=== PATIENT | female | born 1995 | race Caucasian/White ===

== ENCOUNTER 2022-12-11 08:39 | Outpatient (OUT) | payer OTHER, SELFPAY ==
--- NOTE | 2022-12-11 08:43 | US_ITS ---
[address] [address] Patient Name: OLIVIA RODRIGUEZ MRN: [id number] date: 1995 Sex: F Assigned Patient Location: US Current Patient Location: US Accession/Order Number: [id number] Exam Date: 12/11/2022 08:43 Report Date: 12/11/2022 18:10 At the request of: BABAR ANGUIANO Procedure: US OB transvaginal EXAMINATION: US OB transvaginal HISTORY: MISSED PERIOD COMPARISON: No relevant comparison available. FINDINGS: Reyes intrauterine gestation Gestational sac: 3.64 cm, 8 weeks 6 days CRL: 1.92 cm, 8 weeks 3 days Yolk sac: 4.2 mm Heart rate: 177 bpm Cervix: Closed, 4.1 cm The uterus is normal, anteverted, anteflexed The ovaries are normal. Right corpus luteal cyst Clinical age: 8 weeks 5 days Clinical SANDRA: 07/18/2023 Ultrasound age: 8 weeks 3 days Ultrasound SANDRA: 07/20/2023 US/US OB transvaginal IMPRESSION: Viable reyes intrauterine gestation measuring 8 weeks 3 days Electronically authenticated by: PJ SAM Date: 12/11/2022 18:10
== END 2022-12-11 08:40 | disposition home or self-care (01) ==
PROVIDERS: Visit Provider Obstetrics & Gynecology
DX: Z34.91 Encounter for supervision of normal pregnancy, unspecified, first trimester (principal); Z3A.08 8 weeks gestation of pregnancy; N92.6 Irregular menstruation, unspecified
CPT/HCPCS: 76817

== ENCOUNTER 2022-12-22 12:53 | Outpatient (OUT) | payer OTHER, SELFPAY ==
[2022-12-22 13:32] LABS: Basophils Percent Auto 0.3 % (0.2-2.0); Eosinophils Absolute Auto 0.1 10^3/uL (0.0-0.7); Eosinophils Percent Auto 1.3 % (0.9-7.0); Hematocrit 36.9 % (36.0-48.0); Hemoglobin 12.5 g/dL (12.0-16.0); Immature Granulocytes Abs Auto 0.03 10^3/uL (0.00-0.03); Immature Granulocytes Pct Auto 0.3 % (0.0-0.5); Lymphocytes Absolute Auto 1.3 10^3/uL (1.2-3.8); Lymphocytes Percent Auto 15.2 % (20.5-60.0); Mean Corpuscular HGB Conc 33.9 g/dL (29.9-35.2); Mean Corpuscular Hemoglobin 29.7 pg (26.7-34.0); Mean Corpuscular Volume 87.6 fL (81.0-99.0); Mean Platelet Volume 10.9 fL (9.5-13.5); Monocytes Absolute Auto 0.6 10^3/uL (0.3-0.8); Monocytes Percent Auto 6.4 % (1.7-12.0); Neutrophils Absolute Auto 6.6 10^3/uL (1.4-6.5); Neutrophils Percent Auto 76.5 % (43.0-75.0); Platelet Count 215 10^3/uL (150-450); Red Blood Count 4.21 10^6/uL (4.20-5.40); Red Cell Distribution Width 14.1 % (11.0-15.0); White Blood Count 8.7 10^3/uL (4.0-11.0)
[2022-12-22 13:58] LABS: Estimated Average Glucose 91 mg/dL; Glycohemoglobin A1C 4.8 % (4.5-6.2)
[2022-12-23 05:07] LABS: HCV Ab Non Reactive (Non Reactive); HIV Ab/p24 Ag Screen Non Reactive (Non Reactive); Rubella Antibodies, IgG 3.12 index (Immune >0.99)
[2022-12-23 06:09] LABS: HBsAg Screen Negative (Negative)
[2022-12-23 12:09] LABS: Rapid Plasma Reagin, Quant Non Reactive (NonRea<1:1)
== END 2022-12-22 12:54 | disposition home or self-care (01) ==
LOC: LAB 12:53
PROVIDERS: Visit Provider Obstetrics & Gynecology
DX: Z36.0 Encounter for antenatal screening for chromosomal anomalies (principal); Z34.81 Encounter for supervision of other normal pregnancy, first trimester; N92.6 Irregular menstruation, unspecified
CPT/HCPCS: 36415; 83036; 84443; 85025; 86592; 86706; 86762; 86803; 86850; 86900; 86901; 87086; 87389

== ENCOUNTER 2023-03-02 19:58 | Outpatient (OUT) | payer OTHER, SELFPAY ==
--- NOTE | 2023-03-02 | US_ITS ---
[address] [address] Patient Name: OLIVIA RODRIGUEZ MRN: [id number] date: 1995 Sex: F Assigned Patient Location: Current Patient Location: Accession/Order Number: [id number] Exam Date: 03/02/2023 20:35 Report Date: 03/03/2023 21:44 At the request of: BABAR ANGUIANO Procedure: US OB anatomy EXAMINATION: US OB anatomy, US OB transvaginal HISTORY: SECOND TRIMESTER Z34.92 COMPARISON: No relevant comparison available. TECHNIQUE: Transabdominal sonographic examination was performed for obstetrical and evaluation. FINDINGS: Number: 1 Heart Rate: 137.1 bpm H.B. /min Amniotic Fluid Volume: Subjectively normal Placental Location: POSTERIOR with lower margin 1.2 cm from os. Cervix Length: 5.5 cm, closed. ANATOMY: Normal Structures -cerebellum, choroid plexus, cisterna magna, lateral cerebral ventricles, orbits, midline falx, hard palate, four-chamber heart, stomach, kidneys, bladder, umbilical cord insertion into abdomen, three-vessel cord, cervical spine, thoracic spine, lumbar spine, right upper extremity, left upper extremity, right lower extremity, left lower extremity. SUBOPTIMALLY SEEN: Cardiac outflow tracts, diaphragm, sacral spine ABNORMALITIES: None BIOMETRY: BPD: 4.5 cm 19 weeks 3 days HC: 17.4 cm 19 weeks 6 days AC: 14.2 cm 19 weeks 4 days FL: 3.3 cm 20 weeks 3 days EFW:321.7 grams; 27% FL/AC: 23.5 FL/BPD: 74.7 HC/AC: 1.2 GESTATIONAL AGE: Age by EDC: 20 weeks 2 days SANDRA by EDC: 07/18/2023 Age by current US: 19 weeks 6 days SANDRA by current US: 07/21/2023 US/US OB anatomy IMPRESSION: 1. Single live intrauterine with growth detailed above. 2. Suboptimal visualization of the cardiac outflow tracts, diaphragm, sacral spine due to position. 3. Overall limited examination. Follow-up is recommended. Electronically authenticated by: FLO ALFONSO Date: 03/03/2023 21:44
--- NOTE | 2023-03-02 | US_ITS ---
[address] [address] Patient Name: OLIVIA RODRIGUEZ MRN: [id number] date: 1995 Sex: F Assigned Patient Location: Current Patient Location: Accession/Order Number: [id number] Exam Date: 03/02/2023 20:35 Report Date: 03/03/2023 21:44 At the request of: BABAR ANGUIANO Procedure: US OB transvaginal EXAMINATION: US OB anatomy, US OB transvaginal HISTORY: SECOND TRIMESTER Z34.92 COMPARISON: No relevant comparison available. TECHNIQUE: Transabdominal sonographic examination was performed for obstetrical and evaluation. FINDINGS: Number: 1 Heart Rate: 137.1 bpm H.B. /min Amniotic Fluid Volume: Subjectively normal Placental Location: POSTERIOR with lower margin 1.2 cm from os. Cervix Length: 5.5 cm, closed. ANATOMY: Normal Structures -cerebellum, choroid plexus, cisterna magna, lateral cerebral ventricles, orbits, midline falx, hard palate, four-chamber heart, stomach, kidneys, bladder, umbilical cord insertion into abdomen, three-vessel cord, cervical spine, thoracic spine, lumbar spine, right upper extremity, left upper extremity, right lower extremity, left lower extremity. SUBOPTIMALLY SEEN: Cardiac outflow tracts, diaphragm, sacral spine ABNORMALITIES: None BIOMETRY: BPD: 4.5 cm 19 weeks 3 days HC: 17.4 cm 19 weeks 6 days AC: 14.2 cm 19 weeks 4 days FL: 3.3 cm 20 weeks 3 days EFW:321.7 grams; 27% FL/AC: 23.5 FL/BPD: 74.7 HC/AC: 1.2 GESTATIONAL AGE: Age by EDC: 20 weeks 2 days SANDRA by EDC: 07/18/2023 Age by current US: 19 weeks 6 days SANDRA by current US: 07/21/2023 US/US OB transvaginal IMPRESSION: 1. Single live intrauterine with growth detailed above. 2. Suboptimal visualization of the cardiac outflow tracts, diaphragm, sacral spine due to position. 3. Overall limited examination. Follow-up is recommended. Electronically authenticated by: FLO ALFONSO Date: 03/03/2023 21:44
== END 2023-03-02 19:59 | disposition home or self-care (01) ==
PROVIDERS: Visit Provider Obstetrics & Gynecology
DX: Z34.92 Encounter for supervision of normal pregnancy, unspecified, second trimester (principal)
CPT/HCPCS: 76805; 76817

== ENCOUNTER 2023-03-15 16:00 | Outpatient (OUT) | payer OTHER, SELFPAY ==
[2023-03-18 02:07] LABS: AFP Value 72.3 ng/mL (.); Gest. Age on Collection Date 22.1 weeks (.); Gestat. Age Based On As provided (.); Insulin Dep Diabetes No (.); Maternal Age At EDD 30.2 yr (.); OSBR Risk 1 IN 8371 (.); Results Report (.)
== END 2023-03-15 16:01 | disposition home or self-care (01) ==
LOC: LAB 16:00
PROVIDERS: Visit Provider Obstetrics & Gynecology
DX: Z34.92 Encounter for supervision of normal pregnancy, unspecified, second trimester (principal)
CPT/HCPCS: 36415; 82105

== ENCOUNTER 2023-03-17 15:06 | Outpatient (OUT) | payer OTHER, SELFPAY ==
--- NOTE | 2023-03-17 15:08 | US_ITS ---
The [address] [address] Patient Name: OLIVIA RODRIGUEZ MRN: [id number] date: 1995 Sex: F Assigned Patient Location: Current Patient Location: Accession/Order Number: [id number] Exam Date: 03/17/2023 15:09 Report Date: 03/17/2023 21:21 At the request of: BABAR ANGUIANO Procedure: US OB incomplete anatomy EXAM: US OB incomplete anatomy HISTORY: INCOMPLETE ANATOMY COMPARISON: Ultrasound OB anatomy 03/02/2023 TECHNIQUE: Transabdominal ultrasound. FINDINGS: Presentation: Cephalic Heart rate: 145 bpm Anatomy: RVOT, LVOT, diaphragm, and spine visualized without appreciable abnormality. GA: 22 weeks 3 days SANDRA: 07/18/2023 US/US OB incomplete anatomy IMPRESSION: 1. Single live intrauterine . 2. No appreciable abnormality of the above listed anatomy. Electronically authenticated by: FLO ALFONSO Date: 03/17/2023 21:21
== END 2023-03-17 15:07 | disposition home or self-care (01) ==
LOC: US 15:06
PROVIDERS: Visit Provider Obstetrics & Gynecology
DX: Z36.2 Encounter for other antenatal screening follow-up (principal)
CPT/HCPCS: 76815

== ENCOUNTER 2023-04-13 08:53 | Outpatient (OUT) | payer OTHER, SELFPAY ==
[2023-04-13 10:09] LABS: Basophils Percent Auto 0.3 % (0.2-2.0); Eosinophils Absolute Auto 0.1 10^3/uL (0.0-0.7); Eosinophils Percent Auto 0.8 % (0.9-7.0); Hematocrit 34.8 % (36.0-48.0); Hemoglobin 11.4 g/dL (12.0-16.0); Immature Granulocytes Abs Auto 0.04 10^3/uL (0.00-0.03); Immature Granulocytes Pct Auto 0.4 % (0.0-0.5); Lymphocytes Absolute Auto 1.1 10^3/uL (1.2-3.8); Mean Corpuscular HGB Conc 32.8 g/dL (29.9-35.2); Mean Corpuscular Hemoglobin 31.1 pg (26.7-34.0); Mean Corpuscular Volume 94.8 fL (81.0-99.0); Mean Platelet Volume 10.6 fL (9.5-13.5); Monocytes Absolute Auto 0.5 10^3/uL (0.3-0.8); Neutrophils Absolute Auto 7.3 10^3/uL (1.4-6.5); Neutrophils Percent Auto 81.5 % (43.0-75.0); Platelet Count 179 10^3/uL (150-450); Red Blood Count 3.67 10^6/uL (4.20-5.40); Red Cell Distribution Width 13.4 % (11.0-15.0)
[2023-04-13 10:27] LABS: Glucose 1 Hour 108 mg/dL
== END 2023-04-13 08:54 | disposition home or self-care (01) ==
LOC: LAB 08:53
PROVIDERS: Visit Provider Obstetrics & Gynecology
DX: Z34.92 Encounter for supervision of normal pregnancy, unspecified, second trimester (principal)
CPT/HCPCS: 36415; 82950; 85025

== ENCOUNTER 2023-04-26 09:34 | Outpatient (OUT) | payer OTHER, SELFPAY ==
--- NOTE | 2023-04-26 09:34 | US_ITS ---
[address] [address] Patient Name: OLIVIA RODRIGUEZ MRN: [id number] date: 1995 Sex: F Assigned Patient Location: US Current Patient Location: Accession/Order Number: [id number] Exam Date: 04/26/2023 09:38 Report Date: 04/26/2023 15:18 At the request of: BABAR ANGUIANO Procedure: US OB growth EXAMINATION: US OB growth HISTORY: SIZE INCONSISTENT WITH DATES O26.849 COMPARISON: Ultrasound OB anatomy 03/02/2023 FINDINGS: Heart Rate: 148.0 bpm Number: 1.0 Position: CEPHALIC Amniotic Fluid Volume: 9.6 cm Maximum Vertical Pocket: 3.7 cm BIOMETRY: BPD: 7.2 cm cm; 29 weeks 0 days; 65% HC: 27.1 cmcm; 29 weeks 4 days ; 64% AC: 21.8 cm cm; 26 weeks 2 days; 4% FL: 5.3 cm cm; 28 weeks 0 days; 29% EFW: 1055.9 grams; 13% FL/AC: 24.1 FL/BPD: 72.8 HC/AC: 1.3 GESTATIONAL AGE: Age by EDC: 28 weeks 1 days SANDRA by EDC: 07/18/2023 Age by US: 27 weeks 6 days SANDRA by US: 07/20/2023 US/US OB growth IMPRESSION: 1. Single live intrauterine with growth detailed above. 2. Abdominal circumference is at 4th percentile. Electronically authenticated by: FLO ALFONSO Date: 04/26/2023 15:18
== END 2023-04-26 09:35 | disposition home or self-care (01) ==
LOC: US 09:34
PROVIDERS: Visit Provider Obstetrics & Gynecology
DX: O26.843 Uterine size-date discrepancy, third trimester (principal); Z3A.28 28 weeks gestation of pregnancy
CPT/HCPCS: 76816

== ENCOUNTER 2023-05-06 14:54 | Outpatient (OUT) | payer OTHER, SELFPAY ==
--- NOTE | 2023-05-06 14:58 | US_ITS ---
[address] [address] Patient Name: OLIVIA RODRIGUEZ MRN: [id number] date: 1995 Sex: F Assigned Patient Location: Current Patient Location: Accession/Order Number: [id number] Exam Date: 05/06/2023 14:59 Report Date: 05/07/2023 07:25 At the request of: BABAR ANGUIANO Procedure: US OB amniotic fluid vol EXAMINATION: US OB amniotic fluid vol HISTORY: Low Amniotic Fluid Volume O41.00X0 COMPARISON: 04/26/2023 FINDINGS: position: Cephalic presentation, longitudinal lie Amniotic fluid volume: 13.6 cm, normal. Largest fluid pocket: 5 cm Heart rate: 145 bpm US/US OB amniotic fluid vol IMPRESSION: Normal amniotic fluid volume Electronically authenticated by: PJ SAM Date: 05/07/2023 07:25
== END 2023-05-06 14:55 | disposition home or self-care (01) ==
LOC: US 14:54
PROVIDERS: Visit Provider Obstetrics & Gynecology
DX: Z36.2 Encounter for other antenatal screening follow-up (principal); O41.00X0 Oligohydramnios, unspecified trimester, not applicable or unspecified
CPT/HCPCS: 76815

== ENCOUNTER 2023-05-18 11:45 | Emergency (ER) | payer OTHER, SELFPAY ==
[2023-05-18 11:47] VITALS: BP 107/70; PULSE 93; RESP 18; TEMP 36.9; O2SAT 95; BMI 31.3
[2023-05-18 12:27] LABS: Influenza Virus A Antigen Negative; Influenza Virus B Antigen Positive; Internal Control Within Normal Limits; SARS-CoV-2 Ag NEGATIVE (NEGATIVE); Strep A Antigen Screen Negative
--- NOTE | 2023-05-18 12:56 | ED.GENADUL1 ---
HPI - General Adult General Chief complaint: Upper Respiratory Infection Stated complaint: CONGESTION/COUGH Time Seen by Provider: 05/18/23 11:55 Source: patient Mode of arrival: walk-in Limitations: no limitations History of Present Illness HPI narrative: cough and congestion for the last 3 days. She took tylenol around 11am for achiness. No fever or chills at home. No shortness of breath. She is 31 weeks Related Data Previous Rx's Medication Instructions Recorded oseltamivir 75 mg capsule (Tamiflu) 75 mg PO BID 5 days #10 caps 05/18/23 Allergies Allergy/AdvReac Type Severity Reaction Status Date / Time sulfamethoxazole AdvReac Severe Hives Verified 05/18/23 11:51 [From Bactrim] trimethoprim [From Bactrim] AdvReac Severe Hives Verified 05/18/23 11:51 PFSH PFSH Social History Smoking status: Never smoker Exam Narrative Exam Narrative: Nurses notes and vital signs reviewed and patient is not hypoxic. afebrile General: Well-appearing and in no apparent distress. Skin: Warm, dry, no pallor noted. No rash. Neck: Supple, non-tender. No meningismus Eye: Pupils are equal, round and EOMI. No scleral icterus. Ears, Nose, Mouth, and Throat: TM are clear, mild posterior oropharynx erythema and mild nasal mucosal hypertrophy, uvula is mid-line Oral mucosa is moist Cardiovascular: Regular Rate and Rhythm without murmur, gallop or rub. Respiratory: No accessory muscle use or respiratory distress. Lungs are clear to auscultation, no wheezing, rales or rhonchi Musculoskeletal: normal ROM, no calf or popliteal tenderness, no lower extremity edema/swelling Neurological: A&O x4. No cranial nerve dysfunction observed. No truncal ataxia. Moves all extremities. Sensation intact. Psychiatric: Cooperative and interactive. Normal mood and affect. Constitutional Vital Signs, click to edit/add: Last Vital Signs Temp 98.5 F 05/18/23 11:47 Pulse 93 H 05/18/23 11:47 Resp 18 05/18/23 11:47 BP 107/70 05/18/23 11:47 Pulse Ox 95 05/18/23 11:47 O2 Del Method Room Air 05/18/23 11:47 Course Vital Signs Vital signs: Vital Signs Temperature 98.5 F 05/18/23 11:47 Pulse Rate 93 H 05/18/23 11:47 Respiratory Rate 18 05/18/23 11:47 Blood Pressure 107/70 05/18/23 11:47 Pulse Oximetry 95 05/18/23 11:47 Oxygen Delivery Method Room Air 05/18/23 11:47 Temperature 98.5 F 05/18/23 11:47 Pulse Rate 93 H 05/18/23 11:47 Respiratory Rate 18 05/18/23 11:47 Blood Pressure 107/70 05/18/23 11:47 Pulse Oximetry 95 05/18/23 11:47 Oxygen Delivery Method Room Air 05/18/23 11:47 Medical Decision Making MDM Narrative Medical decision making narrative: The patient tested positive for influenza B. The other screens were negative. The patient was prescribed tamiflu. Her OB is Dr Olsen. Patient advised to rest, stay at home, practice social distancing, take Motrin and Tylenol for pain and fever if not allergic, stay well hydrated with Gatorade or similar drinks if vomiting or eat as tolerated if not and take any meds as prescribed. Reviewed reasons to return including rapid increase in respiratory rate, shortness of breath, confusion, inability to keep down sips of swallowed liquids for more than 24 hours. Asked patient to encourage any ill contacts to stay home and practice similar advice. Lab Data Lab results reviewed: Yes I reviewed the patient's lab results Labs: Lab Results 05/18/23 Range/Units 11:55 SARS-CoV-2 (PCR) Negative (NEGATIVE) Influenza Type A Ag Negative Influenza Type B Ag Positive A Streptococcus Screen Negative Discharge Plan Discharge Chief Complaint: Upper Respiratory Infection Clinical Impression: Upper respiratory infection, Influenza Patient Disposition: Home, Self-Care Time of Disposition Decision: 12:59 Prescriptions / Home Meds: New oseltamivir [Tamiflu] 75 mg capsule 75 mg PO BID 5 Days Qty: 10 0RF Instructions: Influenza (ED), Upper Respiratory Infection (ED) Stand Alone Forms: Portal Instructions Referrals: Physician,Non-Staff, MD [Primary Care Provider] - 1 week
[2023-05-19 15:47] LABS: SARS-CoV-2 NAA INCONCLUSIVE (NOT DETECTE)
== END 2023-05-18 13:05 | disposition home or self-care (01) ==
PROVIDERS: Emergency Provider Emergency Medicine
DX: O99.513 Diseases of the respiratory system complicating pregnancy, third trimester (principal); J10.1 Influenza due to other identified influenza virus with other respiratory manifestations; Z3A.31 31 weeks gestation of pregnancy; Z20.822 Contact with and (suspected) exposure to COVID-19
CPT/HCPCS: 87070; 87635; 87804; 87811; 87880; 99283

== ENCOUNTER 2023-05-24 16:23 | Emergency (ER) | payer OTHER, SELFPAY ==
[2023-05-24 16:30] VITALS: BP 132/86; PULSE 87; RESP 18; TEMP 36.6; O2SAT 100; BMI 29.5
--- NOTE | 2023-05-24 16:34 | PC.NURSE ---
PT TESTED POSITIVE FOR INFLUENZA A 10 DAYS AGO. PT STATES FEELS LIKE EVERTHING IS SETTLING IN CHEST AND COUGHING UP THICK YELLOW SPUTUM. COMPLETED TAMIFLU
--- NOTE | 2023-05-24 16:36 | XR_ITS ---
The [address] [address] Patient Name: OLIVIA RODRIGUEZ MRN: [id number] date: 1995 Sex: F Assigned Patient Location: ED.MAIN Current Patient Location: Accession/Order Number: [id number] Exam Date: 05/24/2023 16:50 Report Date: 05/24/2023 19:07 At the request of: SILVIA WELSH Procedure: XR chest 1V EXAMINATION: XR chest 1V, , 05/24/2023 4:50 PM EST INDICATION: cough HISTORY: Ordering Provider Reason for Exam: cough Technologist Note: Additional: COMPARISON: None. TECHNIQUE: Chest x-ray: One view. FINDINGS: No pneumothorax, pleural effusion or focal airspace consolidation. Heart is normal in size. Bony thorax is unremarkable. XR/XR chest 1V IMPRESSION: No acute cardiopulmonary process. Electronically authenticated by: LEONORA CASANOVA Date: 05/24/2023 19:07
--- OUTSIDE RECORDS SUMMARY | 2023-05-24 16:36 | XMS_ITS | CCD ---
Author Name Unknown Address [id number] [place] [address] Organization [facility] Care Team Providers Care Animal Physiology Teacher Name Role Phone SIMRAN DUONG Unavailable Unavailable [facility] Primary Care Unavailable ANNMARIE ., DR ECKERT Consulting Unavailable ANNMARIE ., DR ECKERT Attending Unavailable ANNMARIE ., DR ECKERT Procedure Practitioner Unavail able ANNMARIE ., DR ECKERT Admitting Unavailable AGUBOSIEDA Curry Consulting Unavailable ARLETTE MARROQUIN Consulting Unavailable KARASIK ., DR SCOTT Admitting Unavailabl e KARASIK ., DR SCOTT Consulting Unavailabl e ROSETTE, GILBERT Primary Care Unavailable KARASIK ., DR SCOTT Attending Unavailabl e ANNMARIE ., DR ECKERT Admitting Unavailable [facility] Primary Care Unavailable ANNMARIE ., DR ECKERT Consulting Unavailable ANNMARIE ., DR ECKERT Attending Unavailable KARASIK ., DR SCOTT Attending Unavailabl e KARASIK ., DR SCOTT Admitting Unavailabl e KARASIK ., DR SCOTT Consulting Unavailabl e ROSETTE, GILBERT Primary Care Unavailable [place], DR PJ Araujo Consulting Unavailable ANNMARIE ., DR ECKERT Consulting Unavailable KARASIK ., DR SCOTT Attending Unavailabl e KARASIK ., DR SCOTT Admitting Unavailabl e KARASIK ., DR SCOTT Consulting Unavailabl e ROSETTE, GILBERT Primary Care Unavailable ANNMARIE ., DR ECKERT Consulting Unavailable Policaro, Samira Consulting Unavailable ROSETTE, GILBERT Primary Care Unavailable CARBALLO, TONNY Attending Unavailable CARBALLO, TONNY Admitting Unavailable ROSETTE, GILBERT Primary Care Unavailable ANNMARIE ., DR ECKERT Attending Unavailable ANNMARIE ., DR ECKERT Consulting Unavailable ANNMARIE ., DR ECKERT Admitting Unavailable [facility] Unavailable ANNMARIE ., DR ECKERT Attending Unavailable ANNMARIE ., DR ECKERT Admitting Unavailable [facility] Primary Care Unavailable ANNMARIE ., DR ECKERT Attending Unavailable ANNMARIE ., DR ECKERT Admitting Unavailable ANNMARIE ., DR ECKERT Consulting Unavailable [facility] Unavailable ANNMARIE ., DR ECKERT Attending Unavailable ANNMARIE ., DR ECKERT Admitting Unavailable Arlette Fofana Unavailable LISSY JOSEPH Attending Unavailable BABAR OLSEN Attending Unavailable Allergies Allergy Classification Reported Allergen(s) Allergy Type Date of Onset Reaction(s) Facility (1 source) Chlorhexidine Drug Allergy [facility] Repository (1 source) Sulfamethoxazole / Trimethoprim Drug Allergy [facility] (1 source) Chlorhexidine Drug Allergy [facility] Other (1 source) Sulfamethoxazole / Trimethoprim Drug Allergy [facility] Other (1 source) Darvocet-N 50 Drug allergy [facility] Other Medications Current Medications Medication Drug Class(es) Dates Sig (Normalized) Sig (Original) amoxicillin 500 mg oral capsule (1 source) Penicillin-class Antibacterial Start: 10-05-2022 take 1 capsule by mouth every eight hours Amoxicillin 500 MG 1 capsule Orally three times a day for 10 day(s) September, Active Problems Active Problems Problem Classification Problem Date Documented Da te Episodic/Chronic Asthma (1 source) Unspecified asthma, uncomplicated; Translations: [UNSPECIFIED ASTHMA UNCOMPLICATED] Onset: 10-13-2021 Chronic Bacterial infection; unspecified site (1 source) Other specified bacterial agents as the cause of diseases classified elsewhere Episodic Other bone disease and musculoskeletal deformities (1 source) Costal chondritis; Translations: [Chondrocostal junction syndrome [Tietze]] Episodic Other non-traumatic joint disorders (4 sources) Pain in unspecified hip; Translations: [PAIN IN UNSPECIFIED HIP] Onset: 07-20-2022 Episodic Other upper respiratory infections (2 sources) Acute pharyngitis, unspecified; Translations: [Acute pharyngitis due to other specified organisms] Episodic Unclassified (1 source) CONTACT W/AND (SUSP) EXPOS COVID-19; Translations: [CONTACT W/AND (SUSP) EXPOS COVID-19] Onset: 10-08-2021 Past or Other Problems Problem Classification Problem Date Documented Da te Episodic/Chronic Immunizations and screening for infectious disease (1 source) Encounter for screening for human papillomavirus (HPV); Translations: [ENC SCREENING HUMAN PAPILLOMAVIRUS] Onset: 04-20-2022 Episodic Nonspecific chest pain (1 source) Other chest pain; Translations: [Other chest pain] Onset: 08-14-2017 Episodic Other aftercare (1 source) Other long term care phlebotomist (current) drug therapy; Translations: [OTH TRANSPORT MANAGER CURRENT 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] Onset: 10-13-2021 Episodic Other bone disease and musculoskeletal deformities (1 source) Chondrocostal junction syndrome [Tietze]; Translations: [Chondrocostal junction syndrome (tietze)] Onset: 08-14-2017 Episodic Other complications of ; puerperium affecting management of mother (1 source) Diseases of the respiratory system complicating childbirth; Translations: [DISEASES RESP SYS COMP CHILDBIRTH] Onset: 10-13-2021 Episodic Other complications of (5 sources) Maternal care for other known or suspected poor growth, third trimester, not applicable or unspecified; Translations: [MAT CARE OT SC FTL GRTH 3RD TM UNS] Onset: 10-04-2021 Episodic Other and delivery including normal (9 sources) Encounter for care and examination of lactating mother; Translations: [Encounter for routine follow-up] Onset: 10-13-2021 Episodic Other screening for suspected conditions (not mental disorders or infectious disease) (4 sources) Encounter for screening for malignant neoplasm of cervix; Translations: [ENC SCREENING MALIG NEOPLASM CERV] Onset: 04-15-2022 Episodic Polyhydramnios and other problems of amniotic cavity (1 source) Oligohydramnios, third trimester, not applicable or unspecified; Translations: [OLIGOHYDRAMNIOS THIRD TRI NA/UNS] Onset: 10-13-2021 Episodic Previous (3 sources) Maternal care for low transverse scar from previous delivery; Translations: [Maternal care for vertical scar from previous delivery] Onset: 10-06-2021 Episodic Residual codes; unclassified (1 source) 39 weeks gestation of ; Translations: [39 WEEKS GESTATION OF ] Onset: 10-13-2021 Episodic Residual codes; unclassified (1 source) 38 weeks gestation of ; Translations: [38 WEEKS GESTATION OF ] Onset: 10-03-2021 Episodic Residual codes; unclassified (1 source) 37 weeks gestation of ; Translations: [37 WEEKS GESTATION OF ] Onset: 09-25-2021 Episodic Results Test Name Value Interpretation Reference Range Facility [facility] 10-05-2022 S. pyogenes Org specific cx Ql (Throat) Negative [facility] Other [facility] [employer] Other PAP ACOG PANEL 2: 21 to 29on 04-24-2022 . . Normal [facility] Comment on above: Performed By: #### [id number] #### [facility] [address] [place] [address] Dr. Winifred Silver Age Gdln ACOG Testing Normal [facility] Comment on above: Performed By: #### [id number] #### [facility] [address] [address] [address] Winifred Silver DIAGNOSIS: Comment [facility] Comment on above: Result Comment: NEGATIVE FOR INTRAEPITHE LIAL LESION OR MALIGNANCY. Performed By: #### [id number] #### [facility] [address] [address] [address] Winifred Silver Methodology: Comment Normal [facility] Comment on above: Result Comment: This liquid based ThinPr ep(R) pap test was screened with the use of an image guided system. Performed By: #### [id number] #### [facility] [address] [address] [address] Winifred Silver Note: Comment [facility] Comment on above: Result Comment: The Pap smear is a scree marlo test designed to aid in the detection of premalignant and malignant conditions of the uterine cervix. It is not a diagnostic procedure and should not be used as the sole means of detecting cervical cancer. Both false-positive and false-negative reports do occur. . Performed By: #### [id number] #### [facility] [address] [address] [address] Winifred Silver Performed by: Comment Normal [facility] Comment on above: Result Comment: [employer] nologist (ASCP) Performed By: #### [id number] #### [facility] [address] [address] [address] Winifred Silver Reflex Criteria: Comment Normal [facility] Comment on above: Result Comment: The HPV DNA reflex crite ana were not met with this specimen result therefore, no HPV testing was performed. . Performed By: #### [id number] #### [facility] [address] [address] [address] Winifred Silver Specimen adequacy: Comment Normal [facility] Comment on above: Result Comment: Satisfactory for evaluat ion. Endocervical and/or squamous metaplastic cells (endocervical component) are present. Performed By: #### [id number] #### [facility] [address] [address] [address] Winifred Silver CBC AUTO DIFFon 10-07-2021 BASO # 0.1 103/ul Normal 0.0-0.1 [facility] Comment on above: Performed By: #### CBC ####[facility] [address] [address]DrDarius Silver Basophils/100 WBC (Bld) 0.6 % Normal 0.2-2.0 [facility] Comment on above: Performed By: #### CBC ####[facility] [address] [address]DrDarius Silver EO # 0.3 103/ul Normal 0.0-0.7 [facility] Comment on above: Performed By: #### CBC ####[facility] [address] [address]DrDarius Silver Eosinophils/100 WBC (Bld) 2.6 % Normal 0.9-7.0 [facility] Comment on above: Performed By: #### CBC ####[facility] [address] [place], [place] [address]DrDarius Vitale Silver Erythrocyte distribution width (RBC) [Ratio] 13.1 % Normal 11.0-15.0 [facility] Comment on above: Performed By: #### CBC ####[facility] [address] [address]Dr. Winifred Silver Hematocrit (Bld) [Volume fraction] 26.6 % Critically low 36.0-48.0 [facility] Comment on above: Performed By: #### CBC ####[facility] [address] [address]Dr. Winifred Silver Hemoglobin (Bld) [Mass/Vol] 8.7 g/dL Critically low 12.0-16.0 [facility] Comment on above: Performed By: #### CBC ####[facility] [address] [address]Dr. Winifred Silver IG # 0.04 10e3/ul Critically high 0.00-0.03 [facility] Comment on above: Performed By: #### CBC ####[facility] [address] [address]Dr. Jolenedaylin Silver IG % 0.4 % Normal 0.0-0.5 [facility] Comment on above: Performed By: #### CBC ####[facility] [address] [address]Dr. Jolenedaylin Silver LYMPH # 1.4 103/ul Normal 1.2-3.8 [facility] Comment on above: Performed By: #### CBC ####[facility] [address] [address]Dr. Winifred Silver Lymphocytes/100 WBC (Bld) 13.8 % Critically low 20.5-60.0 [facility] Comment on above: Performed By: #### CBC ####[facility] [address] [address]Dr. Winifred Silver MANUAL DIFF REQ NO Normal [facility] Comment on above: Performed By: #### CBC ####[facility] [address] [address]Dr. Winifred Silver MCH (RBC) [Entitic mass] 29.6 pg Normal 26.7-34.0 [facility] Comment on above: Performed By: #### CBC ####[facility] [address] [address]Dr. Winifred Silver MCHC (RBC) [Mass/Vol] 32.7 g/dL Normal 29.9-35.2 [facility] Comment on above: Performed By: #### CBC ####[facility] [address] [address]Dr. Winifred Silver MCV (RBC) [Entitic vol] 90.5 fL Normal 81.0-99.0 [facility] Comment on above: Performed By: #### CBC ####[facility] [address] [address]Dr. Winifred Silver MONO # 0.6 103/ul Normal 0.3-0.8 [facility] Comment on above: Performed By: #### CBC ####[facility] [address] [address]Dr. Winifred Nadeem Monocytes/100 WBC (Bld) 6.1 % Normal 1.7-12.0 [facility] Comment on above: Performed By: #### CBC ####[facility] [address] [address]Dr. Winifred Silver NEUT # 7.8 103/ul Critically high 1.4-6.5 [facility] Comment on above: Performed By: #### CBC ####[facility] [address] [address]Dr. Winifred Nadeem Neutrophils/100 WBC (Bld) 76.5 % Critically high 43.0-75.0 [facility] Comment on above: Performed By: #### CBC ####[facility] [address] [place], [place] [address]Dr. Winifred Silver Platelet mean volume (Bld) [Entitic vol] 10.5 fL Normal 9.5-13.5 [facility] Comment on above: Performed By: #### CBC ####[facility] [address] [id number] Silver PLT 147 103/ul Critically low 150-450 [facility] Comment on above: Performed By: #### CBC ####[facility] [address] [id number] Winifred Silver RBC 2.94 106/ul Critically low 4.20-5.40 [facility] Comment on above: Performed By: #### CBC ####[facility] [address] [address]Dr. Winifred Silver WBC 10.2 103/ul Normal 4.0-11.0 [facility] Comment on above: Performed By: #### CBC ####[facility] [address] [address]DrDarius Silver CBC AUTO DIFFon 10-06-2021 BASO # 0.0 103/ul Normal 0.0-0.1 [facility] Comment on above: Performed By: #### CBC #### [facility] [address] [address] [address] Winifred Silver Basophils/100 WBC (Bld) 0.3 % Normal 0.2-2.0 [facility] Comment on above: Performed By: #### CBC #### [facility] [address] [address] [address] Winifred Silver EO # 0.1 103/ul Normal 0.0-0.7 [facility] Comment on above: Performed By: #### CBC #### [facility] [address] [address] [address] Winifred Silver Eosinophils/100 WBC (Bld) 1.4 % Normal 0.9-7.0 [facility] Comment on above: Performed By: #### CBC #### [facility] [address] [address] [address] Winifred Silver Erythrocyte distribution width (RBC) [Ratio] 13.0 % Normal 11.0-15.0 [facility] Comment on above: Performed By: #### CBC #### [facility] [address] [address] [address] Winifred Silver Hematocrit (Bld) [Volume fraction] 32.3 % Critically low 36.0-48.0 [facility] Comment on above: Performed By: #### CBC #### [facility] [address] [place] [address] Dr. Winifred Silver Hemoglobin (Bld) [Mass/Vol] 10.6 g/dL Critically low 12.0-16.0 [facility] Comment on above: Performed By: #### CBC #### [facility] [address] [place] [address] Dr. Winifred Silver IG # 0.05 10e3/ul Critically high 0.00-0.03 [facility] Comment on above: Performed By: #### CBC #### [facility] [address] [place] [address] Dr. Winifred Silver IG % 0.5 % Normal 0.0-0.5 [facility] Comment on above: Performed By: #### CBC #### [facility] [address] [place] [address] Dr. Winifred Silver LYMPH # 1.5 103/ul Normal 1.2-3.8 [facility] Comment on above: Performed By: #### CBC #### [facility] [address] [place] [address] Dr. Winifred Silver Lymphocytes/100 WBC (Bld) 14.6 % Critically low 20.5-60.0 [facility] Comment on above: Performed By: #### CBC #### [facility] [address] [place] [address] Dr. Winifred Silver MANUAL DIFF REQ NO Normal [facility] Comment on above: Performed By: #### CBC #### [facility] [address] [place] [address] Dr. Winifred Silver MCH (RBC) [Entitic mass] 29.4 pg Normal 26.7-34.0 [facility] Comment on above: Performed By: #### CBC #### [facility] [address] [place] [address] Dr. Winifred Silver MCHC (RBC) [Mass/Vol] 32.8 g/dL Normal 29.9-35.2 [facility] Comment on above: Performed By: #### CBC #### [facility] [address] [place] [address] Dr. Winifred Silver MCV (RBC) [Entitic vol] 89.7 fL Normal 81.0-99.0 [facility] Comment on above: Performed By: #### CBC #### [facility] [address] [place] [address] Dr. Winifred Silver MONO # 0.7 103/ul Normal 0.3-0.8 [facility] Comment on above: Performed By: #### CBC #### [facility] [address] [place] [address] Dr. Winifred Silver Monocytes/100 WBC (Bld) 6.5 % Normal 1.7-12.0 [facility] Comment on above: Performed By: #### CBC #### [facility] [address] [place] [address] Dr. Winifred Silver NEUT # 7.7 103/ul Critically high 1.4-6.5 [facility] Comment on above: Performed By: #### CBC #### [facility] [address] [place] [address] Dr. Winifred Silver Neutrophils/100 WBC (Bld) 76.7 % Critically high 43.0-75.0 [facility] Comment on above: Performed By: #### CBC #### [facility] [address] [place] [address] Dr. Winifred Silver Platelet mean volume (Bld) [Entitic vol] 11.1 fL Normal 9.5-13.5 [facility] Comment on above: Performed By: #### CBC #### [facility] [address] [place] [address] Dr. Winifred Silver PLT 204 103/ul Normal 150-450 [facility] Comment on above: Performed By: #### CBC #### [facility] [address] [place] [address] Dr. Winifred Silver RBC 3.60 106/ul Critically low 4.20-5.40 [facility] Comment on above: Performed By: #### CBC #### [facility] [address] [address] [address] Winifred Silver WBC 10.0 103/ul Normal 4.0-11.0 [facility] Comment on above: Performed By: #### CBC #### [facility] [address] [address] [address] Winifred Silver DRUG SCREEN RAPID (URINE)on 10-06-2021 AMP Negative Normal NEGATIVE [facility] Comment on above: Performed By: #### DRUGRPD #### [facility] [address] [address] [address] Winifred Silver BAR Negative Normal NEGATIVE [facility] Comment on above: Performed By: #### DRUGRPD #### [facility] [address] [place] [address] Dr. Winifred Silver BUP Negative Normal NEGATIVE [facility] Comment on above: Performed By: #### DRUGRPD #### [facility] [address] [address] [address] Winifred Silver BZO Negative Normal NEGATIVE [facility] Comment on above: Performed By: #### DRUGRPD #### [facility] [address] [place] [address] Dr. Winifred Silver TIN Negative Normal NEGATIVE [facility] Comment on above: Performed By: #### DRUGRPD #### [facility] [address] [place] [address] Dr. Winifred Silver CUT-OFFS SEE BELOW Normal [facility] Comment on above: Result Comment: AMP (Amphetamine): 500ng /mL, BAR (Barbituates): 200 ng/mL, BZO (Benzodiazepines): 150 ng/mL, BUP (Buprenorphine): 10 ng/mL, TIN (Cocaine): 150 ng/mL, mAMP (Methamphetamine): 500 ng/mL, MTD (Methadone): 200 ng/mL, OPI (Opiates): 100 ng/mL, OXY (Oxycodone): 100 ng/mL, PCP (Phencyclidine): 25 ng/mL, PPX (Propoxyphene): 300 ng/mL, THC (Cannabinoids): 50 ng/mL, TCA (Trycyclic Antidepressants): 300 ng/mL Performed By: #### D RUGRPD #### [facility] [address] [address] [address] Winifred Silver DRUG CUT HEADER DRUG CLASS TEST SYST EM CUT-OFF CONCENTRATIONS ARE FOLLOWS: Normal [facility] Comment on above: Performed By: #### DRUGRPD #### [facility] [address] [address] [address] Winifred Silver mAMP Negative Normal NEGATIVE [facility] Comment on above: Performed By: #### DRUGRPD #### [facility] [address] [address] [address] Winifred Silver MTD Negative Normal NEGATIVE [facility] Comment on above: Performed By: #### DRUGRPD #### [facility] [address] [place] [address] Dr. Winifred Silver OPI Negative Normal NEGATIVE [facility] Comment on above: Performed By: #### DRUGRPD #### [facility] [address] [place] [address] Dr. Winifred Silver OXY Negative Normal NEGATIVE [facility] Comment on above: Performed By: #### DRUGRPD #### [facility] [address] [place] [address] Dr. Winifred Silver PCP Negative Normal NEGATIVE [facility] Comment on above: Performed By: #### DRUGRPD #### [facility] [address] [place] [address] Dr. Winifred Silver PPX Negative Normal NEGATIVE [facility] Comment on above: Performed By: #### DRUGRPD #### [facility] [address] [place] [address] Dr. Winifred Silver TCA Negative Normal NEGATIVE [facility] Comment on above: Performed By: #### DRUGRPD #### [facility] [address] [place] [address] Dr. Winifred Silver THC Negative Normal NEGATIVE [facility] Comment on above: Performed By: #### DRUGRPD #### [facility] [address] [place] [address] Dr. Yilan Silver TYPE AND SCREENon 10-06-2021 TYPE AND SCREEN Negative Normal [facility] Comment on above: Performed By: #### TNS #### [facility] [address] [place] [address] Dr. Winifred Silver UA (CLEAN/CATCH) SUBSTATION ENGINEER/MICRO I F IND.on 10-06-2021 Bilirubin Ql (U) Negative Normal NEGATIVE [facility] Comment on above: Performed By: #### UACSIND #### [facility] [address] [place] [address] Dr. Winifred Silver Clarity (U) CLEAR Normal CLEAR [facility] Comment on above: Performed By: #### UACSIND #### [facility] [address] [place] [address] Dr. Winifred Silver Color (U) LT. YELLOW Normal YELLOW [facility] Comment on above: Performed By: #### UACSIND #### [facility] [address] [place] [address] Dr. Winifred Silver Glucose Ql (U) Negative Normal NEGATIVE [facility] Comment on above: Performed By: #### UACSIND #### [facility] [address] [place] [address] Dr. Winifred Silver Hemoglobin Ql (U) Negative Normal NEGATIVE [facility] Comment on above: Performed By: #### UACSIND #### [facility] [address] [place] [address] Dr. Winifred Silver Ketones Ql (U) Negative Normal NEGATIVE [facility] Comment on above: Performed By: #### UACSIND #### [facility] [address] [place] [address] Dr. Winifred Silver LEUKOCYTES Negative Normal NEGATIVE [facility] Comment on above: Performed By: #### UACSIND #### [facility] [address] [place] [address] Dr. Winifred Silver Nitrite Ql (U) Negative Normal NEGATIVE [facility] Comment on above: Performed By: #### UACSIND #### [facility] [address] [place] [address] Dr. Winifred Silver pH (U) 6.0 [pH] Normal 5-9 [facility] Comment on above: Performed By: #### UACSIND #### [facility] [address] [place] [address] Dr. Winifred Silver SPEC GRAVITY 1.025 Normal 1.005-<=1.02 5 [facility] Comment on above: Performed By: #### UACSIND #### [facility] [address] [place] [address] Dr. Winifred Silver UA PROTEIN Negative Normal NEGATIVE/ TRACE [facility] Comment on above: Performed By: #### UACSIND #### [facility] [address] [place] [address] Dr. Winifred Silver UR MICRO IND NOT INDICATED Normal [facility] Comment on above: Performed By: #### UACSIND #### [facility] [address] [place] [address] Dr. Winifred Silver Urobilinogen Qn (U) 0.2 {Fredrick'U}/dL Normal 0.2 - 1.0 [facility] Comment on above: Performed By: #### UACSIND #### [facility] [address] [place] [address] Dr. Winifred Silver Covid-19 PCR ([place] [facility])on 09-21 SARS-CoV-2 (COVID-19) RNA JENARO+probe Ql (Unsp spec) Not detected Normal NOT DETECTED [facility] Comment on above: Result Comment: This test is not yet sheri roved or cleared by the [place] FDA. When there are no FDA-approved or cleared tests available, and other criteria are met, FDA can make tests available under an emergency access mechanism called an Emergency Use Authorization (EUA). The EUA for this test is supported by the [place] of Health and Human Service's (HHS's) declaration that circumstances exist to justify the emergency use of in vitro diagnostics for the detection and/or diagnosis of the virus that causes COVID-19. This EUA will remain in effect (meaning this test can be used) for the duration of the COVID-19 declaration justifying emergency of IVDs, unless it is terminated or revoked by FDA (after which the test may no longer be used). When diagnostic testing is negative, the possibility of a false negative should be considered in the context of a patient's recent exposures and the presence of clinical signs and symptoms consistent with SARS-CoV-2. Performed By: #### C TB #### [facility] [address] [place] [address] Dr. Winifred Silver US PREG GROWTHon 10-01-2021 US PREG GROWTH ULTRASOUND UMBILICAL ARTERY AND ULTRASOUND GROWTH AND US BIOPHYSICAL PROFILE WITH NON STRESS HISTORY: High risk . COMPARISON: Ultrasound 09/24/2021. FINDINGS: There is a single intrauterine with heart tones of 150 bpm. The fetus is in the cephalic presentation and longitudinal lie. The placenta is of grade 2. There is a single umbilical artery with peak systolic velocities as follows in cm/s: Proximal: 44.8 Mid: 78 Distal: 91 The resistive indices ranged separate from 0.59-0.69. BPP not performed. IMPRESSION: Single viable intrauterine . Electronically authenticated by: SAMIRA VELA Date: 2021-10-01 19:22 Normal [facility] US PREG BIOPHY W NON STRESSo n 09-25-2021 US PREG BIOPHY W NON STRESS EXAMINATION: US PREG BIOPHY W NON STRESS HISTORY: Oligohydramnios COMPARISON: No relevant comparison available. TECHNIQUE: Ultrasound biophysical profile was performed in the radiology department. FINDINGS: BREATHING MOVEMENTS: 2.0 GROSS BODY MOVEMENTS: 2.0 TONE: 2.0 QUALITATIVE AMNIOTIC FLUID VOLUME: 2.0 PRESENTATION: CEPHALIC HEART RATE: 113.3 bpm H.B./min AMNIOTIC FLUID VOLUME: 9.9 cm cm GESTATIONAL AGE: 37 weeks 4 days CONCLUSION: Total biophysical profile score: 8.0 Electronically authenticated by: PJ SAM Date: 2021-09-25 07:47 Normal [facility] CNOVon 01-16-2021 CNOV Office Visit (ORTHMN ) -- YEIMY HONEYCUTT ([id number]) 1995 F Date Time Provider Department 01/16/21 10:20 AM AYLIN GILLILAND During your visit today, we recorded the following information about you: Weight Height 77.1 kg 1.727 m Aylin Gilliland PA-C 02/11/2021 9:16 PM Signed Consultation requested by Kali Alcantara [id number] [facility] [address] Yeimy Honeycutt is a 25 year old female CHIEF COMPLAINT and HPI: Right side LBP 25 y/o female in reported otherwise good health. H/O unicameral bone cysts, s/p resection 2009 AND 2014. Here for evaluation of Right side low back pain Reports as chronic- at least 5 years, episodic No correlation with a particular activity of position Describes as tenderness, aching in right low back and Right lateral lower leg/ankle. Lasts for a few hours then resolves Has treated with: 2 nsaids, stretching with good resolution of symptoms Denies LE numbness or weakness, denies groin pain Dermatomal distribution: S1 possible Duration of symptoms: 5 years, episodic Gait difficulty: no Bowel / Bladder dysfunction: no Precipitating event: None Prior Spinal Surgery: None Conservative Therapy: NSAIDS- usually (2) tabs with good resolution of pain, stretching SOCIAL HISTORY: Smoker: No Social History Occupational History Occupation: student Tobacco Use Smoking status: Never Smoker Smokeless tobacco: Never Used Substance and Sexual Activity Alcohol use: Yes Alcohol/week: 2.5 standard drinks Types: 1 Mixed Drinks per week Drug use: Not on file Sexual activity: Not on file PAST MEDICAL HISTORY Diagnosis Date - Asthma, exercise induced no inhaler - Bone cyst, solitary pelvis unicameral bone bone cyst 2009 PAST SURGICAL HISTORY Procedure Laterality Date - CLOSED TREAT WRIST DISLOCATION age 10 - EXC/CURTETLAGE OF BONE CYST pelvis left rami ROS: Diabetes: negative Hypertension: negative Cardiac: negative. Hx of mitral valve prolapse no. Hx of DVT's no. Pulmonary: negative Liver: negative Kidney: negative. Cancer: negative Arthritis: negative Musculoskeletal: negative Congenital Abnormalities: negative Seizures: negative Psychiatric: negative PHYSICAL EXAMINATION: General Appearance: Well nourished, well developed, with no apparent distress Cardiovascular: Palpable pulses, no edema noted, warm temperature, no varicosities. Skin: Head, neck, trunk, and extremities dry, intact and without lesions Lymphatics: No palpable nodes in cervical or atillae areas. Groin exam deferred. Neuro/Psych: Patient oriented to person, place, and time. Mood pleasant. Benign affect. Musculoskeletal: Visual Inspection Cervical: WNL Thoracic: WNL Lumbar: WNL Palpation: Spinous Process: no pain over cervical, thoracic and lumbar Paraspinals: No TTP, No pain over SI joints or over ASIS Muscle Bulk: Normal and symmetrical in the upper AND lower extremities. Muscle Tone: normal Motor: 5/5 in all muscle groups Sensory: Normal sensory exam Gait: Normal. Heel walk, toe walk, duck walk and jump with good strength. Lumbar AROM: full flexion/ exten. Lateral flexion- near full bilat Reflexes: Knee jerk Right: 2+, Left: 2+., Ankle jerk Right: 2+, Left: 2+., +2 to bilateral U/L extremities Long Tract Signs: No clonus. No Hoffmans. SLR - negative bilat Crossed SLR- neg bilat RADIOGRAPHIC STUDIES AND RESULTS: My personal review of the images and interpretation with the patient: No acute bony abnormality or significant disc height loss. ASSESSMENT/PLAN: 1. Strain of lumbar paraspinal muscle, initial encounter - ICD9: 847.2, ICD10: S39.012A Mechanical low back pain - Ice for localized tenderness - Warm moist heat for 20 min three times a day - NSAIDS- OTC as needed (discussed) - PT consult - Patient given instructions back care exercise program and proper lifting techniques - Follow up with me as needed, sooner if symptoms persist or worsen - CONSULT TO PHYSICAL THERAPY We had a good discussion surrounding symptoms, exam findings amd imaging results. Explained lack of correlative pathology on her xrays. Neuro exam is normal. No surgery indicated. Provided reassurance and recommendations for formal PT then continue exercise on her own. Focus on core strengthening. She plans to do in her hometown. Verbalized understand and will followup with me as needed. I offered virtual visit option also. Aylin Gilliland, MS, PA-C [facility] [place] Referring Provider: KALI ALCANTARA [[id number]] Allergies As of Date: 01/16/2021 Noted Allergy Reaction BACTRIM (SULFAMETHOXAZOLE) 10/10/2009 2 - Rash CHLORHEXIDINE GLUCONATE 12/28/2018 9 - Itching Date Reviewed: 01/16/2021 Reviewed by: Nakia Luna Ma - Fully Assessed Reason for Visit: Pain, Back [855] Primary Visit Diagnosis:Strain (more content not included)... Normal [facility] XR LUMBAR 3V AP/LAT/L5-S1on 01-16-2021 XR LUMBAR 3V AP/LAT/L5-S1 * * *Final Report* * * DATE OF EXAM: Jan 16 2021 10:05AM AOX 5228 - XR LUMBAR 3V AP/LAT/L5-S1 / PROCEDURE REASON: multiple diagnoses * * * * Physician Interpretation * * * * EXAMINATION / TECHNIQUE: XR LUMBAR 3V AP/LAT/L5-S1 HISTORY: RIGHT SIDED BACK PAIN THAT RADIATES OCCAIONALLY DOWN THE RIGHT LEG Chronic low back pain, unspecified back pain laterality, unspecified whether sciatica present Chronic low back pain, unspecified back pain laterality, unspecified whether sciatica present COMPARISON: None. RESULT: Vertebral body heights and sagittal alignment are preserved. The disc spaces are maintained. The sacroiliac joints are intact. The hip joint spaces are maintained. Counting reference: Lumbosacral junction. For the purposes of this report, L4-5 is considered the level of the iliac crest and assume there are 5 lumbar-type vertebrae. Anatomic variant: None. IMPRESSION: No acute bony abnormality or significant disc height loss. Product Marketing Consultant: TERESITA Transcribe Date/Time: Jan 16 2021 12:34P Dictated by : CARLTON MATTHEWS MD This examination was interpreted and the report reviewed and electronically signed by: CARLTON MATTHEWS MD on Jan 16 2021 12:35PM EST [id number] Normal [facility] CNPYisel 01-07-2021 CNPN Telephone ([facility]) -- YEIMY HONEYCUTT ([id number]) 1995 F Date Time Provider Department 01/07/21 [facility] During your visit today, we recorded the following information about you: Aylin Gilliland PA-C 01/07/2021 5:34 PM Signed Spoke with patient to coordinate appt. States her insurance has changed since last visit. She would like to verify in-network coverage and cost before proceeding. I will have our registration/financial team contact her tomorrow. Aylin Gilliland MS, JOSY Allergies As of Date: 01/07/2021 Noted Allergy Reaction BACTRIM (SULFAMETHOXAZOLE) 10/10/2009 2 - Rash CHLORHEXIDINE GLUCONATE 12/28/2018 9 - Itching Date Reviewed: 12/28/2018 Reviewed by: Vicki Perez - Fully Assessed Reason for Visit: Ortho appt [Other] Prescriptions as of 01/07/2021 - meloxicam (MOBIC) 7.5 mg tablet Take once daily with food or milk for 3-4 weeks, then begin taking as needed. - norgestimate 0.25 mg-ethinyl estradiol 35 mcg (SPRINTEC, ORTHO-CYCLEN) 0.25-35 mg-mcg per tablet Take 1 tablet by mouth once daily. 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 CODING DATE: [address] [facility] STATUS: Home (Routine DC) PAYOR: Desmond APC DESCRIPTION 5522 Level 2 Imaging without Contrast ADMIT DX: REASON FOR VISIT DX: Z98.890 Other specified postprocedural states FINAL DX: PRINCIPAL: Z98.890 Other specified postprocedural states SECONDARY: Z80.3 Family history of malignant neoplasm of breast N64.4 Mastodynia PYMT PROC APC STAT DESCRIPTION DOCTOR NAME DATE NOTE: The code number assigned matches the documented diagnosis and / or procedure in the patient's chart. However, the narrative phrase printed from the coding software may appear abbreviated, or result in slightly different terminology. Coded By: Nena Nino CphT Date Saved: 05/18/2018 08:52 am [facility] US Breast Unilateral Rt Blas alston 05-16-2018 US Breast Unilateral Rt Complete Exam Date/Time: 05/16/2018 08:10 EST Reason for Exam: RIGHT BREAST TENDERNESS, S/P EXCISION PAPILLOMA Report IMPRESSION: NEGATIVE SONOGRAM. PLEASE FOLLOW CLINICAL SYMPTOMS. CLINICAL HISTORY: RIGHT BREAST TENDERNESS, S/P EXCISION PAPILLOMA COMPARISON: NONE. FINDINGS: Whole breast sonogram was obtained. No solid or cystic mass visualized. Patient has a very small palpable abnormality just above and slightly lateral to the nipple. At this location no discrete mass visualized. Suspect scar tissue in this region. FINAL REPORT Dictated: 05/16/2018 8:43 am Itzel Marcano MD Signed (Electronic Signature): 05/16/2018 8:43 am Signed by: Itzel Marcano MD Transcribed by: KALIN Technologist: EULALIO Normal [facility] XR CHEST (2 VW)on 08-14-2017 XR CHEST (2 VW) EXAMINATION: XR CHES T (2 VW)CLINICAL HISTORY: chest pain COMPARISONS: None available.FINDINGS: Cardiac size and pulmonary vascularity are normal. The lungs are clear. There is no evidence of adenopathy. The bones are unremarkable.IMPRESSION: NORMAL CHEST RADIOGRAPHSInterpreted by:ARIAN Harrisigned by:Troy Rueda MD08/14/17inal result Normal [facility] Vital Signs Date Time Vital Sign Value Performing Clinician Facility 10-05-2022 13:25-0400 Body height 172.72 cm Arlette Fofana Other [facility] Other 10-05-2022 13:25-0400 Body mass index (BMI) [Ratio] 28.86 kg/m2 Arlette Fofana Other [facility] Other 10-05-2022 13:25-0400 Body temperature 98.2 [degF] Arlette Fofana Other [facility] Other 10-05-2022 13:25-0400 Body weight 86.09 kg Arlette Hermanmond Other [facility] Other 10-05-2022 13:25-0400 Respiratory rate 18 /min Arlette Fofana Other [facility] Other 10-05-2022 13:25-0400 SaO2% (BldA) [Mass fraction] 99 % Arlette Fofana Other [facility] Other Encounters Encounter Date Encounter Type Care Provider Facility Start: 04-26-2023 End: 04-26-2023 ambulatory BABAR OLSEN Not Available Start: 04-12-2023 End: 04-12-2023 ambulatory LISSY JOSEPH Not Available Start: 10-05-2022 End: 10-05-2022 ambulatory Arlette Fofana Other [facility] Other Start: 10-05-2022 Office outpatient vi sit 15 minutes Arlette Fofana [facility] Start: 07-20-2022 End: 08-28-2022 ambulatory KAREN ROSETTE Facility:[facility] Start: 04-15-2022 End: 04-15-[address] BABAR OLSEN . Facility:[facility] Start: 10-23-2021 End: 11-12-2021 ambulatory KAREN ROSETTE Facility:[facility] Start: 10-16-2021 End: 10-16-2021 ambulatory KAREN ROSETTE Facility:[facility] Start: 10-08-2021 Encounter for preprocedural laboratory examination DR BABAR OLSEN . [facility] Start: 10-06-2021 End: 10-09-2021 Evaluation and management of inpatient KAREN ROSETTE Facility:[facility] Start: 10-04-2021 End: 10-04-[address] SONIA BOWLING . Facility:[facility] Start: 10-03-2021 End: 10-04-2021 ambulatory KAREN ROSETTE Facility:[facility] Start: 10-03-2021 End: 10-04-2021 Encounter for preprocedural laboratory examination KAREN ROSETTE Facility:[facility] Start: 10-01-2021 End: 10-01-[address] SONIA BOWLING . Facility:[facility] Start: 09-27-2021 End: 09-27-[address] BABAR OLSEN . Facility:[facility] Start: 09-24-2021 End: 09-24-[address] SONIA BOWLING . Facility:[facility] Start: 08-14-2017 End: 08-14-2017 Emergency department patient visit SIMRAN DUONG [facility] Procedures Date Procedure Procedure Detail Performing Clinician Start: 10-06-2021 Extraction of Produc ts of Conception, Low Cervical, Open Approach KAREN DINERO Start: 08-14-2017 Radiologic exam chest 2 views SIMRAN DUONG Start: 08-14-2017 EKG 12-LEAD SIMRAN DORSEY UL Payers Date Payer Category Payer Unknown [id number] 1995 Unknown [id number] 2.16.84 [id number] 1995 Unknown [id number] 2.16.84 [id number] 1995 Unknown [id number] 2.16.84 [id number] 1995 Unknown [id number] 2.16.84 [id number] 1995 Unknown [id number] 2.16.84 [id number] 1995 Unknown [id number] 2.16.84 [id number] 1995 Unknown [id number] 2.16.84 [id number] 1995 Unknown [id number] 2.16.84 [id number] 1995 Unknown [id number] 2.16.84 [id number] 1995 Unknown [id number] 2.16.84 [id number] 1995 Unknown [id number] 2.16.840 .[id number] 1995 Unknown [id number] 2.16.840 .[id number] 1959 Unknown [id number] Social History Date Type Detail Facility Unknown if ever smoked [facility] Other Sex Assigned At Sex Assigned At Bir th [facility] Other Evaluation note 10-05-2022 Note Date & Type Note Facility 10-05-2022 Evaluation note Encounter Date Diagnosis Assessment Notes September, Sore throat (ICD-10 - J02.9) September, Acute pharyngitis due to other specified organisms (ICD-10 - J02.8) Pharyngitis/to nsillopharyngi tis: adult home care material was printed Drink plenty fluids, get plenty of rest. Take the amoxicillin as prescribed until gone. Take Tylenol or Motrin as needed for aches pains or fevers. Off work today and tomorrow. 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 PREOPERATIVE DIAGNOSIS: 1. at 39 2/7 weeks. 2. Previous . POSTOPERATIVE DIAGNOSIS: 1. at 39 2/7 weeks. 2. Previous . ANESTHESIA: Spinal with Duramorph. SURGEON: Babar Olesn D.O. [address]IR[address] LIGHT: LAUREN Ellison URINE OUTPUT: Yellow and clear. BLOOD LOSS: 600 mL. FINDINGS: Viable female. Apgars 8 at 1, 9 at 5. Weight unknown at this time. SPECIMEN: Placenta. PROCEDURE: Patient was taken back to the Operating Room where she was given a spinal anesthesia with Duramorph without difficulty. She was prepped and draped in the normal sterile fashion. A Pfannenstiel skin incision was then made 2 cm above the symphysis pubis and carried down to underlying rectus fascia using a Bovie. The fascia was incised in the midline and extended laterally using Yee scissors. Two Yoly clamps were placed on the superior aspect of the fascia and dissected off the underlying rectus muscles. The same was performed on the inferior aspect as well. The muscles were then in the midline. Peritoneum was identified and entered bluntly. The peritoneum was then extended superiorly and inferiorly with good visualization of the bladder. The bladder blade was inserted. A low transverse incision was made on the patient's uterus and extended laterally digitally. The infant was then delivered atraumatically after the bladder blade was removed in the cephalic position. The cord was clamped and cut. Cord blood was obtained. The was handed off to awaiting team. The patient's placenta was spontaneously delivered. The uterus was then exteriorized. The uterus was cleared of all clots and debris. The bladder blade was reinserted. The patient's uterine incision was closed using #0 Vicryl in a running lock fashion. A second layer closure was performed using 0-monocryl in a running lock fashion. Excellent hemostasis was assured. The uterus was then returned to the patient's abdomen. The patient's abdomen was copiously irrigated using warm saline. Peritoneal gutters were cleared of all clots and debris. Again excellent hemostasis was assured. The patient's peritoneum was closed using 3-0 Vicryl in a running fashion. The patient's fascia was closed using #0 Vicryl in a running fashion. The patient's skin was closed using 4-0 Vicryl subcuticularly. The patient tolerated the procedure well. Sponge, lap, and needle counts were correct x2. The patient was taken to the Recovery Room in stable condition. Electronically Authenticated and Edited by: Babar Olsen DO on 10/07/2021 09:42 AM EDT IFC Signed and Approved by: DR BABAR OLSEN . 10/07/2021 09:42:00 [facility] Discharge summary note 10-06-2021 Note Date & Type Note Facility 10-06-2021 Note DISCHARGE SUMMARY DISCHARGE DATE: 10/09/2021 PRIMARY DIAGNOSES: 1. Intrauterine at 39 weeks. 2. Previous section. PROCEDURE: Repeat low transverse section. HOSPITAL COURSE: As expected. Please see chart for full details. LABORATORY DATA: Please see chart. DISCHARGE CONDITION: Stable. CONSULTATION: Anesthesia. DISCHARGE INSTRUCTIONS: 1.Diet: Regular. 2.Medications: a.Percocet 5/325 one to two p.o. every 4-6 hours p.r.n. pain. b.Motrin 800 one p.o. every 8 hours p.r.n. pain. 3.Follow-up in one week. Restrictions: Pelvic rest for 6 weeks. No heavy lifting. May drive when pain free and no longer on narcotics. IFC Signed and Approved by: DR BABAR OLSEN . 10/13/2021 07:35:00 [facility] Progress note 01-16-2021 Note Date & Type Note Facility 01-16-2021 Note HNO ID: [id number] Author: Aylin Gilliland PA-C Service: ? Author Type: Physician Marketing Strategy Lead Type: Progress Notes Filed: 02/11/2021 9:16 PM Note Text: Consultation requested by Kali Alcantara [address] [facility] [address] Yeimy Honeycutt is a 25 year old female CHIEF COMPLAINT and HPI: Right side LBP 25 y/o female in reported otherwise good health. H/O unicameral bone cysts, s/p resection 2009 AND 2014. Here for evaluation of Right side low back pain Reports as chronic- at least 5 years, episodic No correlation with a particular activity of position Describes as tenderness, aching in right low back and Right lateral lower leg/ankle. Lasts for a few hours then resolves Has treated with: 2 nsaids, stretching with good resolution of symptoms Denies LE numbness or weakness, denies groin pain Dermatomal distribution: S1 possible Duration of symptoms: 5 years, episodic Gait difficulty: no Bowel / Bladder dysfunction: no Precipitating event: None Prior Spinal Surgery: None Conservative Therapy: NSAIDS- usually (2) tabs with good resolution of pain, stretching SOCIAL HISTORY: Smoker: No Social History Occupational History Occupation: student Tobacco Use Smoking status: Never Smoker Smokeless tobacco: Never Used Substance and Sexual Activity Alcohol use: Yes Alcohol/week: 2.5 standard drinks Types: 1 Mixed Drinks per week Drug use: Not on file Sexual activity: Not on file PAST MEDICAL HISTORY Diagnosis Date - Asthma, exercise induced no inhaler - Bone cyst, solitary pelvis unicameral bone bone cyst 2010 PAST SURGICAL HISTORY Procedure Laterality Date - CLOSED TREAT WRIST DISLOCATION age 10 - EXC/CURTETLAGE OF BONE CYST pelvis left rami ROS: Diabetes: negative Hypertension: negative Cardiac: negative. Hx of mitral valve prolapse no. Hx of DVT's no. Pulmonary: negative Liver: negative Kidney: negative. Cancer: negative Arthritis: negative Musculoskeletal: negative Congenital Abnormalities: negative Seizures: negative Psychiatric: negative PHYSICAL EXAMINATION: General Appearance: Well nourished, well developed, with no apparent distress Cardiovascular: Palpable pulses, no edema noted, warm temperature, no varicosities. Skin: Head, neck, trunk, and extremities dry, intact and without lesions Lymphatics: No palpable nodes in cervical or atillae areas. Groin exam deferred. Neuro/Psych: Patient oriented to person, place, and time. Mood pleasant. Benign affect. Musculoskeletal: Visual Inspection Cervical: WNL Thoracic: WNL Lumbar: WNL Palpation: Spinous Process: no pain over cervical, thoracic and lumbar Paraspinals: No TTP, No pain over SI joints or over ASIS Muscle Bulk: Normal and symmetrical in the upper AND lower extremities. Muscle Tone: normal Motor: 5/5 in all muscle groups Sensory: Normal sensory exam Gait: Normal. Heel walk, toe walk, duck walk and jump with good strength. Lumbar AROM: full flexion/ exten. Lateral flexion- near full bilat Reflexes: Knee jerk Right: 2+, Left: 2+., Ankle jerk Right: 2+, Left: 2+., +2 to bilateral U/L extremities Long Tract Signs: No clonus. No Hoffmans. SLR - negative bilat Crossed SLR- neg bilat RADIOGRAPHIC STUDIES AND RESULTS: My personal review of the images and interpretation with the patient: No acute bony abnormality or significant disc height loss. ASSESSMENT/PLAN: 1. Strain of lumbar paraspinal muscle, initial encounter - ICD9: 847.2, ICD10: S39.012A Mechanical low back pain - Ice for localized tenderness - Warm moist heat for 20 min three times a day - NSAIDS- OTC as needed (discussed) - PT consult - Patient given instructions back care exercise program and proper lifting techniques - Follow up with me as needed, sooner if symptoms persist or worsen - CONSULT TO PHYSICAL THERAPY We had a good discussion surrounding symptoms, exam findings amd imaging results. Explained lack of correlative pathology on her xrays. Neuro exam is normal. No surgery indicated. Provided reassurance and recommendations for formal PT then continue exercise on her own. Focus on core strengthening. She plans to do in her hometown. Verbalized understand and will followup with me as needed. I offered virtual visit option also. Aylin Gilliland MS, PA-C [facility] [place] [facility] Progress note 01-16-2021 Note Date & Type Note Facility 01-16-2021 Note HNO ID: [id number] Author: RT Jalen(Dorene) Service: Radiology Author Type: Medical Affairs Director Type: Progress Notes Filed: 01/16/2021 10:07 AM Note Text: Radiology Service Progress Note PATIENT NAME: Yeimy Honeycutt DATE OF SERVICE: January 16, 2021 TIME: 10:06 AM PATIENT IDENTITY VERIFICATION COMPLETED USING TWO (2) IDENTIFIERS: Name and Date of confirmed by patient verbally. FALL SCREENING: Has the patient had 2 falls in the last year or 1 fall with injury or currently using an Ambulatory Assistive Device (Walker, Cane, Wheelchair, Crutches, etc.)? No PATIENT GENDER DATA: Female. status: : No status: NO. PATIENT RELEVANT IMPLANT DATA REVIEWED: Yes RADIOLOGY DEPARTMENT: General X-ray: Exam(s) Completed: Spine X-Ray(s): Lumbar AP / LAT / L5-S1 PERIPHERAL IV DATA: Not applicable SIGNED BY: RT Jalen(R) January 16, 2021 10:06 AM [facility] History general Narrative - Reported Note Date & Type Note Facility History general Narrative - Reported Type Medical History costal chondritis Medical History asthma - exercise induced Medical History 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 Surgical History pelvic cyst removed x2 Surgical History wrist surgery- right Surgical History lumpectomy 12/2017 Surgical History C section x2 Hospitalization History see above [facility] Other Summary Purpose Family History No Family History Records FoundNo Family History Records FoundNo Family History Records FoundNo Family History Records FoundNo Family History Records Found Advance Directives No Advanced Directives Records FoundNo Advanced Directives Records FoundNo Advanced Directives Records FoundNo Advanced Directives Records FoundNo Advanced Directives Records Found Additional Source Comments INFORMATION SOURCE (unrecogn ized section and content) DATE [facility]ATED AUTHOR [facility] DATE CREATED AUTHOR AUTHOR'S ORGANIZ ATION 05/12/2019 [facility] DATE CREATED AUTHOR AUTHOR'S ORGANIZ ATION 07/12/2021 [facility] DATE CREATED AUTHOR AUTHOR'S ORGANIZ ATION 09/23/2022 [facility] DATE CREATED AUTHOR AUTHOR'S ORGANIZ ATION 04/27/2023 [facility] EPIC REASON FOR VISIT (unrecogniz ed section and content) step throat FOR RECORDS PERTAINING TO PATIENTS WHO ARE OR HAVE BEEN ENROLLED IN A CHEMICAL DEPENDENCY/SUBSTANCEABUSE PROGRAM, SOME INFORMATION MAY BE OMITTED. This clinical summary was aggregated from multiple sources. Caution should be exercised in using it in the provision of clinical care. This summary normalizes information from multiple sources, and as a consequence, information in this document may materially change the coding, format and clinical context of patient data. In addition, data may be omitted in some cases. CLINICAL DECISIONS SHOULD BE BASED ON THE PRIMARY CLINICAL RECORDS. [employer] provides no warranty or guarantee of the accuracy or completeness of information in this document.
--- NOTE | 2023-05-24 16:40 | ED.URI1 ---
HPI - URI/Sore Throat General Chief Complaint: Upper Respiratory Infection Stated Complaint: Flu Like Symptoms, PT is 32-wks called FB Time Seen by Provider: 05/24/23 16:36 Source: patient Limitations: no limitations History of Present Illness HPI Narrative: patient here for evaluation of cough and some wheezing in her chest. She was here several days ago with diagnosed influenza. She took her Tamiflu and finished yesterday. She does not use tobacco products. She does have a history of exercise-induced asthma. She is not using any bronchodilators. Related Data Home Medications Medication Instructions Recorded Confirmed No Known Home Medications 05/24/23 05/24/23 Allergies Allergy/AdvReac Type Severity Reaction Status Date / Time sulfamethoxazole AdvReac Severe Hives Verified 05/18/23 11:51 [From Bactrim] trimethoprim [From Bactrim] AdvReac Severe Hives Verified 05/18/23 11:51 PFSH PFSH Social History Smoking status: Never smoker Exam Narrative Exam Narrative: patient's overall does not appear acutely ill. Respiratory rate is normal she has a bronchospastic type cough. She has no cyanosis. Overall examination her skin is warm and dry hydration status is excellent there is no evidence of pallor or scleral icterus on her eye examination. Examination chest she does have some end expiratory bronchospasm with coughing maneuvers especially. Her heart rate and rhythm are normal. Her skin integument are excellent with no dehydration. Legs have no swelling or edema. Cognition and mentation are normal. Constitutional Vital Signs, click to edit/add: Last Vital Signs Temp 98 F 05/24/23 16:30 Pulse 87 05/24/23 16:30 Resp 18 05/24/23 16:30 BP 132/86 05/24/23 16:30 Pulse Ox 100 05/24/23 16:30 O2 Del Method Room Air 05/24/23 16:30 Course Vital Signs Vital signs: Vital Signs Temperature 98 F 05/24/23 16:30 Pulse Rate 87 05/24/23 16:30 Respiratory Rate 18 05/24/23 16:30 Blood Pressure 132/86 05/24/23 16:30 Pulse Oximetry 100 05/24/23 16:30 Oxygen Delivery Method Room Air 05/24/23 16:30 Temperature 98 F 05/24/23 16:30 Pulse Rate 87 05/24/23 16:30 Respiratory Rate 18 05/24/23 16:30 Blood Pressure 132/86 05/24/23 16:30 Pulse Oximetry 100 05/24/23 16:30 Oxygen Delivery Method Room Air 05/24/23 16:30 MDM - URI/Sore Throat MDM Narrative Medical decision making narrative: single view chest x-ray with the abdomen scrotal shielded shows no acute infiltrative process. We will start her on albuterol and prednisone burst. 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 She scheduled to see her [employer]PER[employer] practitioner tomorrow as well Discharge Plan Discharge Chief Complaint: Upper Respiratory Infection Clinical Impression: Influenza, Asthma Patient Disposition: Home, Self-Care Time of Disposition Decision: 17:13 Prescriptions / Home Meds: No Action No Known Home Medications Instructions: Asthma (DC) Additional Instructions: albuterol/prednisone for tomorrow//C [employer] OPER[employer] practitioner tomorrow Stand Alone Forms: Portal Instructions Referrals: Physician,Non-Staff, MD [Primary Care Provider] - 1 week
== END 2023-05-24 17:16 | disposition home or self-care (01) ==
PROVIDERS: Emergency Provider Emergency Medicine Emergency Medical Services
DX: O99.513 Diseases of the respiratory system complicating pregnancy, third trimester (principal); J11.1 Influenza due to unidentified influenza virus with other respiratory manifestations; J45.909 Unspecified asthma, uncomplicated; Z3A.32 32 weeks gestation of pregnancy
CPT/HCPCS: 71045; 99283

== ENCOUNTER 2023-05-25 13:56 | Outpatient (OUT) | payer OTHER, SELFPAY ==
--- OUTSIDE RECORDS SUMMARY | 2023-05-25 13:59 | XMS_ITS | CCD ---
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 Role Phone SIMRAN DUONG Unavailable Unavailable [place], [place] Primary Care Unavailable ANNMARIE ., DR ECKERT Consulting Unavailable ANNMARIE ., DR ECKERT Attending Unavailable ANNMARIE ., DR ECKERT Procedure Practitioner Unavail able ANNMARIE ., DR ECKERT Admitting Unavailable AGUBOSIEDA Curry Consulting Unavailable ARLETTE MARROQUIN Consulting Unavailable KARASIK ., DR SCOTT Admitting Unavailabl e KARASIK ., DR SCOTT Consulting Unavailabl e ROSET[place], [place] Primary Care Unavailable KARASIK ., DR SCOTT Attending Unavailabl e ANNMARIE ., DR ECKERT Admitting Unavailable [facility] Primary Care Unavailable ANNMARIE ., DR ECKERT Consulting Unavailable ANNMARIE ., DR ECKERT Attending Unavailable KARASIK ., DR SCOTT Attending Unavailabl e KARASIK ., DR SCOTT Admitting Unavailabl e KARASIK ., DR SCOTT Consulting Unavailabl e ROSET[place], [place] Primary Care Unavailable [place], DR PJ Araujo Consulting Unavailable ANNMARIE ., DR ECKERT Consulting Unavailable KARASIK ., DR SCOTT Attending Unavailabl e KARASIK ., DR SCOTT Admitting Unavailabl e KARASIK ., DR SCOTT Consulting Unavailabl e [place], [place] Primary Care Unavailable ANNMARIE ., DR ECKERT Consulting Unavailable Policaro, Samira Consulting Unavailable [place], [place] Primary Care Unavailable CARBALLO, TONNY Attending Unavailable CARBALLO, TONNY Admitting Unavailable [place], [place] Primary Care Unavailable ANNMARIE ., DR ECKERT Attending Unavailable ANNMARIE ., DR ECKERT Consulting Unavailable ANNMARIE ., DR ECKERT Admitting Unavailable [facility] Unavailable ANNMARIE ., DR ECKERT Attending Unavailable ANNMARIE ., DR ECKERT Admitting Unavailable [facility] Primary Care Unavailable ANNMARIE ., DR ECKERT Attending Unavailable ANNMARIE ., DR ECKERT Admitting Unavailable ANNMARIE ., DR ECKERT Consulting Unavailable [facility] Unavailable ANNMARIE ., DR ECKERT Attending Unavailable ANNMARIE ., DR ECKERT Admitting Unavailable Arlette Fofana Unavailable LISSY JOSEPH Attending Unavailable BABAR OLSEN Attending Unavailable Allergies Allergy Classification Reported Allergen(s) Allergy Type Date of Onset Reaction(s) Facility (1 source) Chlorhexidine Drug Allergy [facility] Repository (1 source) Sulfamethoxazole / Trimethoprim Drug Allergy [facility] (1 source) Chlorhexidine Drug Allergy [facility] [place] Other (1 source) Sulfamethoxazole / Trimethoprim Drug Allergy [facility] [place] Other (1 source) Darvocet-N 50 Drug allergy [facility] [place] Other Medications Current Medications Medication Drug Class(es) [...] 08-14-2017 Episodic Other aftercare (1 source) 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 . Normal [facility] Comment on above: Performed By: #### [id number] #### [facility] [address] [place] [address] Dr. Winifred Silver Age Gdln ACOG Testing Normal [facility] Comment on above: Performed By: #### [id number] #### [facility] [address] [address] [address] Winifred Silver DIAGNOSIS: Comment [facility] Comment on above: Result Comment: NEGATIVE FOR INTRAEPITHE LIAL LESION OR MALIGNANCY. Performed By: #### [id number] #### [facility] [address] [address] [address] Winifred Silver Methodology: Comment Normal [facility] Comment on above: Result Comment: This liquid based ThinPr ep(R) pap test was screened with the use of an image guided system. Performed By: #### [id number] #### [facility] [address] [address] [address] Winifred Silver Note: Comment [facility] Comment on above: Result Comment: The Pap smear is a scree marlo test designed to aid in the detection of premalignant and malignant conditions of the uterine cervix. It is not a diagnostic procedure and should not be used as the sole means of detecting cervical cancer. Both false-positive and false-negative reports do occur. . Performed By: #### [id number] #### [facility] [address] [address] [address] Winifred Silver Performed by: Comment Normal [facility] Comment on above: Result Comment: [employer] nologist (ASCP) Performed By: #### [id number] #### [facility] [address] [address] [address] Winifred Silver Reflex Criteria: Comment Normal [facility] Comment on above: Result Comment: The HPV DNA reflex crite ana were not met with this specimen result therefore, no HPV testing was performed. . Performed By: #### [id number] #### [facility] [address] [address] [address] Winifred Silver Specimen adequacy: Comment Normal [facility] Comment on above: Result Comment: Satisfactory for evaluat ion. Endocervical and/or squamous metaplastic cells (endocervical component) are present. Performed By: #### [id number] #### [facility] [address] [address] [address] Winifred Silver CBC AUTO DIFFon 10-07-2021 BASO # 0.1 103/ul Normal 0.0-0.1 [facility] Comment on above: Performed By: #### CBC ####[facility] [address] [address]DrDarius Silver Basophils/100 WBC (Bld) 0.6 % Normal 0.2-2.0 [facility] Comment on above: Performed By: #### CBC ####[facility] [address] [address]DrDarius Silver EO # 0.3 103/ul Normal 0.0-0.7 [facility] Comment on above: Performed By: #### CBC ####[facility] [address] [address]DrDarius Silver Eosinophils/100 WBC (Bld) 2.6 % Normal 0.9-7.0 [facility] Comment on above: Performed By: #### CBC ####[facility] [address] [place], [place] [address]DrDarius Vitale Silver Erythrocyte distribution width (RBC) [Ratio] 13.1 % Normal 11.0-15.0 [facility] Comment on above: Performed By: #### CBC ####[facility] [address] [address]Dr. Winifred Silver Hematocrit (Bld) [Volume fraction] 26.6 % Critically low 36.0-48.0 [facility] Comment on above: Performed By: #### CBC ####[facility] [address] [address]Dr. Winifred Silver Hemoglobin (Bld) [Mass/Vol] 8.7 g/dL Critically low 12.0-16.0 [facility] Comment on above: Performed By: #### CBC ####[facility] [address] [address]Dr. Winifred Silver IG # 0.04 10e3/ul Critically high 0.00-0.03 [facility] Comment on above: Performed By: #### CBC ####[facility] [address] [address]Dr. Jolenedaylin Silver IG % 0.4 % Normal 0.0-0.5 [facility] Comment on above: Performed By: #### CBC ####[facility] [address] [address]Dr. Jolenedaylin Silver LYMPH # 1.4 103/ul Normal 1.2-3.8 [facility] Comment on above: Performed By: #### CBC ####[facility] [address] [address]Dr. Winifred Silver Lymphocytes/100 WBC (Bld) 13.8 % Critically low 20.5-60.0 [facility] Comment on above: Performed By: #### CBC ####[facility] [address] [address]Dr. Winifred Silver MANUAL DIFF REQ NO Normal [facility] Comment on above: Performed By: #### CBC ####[facility] [address] [address]Dr. Winifred Silver MCH (RBC) [Entitic mass] 29.6 pg Normal 26.7-34.0 [facility] Comment on above: Performed By: #### CBC ####[facility] [address] [address]Dr. Winifred Silver MCHC (RBC) [Mass/Vol] 32.7 g/dL Normal 29.9-35.2 [facility] Comment on above: Performed By: #### CBC ####[facility] [address] [address]Dr. Winifred Silver MCV (RBC) [Entitic vol] 90.5 fL Normal 81.0-99.0 [facility] Comment on above: Performed By: #### CBC ####[facility] [address] [address]Dr. Winifred Silver MONO # 0.6 103/ul Normal 0.3-0.8 [facility] Comment on above: Performed By: #### CBC ####[facility] [address] [address]Dr. Winifred Nadeem Monocytes/100 WBC (Bld) 6.1 % Normal 1.7-12.0 [facility] Comment on above: Performed By: #### CBC ####[facility] [address] [address]Dr. Winifred Silver NEUT # 7.8 103/ul Critically high 1.4-6.5 [facility] Comment on above: Performed By: #### CBC ####[facility] [address] [address]Dr. Winifred Nadeem Neutrophils/100 WBC (Bld) 76.5 % Critically high 43.0-75.0 [facility] Comment on above: Performed By: #### CBC ####[facility] [address] [place], [place] [address]Dr. Winifred Silver Platelet mean volume (Bld) [Entitic vol] 10.5 fL Normal 9.5-13.5 [facility] Comment on above: Performed By: #### CBC ####[facility] [address] [id number] Silver PLT 147 103/ul Critically low 150-450 [facility] Comment on above: Performed By: #### CBC ####[facility] ital [id number] Winifred Silver RBC 2.94 106/ul Critically low 4.20-5.40 [facility] Comment on above: Performed By: #### CBC ####[facility] [address] [address]Dr. Winifred Silver WBC 10.2 103/ul Normal 4.0-11.0 [facility] Comment on above: Performed By: #### CBC ####[facility] [address] [address]DrDarius Silver CBC AUTO DIFFon 10-06-2021 BASO # 0.0 103/ul Normal 0.0-0.1 [facility] Comment on above: Performed By: #### CBC #### [facility] [address] [address] [address] Winifred Silver Basophils/100 WBC (Bld) 0.3 % Normal 0.2-2.0 [facility] Comment on above: Performed By: #### CBC #### [facility] [address] [address] [address] Winifred Silver EO # 0.1 103/ul Normal 0.0-0.7 [facility] Comment on above: Performed By: #### CBC #### [facility] [address] [address] [address] Winifred Silver Eosinophils/100 WBC (Bld) 1.4 % Normal 0.9-7.0 [facility] Comment on above: Performed By: #### CBC #### [facility] [address] [address] [address] Winifred Silver Erythrocyte distribution width (RBC) [Ratio] 13.0 % Normal 11.0-15.0 [facility] Comment on above: Performed By: #### CBC #### [facility] [address] [address] [address] Winifred Silver Hematocrit (Bld) [Volume fraction] 32.3 % Critically low 36.0-48.0 [facility] Comment on above: Performed By: #### CBC #### [facility] [address] [place] [address] Dr. Winifred Silver Hemoglobin (Bld) [Mass/Vol] 10.6 g/dL Critically low 12.0-16.0 [facility] Comment on above: Performed By: #### CBC #### [facility] [address] [place] [address] Dr. iWnifred Silver IG # 0.05 10e3/ul Critically high 0.00-0.03 [facility] Comment on above: Performed By: #### CBC #### [facility] [address] [place] [address] Dr. Winifred Silver IG % 0.5 % Normal 0.0-0.5 [facility] Comment on above: Performed By: #### CBC #### [facility] [address] [place] [address] Dr. Winifred Silver LYMPH # 1.5 103/ul Normal 1.2-3.8 [facility] Comment on above: Performed By: #### CBC #### [facility] [address] [place] [address] Dr. Winifred Silver Lymphocytes/100 WBC (Bld) 14.6 % Critically low 20.5-60.0 [facility] Comment on above: Performed By: #### CBC #### [facility] [address] [place] [address] Dr. Winifred Silver MANUAL DIFF REQ NO Normal [facility] Comment on above: Performed By: #### CBC #### [facility] [address] [place] [address] Dr. Winifred Silver MCH (RBC) [Entitic mass] 29.4 pg Normal 26.7-34.0 [facility] Comment on above: Performed By: #### CBC #### [facility] [address] [place] [address] Dr. Winifred Silver MCHC (RBC) [Mass/Vol] 32.8 g/dL Normal 29.9-35.2 [facility] Comment on above: Performed By: #### CBC #### [facility] [address] [place] [address] Dr. Winifred Silver MCV (RBC) [Entitic vol] 89.7 fL Normal 81.0-99.0 [facility] Comment on above: Performed By: #### CBC #### [facility] [address] [place] [address] Dr. Winifred Silver MONO # 0.7 103/ul Normal 0.3-0.8 [facility] Comment on above: Performed By: #### CBC #### [facility] [address] [place] [address] Dr. Winifred Silver Monocytes/100 WBC (Bld) 6.5 % Normal 1.7-12.0 [facility] Comment on above: Performed By: #### CBC #### [facility] [address] [place] [address] Dr. Winifred Silver NEUT # 7.7 103/ul Critically high 1.4-6.5 [facility] Comment on above: Performed By: #### CBC #### [facility] [address] [place] [address] Dr. Winifred Silver Neutrophils/100 WBC (Bld) 76.7 % Critically high 43.0-75.0 [facility] Comment on above: Performed By: #### CBC #### [facility] [address] [place] [address] Dr. Winifred Silver Platelet mean volume (Bld) [Entitic vol] 11.1 fL Normal 9.5-13.5 [facility] Comment on above: Performed By: #### CBC #### [facility] [address] [place] [address] Dr. Winifred Silver PLT 204 103/ul Normal 150-450 [facility] Comment on above: Performed By: #### CBC #### [facility] [address] [place] [address] Dr. Winifred Silver RBC 3.60 106/ul Critically low 4.20-5.40 [facility] Comment on above: Performed By: #### CBC #### [facility] [address] [address] [address] Winifred Silver WBC 10.0 103/ul Normal 4.0-11.0 [facility] Comment on above: Performed By: #### CBC #### [facility] [address] [address] [address] Winifred Silver DRUG SCREEN RAPID (URINE)on 10-06-2021 AMP Negative Normal NEGATIVE [facility] Comment on above: Performed By: #### DRUGRPD #### [facility] [address] [address] [address] Winifred Silver BAR Negative Normal NEGATIVE [facility] Comment on above: Performed By: #### DRUGRPD #### [facility] [address] [place] [address] Dr. Winifred Silver BUP Negative Normal NEGATIVE [facility] Comment on above: Performed By: #### DRUGRPD #### [facility] [address] [address] [address] Winifred Silver BZO Negative Normal NEGATIVE [facility] Comment on above: Performed By: #### DRUGRPD #### [facility] [address] [place] [address] Dr. Winifred Silver TIN Negative Normal NEGATIVE [facility] Comment on above: Performed By: #### DRUGRPD #### [facility] [address] [place] [address] Dr. Winifred Silver CUT-OFFS SEE BELOW Normal [facility] Comment on above: Result Comment: AMP (Amphetamine): [...] ng/mL Performed By: #### D RUGRPD #### [facility] [address] [address] [address] Winifred Silver DRUG CUT HEADER DRUG CLASS TEST SYST EM CUT-OFF CONCENTRATIONS ARE FOLLOWS: Normal [facility] Comment on above: Performed By: #### DRUGRPD #### [facility] [address] [address] [address] Winifred Silver mAMP Negative Normal NEGATIVE [facility] Comment on above: Performed By: #### DRUGRPD #### [facility] [address] [address] [address] Winifred Silver MTD Negative Normal NEGATIVE [facility] Comment on above: Performed By: #### DRUGRPD #### [facility] [address] [place] [address] Dr. Winifred Silver OPI Negative Normal NEGATIVE [facility] Comment on above: Performed By: #### DRUGRPD #### [facility] [address] [place] [address] Dr. Winifred Silver OXY Negative Normal NEGATIVE [facility] Comment on above: Performed By: #### DRUGRPD #### [facility] [address] [place] [address] Dr. Winifred Silver PCP Negative Normal NEGATIVE [facility] Comment on above: Performed By: #### DRUGRPD #### [facility] [address] [place] [address] Dr. Winifred Silver PPX Negative Normal NEGATIVE [facility] Comment on above: Performed By: #### DRUGRPD #### [facility] [address] [place] [address] Dr. Winifred Silver TCA Negative Normal NEGATIVE [facility] Comment on above: Performed By: #### DRUGRPD #### [facility] [address] [place] [address] Dr. Winifred Silver THC Negative Normal NEGATIVE [facility] Comment on above: Performed By: #### DRUGRPD #### [facility] [address] [place] [address] Dr. Yilan Silver TYPE AND SCREENon 10-06-2021 TYPE AND SCREEN Negative Normal [facility] Comment on above: Performed By: #### TNS #### [facility] [address] [place] [address] Dr. Winifred Silver UA (CLEAN/CATCH) PYROMETER MECHANIC/MICRO I F IND.on 10-06-2021 Bilirubin Ql (U) Negative Normal NEGATIVE [facility] Comment on above: Performed By: #### UACSIND #### [facility] [address] [place] [address] Dr. Winifred Silver Clarity (U) CLEAR Normal CLEAR [facility] Comment on above: Performed By: #### UACSIND #### [facility] [address] [place] [address] Dr. Winifred Silver Color (U) LT. YELLOW Normal YELLOW [facility] Comment on above: Performed By: #### UACSIND #### [facility] [address] [place] [address] Dr. Winifred Silver Glucose Ql (U) Negative Normal NEGATIVE [facility] Comment on above: Performed By: #### UACSIND #### [facility] [address] [place] [address] Dr. Winifred Silver Hemoglobin Ql (U) Negative Normal NEGATIVE [facility] Comment on above: Performed By: #### UACSIND #### [facility] [address] [place] [address] Dr. Winifred Silver Ketones Ql (U) Negative Normal NEGATIVE [facility] Comment on above: Performed By: #### UACSIND #### [facility] [address] [place] [address] Dr. Winifred Silver LEUKOCYTES Negative Normal NEGATIVE [facility] Comment on above: Performed By: #### UACSIND #### [facility] [address] [place] [address] Dr. Winifred Silver Nitrite Ql (U) Negative Normal NEGATIVE [facility] Comment on above: Performed By: #### UACSIND #### [facility] [address] [place] [address] Dr. Winifred Silver pH (U) 6.0 [pH] Normal 5-9 [facility] Comment on above: Performed By: #### UACSIND #### [facility] [address] [place] [address] Dr. Winifred Silver SPEC GRAVITY 1.025 Normal 1.005-<=1.02 5 [facility] Comment on above: Performed By: #### UACSIND #### [facility] [address] [place] [address] Dr. Winifred Silver UA PROTEIN Negative Normal NEGATIVE/ TRACE [facility] Comment on above: Performed By: #### UACSIND #### [facility] [address] [place] [address] Dr. Winifred Silver UR MICRO IND NOT INDICATED Normal [facility] Comment on above: Performed By: #### UACSIND #### [facility] [address] [place] [address] Dr. Winifred Silver Urobilinogen Qn (U) 0.2 {Fredrick'U}/dL Normal 0.2 - 1.0 [facility] Comment on above: Performed By: #### UACSIND #### [facility] [address] [place] [address] Dr. Winifred Silver Covid-19 PCR ([facility])on 09-21 SARS-CoV-2 (COVID-19) RNA JENARO+probe Ql (Unsp spec) Not detected Normal NOT DETECTED [facility] Comment on above: Result Comment: This test is not yet sheri roved or cleared by the [place] FDA. When there are no FDA-approved or cleared tests available, and other criteria are met, FDA can make tests available under an emergency access mechanism called an Emergency Use Authorization (EUA). The EUA for this test is supported by the [place] of Health and Human Service's (HHS's) declaration [...] SARS-CoV-2. Performed By: #### C TB #### [facility] [address] [place] [address] Dr. Winifred Silver US PREG GROWTHon 10-01-2021 [...] by: SAMIRA VELA Date: 2021-10-01 19:22 Normal [facility] US PREG BIOPHY W NON STRESSo n [...] by: PJ SAM Date: 2021-09-25 07:47 Normal [facility] CNOVon 01-16-2021 CNOV Office Visit (ORTHMN ) -- YEIMY HONEYCUTT ([id number]) 1995 F Date Time Provider Department 01/16/21 10:20 AM AYLIN GILLILAND During your visit today, we recorded the following information about you: Weight Height 77.1 kg 1.727 m Aylin Gilliland PA-C 02/11/2021 9:16 PM Signed Consultation requested by Kali Alcantara [id number] [facility] [id number] Yeimy Honeycutt is a 25 year old [...] Aylin Gilliland, MS, PA-C [facility] [place] Referring Provider: KALI ALCANTARA [[id number]] Allergies As of Date: 01/16/2021 Noted Allergy Reaction BACTRIM (SULFAMETHOXAZOLE) 10/10/2009 2 - Rash CHLORHEXIDINE GLUCONATE 12/28/2018 9 - Itching Date Reviewed: 01/16/2021 Reviewed by: Nakia Luna Ma - Fully Assessed Reason for Visit: Pain, Back [855] Primary Visit Diagnosis:Strain (more content not included)... Normal [facility] XR LUMBAR 3V AP/LAT/L5-S1on 01-16-2021 XR LUMBAR [...] bony abnormality or significant disc height loss. Assistant Professor Of Chemistry: TERESITA Transcribe Date/Time: Jan 16 2021 12:34P Dictated by : CARLTON MATTHEWS MD This examination was interpreted and the report reviewed and electronically signed by: CARLTON MATTEHWS MD on Jan 16 2021 12:35PM EST [id number] Normal [facility] CNPYisel 01-07-2021 CNPN Telephone ([facility]) -- YEIMY HONEYCUTT ([id number]) 1995 F Date Time Provider Department 01/07/21 [facility] During your visit today, we recorded the [...] Encounter Status:Closed by AYLIN GILLILAND on 01/07/21 [facility] Coding Summary.on 05-18-2018 Coding Summary. CODING DATE: 018 FINAL [facility] STATUS: Home (Routine DC) PAYOR: Desmond APC [...] Nino CphT Date Saved: 05/18/2018 08:52 am [facility] US Breast Unilateral Rt Blas alston 05-16-2018 [...] MD Transcribed by: KALIN Technologist: EULALIO Normal [facility] XR CHEST (2 VW)on 08-14-2017 XR CHEST (2 VW) EXAMINATION: XR CHES T (2 VW)CLINICAL HISTORY: chest pain COMPARISONS: None available.FINDINGS: Cardiac size and pulmonary vascularity are normal. The lungs are clear. There is no evidence of adenopathy. The bones are unremarkable.IMPRESSION: NORMAL CHEST RADIOGRAPHSInterpreted by:ARIAN Harrisigned by:Troy Rueda MD08/14/17inal result Normal [facility] Vital Signs Date Time Vital Sign Value Performing Clinician Facility 10-05-2022 13:25-0400 Body height 172.72 cm Arlette Fofana Other [facility] Other 10-05-2022 13:25-0400 Body mass index (BMI) [Ratio] 28.86 kg/m2 Arlette Fofana Other [facility] Other 10-05-2022 13:25-0400 Body temperature 98.2 [degF] Arlette Fofana Other [facility] Other 10-05-2022 13:25-0400 Body weight 86.09 kg Arlette Hermanmond Other [facility] Other 10-05-2022 13:25-0400 Respiratory rate 18 /min Arlette Fofana Other [facility] Other 10-05-2022 13:25-0400 SaO2% (BldA) [Mass fraction] 99 % Arlette Fofana Other [facility] Other Encounters Encounter Date Encounter Type Care Provider Facility Start: 04-26-2023 End: 04-26-2023 ambulatory BABAR OLSEN Not Available Start: 04-12-2023 End: 04-12-2023 ambulatory LISSY JOSEPH Not Available Start: 10-05-2022 End: 10-05-2022 ambulatory Arlette Fofana Other [employer] [employer] Other Start: 10-05-2022 Office outpatient vi sit 15 minutes Arlette Fofana [facility] Start: 07-20-2022 End: 08-28-2022 ambulatory KAREN ROSETTE Facility:[facility] Start: 04-15-2022 End: 04-15-[address] BABAR OLSEN . Facility:[facility] Start: 10-23-2021 End: 11-12-2021 ambulatory KAREN ROSETTE Facility:[facility] Start: 10-16-2021 End: 10-16-2021 ambulatory KAREN ROSETTE Facility:[facility] Start: 10-08-2021 Encounter for preprocedural laboratory examination DR BABAR OLSEN . [facility] Start: 10-06-2021 End: 10-09-2021 Evaluation and management [...] 08-14-2017 Emergency department patient visit SIMRAN DUONG [facility] Procedures Date Procedure Procedure Detail Performing Clinician Start: 10-06-2021 Extraction of Produc ts of Conception, Low Cervical, Open Approach KAREN DINERO Start: 08-14-2017 Radiologic exam chest 2 views SIMRAN DUONG Start: 08-14-2017 EKG 12-LEAD SIMRAN DORSEY UL Payers Date Payer Category Payer Unknown [id number] 1995 Unknown [id number] 2.16.84 [id number] 1995 Unknown [id number] 2.16.84 [id number] 1995 Unknown [id number] 2.16.84 [id number] 1995 Unknown [id number] 2.16.84 [id number] 1993 Unknown [id number] 2.16.84 [id number] 1993 Unknown [id number] 2.16.84 [id number] 1993 Unknown [id number] 2.16.84 0.1.738974.3.579.2.593 1993 Unknown [id number] 2.16.84 0.1.708621.3.579.2.593 1993 Unknown [id number] 2.16.84 0.1.066371.3.579.2.593 1993 Unknown [id number] 2.16.84 0.1.817841.3.579.2.593 1995 Unknown [id number] 2.16.840 .[id number] 1993 Unknown [id number] 2.16.840 .[id number] 1959 Unknown [id number] Social History Date Type Detail Facility Unknown if ever smoked [facility] Other Sex Assigned At Sex Assigned At Bir th [facility] Other Evaluation note 10-05-2022 Note Date & [...] of diseases classified elsewhere (ICD-10 - B96.89) [facility] Other Clinical Note 10-06-2021 Note Date & Type Note Facility 10-06-2021 Note [facility] [place], [place] NAME: YEIMY RODRIGUEZ Michaela DATE OF : MEDICAL REC#: [id number] IT INTEGRATION ARCHITECT: [address], TRANSADMIT DATE: 10/06/2021 05:30:00 MARINE STEAM FITTER DATE: 10/06/2021 21:00 DICTATING PHYSICIAN: BABAR OLSEN DICTATION DATE: 10/06/2021 08:00 OPERATIVE NOTE OPERATION DATE: 10/06/2021 PROCEDURE: Repeat low transverse section. PREOPERATIVE DIAGNOSIS: 1. at 39 2/7 weeks. 2. Previous . POSTOPERATIVE DIAGNOSIS: 1. at 39 2/7 weeks. 2. Previous . ANESTHESIA: Spinal with Duramorph. SURGEON: Babar Olsen D.O. CLOTH MEASURER: LAUREN Ellison URINE OUTPUT: Yellow and clear. [...] by: DR BABAR OLSEN . 10/07/2021 09:42:00 [facility] Discharge summary note 10-06-2021 Note Date & [...] by: DR BABAR OLSEN . 10/13/2021 07:35:00 [facility] Progress note 01-16-2021 Note Date & Type Note Facility 01-16-2021 Note HNO ID: [id number] Author: Aylin Gilliland PA-C Service: ? 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 Type: Progress Notes Filed: 01/16/2021 10:07 AM [...] RT Jalen(R) January 16, 2021 10:06 AM [facility] History general Narrative - Reported Note Date & Type Note Facility History general Narrative - Reported Type Medical History costal chondritis Medical History asthma - exercise induced Medical History 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 Surgical History pelvic cyst removed x2 Surgical History wrist surgery- right Surgical History lumpectomy 12/2017 Surgical History C section x2 Hospitalization History see above [employer] Other Summary Purpose Family History No Family History Records FoundNo Family History Records FoundNo Family History Records FoundNo Family History Records FoundNo Family History Records Found Advance Directives No Advanced Directives Records FoundNo Advanced Directives Records FoundNo Advanced Directives Records FoundNo Advanced Directives Records FoundNo Advanced Directives Records Found Additional Source Comments INFORMATION SOURCE (unrecogn ized section and content) DATE CREATED AUTHOR [facility]25/2017 [facility] DATE CREATED AUTHOR AUTHOR'S ORGANIZ ATION 05/12/2019 [facility] DATE CREATED AUTHOR AUTHOR'S ORGANIZ ATION 07/12/2021 [facility] DATE CREATED AUTHOR AUTHOR'S ORGANIZ ATION 09/23/[address] [facility] DATE CREATED AUTHOR AUTHOR'S ORGANIZ ATION 04/27/2023 [facility] EPIC REASON FOR VISIT (unrecogniz [...] BE BASED ON THE PRIMARY CLINICAL RECORDS. [employer] provides no warranty or guarantee of the accuracy or completeness of information in this document.
--- NOTE | 2023-05-25 14:00 | US_ITS ---
[address] [address] Patient Name: OLIVIA RODRIGUEZ MRN: [id number] date: 1995 Sex: F Assigned Patient Location: Current Patient Location: Accession/Order Number: [id number] Exam Date: 05/25/2023 14:00 Report Date: 05/25/2023 14:43 At the request of: BABAR ANGUIANO Procedure: US OB growth EXAMINATION: US OB growth HISTORY: SGA COMPARISON: 04/26/2023 FINDINGS: Heart Rate: 138.0 bpm Amniotic Fluid Volume: 9.8 cm Number: 1.0 Position: Cephalic presentation, longitudinal lie Maximum Vertical Pocket: 3.7 cm cm 0.7 cm cm 2.6 cm cm 2.9 cm cm BIOMETRY: BPD: 8.3 cm cm; 33 weeks 2 days; 70% HC: 30.4 cmcm; 33 weeks 5 days , 52% AC: 25.6 cm cm; 29 weeks 5 days, less than 3% FL: 5.9 cm cm; 30 weeks 6 days; 8.0 % % EFW: 1633.0 grams, 3 lbs. 10 oz., 7% FL/AC: 23.1 FL/BPD: 71.6 HC/AC: 1.2 GESTATIONAL AGE: Age by EDC: 32 weeks 2 days SANDRA by EDC: 07/18/2023 Age by US: 31 weeks 3 days SANDRA by US: 07/24/2023 US/US OB growth IMPRESSION: Abdominal circumference less than the 3rd percentile Estimated weight at the 7th percentile Electronically authenticated by: PJ SAM Date: 05/25/2023 14:43
== END 2023-05-25 13:57 | disposition home or self-care (01) ==
LOC: US 13:56
PROVIDERS: Visit Provider Obstetrics & Gynecology
DX: O26.843 Uterine size-date discrepancy, third trimester (principal); Z87.59 Personal history of other complications of pregnancy, childbirth and the puerperium; Z3A.32 32 weeks gestation of pregnancy
CPT/HCPCS: 76816

== ENCOUNTER 2023-06-07 07:13 | Outpatient (OUT) | payer OTHER, SELFPAY ==
--- NOTE | 2023-06-07 | US_ITS ---
[address] [address] Patient Name: OLIVIA RODRIGUEZ MRN: [id number] date: 1995 Sex: F Assigned Patient [facility] Current Patient Location: Accession/Order Number: [id number] Exam Date: 06/07/2023 13:10 Report Date: 06/08/2023 07:56 At the request of: LISSY JOSEPH Procedure: US OB umbilical artery EXAMINATION: US OB umbilical artery HISTORY: HISTORY OF SMALL GESTATIONAL AGE COMPARISON: No relevant comparison available. TECHNIQUE: Duplex Doppler evaluation of the umbilical arteries. FINDINGS: position: Cephalic presentation, longitudinal lie Amniotic fluid volume: 12.6 cm. Largest pocket 5.0 cm. Heart rate: 139 bpm Forward flow identified in the umbilical arteries throughout diastole Proximal umbilical artery PSV/EDV: 88/34 cm/s. Resistive index 0.61. Ratio 2.6. Mid umbilical artery PSV/EDV: 102/44 cm/s. Resistive index 0.57. Ratio 2.3 Distal umbilical artery PSV/EDV: 66/22 cm/s. Resistive index 0.67. Ratio 3.0 Clinical age: 34 weeks 1 day Clinical SANDRA: 07/18/2023 US/US OB umbilical artery IMPRESSION: Class 0, normal Umbilical Artery: Class 0 = Normal umbilical artery blood velocity Class I = increased RI or PI, but still forward flow in diastole Class II = Absent end diastolic flow (AEDF) Class III = Reversal of end diastolic flow (REDF) Resistive Index (RI)<1 Systolic/Diastolic ratio (S:D): An S:D ratio of 2-3 after 34 wks is normal Systolic/Diastolic ratio (S:D): Age 16: 3.01 for the 10th percentile, 4.25 for the 50th percentile, 6.07 for the 90th percentile Age 20: 3.16 for the 10th percentile, 4.04 for the 50th percentile, 5.24 for the 90th percentile Age 24: 2.70 for the 10th percentile, 3.50 for the 50th percentile, 4.75 for the 90th percentile Age 28: 2.41 for the 10th percentile, 3.02 for the 50th percentile, 3.97 for the 90th percentile Age 30: 2.43 for the 10th percentile, 3.04 for the 50th percentile, 3.80 for the 90th percentile Age 32: 2.27 for the 10th percentile, 2.73 for the 50th percentile, 3.57 for the 90th percentile Age 34: 2.08 for the 10th percentile, 2.52 for the 50th percentile, 3.41 for the 90th percentile Age 36: 1.96 for the 10th percentile, 2.35 for the 50th percentile, 3.15 for the 90th percentile Age 38: 1.89 for the 10th percentile, 2.24 for the 50th percentile, 3.10 for the 90th percentile Age 40: 1.88 for the 10th percentile, 2.22 for the 50th percentile, 2.68 for the 90th percentile Age 41: 1.93 for the 10th percentile, 2.21 for the 50th percentile, 2.55 for the 90th percentile Age 42: 1.91 for the 10th percentile, 2.51 for the 50th percentile, 3.21 for the 90th percentile Uteroplacental Artery: Resistive Index (RI): Normal=<0.55 High Resistance=Bilateral notches (after 26 wks) and RI>0.55. Unilateral notches (after 26 wks) and RI>0.65 Systolic/Diastolic ratio (S:D) = 2-3 is normal after 32 weeks. Electronically authenticated by: PJ SAM Date: 06/08/2023 07:56
--- OUTSIDE RECORDS SUMMARY | 2023-06-07 07:16 | XMS_ITS | CCD ---
Author Name Unknown Address [address] [place] [address] Organization [facility] Care Team Providers Care Hand Counter Name Role Phone SIMRAN DUONG Unavailable Unavailable ROSETTE, WILMINGTON Primary Care Unavailable ANNMARIE ., DR ECKERT Consulting Unavailable ANNMARIE ., DR ECKERT Attending Unavailable ANNMARIE ., DR ECKERT Procedure Practitioner Unavail able ANNMARIE ., DR ECKERT Admitting Unavailable AGUBEDA CAMEJO Consulting Unavailable ARLETTE MARROQUIN Consulting Unavailable KARASIK ., DR SCOTT Admitting Unavailabl e KARASIK ., DR SCOTT Consulting Unavailabl e ROSETTE, WILMINGTON Primary Care Unavailable KARASIK ., DR SCOTT Attending Unavailabl e ANNMARIE ., DR ECKERT Admitting Unavailable [facility] Primary Care Unavailable ANNMARIE ., DR ECKERT Consulting Unavailable ANNMARIE ., DR ECKERT Attending Unavailable KARASIK ., DR SCOTT Attending Unavailabl e KARASIK ., DR SCOTT Admitting Unavailabl e KARASIK ., DR SCOTT Consulting Unavailabl e ROSETTE, WILMINGTON Primary Care Unavailable CAM[place], DR PJ Araujo Consulting Unavailable ANNMARIE ., DR ECKERT Consulting Unavailable KARASIK ., DR SCOTT Attending Unavailabl e KARASIK ., DR SCOTT Admitting Unavailabl e KARASIK ., DR SCOTT Consulting Unavailabl e ROSETTE, WILMINGTON Primary Care Unavailable ANNMARIE ., DR ECKERT Consulting Unavailable Policaro, Samira Consulting Unavailable ROSETTE, WILMINGTON Primary Care Unavailable CARBALLO, TONNY Attending Unavailable CARBALLO, TONNY Admitting Unavailable ROSETTE, WILMINGTON Primary Care Unavailable ANNMARIE ., DR ECKERT Attending Unavailable ANNMARIE ., DR ECKERT Consulting Unavailable ANNMARIE ., DR ECKERT Admitting Unavailable [facility] Unavailable ANNMARIE ., DR ECKERT Attending Unavailable ANNMARIE ., DR ECKERT Admitting Unavailable [facility] Primary Care Unavailable ANNMARIE ., DR ECKERT Attending Unavailable ANNMARIE ., DR ECKERT Admitting Unavailable ANNMARIE ., DR ECKERT Consulting Unavailable [facility] Care Unavailable ANNMARIE ., DR ECKERT Attending Unavailable ANNMARIE ., DR ECKERT Admitting Unavailable Arlette Fofana Unavailable LISSY JOSEPH Attending Unavailable LISSY JOSEPH Attending Unavailable LISSY JOSEPH Attending Unavailable BABAR OLSEN Attending Unavailable LISSY JOSEPH Attending Unavailable Allergies Allergy Classification Reported Allergen(s) Allergy Type Date of Onset Reaction(s) Facility (1 source) Chlorhexidine Drug Allergy [facility] (1 source) Sulfamethoxazole / Trimethoprim Drug Allergy [facility] (1 source) Chlorhexidine Drug Allergy [facility] Other (1 source) Sulfamethoxazole / Trimethoprim Drug Allergy [facility] Other (1 source) Darvocet-N 50 Drug allergy 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 . [facility] Comment on above: Performed By: #### [id number] #### [facility] [address] [address] [address] Winifred Silver Age Gdln ACOG Testing [facility] Comment on above: Performed By: #### [id number] #### [facility] [address] [address] [address] Winifred Silver DIAGNOSIS: Comment [facility] Comment on above: Result Comment: NEGATIVE FOR INTRAEPITHE LIAL LESION OR MALIGNANCY. Performed By: #### [id number] #### [facility] [address] [address] [address] Winifred Silver Methodology: Comment [facility] Comment on above: Result Comment: This liquid based ThinPr ep(R) pap test was screened with the use of an image guided system. Performed By: #### [id number] #### [facility] [address] [address] [address] Winifred Silver Note: Comment [facility] Comment on above: Result Comment: The Pap smear is a scree marlo test designed to aid in the detection of premalignant and malignant conditions of the uterine cervix. It is not a diagnostic procedure and should not be used as the sole means of detecting cervical cancer. Both false-positive and false-negative reports do occur. . Performed By: #### [id number] #### [facility] [address] [address] [address] Winifred Silver Performed by: Comment Normal [facility] Comment on above: Result Comment: [employer] nologist (ASCP) Performed By: #### [id number] #### [facility] [address] [address] [address] Winifred Silver Reflex Criteria: Comment Normal [facility] Comment on above: Result Comment: The HPV DNA reflex crite ana were not met with this specimen result therefore, no HPV testing was performed. . Performed By: #### [id number] #### [facility] [address] [place] [address] Dr. Winifred Silver Specimen adequacy: Comment Normal [facility] Comment on above: Result Comment: Satisfactory for evaluat ion. Endocervical and/or squamous metaplastic cells (endocervical component) are present. Performed By: #### [id number] #### [facility] [address] [place] [address] Dr. Winifred Silver CBC AUTO DIFFon 10-07-2021 BASO # 0.1 103/ul Normal 0.0-0.1 [facility] Comment on above: Performed By: #### CBC ####[facility] ital [address] [address]Dr. Winifred Silver Basophils/100 WBC (Bld) 0.6 % Normal 0.2-2.0 [facility] Comment on above: Performed By: #### CBC ####[facility] ital [address] [address]DrDarius Silver EO # 0.3 103/ul Normal 0.0-0.7 [facility] Comment on above: Performed By: #### CBC ####[facility] ital [address] [address]DrDarius Silver Eosinophils/100 WBC (Bld) 2.6 % Normal 0.9-7.0 [facility] Comment on above: Performed By: #### CBC ####[facility] [address] [address]Dr. Winifred Silver Erythrocyte distribution width (RBC) [Ratio] 13.1 % Normal 11.0-15.0 [facility] Comment on above: Performed By: #### CBC ####[facility] ital [address] [address]Dr. Winifred Silver Hematocrit (Bld) [Volume fraction] 26.6 % Critically low 36.0-48.0 [facility] Comment on above: Performed By: #### CBC ####[facility] [address] [address]Dr. Winifred Silver Hemoglobin (Bld) [Mass/Vol] 8.7 g/dL Critically low 12.0-16.0 [facility] Comment on above: Performed By: #### CBC ####[facility] [address] [address]Dr. Jolenedaylin Silver IG # 0.04 10e3/ul Critically high 0.00-0.03 [facility] Comment on above: Performed By: #### CBC ####[facility] [address] [address]Dr. Jolenedaylin Silver IG % 0.4 % Normal 0.0-0.5 [facility] Comment on above: Performed By: #### CBC ####[facility] [address] [address]Dr. Jolenedaylin Silver LYMPH # 1.4 103/ul Normal 1.2-3.8 [facility] Comment on above: Performed By: #### CBC ####[facility] [address] [address]Dr. Jolenedaylin Silver Lymphocytes/100 WBC (Bld) 13.8 % Critically low 20.5-60.0 [facility] Comment on above: Performed By: #### CBC ####[facility] [address] [address]Dr. Jolenedaylin Silver MANUAL DIFF REQ NO Normal [facility] Comment on above: Performed By: #### CBC ####[facility] ital [id number] Winifred Silver MCH (RBC) [Entitic mass] 29.6 pg Normal 26.7-34.0 [facility] Comment on above: Performed By: #### CBC ####[facility] [address] [address]Dr. Winifred Silver MCHC (RBC) [Mass/Vol] 32.7 g/dL Normal 29.9-35.2 [facility] Comment on above: Performed By: #### CBC ####[facility] [address] [address]Dr. Jolenedaylin Silver MCV (RBC) [Entitic vol] 90.5 fL Normal 81.0-99.0 [facility] Comment on above: Performed By: #### CBC ####[facility] [address] [address]Dr. Jolenedaylin Silver MONO # 0.6 103/ul Normal 0.3-0.8 [facility] Comment on above: Performed By: #### CBC ####[facility] [address] [address]Dr. Winifred Silver Monocytes/100 WBC (Bld) 6.1 % Normal 1.7-12.0 [facility] Comment on above: Performed By: #### CBC ####[facility] [address] [address]Dr. Jolenedaylin Silver NEUT # 7.8 103/ul Critically high 1.4-6.[address] [facility] Comment on above: Performed By: #### CBC ####[facility] [address] [address]Dr. Winifred Silver Neutrophils/100 WBC (Bld) 76.5 % Critically high 43.0-75.0 [facility] Comment on above: Performed By: #### CBC ####[facility] [address] [place], [place] [address]Dr. Winifred Silver Platelet mean volume (Bld) [Entitic vol] 10.5 fL Normal 9.5-13.5 [facility] Comment on above: Performed By: #### CBC ####[facility] ital [id number] Winifred Silver PLT 147 103/ul Critically low 150-450 [facility] Comment on above: Performed By: #### CBC ####[facility] ital [address] [id number] Silver RBC 2.94 106/ul Critically low 4.20-5.40 [facility] Comment on above: Performed By: #### CBC ####[facility] ital [address] [id number] Silver WBC 10.2 103/ul Normal 4.0-11.0 [facility] Comment on above: Performed By: #### CBC ####[facility] [address] [address]Dr. Winifred Silver CBC AUTO DIFFon 10-06-2021 BASO # 0.0 103/ul Normal 0.0-0.1 [facility] Comment on above: Performed By: #### CBC #### [facility] [address] [address] [address] Winifred Silver Basophils/100 WBC (Bld) 0.3 % Normal 0.2-2.0 [facility] Comment on above: Performed By: #### CBC #### [facility] [address] [address] [address] Winifred Silver EO # 0.1 103/ul Normal 0.0-0.7 [facility] Comment on above: Performed By: #### CBC #### [facility] [address] [address] [address] Winifred Silver Eosinophils/100 WBC (Bld) 1.4 % Normal 0.9-7.0 [facility] Comment on above: Performed By: #### CBC #### [facility] [address] [address] [address] Winifred Silver Erythrocyte distribution width (RBC) [Ratio] 13.0 % Normal 11.0-15.0 [facility] Comment on above: Performed By: #### CBC #### [facility] [address] [place] [address] Dr. Winifred Silver Hematocrit (Bld) [Volume fraction] 32.3 % Critically low 36.0-48.0 [facility] Comment on above: Performed By: #### CBC #### [facility] [address] [address] [address] Winifred Silver Hemoglobin (Bld) [Mass/Vol] 10.6 g/dL Critically low 12.0-16.0 [facility] Comment on above: Performed By: #### CBC #### [facility] [address] [place] [address] Dr. Winifred Silver IG # 0.05 10e3/ul Critically high 0.00-0.03 [facility] Comment on above: Performed By: #### CBC #### [facility] [address] [place] [address] Dr. Winifred Silver IG % 0.5 % Normal 0.0-0.5 [facility] Comment on above: Performed By: #### CBC #### [facility] [address] [place] [address] Dr. Winifred Silver LYMPH # 1.5 103/ul Normal 1.2-3.8 [facility] Comment on above: Performed By: #### CBC #### [facility] [address] [place] [address] Dr. Winifred Silver Lymphocytes/100 WBC (Bld) 14.6 % Critically low 20.5-60.0 [facility] Comment on above: Performed By: #### CBC #### [facility] [address] [place] [address] Dr. Winifred Silver MANUAL DIFF REQ NO Normal [facility] Comment on above: Performed By: #### CBC #### [facility] [address] [place] [address] Dr. Winifred Silver MCH (RBC) [Entitic mass] 29.4 pg Normal 26.7-34.0 [facility] Comment on above: Performed By: #### CBC #### [facility] [address] [place] [address] Dr. Winifred Silver MCHC (RBC) [Mass/Vol] 32.8 g/dL Normal 29.9-35.2 [facility] Comment on above: Performed By: #### CBC #### [facility] [address] [address] [address] Winifred Silver MCV (RBC) [Entitic vol] 89.7 fL Normal 81.0-99.0 [facility] Comment on above: Performed By: #### CBC #### [facility] [address] [address] [address] Winifred Silver MONO # 0.7 103/ul Normal 0.3-0.8 [facility] Comment on above: Performed By: #### CBC #### [facility] [address] [address] [address] Winifred Silver Monocytes/100 WBC (Bld) 6.5 % Normal 1.7-12.0 [facility] Comment on above: Performed By: #### CBC #### [facility] [address] [address] [address] Winifred Silver NEUT # 7.7 103/ul Critically high 1.4-6.[address] [facility] Comment on above: Performed By: #### CBC #### [facility] [address] [address] [address] Winifred Silver Neutrophils/100 WBC (Bld) 76.7 % Critically high 43.0-75.0 [facility] Comment on above: Performed By: #### CBC #### [facility] [address] [address] [address] Winifred Silver Platelet mean volume (Bld) [Entitic vol] 11.1 fL Normal 9.5-13.5 [facility] Comment on above: Performed By: #### CBC #### [facility] [address] [address] [address] Winifred Silver PLT 204 103/ul Normal 150-450 [facility] Comment on above: Performed By: #### CBC #### [facility] [address] [address] [address] Winifred Sliver RBC 3.60 106/ul Critically low 4.20-5.40 [facility] Comment on above: Performed By: #### CBC #### [facility] [address] [place] [address] Dr. Winifred Silver WBC 10.0 103/ul Normal 4.0-11.0 [facility] Comment on above: Performed By: #### CBC #### [facility] [address] [place] [address] Dr. Winifred Silver DRUG SCREEN RAPID (URINE)on 10-06-2021 AMP Negative Normal NEGATIVE [facility] Comment on above: Performed By: #### DRUGRPD #### [facility] [address] [place] [address] Dr. Winifred Silver BAR Negative Normal NEGATIVE [facility] Comment on above: Performed By: #### DRUGRPD #### [facility] [address] [place] [address] Dr. Winifred Silver BUP Negative Normal NEGATIVE [facility] Comment on above: Performed By: #### DRUGRPD #### [facility] [address] [place] [address] Dr. Winifred Silver BZO Negative Normal NEGATIVE [facility] Comment on above: Performed By: #### DRUGRPD #### [facility] [address] [place] [address] Dr. Winifred Silver TIN Negative Normal NEGATIVE [facility] Comment on above: Performed By: #### DRUGRPD #### [facility] [address] [place] [address] Dr. Winifred Silver CUT-OFFS SEE BELOW Normal [facility] Comment on above: Result Comment: AMP [...] ng/mL Performed By: #### D RUGRPD #### [facility] [address] [place] [address] Dr. Winifred Silver DRUG CUT HEADER DRUG CLASS TEST SYST EM CUT-OFF CONCENTRATIONS ARE FOLLOWS: Normal [facility] Comment on above: Performed By: #### DRUGRPD #### [facility] [address] [address] [address] Winifred Silver mAMP Negative Normal NEGATIVE [facility] Comment on above: Performed By: #### DRUGRPD #### [facility] [address] [place] [address] Dr. Winifred Silver MTD Negative Normal NEGATIVE [facility] Comment on above: Performed By: #### DRUGRPD #### [facility] [address] [place] [address] Dr. Winifred Silver OPI Negative Normal NEGATIVE [facility] Comment on above: Performed By: #### DRUGRPD #### [facility] [address] [place] [address] Dr. Winifred Silver OXY Negative Normal NEGATIVE [facility] Comment on above: Performed By: #### DRUGRPD #### [facility] [address] [place] [address] Dr. Winifred Silver PCP Negative Normal NEGATIVE [facility] Comment on above: Performed By: #### DRUGRPD #### [facility] [address] [place] [address] Dr. Winifred Silver PPX Negative Normal NEGATIVE [facility] Comment on above: Performed By: #### DRUGRPD #### [facility] [address] [place] [address] Dr. Winifred Silver TCA Negative Normal NEGATIVE [facility] Comment on above: Performed By: #### DRUGRPD #### [facility] [address] [place] [address] Dr. Winifred Silver THC Negative Normal NEGATIVE [facility] Comment on above: Performed By: #### DRUGRPD #### [facility] [address] [place] [address] Dr. Winifred Silver TYPE AND SCREENon 10-06-2021 TYPE AND SCREEN Negative Normal [facility] Comment on above: Performed By: #### TNS #### [facility] [address] [place] [address] Dr. Winifred Silver UA (CLEAN/CATCH) SAMPLING EXPERT/MICRO I F IND.on 10-06-2021 Bilirubin Ql (U) Negative Normal NEGATIVE [facility] Comment on above: Performed By: #### UACSIND #### [facility] [address] [place] [address] Dr. Winifred Silver Clarity (U) CLEAR Normal CLEAR [facility] Comment on above: Performed By: #### UACSIND #### [facility] [address] [place] [address] Dr. Winifred Silver Color (U) LT. YELLOW Normal YELLOW [facility] Comment on above: Performed By: #### UACSIND #### [facility] [address] [place] [address] Dr. Winifred Silver Glucose Ql (U) Negative Normal NEGATIVE [facility] Comment on above: Performed By: #### UACSIND #### [facility] [address] [place] [address] Dr. Winifred Silver Hemoglobin Ql (U) Negative Normal NEGATIVE [facility] Comment on above: Performed By: #### UACSIND #### [facility] [address] [place] [address] Dr. Winifred Silver Ketones Ql (U) Negative Normal NEGATIVE [facility] Comment on above: Performed By: #### UACSIND #### [facility] [address] [place] [address] Dr. Winifred Silver LEUKOCYTES Negative Normal NEGATIVE [facility] Comment on above: Performed By: #### UACSIND #### [facility] [address] [place] [address] Dr. Winifred Silver Nitrite Ql (U) Negative Normal NEGATIVE [facility] Comment on above: Performed By: #### UACSIND #### [facility] [address] [place] [address] Dr. Winifred Silver pH (U) 6.0 [pH] Normal 5-9 [facility] Comment on above: Performed By: #### UACSIND #### [facility] [address] [place] [address] Dr. Winifred Silver SPEC GRAVITY 1.025 Normal 1.005-<=1.02 5 [facility] Comment on above: Performed By: #### UACSIND #### [facility] [address] [place] [address] Dr. Winifred Silver UA PROTEIN Negative Normal NEGATIVE/ TRACE [facility] Comment on above: Performed By: #### UACSIND #### [facility] [address] [place] [address] Dr. Winifred Silver UR MICRO IND NOT INDICATED Normal [facility] Comment on above: Performed By: #### UACSIND #### [facility] [address] [place] [address] Dr. Winifred Silver Urobilinogen Qn (U) 0.2 {Fredrick'U}/dL Normal 0.2 - 1.0 [facility] Comment on above: Performed By: #### UACSIND #### [facility] [address] [place] [address] Dr. Winifred Silver [facility] SARS-CoV-2 (COVID-19) RNA JENARO+probe Ql (Unsp spec) Not detected Normal NOT DETECTED [facility] Comment on above: Result Comment: This test is not yet sheri roved or cleared by the [place] FDA. When there are no FDA-approved or cleared tests available, and other criteria are met, FDA can make tests available under an emergency access mechanism called an Emergency Use Authorization (EUA). The EUA for this test is supported by the [employer]D Modeler of Health and Human Service's (HHS's) declaration [...] consistent with SARS-CoV-2. Performed By: #### C VDTB #### [facility] [address] [place] [address] Dr. Winifred Silver US PREG GROWTHon 10-01-2021 [...] by: SAMIRA VELA Date: 2021-10-01 19:22 Normal [facility] US PREG BIOPHY W NON STRESSo [...] by: PJ SAM Date: 2021-09-25 07:47 Normal [facility] CNOVon 01-16-2021 CNOV Office Visit (ORTHMN ) -- YEIMY HONEYCUTT ([id number]) 1995 F Date Time Provider Department 01/16/21 10:20 AM AYLIN GILLILAND During your visit today, we recorded the following information about you: Weight Height 77.1 kg 1.727 m Aylin Gilliland PA-C 02/11/2021 9:16 PM Signed Consultation requested by Kali Alcantara [id number] [facility] [id number] Yeimy Honeycutt is a 25 year old [...] Aylin Gilliland MS, PA-C [facility] [place] Referring Provider: KALI ALCANTARA [[id number]] Allergies As of Date: 01/16/2021 Noted Allergy Reaction BACTRIM (SULFAMETHOXAZOLE) 10/10/2009 2 - Rash CHLORHEXIDINE GLUCONATE 12/28/2018 9 - Itching Date Reviewed: 01/16/2021 Reviewed by: Nakia Luna Ma - Fully Assessed Reason for Visit: Pain, Back [855] Primary Visit Diagnosis:Strain (more content not included)... Normal [facility] XR LUMBAR 3V AP/LAT/L5-S1on 01-16-2021 XR [...] bony abnormality or significant disc height loss. Foundation Stage Teacher: TERESITA Transcribe Date/Time: Jan 16 2021 12:34P Dictated by : CARLTON MATTHEWS MD This examination was interpreted and the report reviewed and electronically signed by: CARLTON MATTHEWS MD on Jan 16 2021 12:35PM EST [id number] Normal [facility] CNPYisel 01-07-2021 CNPN Telephone ([facility]) -- YEIMY HONEYCUTT ([id number]) 1995 F Date Time Provider Department 01/07/21 AYLIN GILLILAND [facility] During your visit today, we recorded the [...] Encounter Status:Closed by AYLIN GILLILAND on 01/07/21 [facility] Coding Summary.on 05-18-2018 Coding Summary. CODING DATE: 018 FINAL [facility] STATUS: Home (Routine DC) PAYOR: Desmond APC [...] Nino CphT Date Saved: 05/18/2018 08:52 am Normal [facility] US Breast Unilateral Rt Blas alston [...] MD Transcribed by: KALIN Technologist: EULALIO Normal [facility] XR CHEST (2 VW)on 08-14-2017 XR CHEST (2 VW) EXAMINATION: XR CHES T (2 VW)CLINICAL HISTORY: chest pain COMPARISONS: None available.FINDINGS: Cardiac size and pulmonary vascularity are normal. The lungs are clear. There is no evidence of adenopathy. The bones are unremarkable.IMPRESSION: NORMAL CHEST RADIOGRAPHSInterpreted by:ARIAN Harrisigned by:Troy Rueda MD08/14/17inal result Normal [facility] Vital Signs Date Time Vital Sign Value Performing Clinician Facility 10-05-2022 13:25-040 Body height 172.72 cm Arlette Fofana Other [facility] Other 10-05-2022 13:25-0400 Body mass index (BMI) [Ratio] 28.86 kg/m2 [facility] Other [facility] Other 10-05-2022 13:25-040 Body temperature 98.2 [degF] Arlette Fofana Other [facility] Other 10-05-2022 13:25-040 Body weight 86.09 kg Arlette Fofana Other [facility] Other 10-05-2022 13:25-0400 Respiratory rate 18 /min Arlette Fofana Other [facility] Other 10-05-2022 13:25-0400 SaO2% (BldA) [Mass fraction] 99 % Arlette Fofana Other [facility] Other Encounters Encounter Date Encounter Type Care Provider Facility Start: 06-02-2023 End: 06-02-2023 ambulatory LISSY AJKE Not Available Start: 05-25-2023 End: 05-25-2023 ambulatory LISSY JOSEPH Not Available Start: 05-10-2023 End: 05-10-2023 ambulatory LISSY JOSEPH Not Available Start: 04-26-2023 End: 04-26-2023 ambulatory BABAR OLSEN Not Available Start: 04-12-2023 End: 04-12-2023 ambulatory LISSY JOSEPH Not Available Start: 10-05-2022 End: 10-05-2022 ambulatory Arlette Fofana Other [facility] Other Start: 10-05-2022 Office outpatient vi sit 15 minutes Arlette Fofana [facility] Start: 07-20-2022 End: 08-28-2022 ambulatory KAREN ROSETTE Facility:[facility] Start: 04-15-2022 End: 04-15-[address] BABAR OLSEN . Facility:[facility] Start: 10-23-2021 End: 11-12-2021 ambulatory KAREN ROSETTE Facility:[facility] Start: 10-16-2021 End: 10-16-2021 ambulatory KAREN ROSETTE Facility:[facility] Start: 10-08-2021 Encounter for preprocedural laboratory examination DR BABAR OLSEN . [facility] Start: 10-06-2021 End: 10-09-2021 Evaluation and management of inpatient KAREN ROSETTE Facility:[facility] Start: 10-04-2021 End: 10-04-[address] SONIA BOWLING . Facility:[facility] Start: 10-03-2021 End: 10-04-2021 ambulatory KAREN DINERO Facility:[facility] Start: 10-03-2021 End: 10-04-2021 Encounter for preprocedural laboratory examination KAREN DINERO Facility:[facility] Start: 10-01-2021 End: 10-01-[address] SONIA BOWLING . Facility:[facility] Start: 09-27-2021 End: 09-27-[address] BABAR OLSEN . Facility:[facility] Start: 09-24-2021 End: 09-24-[address] SONIA BOWLING . Facility:[facility] Start: 08-14-2017 End: 08-14-2017 [facility] Procedures Date Procedure Procedure Detail Performing Clinician Start: 10-06-2021 Extraction of Produc ts of Conception, Low Cervical, Open Approach KAREN DINERO Start: 08-14-2017 Radiologic exam chest 2 views SIMRAN DUONG Start: 08-14-2017 EKG 12-LEAD SIMRAN DORSEY Payers Date Payer Category Payer Unknown [id number] 1995 Unknown [id number] 2.16.84 [id number] 1995 Unknown [id number] 2.16.84 0.1.283524.3.579.2.593 1995 Unknown [id number] 2.16.84 0.1.242086.3.579.2.593 1995 Unknown [id number] 2.16.84 0.1.677912.3.579.2.593 1995 Unknown [id number] 2.16.84 0.1.596896.3.579.2.593 1995 Unknown [id number] 2.16.84 0.1.320330.3.579.2.593 1995 Unknown [id number] 2.16.84 0.1.944885.3.579.2.593 1995 Unknown [id number] 2.16.84 0.1.567821.3.579.2.593 1995 Unknown [id number] 2.16.84 0.1.054955.3.579.2.593 1993 Unknown [id number] 2.16.84 0.1.034301.3.579.2.593 1993 Unknown [id number] 2.16.84 0.1.083347.3.579.2.1259 1993 Unknown [id number] 2.16.840 .1.306531.3.579.2.1259 1993 Unknown [id number] 2.16.840 .1.077000.3.579.2.1259 1993 Unknown [id number] 2.16.840 .1.902510.3.579.2.1259 1993 Unknown [id number] 2.16.840 .1.523177.3.579.2.1259 1959 Unknown [id number] Social History Date Type Detail Facility Unknown if ever smoked [facility] Other Sex Assigned At Sex Assigned At Bir th [facility] Other Evaluation note 10-05-2022 Note Date & [...] of diseases classified elsewhere (ICD-10 - B96.89) [facility] Other Clinical Note 10-06-2021 Note Date & Type Note Facility 10-06-2021 Note [facility] [place], [place] NAME: YEIMY RODRIGUEZ DATE OF : MEDICAL REC#: [id number] ACADEMIC SUPPORT DIRECTOR: [id number], TRANSADMIT DATE: 10/06/2021 05:30:00 WASTEWATER SUPERINTENDENT DATE: 10/06/2021 21:00 DICTATING PHYSICIAN: BABAR OLSEN DICTATION DATE: 10/06/2021 08:00 OPERATIVE NOTE OPERATION DATE: 10/06/2021 PROCEDURE: Repeat low transverse section. PREOPERATIVE DIAGNOSIS: 1. at 39 2/7 weeks. 2. Previous . POSTOPERATIVE DIAGNOSIS: 1. at 39 2/7 weeks. 2. Previous . ANESTHESIA: Spinal with Duramorph. SURGEON: Babar Olsen D.O. CARDIOLOGY TEACHER: LAUREN Ellison URINE OUTPUT: Yellow and clear. [...] patient's uterus and extended laterally digitally. The was then delivered atraumatically after the bladder [...] by: DR BABAR OLSEN . 10/07/2021 09:42:00 [facility] Discharge summary note 10-06-2021 Note Date [...] by: DR BABAR OLSEN . 10/13/2021 07:35:00 [facility] Progress note 01-16-2021 Note Date & Type Note Facility 01-16-2021 Note HNO ID: [id number] Author: Aylin Gilliland PA-C Service: ? Author Type: Physician Strategic Advisor Type: Progress Notes Filed: 02/11/2021 9:16 PM Note Text: Consultation requested by Kali Alcantara [address] [facility] [address] Yeimy Honeycutt is a 25 year old [...] Aylin Gilliland MS, PA-C [facility] [place] [facility] Progress note 01-16-2021 Note Date & Type Note Facility 01-16-2021 Note HNO ID: [id number] Author: RT Jalen(R) Service: Radiology Author Type: Salon Sales Consultant Type: Progress Notes Filed: 01/16/2021 10:07 AM [...] RT Jalen(R) January 16, 2021 10:06 AM [facility] History general Narrative - Reported Note Date & Type Note Facility History general Narrative - Reported Type Medical History costal chondritis Medical History asthma - exercise induced Medical History 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 Surgical History pelvic cyst removed x2 Surgical History wrist surgery- right Surgical History lumpectomy 12/2017 Surgical History C section x2 Hospitalization History see above [facility] Other Summary Purpose Family History No Family [...] content) DATE CREATED AUTHOR 11/25/2017 [facility] DATE CREATED AUTHOR AUTHOR'S ORGANIZ ATION 05/12/2019 [facility] DATE CREATED AUTHOR AUTHOR'S ORGANIZ ATION 07/12/2021 [facility] DATE CREATED AUTHOR AUTHOR'S ORGANIZ ATION 09/23/2022 [facility] DATE CREATED AUTHOR AUTHOR'S ORGANIZ ATION 06/04/2023 [facility] EPIC REASON FOR VISIT (unrecogniz [...] BE BASED ON THE PRIMARY CLINICAL RECORDS. [facility] [employer] [facility]. provides no warranty or guarantee of the accuracy or completeness of information in this document.
--- NOTE | 2023-06-07 13:09 | US_ITS ---
[address] [address] Patient Name: OLIVIA RODRIGUEZ MRN: [id number] date: 1995 Sex: F Assigned Patient Location: [facility] Current Patient Location: Accession/Order Number: [id number] Exam Date: 06/07/2023 13:10 Report Date: 06/08/2023 07:36 At the request of: LISSY JOSEPH Procedure: US OB BPP w non-stress EXAMINATION: US OB BPP w non-stress HISTORY: HISTORY OF SMALL GESTATIONAL AGE COMPARISON: No relevant comparison available. TECHNIQUE: Ultrasound biophysical profile was performed in the radiology department. FINDINGS: BREATHING MOVEMENTS: 2 GROSS BODY MOVEMENTS: 2 TONE: 2 QUALITATIVE AMNIOTIC FLUID VOLUME: 2 PRESENTATION: CEPHALIC HEART RATE: 139.2 bpm H.B./min AMNIOTIC FLUID VOLUME: 12.6 cm cm GESTATIONAL AGE: 34 weeks 1 days CONCLUSION: Total biophysical profile score: 8 Electronically authenticated by: PJ SAM Date: 06/08/2023 07:36
[2023-06-07 13:43] VITALS: BP 111/64; PULSE 74
== END 2023-06-07 14:29 | disposition home or self-care (01) ==
LOC: US 07:14 → FBC 13:11
PROVIDERS: PCP Student in an Organized Health Care Education/Training Program; Visit Provider Physician Assistant
DX: O26.843 Uterine size-date discrepancy, third trimester (principal); Z3A.34 34 weeks gestation of pregnancy; Z87.59 Personal history of other complications of pregnancy, childbirth and the puerperium
CPT/HCPCS: 76818; 76820

== ENCOUNTER 2023-06-10 07:17 | Outpatient (OUT) | payer OTHER, SELFPAY ==
--- OUTSIDE RECORDS SUMMARY | 2023-06-10 07:20 | XMS_ITS | CCD ---
Author Name Unknown Address [address] [place] [address] Organization [facility] Care Team Providers Care Industrial Maintenance Electrician Name Role Phone SIMRAN DUONG Unavailable Unavailable [facility] Primary Care Unavailable ANNMARIE ., DR ECKERT Consulting Unavailable ANNMARIE ., DR ECKERT Attending Unavailable ANNMARIE ., DR ECKERT Procedure Practitioner Unavail able ANNMARIE ., DR ECKERT Admitting Unavailable AGUBEDA CAMEJO Consulting Unavailable ARLETTE MARROQUIN Consulting Unavailable KARASIK ., DR SCOTT Admitting Unavailabl e KARASIK ., DR SCOTT Consulting Unavailabl e ROSETTE, HOMELAND Primary Care Unavailable KARASIK ., DR SCOTT Attending Unavailabl e ANNMARIE ., DR ECKERT Admitting Unavailable [facility] Primary Care Unavailable ANNMARIE ., DR ECKERT Consulting Unavailable ANNMARIE ., DR ECKERT Attending Unavailable KARASIK ., DR SCOTT Attending Unavailabl e KARASIK ., DR SCOTT Admitting Unavailabl e KARASIK ., DR SCOTT Consulting Unavailabl e ROSETTE, HOMELAND Primary Care Unavailable BURLINGTON, DR PJ Araujo Consulting Unavailable ANNMARIE ., DR ECKERT Consulting Unavailable KARASIK ., DR SCOTT Attending Unavailabl e KARASIK ., DR SCOTT Admitting Unavailabl e KARASIK ., DR SCOTT Consulting Unavailabl e ROSETTE, HOMELAND Primary Care Unavailable ANNMARIE ., DR ECKERT Consulting Unavailable Policaro, Samira Consulting Unavailable ROSETTE, HOMELAND Primary Care Unavailable CARBALLO, TONNY Attending Unavailable CARBALLO, TONNY Admitting Unavailable ROSETTE, HOMELAND Primary Care Unavailable ANNMARIE ., DR ECKERT Attending Unavailable ANNMARIE ., DR ECKERT Consulting Unavailable ANNMARIE ., DR ECKERT Admitting Unavailable [facility] Unavailable ANNMARIE ., DR ECKERT Attending Unavailable ANNMARIE ., DR ECKERT Admitting Unavailable [facility] Primary Care Unavailable ANNMARIE ., DR ECKERT Attending Unavailable ANNMARIE ., DR CEKERT Admitting Unavailable ANNMARIE ., DR ECKERT Consulting Unavailable [facility] Care Unavailable ANNMARIE ., DR ECKERT Attending Unavailable ANNMARIE ., DR ECKERT Admitting Unavailable Arlette Fofana Unavailable LISSY JOSEPH Attending Unavailable LISSY JOSEPH Attending Unavailable LISSY JOSEPH Attending Unavailable BABAR OLSEN Attending Unavailable LISSY JOSEPH Attending Unavailable Allergies Allergy Classification Reported Allergen(s) Allergy Type Date of Onset Reaction(s) Facility (1 source) Chlorhexidine Drug Allergy [facility] (1 source) Sulfamethoxazole / Trimethoprim Drug Allergy [facility] (1 source) Chlorhexidine Drug Allergy [facility] Other (1 source) Sulfamethoxazole / Trimethoprim Drug Allergy [facility] Other (1 source) Darvocet-N 50 Drug allergy [facility] Other Medications Current Medications Medication Drug Class(es) [...] 08-14-2017 Episodic Other aftercare (1 source) Other intermediate card tender (current) drug therapy; Translations: [OTH BAR TURNER CURRENT 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] Onset: 10-13-2021 Episodic Other [...] applicable or unspecified; Translations: [MAT CARE OT [place] FTL GRTH 3RD TM UNS] Onset: 10-04-2021 [...] pyogenes Org specific cx Ql (Throat) Negative Our Security Team Other Quick Strep [facility] Other PAP ACOG PANEL 2: 21 to 29on 04-24-2022 . . [facility] Comment on above: Performed By: #### [id number] #### [facility] [address] [address] [address] Winifred Silver Age Gdln ACOG Testing [facility] Comment on above: Performed By: #### [id number] #### [facility] [address] [address] [address] Winifred Silver DIAGNOSIS: Comment [facility] Comment on above: Result Comment: NEGATIVE FOR INTRAEPITHE LIAL LESION OR MALIGNANCY. Performed By: #### [id number] #### [facility] [address] [address] [address] Winifred Silver Methodology: Comment [facility] Comment on above: Result Comment: This liquid based ThinPr ep(R) pap test was screened with the use of an image guided system. Performed By: #### [id number] #### [facility] [address] [address] [address] Winifred Silver Note: Comment [facility] Comment on above: Result Comment: The Pap smear is a scree marlo test designed to aid in the detection of premalignant and malignant conditions of the uterine cervix. It is not a diagnostic procedure and should not be used as the sole means of detecting cervical cancer. Both false-positive and false-negative reports do occur. . Performed By: #### [id number] #### [facility] [address] [address] [address] Winifred Silver Performed by: Comment Normal [facility] Comment on above: Result Comment: [employer] nologist (ASCP) Performed By: #### [id number] #### [facility] [address] [address] [address] Winifred Silver Reflex Criteria: Comment Normal [facility] Comment on above: Result Comment: The HPV DNA reflex crite ana were not met with this specimen result therefore, no HPV testing was performed. . Performed By: #### [id number] #### [facility] [address] [place] [address] Dr. Winifred Silver Specimen adequacy: Comment Normal [facility] Comment on above: Result Comment: Satisfactory for evaluat ion. Endocervical and/or squamous metaplastic cells (endocervical component) are present. Performed By: #### [id number] #### [facility] [address] [place] [address] Dr. Winifred Silver CBC AUTO DIFFon 10-07-2021 BASO # 0.1 103/ul Normal 0.0-0.1 [facility] Comment on above: Performed By: #### CBC ####[facility] ital [id number] [address]Dr. Winifred Silver Basophils/100 WBC (Bld) 0.6 % Normal 0.2-2.0 [facility] Comment on above: Performed By: #### CBC ####[facility] [address] [address]DrDarius Silver EO # 0.3 103/ul Normal 0.0-0.7 [facility] Comment on above: Performed By: #### CBC ####[facility] [address] [address]DrDarius Silver Eosinophils/100 WBC (Bld) 2.6 % Normal 0.9-7.0 [facility] Comment on above: Performed By: #### CBC ####[facility] [address] [address]Dr. Winifred Silver Erythrocyte distribution width (RBC) [Ratio] 13.1 % Normal 11.0-15.0 [facility] Comment on above: Performed By: #### CBC ####[facility] [address] [address]Dr. Winifred Silver Hematocrit (Bld) [Volume fraction] 26.6 % Critically low 36.0-48.0 [facility] Comment on above: Performed By: #### CBC ####[facility] [address] [address]Dr. Winifred Silver Hemoglobin (Bld) [Mass/Vol] 8.7 g/dL Critically low 12.0-16.0 [facility] Comment on above: Performed By: #### CBC ####[facility] [address] [address]Dr. Jolenedaylin Silver IG # 0.04 10e3/ul Critically high 0.00-0.03 [facility] Comment on above: Performed By: #### CBC ####[facility] [address] [address]Dr. Jolenedaylin Silver IG % 0.4 % Normal 0.0-0.5 [facility] Comment on above: Performed By: #### CBC ####[facility] [address] [address]Dr. Jolenedaylin Silver LYMPH # 1.4 103/ul Normal 1.2-3.8 [facility] Comment on above: Performed By: #### CBC ####[facility] [address] [address]Dr. Jolenedaylin Silver Lymphocytes/100 WBC (Bld) 13.8 % Critically low 20.5-60.0 [facility] Comment on above: Performed By: #### CBC ####[facility] [address] [address]Dr. Jolenedaylin Silver MANUAL DIFF REQ NO Normal [facility] Comment on above: Performed By: #### CBC ####[facility] [address] [id number] Winifred Silver MCH (RBC) [Entitic mass] 29.6 pg Normal 26.7-34.0 [facility] Comment on above: Performed By: #### CBC ####[facility] [address] [address]Dr. Winifred Silver MCHC (RBC) [Mass/Vol] 32.7 g/dL Normal 29.9-35.2 [facility] Comment on above: Performed By: #### CBC ####[facility] [address] [address]Dr. Jolenedaylin Silver MCV (RBC) [Entitic vol] 90.5 fL Normal 81.0-99.0 [facility] Comment on above: Performed By: #### CBC ####[facility] [address] [address]Dr. Jolenedaylin Silver MONO # 0.6 103/ul Normal 0.3-0.8 [facility] Comment on above: Performed By: #### CBC ####[facility] [address] [address]Dr. Winifred Silver Monocytes/100 WBC (Bld) 6.1 % Normal 1.7-12.0 [facility] Comment on above: Performed By: #### CBC ####[facility] [address] [address]Dr. Jolenedaylin Silver NEUT # 7.8 103/ul Critically high 1.4-6.5 [facility] Comment on above: Performed By: #### CBC ####[facility] [address] [address]Dr. Winifred Silver Neutrophils/100 WBC (Bld) 76.5 % Critically high 43.0-75.0 [facility] Comment on above: Performed By: #### CBC ####[facility] [address] [place], [place] [address]Dr. Winifred Silver Platelet mean volume (Bld) [Entitic vol] 10.5 fL Normal 9.5-13.5 [facility] Comment on above: Performed By: #### CBC ####[facility] [id number] [id number]. Winifred Silver PLT 147 103/ul Critically low 150-[address] [facility] Comment on above: Performed By: #### CBC ####[facility] ital [address] [id number] Silver RBC 2.94 106/ul Critically low 4.20-5.40 [facility] Comment on above: Performed By: #### CBC ####[facility] [address] [id number] Silver WBC 10.2 103/ul Normal 4.0-11.0 [facility] Comment on above: Performed By: #### CBC ####[facility] [address] [address]Dr. Winifred Silver CBC AUTO DIFFon 10-06-2021 BASO # 0.0 103/ul Normal 0.0-0.1 [facility] Comment on above: Performed By: #### CBC #### [facility] [address] [address] [address] Winifred Silver Basophils/100 WBC (Bld) 0.3 % Normal 0.2-2.0 [facility] Comment on above: Performed By: #### CBC #### [facility] [address] [address] [address] Winifred Silver EO # 0.1 103/ul Normal 0.0-0.7 [facility] Comment on above: Performed By: #### CBC #### [facility] [address] [address] [address] Winifred Silver Eosinophils/100 WBC (Bld) 1.4 % Normal 0.9-7.0 [facility] Comment on above: Performed By: #### CBC #### [facility] [address] [address] [address] Winifred Silver Erythrocyte distribution width (RBC) [Ratio] 13.0 % Normal 11.0-15.0 [facility] Comment on above: Performed By: #### CBC #### [facility] [address] [place] [address] Dr. Winifred Silver Hematocrit (Bld) [Volume fraction] 32.3 % Critically low 36.0-48.0 [facility] Comment on above: Performed By: #### CBC #### [facility] [address] [address] [address] Winifred Silver Hemoglobin (Bld) [Mass/Vol] 10.6 g/dL Critically low 12.0-16.0 [facility] Comment on above: Performed By: #### CBC #### [facility] [address] [place] [address] Dr. Winifred Silver IG # 0.05 10e3/ul Critically high 0.00-0.03 [facility] Comment on above: Performed By: #### CBC #### [facility] [address] [place] [address] Dr. Winifred Silver IG % 0.5 % Normal 0.0-0.5 [facility] Comment on above: Performed By: #### CBC #### [facility] [address] [place] [address] Dr. Winifred Silver LYMPH # 1.5 103/ul Normal 1.2-3.8 [facility] Comment on above: Performed By: #### CBC #### [facility] [address] [place] [address] Dr. Winifred Silver Lymphocytes/100 WBC (Bld) 14.6 % Critically low 20.5-60.0 [facility] Comment on above: Performed By: #### CBC #### [facility] [address] [place] [address] Dr. Winifred Silver MANUAL DIFF REQ NO Normal [facility] Comment on above: Performed By: #### CBC #### [facility] [address] [place] [address] Dr. Winifred Silver MCH (RBC) [Entitic mass] 29.4 pg Normal 26.7-34.0 [facility] Comment on above: Performed By: #### CBC #### [facility] [address] [place] [address] Dr. Winifred Silver MCHC (RBC) [Mass/Vol] 32.8 g/dL Normal 29.9-35.2 [facility] Comment on above: Performed By: #### CBC #### [facility] [address] [address] [address] Winifred Silver MCV (RBC) [Entitic vol] 89.7 fL Normal 81.0-99.0 [facility] Comment on above: Performed By: #### CBC #### [facility] [address] [address] [address] Winifred Silver MONO # 0.7 103/ul Normal 0.3-0.8 [facility] Comment on above: Performed By: #### CBC #### [facility] [address] [address] [address] Winifred Silver Monocytes/100 WBC (Bld) 6.5 % Normal 1.7-12.0 [facility] Comment on above: Performed By: #### CBC #### [facility] [address] [address] [address] Winifred Silver NEUT # 7.7 103/ul Critically high 1.4-6.5 [facility] Comment on above: Performed By: #### CBC #### [facility] [address] [address] [address] Winifred Silver Neutrophils/100 WBC (Bld) 76.7 % Critically high 43.0-75.0 [facility] Comment on above: Performed By: #### CBC #### [facility] [address] [address] [address] Winifred Silver Platelet mean volume (Bld) [Entitic vol] 11.1 fL Normal 9.5-13.5 [facility] Comment on above: Performed By: #### CBC #### [facility] [address] [address] [address] Winifred Silver PLT 204 103/ul Normal 150-450 [facility] Comment on above: Performed By: #### CBC #### [facility] [address] [address] [address] Winifred Silver RBC 3.60 106/ul Critically low 4.20-5.40 [facility] Comment on above: Performed By: #### CBC #### [facility] [address] [place] [address] Dr. Winifred Silver WBC 10.0 103/ul Normal 4.0-11.0 [facility] Comment on above: Performed By: #### CBC #### [facility] [address] [place] [address] Dr. Winifred Silver DRUG SCREEN RAPID (URINE)on 10-06-2021 AMP Negative Normal NEGATIVE [facility] Comment on above: Performed By: #### DRUGRPD #### [facility] [address] [place] [address] Dr. Winifred Silver BAR Negative Normal NEGATIVE [facility] Comment on above: Performed By: #### DRUGRPD #### [facility] [address] [place] [address] Dr. Winifred Silver BUP Negative Normal NEGATIVE [facility] Comment on above: Performed By: #### DRUGRPD #### [facility] [address] [place] [address] Dr. Winifred Silver BZO Negative Normal NEGATIVE [facility] Comment on above: Performed By: #### DRUGRPD #### [facility] [address] [place] [address] Dr. Winifred Silver TIN Negative Normal NEGATIVE [facility] Comment on above: Performed By: #### DRUGRPD #### [facility] [address] [place] [address] Dr. Winifred Silver CUT-OFFS SEE BELOW Normal [facility] Comment on above: Result Comment: AMP [...] ng/mL Performed By: #### D RUGRPD #### [facility] [address] [place] [address] Dr. Winifred Silver DRUG CUT HEADER DRUG CLASS TEST SYST EM CUT-OFF CONCENTRATIONS ARE FOLLOWS: Normal [facility] Comment on above: Performed By: #### DRUGRPD #### [facility] [address] [address] [address] Winifred Silver mAMP Negative Normal NEGATIVE [facility] Comment on above: Performed By: #### DRUGRPD #### [facility] [address] [place] [address] Dr. Winifred Silver MTD Negative Normal NEGATIVE [facility] Comment on above: Performed By: #### DRUGRPD #### [facility] [address] [place] [address] Dr. Winifred Silver OPI Negative Normal NEGATIVE [facility] Comment on above: Performed By: #### DRUGRPD #### [facility] [address] [place] [address] Dr. Winifred Silver OXY Negative Normal NEGATIVE [facility] Comment on above: Performed By: #### DRUGRPD #### [facility] [address] [place] [address] Dr. Winifred Silver PCP Negative Normal NEGATIVE [facility] Comment on above: Performed By: #### DRUGRPD #### [facility] [address] [place] [address] Dr. Winifred Silver PPX Negative Normal NEGATIVE [facility] Comment on above: Performed By: #### DRUGRPD #### [facility] [address] [place] [address] Dr. Winifred Silver TCA Negative Normal NEGATIVE [facility] Comment on above: Performed By: #### DRUGRPD #### [facility] [address] [place] [address] Dr. Winifred Silver THC Negative Normal NEGATIVE [facility] Comment on above: Performed By: #### DRUGRPD #### [facility] [address] [place] [address] Dr. Winifred Silver TYPE AND SCREENon 10-06-2021 TYPE AND SCREEN Negative Normal [facility] Comment on above: Performed By: #### TNS #### [facility] [address] [place] [address] Dr. Winifred Silver UA (CLEAN/CATCH) BUILDING CLEANER/MICRO I F IND.on 10-06-2021 Bilirubin Ql (U) Negative Normal NEGATIVE [facility] Comment on above: Performed By: #### UACSIND #### [facility] [address] [place] [address] Dr. Winifred Silver Clarity (U) CLEAR Normal CLEAR [facility] Comment on above: Performed By: #### UACSIND #### [facility] [address] [place] [address] Dr. Winifred Silver Color (U) LT. YELLOW Normal YELLOW [facility] Comment on above: Performed By: #### UACSIND #### [facility] [address] [place] [address] Dr. Winifred Silver Glucose Ql (U) Negative Normal NEGATIVE [facility] Comment on above: Performed By: #### UACSIND #### [facility] [address] [place] [address] Dr. Winifred Silver Hemoglobin Ql (U) Negative Normal NEGATIVE [facility] Comment on above: Performed By: #### UACSIND #### [facility] [address] [place] [address] Dr. Winifred Silver Ketones Ql (U) Negative Normal NEGATIVE [facility] Comment on above: Performed By: #### UACSIND #### [facility] [address] [place] [address] Dr. Winifred Silver LEUKOCYTES Negative Normal NEGATIVE [facility] Comment on above: Performed By: #### UACSIND #### [facility] [address] [place] [address] Dr. Winifred Silver Nitrite Ql (U) Negative Normal NEGATIVE [facility] Comment on above: Performed By: #### UACSIND #### [facility] [address] [place] [address] Dr. Winifred Silver pH (U) 6.0 [pH] Normal 5-9 [facility] Comment on above: Performed By: #### UACSIND #### [facility] [address] [place] [address] Dr. Winifred Silver SPEC GRAVITY 1.025 Normal 1.005-<=1.02 5 [facility] Comment on above: Performed By: #### UACSIND #### [facility] [address] [place] [address] Dr. Winifred Silver UA PROTEIN Negative Normal NEGATIVE/ TRACE [facility] Comment on above: Performed By: #### UACSIND #### [facility] [address] [place] [address] Dr. Winifred Silver UR MICRO IND NOT INDICATED Normal [facility] Comment on above: Performed By: #### UACSIND #### [facility] [address] [place] [address] Dr. Winifred Silver Urobilinogen Qn (U) 0.2 {Fredrick'U}/dL Normal 0.2 - 1.0 [facility] Comment on above: Performed By: #### UACSIND #### [facility] [address] [place] [address] Dr. Winifred Silver [facility]21 SARS-CoV-2 (COVID-19) RNA JENARO+probe Ql (Unsp spec) Not detected Normal NOT DETECTED [facility] Comment on above: Result Comment: This test is not yet sheri roved or cleared by the [place] FDA. When there are no FDA-approved or cleared tests available, and other criteria are met, FDA can make tests available under an emergency access mechanism called an Emergency Use Authorization (EUA). The EUA for this test is supported by the [employer] of Health and Human Service's (HHS's) declaration [...] SARS-CoV-2. Performed By: #### C VDTB #### [facility] [address] [place] [address] Dr. Winifred Silver US PREG GROWTHon 10-01-2021 [...] by: SAMIRA VELA Date: 2021-10-01 19:22 Normal [facility] US PREG BIOPHY W NON [...] by: PJ SAM Date: 2021-09-25 07:47 Normal [facility] CNOVon 01-16-2021 CNOV Office Visit (ORTHMN ) -- YEIMY HONEYCUTT ([id number]) 1995 F Date Time Provider Department 01/16/21 10:20 AM AYLIN GILLILAND During your visit today, we recorded the following information about you: Weight Height 77.1 kg 1.727 m Aylin Gilliland PA-C 02/11/2021 9:16 PM Signed Consultation requested by Kali Alcantara [id number] [facility] [id number] Yeimy Honeycutt is a 25 year old [...] Aylin Gilliland MS, PA-C [facility] [place] Referring Provider: KALI ALCANTARA [[id number]] Allergies As of Date: 01/16/2021 Noted Allergy Reaction BACTRIM (SULFAMETHOXAZOLE) 10/10/2009 2 - Rash CHLORHEXIDINE GLUCONATE 12/28/2018 9 - Itching Date Reviewed: 01/16/2021 Reviewed by: Nakia Luna Ma - Fully Assessed Reason for Visit: Pain, Back [855] Primary Visit Diagnosis:Strain (more content not included)... Normal [facility] XR LUMBAR 3V AP/LAT/L5-S1on 01-16-2021 [...] bony abnormality or significant disc height loss. Biomechanical Engineer: TERESITA Transcribe Date/Time: Jan 16 2021 12:34P Dictated by : CARLTON MATTHEWS MD This examination was interpreted and the report reviewed and electronically signed by: CARLTON MATTHEWS MD on Jan 16 2021 12:35PM EST [id number] Normal [facility] CNPYisel 01-07-2021 CNPN Telephone ([facility]) -- YEIMY HONEYCUTT ([id number]) 1995 F Date Time Provider Department 01/07/21 AYLIN GILLILAND [facility] During your visit today, we recorded the [...] Encounter Status:Closed by AYLIN GILLILAND on 01/07/21 [facility] Coding Summary.on 05-18-2018 Coding Summary. CODING DATE: 018 FINAL [facility] STATUS: Home (Routine DC) PAYOR: [...] CphT Date Saved: 05/18/2018 08:52 am Normal [facility] US Breast Unilateral Rt Blas alston [...] MD Transcribed by: KALIN Technologist: EULALIO Normal [facility] XR CHEST (2 VW)on 08-14-2017 XR CHEST (2 VW) EXAMINATION: XR CHES T (2 VW)CLINICAL HISTORY: chest pain COMPARISONS: None available.FINDINGS: Cardiac size and pulmonary vascularity are normal. The lungs are clear. There is no evidence of adenopathy. The bones are unremarkable.IMPRESSION: NORMAL CHEST RADIOGRAPHSInterpreted by:ARIAN Harrisigned by:Troy Rueda MD08/14/17inal result Normal [facility] Vital Signs Date Time Vital Sign Value Performing Clinician Facility 10-05-2022 13:25-040 Body height 172.72 cm Arlette Fofana Other [facility] Other 10-05-2022 13:25-0400 Body mass index (BMI) [Ratio] 28.86 kg/m2 [facility] Other [facility] Other 10-05-2022 13:25-040 Body temperature 98.2 [degF] Arlette Fofana Other [facility] Other 10-05-2022 13:25-040 Body weight 86.09 kg Arlette Fofana Other [facility] Other 10-05-2022 13:25-0400 Respiratory rate 18 /min Arlette Fofana Other [facility] Other 10-05-2022 13:25-0400 SaO2% (BldA) [Mass fraction] 99 % Arlette Fofana Other [facility] Other Encounters Encounter Date Encounter Type Care Provider Facility Start: 06-02-2023 End: 06-02-2023 ambulatory LISSY JAKE Not Available Start: 05-25-2023 End: 05-25-2023 ambulatory LISSY JOSEPH Not Available Start: 05-10-2023 End: 05-10-2023 ambulatory LISSY JOSEPH Not Available Start: 04-26-2023 End: 04-26-2023 ambulatory BABAR OLSEN Not Available Start: 04-12-2023 End: 04-12-2023 ambulatory LISSY JOSEPH Not Available Start: 10-05-2022 End: 10-05-2022 ambulatory Arlette Fofana Other [facility] Other Start: 10-05-2022 Office outpatient vi sit 15 minutes Arlette Fofana [facility] Start: 07-20-2022 End: 08-28-2022 ambulatory KAREN ROSETTE Facility:[facility] Start: 04-15-2022 End: 04-15-[address] BABAR OLSEN . Facility:[facility] Start: 10-23-2021 End: 11-12-2021 ambulatory KAREN ROSETTE Facility:[facility] Start: 10-16-2021 End: 10-16-2021 ambulatory KAREN ROSETTE Facility:[facility] Start: 10-08-2021 Encounter for preprocedural laboratory examination DR BABAR OLSEN . [facility] Start: 10-06-2021 End: 10-09-2021 Evaluation and [...] 08-14-2017 End: 08-14-2017 Emergency department [facility] Procedures Date Procedure Procedure Detail Performing Clinician Start: 10-06-2021 Extraction of Produc ts of Conception, Low Cervical, Open Approach KAREN DINERO Start: 08-14-2017 Radiologic exam chest 2 views SIMRAN DUONG Start: 08-14-2017 EKG 12-LEAD SIMRAN DORSEY Payers Date Payer Category Payer Unknown [id number] 1995 Unknown [id number] 2.16.84 [id number] 1995 Unknown [id number] 2.16.84 0.1.488485.3.579.2.593 1995 Unknown [id number] 2.16.84 0.1.869727.3.579.2.593 1995 Unknown [id number] 2.16.84 0.1.131060.3.579.2.593 1995 Unknown [id number] 2.16.84 0.1.290057.3.579.2.593 1995 Unknown [id number] 2.16.84 0.1.546134.3.579.2.593 1995 Unknown [id number] 2.16.84 0.1.104436.3.579.2.593 1993 Unknown [id number] 2.16.84 0.1.060710.3.579.2.593 1993 Unknown [id number] 2.16.84 0.1.217225.3.579.2.593 1993 Unknown [id number] 2.16.84 0.1.625288.3.579.2.593 1993 Unknown [id number] 2.16.84 0.1.159834.3.579.2.1259 1993 Unknown [id number] 2.16.840 .1.664872.3.579.2.1259 1995 Unknown [id number] 2.16.840 .1.058401.3.579.2.1259 1995 Unknown [id number] 2.16.840 .1.654332.3.579.2.1259 1993 Unknown [id number] 2.16.840 .1.171460.3.579.2.1259 1959 Unknown [id number] Social History Date Type Detail Facility Unknown if ever smoked [facility] Other Sex Assigned At Sex Assigned At Bir th [facility] Other Evaluation note 10-05-2022 Note Date & [...] of diseases classified elsewhere (ICD-10 - B96.89) [facility] Other Clinical Note 10-06-2021 Note Date & Type Note Facility 10-06-2021 Note [facility] [place], [place] NAME: YEIMY RODRIGUEZ DATE OF : MEDICAL REC#: [id number] MEDICAL DOCTOR NUCLEAR MEDICINE: [id number], TRANSADMIT DATE: 10/06/2021 05:30:00 VOCATIONAL TRAINER DATE: 10/06/2021 21:00 DICTATING PHYSICIAN: BABAR OLSEN DICTATION DATE: 10/06/2021 08:00 OPERATIVE NOTE OPERATION DATE: 10/06/2021 PROCEDURE: Repeat low transverse section. PREOPERATIVE DIAGNOSIS: 1. at 39 2/7 weeks. 2. Previous . POSTOPERATIVE DIAGNOSIS: 1. at 39 2/7 weeks. 2. Previous . ANESTHESIA: Spinal with Duramorph. SURGEON: Babar Olsen D.O. INSPECTOR OPEN DIE: LAUREN Ellison URINE OUTPUT: Yellow and clear. [...] by: DR BABAR OLSEN . 10/07/2021 09:42:00 [facility] Discharge summary note 10-06-2021 Note [...] by: DR BABAR OLSEN . 10/13/2021 07:35:00 [facility] Progress note 01-16-2021 Note Date & Type Note Facility 01-16-2021 Note HNO ID: [id number] Author: Aylin Gilliland PA-C Service: ? Author Type: Physician Bi Data Architect Type: Progress Notes Filed: 02/11/2021 9:16 PM Note Text: Consultation requested by Kali Alcantara [id number] [facility] [id number] Yeimy Honeycutt is a 25 year old [...] Aylin Gilliland MS, PA-C [facility] [place] [facility] Progress note 01-16-2021 Note Date & Type Note Facility 01-16-2021 Note HNO ID: [id number] Author: RT Jalen(R) Service: Radiology Author Type: Linen Checker Type: Progress Notes Filed: 01/16/2021 10:07 AM [...] RT Jalen(R) January 16, 2021 10:06 AM [facility] History general Narrative - Reported Note Date & Type Note Facility History general Narrative - Reported Type Medical History costal chondritis Medical History asthma - exercise induced Medical History 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 Surgical History pelvic cyst removed x2 Surgical History wrist surgery- right Surgical History lumpectomy 12/2017 Surgical History C section x2 Hospitalization History see above [facility] [employer] [facility] Other Summary Purpose Family History No Family History Records FoundNo Family History Records FoundNo Family History Records FoundNo Family History Records FoundNo Family History Records Found Advance Directives No Advanced Directives Records FoundNo Advanced Directives Records FoundNo Advanced Directives Records FoundNo Advanced Directives Records FoundNo Advanced Directives Records Found Additional Source Comments INFORMATION SOURCE (unrecogn ized section and content) DATE CREATED AUTHOR 11/25/2017 [facility] DATE CREATED AUTHOR AUTHOR'S ORGANIZ ATION 05/12/2019 [facility] DATE CREATED AUTHOR AUTHOR'S ORGANIZ ATION 07/12/2021 [facility] DATE CREATED AUTHOR AUTHOR'S ORGANIZ ATION 09/23/2022 [facility] DATE CREATED AUTHOR AUTHOR'S ORGANIZ ATION 06/04/2023 [facility] EPIC REASON FOR VISIT (unrecogniz [...] BE BASED ON THE PRIMARY CLINICAL RECORDS. [facility] [employer] [facility]. provides no warranty or guarantee of the accuracy or completeness of information in this document.
[2023-06-10 15:11] VITALS: BP 109/63; PULSE 76
== END 2023-06-10 15:36 | disposition home or self-care (01) ==
LOC: FBCO 07:17 → FBC 15:05
PROVIDERS: PCP Student in an Organized Health Care Education/Training Program; Visit Provider Obstetrics & Gynecology
DX: O26.849 Uterine size-date discrepancy, unspecified trimester (principal); Z3A.00 Weeks of gestation of pregnancy not specified; Z87.59 Personal history of other complications of pregnancy, childbirth and the puerperium; O36.5990 Maternal care for other known or suspected poor fetal growth, unspecified trimester, not applicable or unspecified
CPT/HCPCS: 59025

== ENCOUNTER 2023-06-14 07:42 | Outpatient (OUT) | payer OTHER, SELFPAY ==
--- NOTE | 2023-06-14 | US_ITS ---
[place] [id number] Patient Name: OLIVIA RODRIGUEZ MRN: [id number] date: 1995 Sex: F Assigned Patient Location: [facility] Current Patient Location: Accession/Order Number: [id number] Exam Date: 06/14/2023 15:04 Report Date: 06/15/2023 06:44 At the request of: LISSY JOSEPH Procedure: US OB umbilical artery EXAMINATION: US OB umbilical artery HISTORY: HISTORY OF PRIOR WITH SGA Z87.59 COMPARISON: Ultrasound OB umbilical artery 06/07/2023 TECHNIQUE: Duplex Doppler evaluation of the umbilical arteries. FINDINGS: HEART RATE: 132 bpm UMBILICAL ARTERIES: 2 GESTATIONAL AGE: 35 weeks 1 day WAVEFORM: Normal upstroke. No notching. Forward flow in diastole. PEAK SYSTOLIC VELOCITY: 66 cm/s END DIASTOLIC VELOCITY: 25 cm/s SYST/DIAST RATIO (S:D): 2.6 RESISTIVE INDEX: 0.6 US/US OB umbilical artery IMPRESSION: Class 0 = Normal umbilical artery blood velocity Electronically authenticated by: FLO ALFONSO Date: 06/15/2023 06:44
--- OUTSIDE RECORDS SUMMARY | 2023-06-14 07:45 | XMS_ITS | CCD ---
Author Name Unknown Address [address] [place] [address] Organization [facility] Care Team Providers Care Food General Manager Name Role Phone SIMRAN DUONG Unavailable Unavailable [facility] Primary Care Unavailable ANNMARIE ., DR ECKERT Consulting Unavailable ANNMARIE ., DR ECKERT Attending Unavailable ANNMARIE ., DR ECKERT Procedure Practitioner Unavail able ANNMARIE ., DR ECKERT Admitting Unavailable AGUBEDA CAMEJO Consulting Unavailable ARLETTE MARROQUIN Consulting Unavailable KARASIK ., DR SCOTT Admitting Unavailabl e KARASIK ., DR SCOTT Consulting Unavailabl e ROSETTE, LILLINGTON Primary Care Unavailable KARASIK ., DR SCOTT Attending Unavailabl e ANNMARIE ., DR ECKERT Admitting Unavailable [facility] Primary Care Unavailable ANNMARIE ., DR ECKERT Consulting Unavailable ANNMARIE ., DR ECKERT Attending Unavailable KARASIK ., DR SCOTT Attending Unavailabl e KARASIK ., DR SCOTT Admitting Unavailabl e KARASIK ., DR SCOTT Consulting Unavailabl e ROSETTE, LILLINGTON Primary Care Unavailable BOSTON, DR PJ Araujo Consulting Unavailable ANNMARIE ., DR ECKERT Consulting Unavailable KARASIK ., DR SCOTT Attending Unavailabl e KARASIK ., DR SCOTT Admitting Unavailabl e KARASIK ., DR SCOTT Consulting Unavailabl e ROSETTE, LILLINGTON Primary Care Unavailable ANNMARIE ., DR ECKERT Consulting Unavailable Policaro, Samira Consulting Unavailable ROSETTE, LILLINGTON Primary Care Unavailable CARBALLO, TONNY Attending Unavailable CARBALLO, TONNY Admitting Unavailable ROSETTE, LILLINGTON Primary Care Unavailable ANNMARIE ., DR ECKERT Attending Unavailable ANNMARIE ., DR ECKERT Consulting Unavailable ANNMARIE ., DR ECKERT Admitting Unavailable [facility] Unavailable ANNMARIE ., DR ECKERT Attending Unavailable ANNMARIE ., DR ECKERT Admitting Unavailable [facility] Primary Care Unavailable ANNMARIE ., DR ECKERT Attending Unavailable ANNMARIE ., DR ECKERT Admitting Unavailable ANNMARIE ., DR ECKERT Consulting Unavailable [facility] Unavailable ANNMARIE ., DR ECKERT Attending Unavailable ANNMARIE ., DR ECKERT Admitting Unavailable Arlette Fofana Unavailable LISSY JOSEPH Attending Unavailable JAKE, LISSY Attending Unavailable ANNMARIE, BABAR Attending Unavailable JAKE, LISSY Attending Unavailable ANNMARIE, BABAR Attending Unavailable JAKE, LISSY Attending Unavailable Allergies Allergy Classification Reported Allergen(s) Allergy Type Date of Onset Reaction(s) Facility (1 source) Chlorhexidine Drug Allergy [facility] Repository (1 source) Sulfamethoxazole / Trimethoprim Drug Allergy [facility] Repository (1 source) Chlorhexidine Drug Allergy [facility] Other (1 source) Sulfamethoxazole / Trimethoprim Drug Allergy [facility] Other (1 source) Darvocet-N 50 Drug allergy [facility] Other Medications Current Medications Medication Drug Class(es) [...] 08-14-2017 Episodic Other aftercare (1 source) Other [employer] (current) drug therapy; Translations: [OTH CARE HOME CURRENT 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] Onset: 10-13-2021 Episodic Other [...] not applicable or unspecified; Translations: [MAT CARE OTH CA FTL GRTH 3RD TM UNS] Onset: 10-04-2021 [...] pyogenes Org specific cx Ql (Throat) Negative [employer] Other Quick Strep [employer] Other PAP ACOG PANEL 2: 21 to 29on 04-24-2022 . . [facility] Comment on above: Performed By: #### [id number] #### [facility] [address] [place] [address] Dr. Winifred Silver Age Gdln ACOG Testing - [facility] Comment on above: Performed By: #### [id number] #### [facility] [address] [address] [address] Winifred Silver DIAGNOSIS: Comment [facility] Comment on above: Result Comment: NEGATIVE FOR INTRAEPITHE LIAL LESION OR MALIGNANCY. Performed By: #### [id number] #### [facility] [address] [address] [address] Winifred Silver Methodology: Comment [facility] Comment on above: Result Comment: This liquid based ThinPr ep(R) pap test was screened with the use of an image guided system. Performed By: #### [id number] #### [facility] [address] [place] [address] Dr. Winifred Silver Note: Comment [facility] Comment on above: Result Comment: The Pap smear is a scree marlo test designed to aid in the detection of premalignant and malignant conditions of the uterine cervix. It is not a diagnostic procedure and should not be used as the sole means of detecting cervical cancer. Both false-positive and false-negative reports do occur. . Performed By: #### [id number] #### [facility] [address] [place] [address] Dr. Winifred Silver Performed by: Comment Normal [facility] Comment on above: Result Comment: Mi Cobb, Cytotech nologist (ASCP) Performed By: #### [id number] #### [facility] [address] [place] [address] Dr. Winifred Silver Reflex Criteria: Comment Normal [facility] Comment on above: Result Comment: The HPV DNA reflex crite ana were not met with this specimen result therefore, no HPV testing was performed. . Performed By: #### [id number] #### [facility] [address] [place] [address] Dr. Winifred Silver Specimen adequacy: Comment Normal [facility] Comment on above: Result Comment: Satisfactory for evaluat ion. Endocervical and/or squamous metaplastic cells (endocervical component) are present. Performed By: #### [id number] #### [facility] [address] [place] [address] Dr. Winifred Silver CBC AUTO DIFFon 10-07-2021 BASO # 0.1 103/ul Normal 0.0-0.1 [facility] Comment on above: Performed By: #### CBC ####[facility] [address] [address]Dr. Winifred Silver Basophils/100 WBC (Bld) 0.6 % Normal 0.2-2.0 [facility] Comment on above: Performed By: #### CBC ####[facility] [address] [address]DrDarius Silver EO # 0.3 103/ul Normal 0.0-0.7 [facility] Comment on above: Performed By: #### CBC ####[facility] [address] [address]DrDarius Silver Eosinophils/100 WBC (Bld) 2.6 % Normal 0.9-7.0 [facility] Comment on above: Performed By: #### CBC ####[facility] [address] [address]Dr. Winifred Silver Erythrocyte distribution width (RBC) [Ratio] 13.1 % Normal 11.0-15.0 [facility] Comment on above: Performed By: #### CBC ####[facility] [address] [address]Dr. Winifred Silver Hematocrit (Bld) [Volume fraction] 26.6 % Critically low 36.0-48.0 [facility] Comment on above: Performed By: #### CBC ####[facility] [address] [address]Dr. Winifred Silver Hemoglobin (Bld) [Mass/Vol] 8.7 g/dL Critically low 12.0-16.0 [facility] Comment on above: Performed By: #### CBC ####[facility] [address] [place], [place] [address]Dr. Winifred Silver IG # 0.04 10e3/ul Critically high 0.00-0.[address] [facility] Comment on above: Performed By: #### CBC ####[facility] [address] [place], [place] [address]Dr. Winifred Silver IG % 0.4 % Normal 0.0-0.5 [facility] Comment on above: Performed By: #### CBC ####[facility] [address] [place], [place] [address]Dr. Winifred Silver LYMPH # 1.4 103/ul Normal 1.2-3.8 [facility] Comment on above: Performed By: #### CBC ####[facility] [address] [address]Dr. Winifred Silver Lymphocytes/100 WBC (Bld) 13.8 % Critically low 20.5-60.0 [facility] Comment on above: Performed By: #### CBC ####[facility] [address] [address]Dr. Winifred Silver MANUAL DIFF REQ NO Normal [facility] Comment on above: Performed By: #### CBC ####[facility] [address] [id number]. Winifred Nadeem MCH (RBC) [Entitic mass] 29.6 pg Normal 26.7-34.0 [facility] Comment on above: Performed By: #### CBC ####[facility] [address] [address]Dr. Jolenedaylin Silver MCHC (RBC) [Mass/Vol] 32.7 g/dL Normal 29.9-35.2 [facility] Comment on above: Performed By: #### CBC ####[facility] [address] [address]Dr. Winifred Silver MCV (RBC) [Entitic vol] 90.5 fL Normal 81.0-99.0 [facility] Comment on above: Performed By: #### CBC ####[facility] [address] [address]Dr. Winifred Silver MONO # 0.6 103/ul Normal 0.3-0.8 [facility] Comment on above: Performed By: #### CBC ####[facility] [address] [address]Dr. Winifred Silver Monocytes/100 WBC (Bld) 6.1 % Normal 1.7-12.0 [facility] Comment on above: Performed By: #### CBC ####[facility] [address] [address]Dr. Winifred Silver NEUT # 7.8 103/ul Critically high 1.4-6.5 [facility] Comment on above: Performed By: #### CBC ####[facility] [address] [address]Dr. Winifred Silver Neutrophils/100 WBC (Bld) 76.5 % Critically high 43.0-75.0 [facility] Comment on above: Performed By: #### CBC ####[facility] [address] [address]Dr. Winifred Silver Platelet mean volume (Bld) [Entitic vol] 10.5 fL Normal 9.5-13.5 [facility] Comment on above: Performed By: #### CBC ####[facility] [address] [id number]. Winifred Silver PLT 147 103/ul Critically low 150-450 [facility] Comment on above: Performed By: #### CBC ####[facility] [address] [id number] Silver RBC 2.94 106/ul Critically low 4.20-5.40 [facility] Comment on above: Performed By: #### CBC ####[facility] [address] [id number] Silver WBC 10.2 103/ul Normal 4.0-11.0 [facility] Comment on above: Performed By: #### CBC ####[facility] [address] [address]DrDarius Silver CBC AUTO DIFFon 10-06-2021 BASO # 0.0 103/ul Normal 0.0-0.1 [facility] Comment on above: Performed By: #### CBC #### [facility] [address] [address] [address] Winifred Silver Basophils/100 WBC (Bld) 0.3 % Normal 0.2-2.0 [facility] Comment on above: Performed By: #### CBC #### [facility] [address] [address] [address] Winifred Silver EO # 0.1 103/ul Normal 0.0-0.7 [facility] Comment on above: Performed By: #### CBC #### [facility] [address] [address] [address] Winifred Silver Eosinophils/100 WBC (Bld) 1.4 % Normal 0.9-7.0 [facility] Comment on above: Performed By: #### CBC #### [facility] [address] [address] [address] Winifred Silver Erythrocyte distribution width (RBC) [Ratio] 13.0 % Normal 11.0-15.0 [facility] Comment on above: Performed By: #### CBC #### [facility] [address] [address] [address] Winifred Silver Hematocrit (Bld) [Volume fraction] 32.3 % Critically low 36.0-48.0 [facility] Comment on above: Performed By: #### CBC #### [facility] [address] [address] [address] Winifred Silver Hemoglobin (Bld) [Mass/Vol] 10.6 g/dL Critically low 12.0-16.0 [facility] Comment on above: Performed By: #### CBC #### [facility] [address] [address] [address] Winifred Silver IG # 0.05 10e3/ul Critically high 0.00-0.[address] [facility] Comment on above: Performed By: #### CBC #### [facility] [address] [place] [address] Dr. Winifred Silver IG % 0.5 % Normal 0.0-0.5 [facility] Comment on above: Performed By: #### CBC #### [facility] [address] [place] [address] Dr. Winifred Silver LYMPH # 1.5 103/ul Normal 1.2-3.8 [facility] Comment on above: Performed By: #### CBC #### [facility] [address] [place] [address] Dr. Winifred Silver Lymphocytes/100 WBC (Bld) 14.6 % Critically low 20.5-60.0 [facility] Comment on above: Performed By: #### CBC #### [facility] [address] [place] [address] Dr. Winifred Silver MANUAL DIFF REQ NO Normal [facility] Comment on above: Performed By: #### CBC #### [facility] [address] [place] [address] Dr. Winifred Silver MCH (RBC) [Entitic mass] 29.4 pg Normal 26.7-34.0 [facility] Comment on above: Performed By: #### CBC #### [facility] [address] [address] [address] Winifred Silver MCHC (RBC) [Mass/Vol] 32.8 g/dL Normal 29.9-35.2 [facility] Comment on above: Performed By: #### CBC #### [facility] [address] [place] [address] Dr. Winifred Silver MCV (RBC) [Entitic vol] 89.7 fL Normal 81.0-99.0 [facility] Comment on above: Performed By: #### CBC #### [facility] [address] [place] [address] Dr. Winifred Silver MONO # 0.7 103/ul Normal 0.3-0.8 [facility] Comment on above: Performed By: #### CBC #### [facility] [address] [place] [address] Dr. Winifred Silver Monocytes/100 WBC (Bld) 6.5 % Normal 1.7-12.0 [facility] Comment on above: Performed By: #### CBC #### [facility] [address] [place] [address] Dr. Winifred Silver NEUT # 7.7 103/ul Critically high 1.4-6.5 [facility] Comment on above: Performed By: #### CBC #### [facility] [address] [place] [address] Dr. Winifred Silver Neutrophils/100 WBC (Bld) 76.7 % Critically high 43.0-75.0 [facility] Comment on above: Performed By: #### CBC #### [facility] [address] [place] [address] Dr. Winifred Silver Platelet mean volume (Bld) [Entitic vol] 11.1 fL Normal 9.5-13.5 [facility] Comment on above: Performed By: #### CBC #### [facility] [address] [place] [address] Dr. Winifred Silver PLT 204 103/ul Normal 150-450 [facility] Comment on above: Performed By: #### CBC #### [facility] [address] [place] [address] Dr. Winifred Silver RBC 3.60 106/ul Critically low 4.20-5.40 [facility] Comment on above: Performed By: #### CBC #### [facility] [address] [place] [address] Dr. Winifred Silver WBC 10.0 103/ul Normal 4.0-11.0 [facility] Comment on above: Performed By: #### CBC #### [facility] [address] [place] [address] Dr. Winifred Silver DRUG SCREEN RAPID (URINE)on 10-06-2021 AMP Negative Normal NEGATIVE [facility] Comment on above: Performed By: #### DRUGRPD #### [facility] [address] [place] [address] Dr. Winifred Silver BAR Negative Normal NEGATIVE [facility] Comment on above: Performed By: #### DRUGRPD #### [facility] [address] [place] [address] Dr. Winifred Silver BUP Negative Normal NEGATIVE [facility] Comment on above: Performed By: #### DRUGRPD #### [facility] [address] [place] [address] Dr. Winifred Silver BZO Negative Normal NEGATIVE [facility] Comment on above: Performed By: #### DRUGRPD #### [facility] [address] [place] [address] Dr. Winifred Silver TIN Negative Normal NEGATIVE [facility] Comment on above: Performed By: #### DRUGRPD #### [facility] [address] [place] [address] Dr. Winifred Silver CUT-OFFS SEE BELOW Normal [facility] Comment on above: Result Comment: AMP (Amphetamine): [...] ng/mL Performed By: #### D RUGRPD #### [facility] [address] [place] [address] Dr. Winifred Silver DRUG CUT HEADER DRUG CLASS TEST SYST EM CUT-OFF CONCENTRATIONS ARE FOLLOWS: Normal [facility] Comment on above: Performed By: #### DRUGRPD #### [facility] [address] [place] [address] Dr. Winifred iSlver mAMP Negative Normal NEGATIVE [facility] Comment on above: Performed By: #### DRUGRPD #### [facility] [address] [place] [address] Dr. Winifred Silver MTD Negative Normal NEGATIVE [facility] Comment on above: Performed By: #### DRUGRPD #### [facility] [address] [place] [address] Dr. Winifred Silver OPI Negative Normal NEGATIVE [facility] Comment on above: Performed By: #### DRUGRPD #### [facility] [address] [place] [address] Dr. Winifred Silver OXY Negative Normal NEGATIVE [facility] Comment on above: Performed By: #### DRUGRPD #### [facility] [address] [place] [address] Dr. Winifred Silver PCP Negative Normal NEGATIVE [facility] Comment on above: Performed By: #### DRUGRPD #### [facility] [address] [place] [address] Dr. Winifred Silver PPX Negative Normal NEGATIVE [facility] Comment on above: Performed By: #### DRUGRPD #### [facility] [address] [place] [address] Dr. Winifrde Silver TCA Negative Normal NEGATIVE [facility] Comment on above: Performed By: #### DRUGRPD #### [facility] [address] [place] [address] Dr. Winifred Silver THC Negative Normal NEGATIVE [facility] Comment on above: Performed By: #### DRUGRPD #### [facility] [address] [address] [address] Winifred Silver TYPE AND SCREENon 10-06-2021 TYPE AND SCREEN Negative Normal [facility] Comment on above: Performed By: #### TNS #### [facility] [address] [place] [address] Dr. 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 Winifred Silver Clarity (U) CLEAR Normal CLEAR [facility] Comment on above: Performed By: #### UACSIND #### [facility] [address] [place] [address] Dr. Winifred Silver Color (U) LT. YELLOW Normal YELLOW [facility] Comment on above: Performed By: #### UACSIND #### [facility] [address] [place] [address] Dr. Winifred Silver Glucose Ql (U) Negative Normal NEGATIVE [facility] Comment on above: Performed By: #### UACSIND #### [facility] [address] [place] [address] Dr. Winifred Silver Hemoglobin Ql (U) Negative Normal NEGATIVE [facility] Comment on above: Performed By: #### UACSIND #### [facility] [address] [place] [address] Dr. Winifred Silver Ketones Ql (U) Negative Normal NEGATIVE [facility] Comment on above: Performed By: #### UACSIND #### [facility] [address] [place] [address] Dr. Winifred Silver LEUKOCYTES Negative Normal NEGATIVE [facility] Comment on above: Performed By: #### UACSIND #### [facility] [address] [place] [address] Dr. Winifred Silver Nitrite Ql (U) Negative Normal NEGATIVE [facility] Comment on above: Performed By: #### UACSIND #### [facility] [address] [place] [address] Dr. Winifred Silver pH (U) 6.0 [pH] Normal 5-9 [facility] Comment on above: Performed By: #### UACSIND #### [facility] [address] [place] [address] Dr. Winifred Silver SPEC GRAVITY 1.025 Normal 1.005-<=1.02 5 [facility] Comment on above: Performed By: #### UACSIND #### [facility] [address] [place] [address] Dr. Winifred Silver UA PROTEIN Negative Normal NEGATIVE/ TRACE [facility] Comment on above: Performed By: #### UACSIND #### [facility] [address] [place] [address] Dr. Winifred Silver UR MICRO IND NOT INDICATED Normal [facility] Comment on above: Performed By: #### UACSIND #### [facility] [address] [place] [address] Dr. Winifred Silver Urobilinogen Qn (U) 0.2 {Fredrick'U}/dL Normal 0.2 - 1.0 [facility] Comment on above: Performed By: #### UACSIND #### [facility] [address] [place] [address] Dr. Winifred Silver [facility] SARS-CoV-2 (COVID-19) RNA JENARO+probe Ql (Unsp spec) Not detected Normal NOT DETECTED [facility] Comment on above: Result Comment: This test is not yet sheri roved or cleared by the [place] FDA. When there are no FDA-approved or cleared tests available, and other criteria are met, FDA can make tests available under an emergency access mechanism called an Emergency Use Authorization (EUA). The EUA for this test is supported by the [place] of Health and Human Service's (HHS's) declaration [...] consistent with SARS-CoV-2. Performed By: #### C [facility] #### [facility] [address] [place] [address] Dr. Winifred Silver US PREG GROWTHon 10-01-2021 [...] by: SAMIRA VELA Date: 2021-10-01 19:22 Normal [facility] US PREG BIOPHY W NON STRESSo n [...] by: PJ SAM Date: 2021-09-25 07:47 Normal [facility] CNOVon 01-16-2021 CNOV Office Visit (ORTHMN ) -- YEIMY HONEYCUTT ([id number]) 1995 F Date Time Provider Department 01/16/21 10:20 AM AYLIN GILLILAND During your visit today, we recorded the following information about you: Weight Height 77.1 kg 1.727 m Aylin Gilliland PA-C 02/11/2021 9:16 PM Signed Consultation requested by Kali Alcantara [address] [facility] [address] Yeimy Honeycutt is a 25 year old [...] Aylin Gilliland, MS, PA-C [facility] Referring Provider: KALI ALCANTARA [[id number]] Allergies As of Date: 01/16/2021 Noted Allergy Reaction BACTRIM (SULFAMETHOXAZOLE) 10/10/2009 2 - Rash CHLORHEXIDINE GLUCONATE 12/28/2018 9 - Itching Date Reviewed: 01/16/2021 Reviewed by: Nakia Luna Ma - Fully Assessed Reason for Visit: Pain, Back [855] Primary Visit Diagnosis:Strain (more content not included)... Normal [facility] XR LUMBAR [...] bony abnormality or significant disc height loss. Management Analyst: TERESITA Transcribe Date/Time: Jan 16 2021 12:34P Dictated by : CARLTON MATTHEWS MD This examination was interpreted and the report reviewed and electronically signed by: CARLTON MATTHEWS MD on Jan 16 2021 12:35PM EST [id number] Normal [facility] CNPYisel 01-07-2021 CNPN Telephone ([facility]) -- YEIMY HONEYCUTT ([id number]) 1995 F Date Time Provider Department 01/07/21 AYLIN GILLILAND [facility] During your visit today, we recorded the [...] Encounter Status:Closed by AYLIN GILLILAND on 01/07/21 Normal [facility] Coding Summary.on 05-18-2018 Coding Summary. CODING DATE: 018 FINAL [facility] STATUS: Home (Routine DC) PAYOR: [...] result in slightly different terminology. Coded By: Mica SyedNena Date Saved: 05/18/2018 08:52 am Normal [facility] US Breast Unilateral Rt Blas alston [...] MD Transcribed by: KALIN Technologist: EULALIO Normal [facility] XR CHEST (2 VW)on 08-14-2017 XR CHEST (2 VW) EXAMINATION: XR CHES T (2 VW)CLINICAL HISTORY: chest pain COMPARISONS: None available.FINDINGS: Cardiac size and pulmonary vascularity are normal. The lungs are clear. There is no evidence of adenopathy. The bones are unremarkable.IMPRESSION: NORMAL CHEST RADIOGRAPHSInterpreted by:ARIAN Harrisigned by:Troy Rueda MD08/14/17inal result Normal [facility] Vital Signs Date Time Vital Sign Value Performing Clinician Facility 10-05-2022 13:25-040 Body height 172.72 cm Arlette Fofana Other [facility] Other 10-05-2022 13:25-0400 Body mass index (BMI) [Ratio] 28.86 kg/m2 Arlette Fofana Other [facility] Other 10-05-2022 13:25-040 Body temperature 98.2 [degF] Arlette Fof[facility] Other [facility] Other 10-05-2022 13:25-0400 Body weight 86.09 kg Arlette Fofana Other [facility] Other 10-05-2022 13:25-0400 Respiratory rate 18 /min Arlette Fofana Other [facility] Other 10-05-2022 13:25-0400 SaO2% (BldA) [Mass fraction] 99 % [address] Other [facility] Other Encounters Encounter Date Encounter Type Care Provider Facility Start: 06-09-2023 End: 06-09-2023 ambulatory BABAR OLSEN Not Available Start: 06-02-2023 End: 06-02-2023 ambulatory LISSY JAKE Not Available Start: 05-25-2023 End: 05-25-2023 ambulatory LISSY JAKE Not Available Start: 05-10-2023 End: 05-10-2023 ambulatory LISSY JAKE Not Available Start: 04-26-2023 End: 04-26-2023 ambulatory BABAR ANNMARIE Not Available Start: 04-12-2023 End: 04-12-2023 ambulatory LISSY JAKE Not Available Start: 10-05-2022 End: 10-05-2022 ambulatory Arlette Fofana Other [facility] Other Start: 10-05-2022 Office outpatient vi sit 15 minutes Arlette Fofana [facility] Start: 07-20-2022 End: 08-28-2022 ambulatory KAREN ROSETTE Facility:[facility] Start: 04-15-2022 End: 04-15-[address] BABAR OLSEN . Facility:[facility] Start: 10-23-2021 End: 11-12-2021 ambulatory KAREN ROSETTE Facility:[facility] Start: 10-16-2021 End: 10-16-2021 ambulatory KAREN ROSETTE Facility:[facility] Start: 10-08-2021 Encounter for preprocedural laboratory examination DR BABAR OLSEN . [facility] Start: 10-06-2021 End: 10-09-2021 Evaluation and management of inpatient KAREN DINERO Facility:[facility] Start: 10-04-2021 End: 10-04-[address] [...] 08-14-2017 End: 08-14-2017 [facility] Procedures Date Procedure Procedure Detail Performing Clinician Start: 10-06-2021 Extraction of Produc ts of Conception, Low Cervical, Open Approach KAREN DINERO Start: 08-14-2017 Radiologic exam chest 2 views SIMRAN DUONG Start: 08-14-2017 EKG 12-LEAD SIMRAN DORSEY UL Payers Date Payer Category Payer Unknown [id number] 1995 Unknown [id number] 2.16.84 0.1.482784.3.579.2.593 1995 Unknown [id number] 2.16.84 0.1.711010.3.579.2.593 1995 Unknown [id number] 2.16.84 0.1.906683.3.579.2.593 1995 Unknown [id number] 2.16.84 0.1.267267.3.579.2.593 1993 Unknown [id number] 2.16.84 0.1.723188.3.579.2.593 1995 Unknown [id number] 2.16.84 0.1.241983.3.579.2.593 1993 Unknown [id number] 2.16.84 0.1.305385.3.579.2.593 1993 Unknown [id number] 2.16.84 0.1.602759.3.579.2.593 1993 Unknown [id number] 2.16.84 0.1.325817.3.579.2.593 1993 Unknown [id number] 2.16.84 0.1.040863.3.579.2.593 1993 Unknown [id number] 2.16.84 0.1.425028.3.579.2.1259 1993 Unknown [id number] 2.16.84 0.1.236490.3.579.2.1259 1993 Unknown [id number] 2.16.840 .1.082912.3.579.2.1259 1993 Unknown [id number] 2.16.840 .1.228137.3.579.2.1259 1993 Unknown [id number] 2.16.840 .1.143986.3.579.2.1259 1993 Unknown [id number] 2.16.840 .1.160493.3.579.2.1259 1959 Unknown [id number] Social History Date Type Detail Facility Unknown if ever smoked [facility] Other Sex Assigned At Sex Assigned At Bir th [facility] Other Evaluation note 10-05-2022 Note Date & [...] of diseases classified elsewhere (ICD-10 - B96.89) [facility] Other Clinical Note 10-06-2021 Note Date & Type Note Facility 10-06-2021 Note [facility] [place], [place] NAME: YEIMY RODRIGUEZ DATE OF : MEDICAL REC#: [id number] TYPESETTER APPRENTICE: [id number], TRANSADMIT DATE: 10/06/2021 05:30:00 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 PREOPERATIVE DIAGNOSIS: 1. at 39 2/7 weeks. 2. Previous . POSTOPERATIVE DIAGNOSIS: 1. at 39 2/7 weeks. 2. Previous . ANESTHESIA: Spinal with Duramorph. SURGEON: Babar Olsen D.O. SYSTEM SUPPORT ADMINISTRATOR: LAUREN Ellison URINE OUTPUT: Yellow and clear. [...] Olsen DO on 10/07/2021 09:42 AM EDT [facility] Signed and Approved by: DR BABAR OLSEN . 10/07/2021 09:42:00 [facility] Discharge summary note 10-06-2021 Note Date & [...] pain free and no longer on narcotics. IF Signed and Approved by: DR BABAR OLSEN . 10/13/2021 07:35:00 [facility] Progress note 01-16-2021 Note Date & Type Note Facility 01-16-2021 Note HNO ID: [id number] Author: Aylin Gilliland PA-C Service: ? Author Type: Physician Wireless Watcher Type: Progress Notes Filed: 02/11/2021 9:16 PM Note Text: Consultation requested by Kali Alcantara [id number] [facility] [id number] Yeimy Honeycutt is a 25 year old [...] Aylin Gilliland MS, PA-C [facility] [place] Progress note 01-16-2021 Note Date & Type Note Facility 01-16-2021 Note HNO ID: [id number] Author: RT Jalen(R) Service: Radiology Author Type: Utility Manager Type: Progress Notes Filed: 01/16/2021 10:07 AM [...] RT Jalen(R) January 16, 2021 10:06 AM [facility] History general [...] C section x2 Hospitalization History see above [facility] Other Summary Purpose Family History No Family History Records FoundNo Family History Records FoundNo Family History Records FoundNo Family History Records FoundNo Family History Records Found Advance Directives No Advanced Directives Records FoundNo Advanced Directives Records FoundNo Advanced Directives Records FoundNo Advanced Directives Records FoundNo Advanced Directives Records Found Additional Source Comments INFORMATION SOURCE (unrecogn ized section and content) DATE CREATED AUTHOR 11/25/2017 [facility] DATE CREATED AUTHOR AUTHOR'S ORGANIZ ATION 05/12/2019 [facility] DATE CREATED AUTHOR AUTHOR'S ORGANIZ ATION 07/12/2021 [facility] DATE CREATED AUTHOR AUTHOR'S ORGANIZ ATION 09/23/2022 [facility] [place] [facility] DATE CREATED AUTHOR AUTHOR'S ORGANIZ ATION 06/10/[address] [facility] EPIC REASON FOR VISIT (unrecogniz ed [...] BE BASED ON THE PRIMARY CLINICAL RECORDS. [facility]. provides no warranty or guarantee of the accuracy or completeness of information in this document.
--- NOTE | 2023-06-14 15:03 | US_ITS ---
[address] [address] Patient Name: OLIVIA RODRIGUEZ MRN: [id number] date: 1995 Sex: F Assigned Patient Location: Current Patient Location: Accession/Order Number: [id number] Exam Date: 06/14/2023 15:04 Report Date: 06/15/2023 06:42 At the request of: LISSY JOSEPH Procedure: US OB BPP w non-stress EXAMINATION: US OB BPP w non-stress HISTORY: HISTORY OF PRIOR WITH SGA Z87.59 COMPARISON: No relevant comparison available. TECHNIQUE: Ultrasound biophysical profile was performed in the radiology department. BREATHING MOVEMENTS: 2.0 GROSS BODY MOVEMENTS: 2.0 TONE: 2.0 QUALITATIVE AMNIOTIC FLUID VOLUME: 2.0 PRESENTATION: CEPHALIC HEART RATE: 132.4 bpm bpm. AMNIOTIC FLUID VOLUME: 15.7 cm GESTATIONAL AGE: 35 weeks 1 days CONCLUSION: Total biophysical profile score 8.0. Electronically authenticated by: FLO ALFONSO Date: 06/15/2023 06:42
[2023-06-14 15:44] VITALS: BP 120/69; PULSE 80
== END 2023-06-14 16:18 | disposition home or self-care (01) ==
LOC: US 07:42 → FBC 15:03
PROVIDERS: PCP Student in an Organized Health Care Education/Training Program; Visit Provider Physician Assistant
DX: Z87.59 Personal history of other complications of pregnancy, childbirth and the puerperium (principal); Z3A.35 35 weeks gestation of pregnancy
CPT/HCPCS: 76818; 76820

== ENCOUNTER 2023-06-17 07:12 | Outpatient (OUT) | payer OTHER, SELFPAY ==
--- OUTSIDE RECORDS SUMMARY | 2023-06-17 07:18 | XMS_ITS | CCD ---
Author Name Unknown Address [email or web address] [place] [address] Organization [facility] Care Team Providers Care Academic Affairs Vice President Name Role Phone SIMRAN DUONG Unavailable Unavailable [facility] Primary Care Unavailable ANNMARIE ., DR ECKERT Consulting Unavailable ANNMARIE ., DR ECKERT Attending Unavailable ANNMARIE ., DR ECKERT Procedure Practitioner Unavail able ANNMARIE ., DR ECKERT Admitting Unavailable AGUBEDA CAMEJO Consulting Unavailable ARLETTE MARROQUIN Consulting Unavailable KARASIK ., DR SCOTT Admitting Unavailabl e KARASIK ., DR SCOTT Consulting Unavailabl e ROSETTE, SUGAR GROVE Primary Care Unavailable KARASIK ., DR SCOTT Attending Unavailabl e ANNAMRIE ., DR ECKERT Admitting Unavailable [facility] Primary Care Unavailable ANNMARIE ., DR ECKERT Consulting Unavailable ANNMARIE ., DR ECKERT Attending Unavailable KARASIK ., DR SCOTT Attending Unavailabl e KARASIK ., DR SCOTT Admitting Unavailabl e KARASIK ., DR SCOTT Consulting Unavailabl e ROSETTE, SUGAR GROVE Primary Care Unavailable [place], DR PJ Araujo Consulting Unavailable ANNMARIE ., DR ECKERT Consulting Unavailable KARASIK ., DR SCOTT Attending Unavailabl e KARASIK ., DR SCOTT Admitting Unavailabl e KARASIK ., DR SCOTT Consulting Unavailabl e ROSETTE, SUGAR GROVE Primary Care Unavailable ANNMARIE ., DR ECKERT Consulting Unavailable Policaro, Samira Consulting Unavailable ROSETTE, SUGAR GROVE Primary Care Unavailable CARBALLO, TONNY Attending Unavailable CARBALLO, TONNY Admitting Unavailable ROSETTE, SUGAR GROVE Primary Care Unavailable ANNMARIE ., DR ECKERT Attending Unavailable ANNMARIE ., DR ECKERT Consulting Unavailable ANNMARIE ., DR ECKERT Admitting Unavailable [facility] Unavailable ANNMARIE ., DR ECKERT Attending Unavailable ANNMARIE ., DR ECKERT Admitting Unavailable [facility] Primary Care Unavailable ANNMARIE ., DR ECKERT Attending Unavailable ANNMARIE ., DR ECKERT Admitting Unavailable ANNMARIE ., DR ECKERT Consulting Unavailable [facility] Unavailable ANNMARIE ., DR ECKERT Attending Unavailable ANNMARIE ., DR ECKERT Admitting Unavailable Arlette Fofana Unavailable LISSY JOSEPH Attending Unavailable JAKE, LISSY Attending Unavailable ANNMARIE, BABAR Attending Unavailable JAKE, LISSY Attending Unavailable ANNMARIE, BABAR Attending Unavailable JAKE, LISSY Attending Unavailable Allergies Allergy Classification Reported Allergen(s) Allergy Type Date of Onset Reaction(s) Facility (1 source) Chlorhexidine Drug Allergy [facility] Repository (1 source) Sulfamethoxazole / Trimethoprim Drug Allergy [facility] Repository (1 source) Chlorhexidine Drug Allergy [facility] fitkit Other (1 source) Sulfamethoxazole / Trimethoprim Drug Allergy [facility] Other (1 source) Darvocet-N 50 Drug allergy [facility] fitkit Other Medications Current Medications Medication Drug Class(es) [...] 08-14-2017 Episodic Other aftercare (1 source) Other family mediator (current) drug therapy; Translations: [OTH LONGTERM CURRENT 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] Onset: 10-13-2021 Episodic Other [...] applicable or unspecified; Translations: [MAT CARE OTH [place] FTL GRTH 3RD TM UNS] Onset: [...] pyogenes Org specific cx Ql (Throat) Negative Sprinkle Other Quick Strep Sprinkle Other PAP ACOG PANEL 2: 21 to 29on 04-24-2022 . . [facility] Comment on above: Performed By: #### [id number] #### [facility] [address] [place] [address] Dr. Winifred Silver Age Gdln ACOG Testing - [facility] Comment on above: Performed By: #### [id number] #### [facility] [address] [address] [address] Winifred Silver DIAGNOSIS: Comment [facility] Comment on above: Result Comment: NEGATIVE FOR INTRAEPITHE LIAL LESION OR MALIGNANCY. Performed By: #### [id number] #### [facility] [address] [address] [address] Winifred Silver Methodology: Comment [facility] Comment on above: Result Comment: This liquid based ThinPr ep(R) pap test was screened with the use of an image guided system. Performed By: #### [id number] #### [facility] [address] [place] [address] Dr. Winifred Silver Note: Comment [facility] Comment on above: Result Comment: The Pap smear is a scree marlo test designed to aid in the detection of premalignant and malignant conditions of the uterine cervix. It is not a diagnostic procedure and should not be used as the sole means of detecting cervical cancer. Both false-positive and false-negative reports do occur. . Performed By: #### [id number] #### [facility] [address] [place] [address] Dr. Winifred Silver Performed by: Comment Normal [facility] Comment on above: Result Comment: Mi Cobb, Cytotech nologist (ASCP) Performed By: #### [id number] #### [facility] [address] [place] [address] Dr. Winifred Silver Reflex Criteria: Comment Normal [facility] Comment on above: Result Comment: The HPV DNA reflex crite ana were not met with this specimen result therefore, no HPV testing was performed. . Performed By: #### [id number] #### [facility] [address] [place] [address] Dr. Winifred Silver Specimen adequacy: Comment Normal [facility] Comment on above: Result Comment: Satisfactory for evaluat ion. Endocervical and/or squamous metaplastic cells (endocervical component) are present. Performed By: #### [id number] #### [facility] [address] [place] [address] Dr. Winifred Silver CBC AUTO DIFFon 10-07-2021 BASO # 0.1 103/ul Normal 0.0-0.1 [facility] Comment on above: Performed By: #### CBC ####[facility] [address] [address]Dr. Winifred Silver Basophils/100 WBC (Bld) 0.6 % Normal 0.2-2.0 [facility] Comment on above: Performed By: #### CBC ####[facility] [address] [address]DrDarius Silver EO # 0.3 103/ul Normal 0.0-0.7 [facility] Comment on above: Performed By: #### CBC ####[facility] [address] [address]DrDarius Silver Eosinophils/100 WBC (Bld) 2.6 % Normal 0.9-7.0 [facility] Comment on above: Performed By: #### CBC ####[facility] [address] [address]Dr. Winifred Silver Erythrocyte distribution width (RBC) [Ratio] 13.1 % Normal 11.0-15.0 [facility] Comment on above: Performed By: #### CBC ####[facility] [address] [address]Dr. Winifred Silver Hematocrit (Bld) [Volume fraction] 26.6 % Critically low 36.0-48.0 [facility] Comment on above: Performed By: #### CBC ####[facility] [address] [address]Dr. Winifred Silver Hemoglobin (Bld) [Mass/Vol] 8.7 g/dL Critically low 12.0-16.0 [facility] Comment on above: Performed By: #### CBC ####[facility] [address] [place], [place] [address]Dr. Winifred Silver IG # 0.04 10e3/ul Critically high 0.00-0.03 [facility] Comment on above: Performed By: #### CBC ####[facility] [address] [place], [place] [address]Dr. Winifred Silver IG % 0.4 % Normal 0.0-0.5 [facility] Comment on above: Performed By: #### CBC ####[facility] [address] [place], [place] [address]Dr. Winifred Silver LYMPH # 1.4 103/ul Normal 1.2-3.8 [facility] Comment on above: Performed By: #### CBC ####[facility] [address] [address]Dr. Winifred Silver Lymphocytes/100 WBC (Bld) 13.8 % Critically low 20.5-60.0 [facility] Comment on above: Performed By: #### CBC ####[facility] [address] [address]Dr. Winifred Silver MANUAL DIFF REQ NO Normal [facility] Comment on above: Performed By: #### CBC ####[facility] [address] [id number] Winifred Nadeem MCH (RBC) [Entitic mass] 29.6 pg Normal 26.7-34.0 [facility] Comment on above: Performed By: #### CBC ####[facility] [address] [address]Dr. Jolenedaylin Silver MCHC (RBC) [Mass/Vol] 32.7 g/dL Normal 29.9-35.2 [facility] Comment on above: Performed By: #### CBC ####[facility] [address] [address]Dr. Winifred Silver MCV (RBC) [Entitic vol] 90.5 fL Normal 81.0-99.0 [facility] Comment on above: Performed By: #### CBC ####[facility] [address] [address]Dr. Winifred Silver MONO # 0.6 103/ul Normal 0.3-0.8 [facility] Comment on above: Performed By: #### CBC ####[facility] [address] [address]Dr. Winifred Silver Monocytes/100 WBC (Bld) 6.1 % Normal 1.7-12.0 [facility] Comment on above: Performed By: #### CBC ####[facility] [address] [address]Dr. Winifred Silver NEUT # 7.8 103/ul Critically high 1.4-6.5 [facility] Comment on above: Performed By: #### CBC ####[facility] [address] [address]Dr. Winifred Silver Neutrophils/100 WBC (Bld) 76.5 % Critically high 43.0-75.0 [facility] Comment on above: Performed By: #### CBC ####[facility] [address] [address]Dr. Winifred Silver Platelet mean volume (Bld) [Entitic vol] 10.5 fL Normal 9.5-13.5 [facility] Comment on above: Performed By: #### CBC ####[facility] [address] [id number]. Winifred Silver PLT 147 103/ul Critically low 150-450 [facility] Comment on above: Performed By: #### CBC ####[facility] [address] [id number] Silver RBC 2.94 106/ul Critically low 4.20-5.40 [facility] Comment on above: Performed By: #### CBC ####[facility] [address] [id number] Silver WBC 10.2 103/ul Normal 4.0-11.0 [facility] Comment on above: Performed By: #### CBC ####[facility] [address] [address]DrDarius Silver CBC AUTO DIFFon 10-06-2021 BASO # 0.0 103/ul Normal 0.0-0.1 [facility] Comment on above: Performed By: #### CBC #### [facility] [address] [address] [address] Winifred Silver Basophils/100 WBC (Bld) 0.3 % Normal 0.2-2.0 [facility] Comment on above: Performed By: #### CBC #### [facility] [address] [address] [address] Winifred Silver EO # 0.1 103/ul Normal 0.0-0.7 [facility] Comment on above: Performed By: #### CBC #### [facility] [address] [address] [address] Winifred Silver Eosinophils/100 WBC (Bld) 1.4 % Normal 0.9-7.0 [facility] Comment on above: Performed By: #### CBC #### [facility] [address] [address] [address] Winifred Silver Erythrocyte distribution width (RBC) [Ratio] 13.0 % Normal 11.0-15.0 [facility] Comment on above: Performed By: #### CBC #### [facility] [address] [address] [address] Winifred Silver Hematocrit (Bld) [Volume fraction] 32.3 % Critically low 36.0-48.0 [facility] Comment on above: Performed By: #### CBC #### [facility] [address] [address] [address] Winifred Silver Hemoglobin (Bld) [Mass/Vol] 10.6 g/dL Critically low 12.0-16.0 [facility] Comment on above: Performed By: #### CBC #### [facility] [address] [address] [address] Winifred Silver IG # 0.05 10e3/ul Critically high 0.00-0.03 [facility] Comment on above: Performed By: #### CBC #### [facility] [address] [place] [address] Dr. Winifred Silver IG % 0.5 % Normal 0.0-0.5 [facility] Comment on above: Performed By: #### CBC #### [facility] [address] [place] [address] Dr. Winifred Silver LYMPH # 1.5 103/ul Normal 1.2-3.8 [facility] Comment on above: Performed By: #### CBC #### [facility] [address] [place] [address] Dr. Winifred Silver Lymphocytes/100 WBC (Bld) 14.6 % Critically low 20.5-60.0 [facility] Comment on above: Performed By: #### CBC #### [facility] [address] [place] [address] Dr. Winifred Silver MANUAL DIFF REQ NO Normal [facility] Comment on above: Performed By: #### CBC #### [facility] [address] [place] [address] Dr. Winifred Silver MCH (RBC) [Entitic mass] 29.4 pg Normal 26.7-34.0 [facility] Comment on above: Performed By: #### CBC #### [facility] [address] [address] [address] Winifred Silver MCHC (RBC) [Mass/Vol] 32.8 g/dL Normal 29.9-35.2 [facility] Comment on above: Performed By: #### CBC #### [facility] [address] [place] [address] Dr. Winifred Silver MCV (RBC) [Entitic vol] 89.7 fL Normal 81.0-99.0 [facility] Comment on above: Performed By: #### CBC #### [facility] [address] [place] [address] Dr. Winifred Silver MONO # 0.7 103/ul Normal 0.3-0.8 [facility] Comment on above: Performed By: #### CBC #### [facility] [address] [place] [address] Dr. Winifred Silver Monocytes/100 WBC (Bld) 6.5 % Normal 1.7-12.0 [facility] Comment on above: Performed By: #### CBC #### [facility] [address] [place] [address] Dr. Winifred Silver NEUT # 7.7 103/ul Critically high 1.4-6.5 [facility] Comment on above: Performed By: #### CBC #### [facility] [address] [place] [address] Dr. Winifred Silver Neutrophils/100 WBC (Bld) 76.7 % Critically high 43.0-75.0 [facility] Comment on above: Performed By: #### CBC #### [facility] [address] [place] [address] Dr. Winifred Silver Platelet mean volume (Bld) [Entitic vol] 11.1 fL Normal 9.5-13.5 [facility] Comment on above: Performed By: #### CBC #### [facility] [address] [place] [address] Dr. Winifred Silver PLT 204 103/ul Normal 150-450 [facility] Comment on above: Performed By: #### CBC #### [facility] [address] [place] [address] Dr. Winifred Silver RBC 3.60 106/ul Critically low 4.20-5.40 [facility] Comment on above: Performed By: #### CBC #### [facility] [address] [place] [address] Dr. Winifred Silver WBC 10.0 103/ul Normal 4.0-11.0 [facility] Comment on above: Performed By: #### CBC #### [facility] [address] [place] [address] Dr. Winifred Silver DRUG SCREEN RAPID (URINE)on 10-06-2021 AMP Negative Normal NEGATIVE [facility] Comment on above: Performed By: #### DRUGRPD #### [facility] [address] [place] [address] Dr. Winifred Silver BAR Negative Normal NEGATIVE [facility] Comment on above: Performed By: #### DRUGRPD #### [facility] [address] [place] [address] Dr. Winifred Silver BUP Negative Normal NEGATIVE [facility] Comment on above: Performed By: #### DRUGRPD #### [facility] [address] [place] [address] Dr. Winifred Silver BZO Negative Normal NEGATIVE [facility] Comment on above: Performed By: #### DRUGRPD #### [facility] [address] [place] [address] Dr. Winifred Silver TIN Negative Normal NEGATIVE [facility] Comment on above: Performed By: #### DRUGRPD #### [facility] [address] [place] [address] Dr. Winifred Silver CUT-OFFS SEE BELOW Normal [facility] Comment on above: Result Comment: AMP (Amphetamine): [...] ng/mL Performed By: #### D RUGRPD #### [facility] [address] [place] [address] Dr. Winifred Silver DRUG CUT HEADER DRUG CLASS TEST SYST EM CUT-OFF CONCENTRATIONS ARE FOLLOWS: Normal [facility] Comment on above: Performed By: #### DRUGRPD #### [facility] [address] [place] [address] Dr. Winifred Silver mAMP Negative Normal NEGATIVE [facility] Comment on above: Performed By: #### DRUGRPD #### [facility] [address] [place] [address] Dr. Winifred Silver MTD Negative Normal NEGATIVE [facility] Comment on above: Performed By: #### DRUGRPD #### [facility] [address] [place] [address] Dr. Winifred Silver OPI Negative Normal NEGATIVE [facility] Comment on above: Performed By: #### DRUGRPD #### [facility] [address] [place] [address] Dr. Winifred Silver OXY Negative Normal NEGATIVE [facility] Comment on above: Performed By: #### DRUGRPD #### [facility] [address] [place] [address] Dr. Winifred Silver PCP Negative Normal NEGATIVE [facility] Comment on above: Performed By: #### DRUGRPD #### [facility] [address] [place] [address] Dr. Winifred Silver PPX Negative Normal NEGATIVE [facility] Comment on above: Performed By: #### DRUGRPD #### [facility] [address] [place] [address] Dr. Winifred Silver TCA Negative Normal NEGATIVE [facility] Comment on above: Performed By: #### DRUGRPD #### [facility] [address] [place] [address] Dr. Winifred Silver THC Negative Normal NEGATIVE [facility] Comment on above: Performed By: #### DRUGRPD #### [facility] [address] [address] [address] Winifred Silver TYPE AND SCREENon 10-06-2021 TYPE AND SCREEN Negative Normal [facility] Comment on above: Performed By: #### TNS #### [facility] [address] [place] [address] Dr. Winifred Silver UA (CLEAN/CATCH) HEALTH AIDE/MICRO I F IND.on 10-06-2021 Bilirubin Ql (U) Negative Normal NEGATIVE [facility] Comment on above: Performed By: #### UACSIND #### [facility] [address] [place] [address] Dr. Winifred Silver Clarity (U) CLEAR Normal CLEAR [facility] Comment on above: Performed By: #### UACSIND #### [facility] [address] [place] [address] Dr. Winifred Silver Color (U) LT. YELLOW Normal YELLOW [facility] Comment on above: Performed By: #### UACSIND #### [facility] [address] [place] [address] Dr. Winifred Silver Glucose Ql (U) Negative Normal NEGATIVE [facility] Comment on above: Performed By: #### UACSIND #### [facility] [address] [place] [address] Dr. Winifred Silver Hemoglobin Ql (U) Negative Normal NEGATIVE [facility] Comment on above: Performed By: #### UACSIND #### [facility] [address] [place] [address] Dr. Winifred Silver Ketones Ql (U) Negative Normal NEGATIVE [facility] Comment on above: Performed By: #### UACSIND #### [facility] [address] [place] [address] Dr. Winifred Silver LEUKOCYTES Negative Normal NEGATIVE [facility] Comment on above: Performed By: #### UACSIND #### [facility] [address] [place] [address] Dr. Winifred Silver Nitrite Ql (U) Negative Normal NEGATIVE [facility] Comment on above: Performed By: #### UACSIND #### [facility] [address] [place] [address] Dr. Winifred Silver pH (U) 6.0 [pH] Normal 5-9 [facility] Comment on above: Performed By: #### UACSIND #### [facility] [address] [place] [address] Dr. Winifred Silver SPEC GRAVITY 1.025 Normal 1.005-<=1.02 5 [facility] Comment on above: Performed By: #### UACSIND #### [facility] [address] [place] [address] Dr. Winifred Silver UA PROTEIN Negative Normal NEGATIVE/ TRACE [facility] Comment on above: Performed By: #### UACSIND #### [facility] [address] [place] [address] Dr. Winifred Silver UR MICRO IND NOT INDICATED Normal [facility] Comment on above: Performed By: #### UACSIND #### [facility] [address] [place] [address] Dr. Winifred Silver Urobilinogen Qn (U) 0.2 {Fredrick'U}/dL Normal 0.2 - 1.0 [facility] Comment on above: Performed By: #### UACSIND #### [facility] [address] [place] [address] Dr. Winifred Silver [facility]21 SARS-CoV-2 (COVID-19) RNA JENARO+probe Ql (Unsp spec) Not detected Normal NOT DETECTED [facility] Comment on above: Result Comment: This test is not yet sheri roved or cleared by the [place] FDA. When there are no FDA-approved or cleared tests available, and other criteria are met, FDA can make tests available under an emergency access mechanism called an Emergency Use Authorization (EUA). The EUA for this test is supported by the [place] of Health and Human Service's (HHS's) declaration [...] consistent with SARS-CoV-2. Performed By: #### [facility] #### [facility] [address] [place] [address] Dr. Winifred Silver US PREG GROWTHon 10-01-2021 [...] by: SAMIRA VELA Date: 2021-10-01 19:22 Normal [facility] US PREG BIOPHY W NON STRESSo n [...] by: PJ SAM Date: 2021-09-25 07:47 Normal [facility] CNOVon 01-16-2021 CNOV Office Visit (ORTHMN ) -- YEIMY HONEYCUTT ([id number]) 1995 F Date Time Provider Department 01/16/21 10:20 AM AYLIN GILLILAND During your visit today, we recorded the following information about you: Weight Height 77.1 kg 1.727 m Aylin Gilliland PA-C 02/11/2021 9:16 PM Signed Consultation requested by Kali Alcantara [id number] [facility] [id number] Yeimy Honeycutt is a 25 year old [...] Aylin Gilliland, MS, PA-C [facility] Referring Provider: KALI ALCANTARA [[id number]] Allergies As of Date: 01/16/2021 Noted Allergy Reaction BACTRIM (SULFAMETHOXAZOLE) 10/10/2009 2 - Rash CHLORHEXIDINE GLUCONATE 12/28/2018 9 - Itching Date Reviewed: 01/16/2021 Reviewed by: Nakia Luna Ma - Fully Assessed Reason for Visit: Pain, Back [855] Primary Visit Diagnosis:Strain (more content not included)... Normal [facility] XR LUMBAR 3V AP/LAT/L5-S1on 01-16-2021 XR LUMBAR [...] bony abnormality or significant disc height loss. Financial Auditor: TERESITA Transcribe Date/Time: Jan 16 2021 12:34P Dictated by : CARLTON MATTHEWS MD This examination was interpreted and the report reviewed and electronically signed by: CARLTON MATTHEWS MD on Jan 16 2021 12:35PM EST [id number] Normal [facility] CNPYisel 01-07-2021 CNPN Telephone ([facility]) -- YEIMY HONEYCUTT ([id number]) 1995 F Date Time Provider Department 01/07/21 AYLIN GILLILAND [facility] During your visit today, we recorded [...] Status:Closed by AYLIN GILLILAND on 01/07/21 Normal [facility] Coding Summary.on 05-18-2018 Coding Summary. CODING DATE: 018 FINAL [facility] STATUS: Home (Routine DC) PAYOR: Desmond [...] SyedNena Date Saved: 05/18/2018 08:52 am Normal [facility] US Breast Unilateral Rt Blas alston 05-16-2018 [...] MD Transcribed by: KALIN Technologist: EULALIO Normal [facility] XR CHEST (2 VW)on 08-14-2017 XR CHEST (2 VW) EXAMINATION: XR CHES T (2 VW)CLINICAL HISTORY: chest pain COMPARISONS: None available.FINDINGS: Cardiac size and pulmonary vascularity are normal. The lungs are clear. There is no evidence of adenopathy. The bones are unremarkable.IMPRESSION: NORMAL CHEST RADIOGRAPHSInterpreted by:ARIAN Harrisigned by:Troy Rueda MD08/14/17inal result Normal [facility] Vital Signs Date Time Vital Sign Value Performing Clinician Facility 10-05-2022 13:25-040 Body height 172.72 cm Arlette Fof[facility] 10-05-2022 13:25-0400 Body mass index (BMI) [Ratio] 28.86 kg/m2 [facility] F[facility] 10-05-2022 13:25-040 Body temperature 98.2 [degF] [facility] 10-05-2022 13:25-0400 Body weight 86.09 kg Arlette Fofana [facility] 10-05-2022 13:25-0400 Respiratory rate 18 /min Ar[facility] Fofana [facility] 10-05-2022 13:25-0400 SaO2% (BldA) [Mass fraction] 99 % [address]lette [address] Other [facility] Encounters Encounter Date Encounter Type Care [...] 10-05-2022 End: 10-05-2022 ambulatory Arlette Fofana [facility] Start: 10-05-2022 Office outpatient vi sit 15 minutes Arlette Fofana [facility] Start: 07-20-2022 End: 08-28-2022 ambulatory KAREN ROSETTE Facility:[facility] Start: 04-15-2022 End: 04-15-[address] BABAR OLSEN . Facility:[facility] Start: 10-23-2021 End: 11-12-2021 ambulatory KAREN ROSETTE Facility:[facility] Start: 10-16-2021 End: 10-16-2021 ambulatory KAREN ROSETTE Facility:[facility] Start: 10-08-2021 Encounter for preprocedural laboratory examination DR BABAR OLSEN . [facility] Start: 10-06-2021 End: 10-09-2021 Evaluation and management [...] 08-14-2017 End: 08-14-2017 [facility] Procedures Date Procedure Procedure Detail Performing Clinician Start: 10-06-2021 Extraction of Produc ts of Conception, Low Cervical, Open Approach KAREN DINERO Start: 08-14-2017 Radiologic exam chest 2 views SIMRAN DUONG Start: 08-14-2017 EKG 12-LEAD SIMRAN DORSEY UL Payers Date Payer Category Payer Unknown [id number] 1995 Unknown [id number] 2.16.84 [id number] 1995 Unknown [id number] 2.16.84 0.1.287774.3.579.2.593 1995 Unknown [id number] 2.16.84 0.1.699745.3.579.2.593 1995 Unknown [id number] 2.16.84 0.1.637249.3.579.2.593 1995 Unknown [id number] 2.16.84 0.1.153547.3.579.2.593 1995 Unknown [id number] 2.16.84 0.1.159279.3.579.2.593 1993 Unknown [id number] 2.16.84 0.1.442120.3.579.2.593 1993 Unknown [id number] 2.16.84 0.1.597982.3.579.2.593 1993 Unknown [id number] 2.16.84 0.1.189585.3.579.2.593 1993 Unknown [id number] 2.16.84 0.1.494500.3.579.2.593 1993 Unknown [id number] 2.16.84 0.1.933573.3.579.2.1259 1993 Unknown [id number] 2.16.84 0.1.521671.3.579.2.1259 1993 Unknown [id number] 2.16.840 .1.260800.3.579.2.1259 1993 Unknown [id number] 2.16.840 .1.979462.3.579.2.1259 1993 Unknown [id number] 2.16.840 .1.566775.3.579.2.1259 1993 Unknown [id number] 2.16.840 .1.856855.3.579.2.1259 1959 Unknown [id number] Social History Date Type Detail Facility Unknown if ever smoked [facility] Sex Assigned At Sex Assigned At Bir th [facility] Evaluation note 10-05-2022 Note Date & [...] of diseases classified elsewhere (ICD-10 - B96.89) [facility] Clinical Note 10-06-2021 Note Date & Type Note Facility 10-06-2021 Note [facility] [place], [place] NAME: YEIMY RODRIGUEZ DATE OF : MEDICAL REC#: [id number] 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 PREOPERATIVE DIAGNOSIS: 1. at 39 2/7 weeks. 2. Previous . POSTOPERATIVE DIAGNOSIS: 1. at 39 2/7 weeks. 2. Previous . ANESTHESIA: Spinal with Duramorph. SURGEON: Babar Olsen D.O. FLORICULTURE PROFESSOR: LAUREN Ellison URINE OUTPUT: Yellow and clear. [...] Olsen DO on 10/07/2021 09:42 AM EDT [facility] Signed and Approved by: DR BABAR OLSEN . 10/07/2021 09:42:00 [facility] Discharge summary note 10-06-2021 Note Date & [...] by: DR BABAR OLSEN . 10/13/2021 07:35:00 [facility] Progress note 01-16-2021 Note Date & Type Note Facility 01-16-2021 Note HNO ID: [id number] Author: Aylin Gilliland PA-C Service: ? 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 Type: Progress Notes Filed: 01/16/2021 10:07 AM [...] RT Jalen(R) January 16, 2021 10:06 AM [facility] History general Narrative - Reported Note Date & Type Note Facility History general Narrative - Reported Type Medical History costal chondritis Medical History asthma - exercise induced Medical History 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 Surgical History pelvic cyst removed x2 Surgical History wrist surgery- right Surgical History lumpectomy 12/2017 Surgical History C section x2 Hospitalization History see above [facility] Summary Purpose Family History No Family [...] and content) DATE CREATED AUTHOR 11/25/2017 [facility] DATE CREATED AUTHOR AUTHOR'S ORGANIZ ATION 05/12/2019 [facility] DATE CREATED AUTHOR AUTHOR'S ORGANIZ ATION 07/12/2021 [facility] DATE CREATED AUTHOR AUTHOR'S ORGANIZ ATION 09/23/2022 [facility] DATE CREATED AUTHOR AUTHOR'S ORGANIZ ATION 06/10/2023 [facility] EPIC REASON FOR VISIT (unrecogniz ed [...] BE BASED ON THE PRIMARY CLINICAL RECORDS. [facility]. provides no warranty or guarantee of the accuracy or completeness of information in this document.
[2023-06-17 15:29] VITALS: BP 106/56; PULSE 57; TEMP 36.2
== END 2023-06-17 16:08 | disposition home or self-care (01) ==
LOC: FBCO 07:15 → FBC 15:22
PROVIDERS: PCP Student in an Organized Health Care Education/Training Program; Visit Provider Obstetrics & Gynecology
DX: Z87.59 Personal history of other complications of pregnancy, childbirth and the puerperium (principal); Z3A.35 35 weeks gestation of pregnancy
CPT/HCPCS: 59025

== ENCOUNTER 2023-06-21 07:12 | Outpatient (OUT) | payer OTHER, SELFPAY ==
--- OUTSIDE RECORDS SUMMARY | 2023-06-21 07:15 | XMS_ITS | CCD ---
Author Name Unknown Address [address] [place] [address] Organization [facility] Care Team Providers Care Sugar Laboratory Assistant Name Role Phone SIMRAN DUONG Unavailable Unavailable [facility] Primary Care Unavailable ANNMARIE ., DR ECKERT Consulting Unavailable ANNMARIE ., DR ECKERT Attending Unavailable ANNMARIE ., DR ECKERT Procedure Practitioner Unavail able ANNMARIE ., DR ECKERT Admitting Unavailable AGUBEDA CAMEJO Consulting Unavailable ARLETTE MARROQUIN Consulting Unavailable KARASIK ., DR SCOTT Admitting Unavailabl e KARASIK ., DR SCOTT Consulting Unavailabl e ROSETTE, CENTRAL Primary Care Unavailable KARASIK ., DR SCOTT Attending Unavailabl e ANNMARIE ., DR ECKERT Admitting Unavailable [facility] Primary Care Unavailable ANNMARIE ., DR CEKERT Consulting Unavailable ANNMARIE ., DR ECKERT Attending Unavailable KARASIK ., DR SCOTT Attending Unavailabl e KARASIK ., DR SCOTT Admitting Unavailabl e KARASIK ., DR SCOTT Consulting Unavailabl e ROSETTE, CENTRAL Primary Care Unavailable [place], DR PJ Araujo Consulting Unavailable ANNMARIE ., DR ECKERT Consulting Unavailable KARASIK ., DR SCOTT Attending Unavailabl e KARASIK ., DR SCOTT Admitting Unavailabl e KARASIK ., DR SCOTT Consulting Unavailabl e ROSETTE, CENTRAL Primary Care Unavailable ANNMARIE ., DR ECKERT Consulting Unavailable Policaro, Samira Consulting Unavailable ROSETTE, CENTRAL Primary Care Unavailable CARBALLO, TONNY Attending Unavailable CARBALLO, TONNY Admitting Unavailable ROSETTE, CENTRAL Primary Care Unavailable ANNMARIE ., DR ECKERT Attending Unavailable ANNMARIE ., DR ECKERT Consulting Unavailable ANNMARIE ., DR ECKERT Admitting Unavailable [facility] Unavailable ANNMARIE ., DR ECKERT Attending Unavailable ANNMARIE ., DR ECKERT Admitting Unavailable [facility] Primary Care Unavailable ANNMARIE ., DR ECKERT Attending Unavailable ANNMARIE ., DR ECKERT Admitting Unavailable ANNMARIE ., DR ECKERT Consulting Unavailable [facility] Unavailable ANNMARIE ., DR ECKERT Attending Unavailable ANNMARIE ., DR ECKERT Admitting Unavailable Arlette Fofana Unavailable LISSY JOSEPH Attending Unavailable JAKE, LISSY Attending Unavailable ANNMARIE, BABAR Attending Unavailable JAKE, LISSY Attending Unavailable ANNMARIE, BABAR Attending Unavailable JAKE, LISSY Attending Unavailable Allergies Allergy Classification Reported Allergen(s) Allergy Type Date of Onset Reaction(s) Facility (1 source) Chlorhexidine Drug Allergy [facility] Repository (1 source) Sulfamethoxazole / Trimethoprim Drug Allergy [facility] Repository (1 source) Chlorhexidine Drug Allergy [facility] Other (1 source) Sulfamethoxazole / Trimethoprim Drug Allergy [facility] [employer] Other (1 source) Darvocet-N 50 Drug allergy [facility] Other Medications Current Medications Medication Drug Class(es) [...] 08-14-2017 Epis[facility] Other aftercare (1 source) Other terminologist (current) drug therapy; Translations: [OTH PENITENTIARY CURRENT 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] Onset: 10-13-2021 Episodic Other [...] applicable or unspecified; Translations: [MAT CARE OTH [place] FTL GRTH 3RD TM UNS] Onset: 10-04-2021 [...] pyogenes Org specific cx Ql (Throat) Negative [employer] Other Quick Strep [employer] Other PAP ACOG PANEL 2: 21 to 29on 04-24-2022 . . [facility] Comment on above: Performed By: #### [id number] #### [facility] [address] [place] [address] Dr. Winifred Silver Age Gdln ACOG Testing - [facility] Comment on above: Performed By: #### [id number] #### [facility] [address] [address] [address] Winifred Silver DIAGNOSIS: Comment [facility] Comment on above: Result Comment: NEGATIVE FOR INTRAEPITHE LIAL LESION OR MALIGNANCY. Performed By: #### [id number] #### [facility] [address] [address] [address] Winifred Silver Methodology: Comment [facility] Comment on above: Result Comment: This liquid based ThinPr ep(R) pap test was screened with the use of an image guided system. Performed By: #### [id number] #### [facility] [address] [place] [address] Dr. Winifred Silver Note: Comment [facility] Comment on above: Result Comment: The Pap smear is a scree marlo test designed to aid in the detection of premalignant and malignant conditions of the uterine cervix. It is not a diagnostic procedure and should not be used as the sole means of detecting cervical cancer. Both false-positive and false-negative reports do occur. . Performed By: #### [id number] #### [facility] [address] [place] [address] Dr. Winifred Silver Performed by: Comment Normal [facility] Comment on above: Result Comment: Mi Cobb, Cytotech nologist (ASCP) Performed By: #### [id number] #### [facility] [address] [place] [address] Dr. Winifred Silver Reflex Criteria: Comment Normal [facility] Comment on above: Result Comment: The HPV DNA reflex crite ana were not met with this specimen result therefore, no HPV testing was performed. . Performed By: #### [id number] #### [facility] [address] [place] [address] Dr. Winifred Silver Specimen adequacy: Comment Normal [facility] Comment on above: Result Comment: Satisfactory for evaluat ion. Endocervical and/or squamous metaplastic cells (endocervical component) are present. Performed By: #### [id number] #### [facility] [address] [place] [address] Dr. Winifred Silver CBC AUTO DIFFon 10-07-2021 BASO # 0.1 103/ul Normal 0.0-0.[address] [facility] Comment on above: Performed By: #### CBC ####[facility] [address] [address]Dr. Winifred Silver Basophils/100 WBC (Bld) 0.6 % Normal 0.2-2.[address] [facility] Comment on above: Performed By: #### CBC ####[facility] [address] [address]DrDarius Silver EO # 0.3 103/ul Normal 0.0-0.[address] [facility] Comment on above: Performed By: #### CBC ####[facility] [address] [address]DrDarius Silver Eosinophils/100 WBC (Bld) 2.6 % Normal 0.9-7.[address] [facility] Comment on above: Performed By: #### CBC ####[facility] ital [address] [address]Dr. Winifred Silver Erythrocyte distribution width (RBC) [Ratio] 13.1 % Normal 11.0-15.[address] [facility] Comment on above: Performed By: #### CBC ####[facility] ital [address] [address]Dr. Winifred Silver Hematocrit (Bld) [Volume fraction] 26.6 % Critically low 36.0-48.[address] [facility] Comment on above: Performed By: #### CBC ####[facility] ital [address] [address]Dr. Winifred Silver Hemoglobin (Bld) [Mass/Vol] 8.7 g/dL Critically low 12.0-16.[address] [facility] Comment on above: Performed By: #### CBC ####[facility] [address] [place], [place] [address]Dr. Winifred Silver IG # 0.04 10e3/ul Critically high 0.00-0.03 [facility] Comment on above: Performed By: #### CBC ####[facility] [address] [place], [place] [address]Dr. Winifred Silver IG % 0.4 % Normal 0.0-0.[address] [facility] Comment on above: Performed By: #### CBC ####[facility] [address] [place], [place] [address]Dr. Winifred Silver LYMPH # 1.4 103/ul Normal 1.2-3.8 [facility] Comment on above: Performed By: #### CBC ####[facility] [address] [address]Dr. Winifred Silver Lymphocytes/100 WBC (Bld) 13.8 % Critically low 20.5-60.[address] [facility] Comment on above: Performed By: #### CBC ####[facility] [address] [address]Dr. Winifred Silver MANUAL DIFF REQ NO Normal [facility] Comment on above: Performed By: #### CBC ####[facility] ital [address] [id number]. Winifred Nadeem MCH (RBC) [Entitic mass] 29.6 pg Normal 26.7-34.0 [facility] Comment on above: Performed By: #### CBC ####[facility] ital [address] [address]Dr. Jolenedaylin Silver MCHC (RBC) [Mass/Vol] 32.7 g/dL Normal 29.9-35.2 [facility] Comment on above: Performed By: #### CBC ####[facility] ital [address] [address]Dr. Winifred Silver MCV (RBC) [Entitic vol] 90.5 fL Normal 81.0-99.0 [facility] Comment on above: Performed By: #### CBC ####[facility] [address] [address]Dr. Winifred Silver MONO # 0.6 103/ul Normal 0.3-0.8 [facility] Comment on above: Performed By: #### CBC ####[facility] [address] [address]Dr. Winifred Silver Monocytes/100 WBC (Bld) 6.1 % Normal 1.7-12.0 [facility] Comment on above: Performed By: #### CBC ####[facility] [address] [address]Dr. Winifred Silver NEUT # 7.8 103/ul Critically high 1.4-6.[address] [facility] Comment on above: Performed By: #### CBC ####[facility] [address] [address]Dr. Winifred Silver Neutrophils/100 WBC (Bld) 76.5 % Critically high 43.0-75.0 [facility] Comment on above: Performed By: #### CBC ####[facility] [address] [address]Dr. Winifred Silver Platelet mean volume (Bld) [Entitic vol] 10.5 fL Normal 9.5-13.5 [facility] Comment on above: Performed By: #### CBC ####[facility] [address] [id number] Winifred Silver PLT 147 103/ul Critically low 150-450 [facility] Comment on above: Performed By: #### CBC ####[facility] [address] [id number] Silver RBC 2.94 106/ul Critically low 4.20-5.40 [facility] Comment on above: Performed By: #### CBC ####[facility] [address] [id number] Silver WBC 10.2 103/ul Normal 4.0-11.[address] [facility] Comment on above: Performed By: #### CBC ####[facility] [address] [address]DrDarius Silver CBC AUTO DIFFon 10-06-2021 BASO # 0.0 103/ul Normal 0.0-0.[address] [facility] Comment on above: Performed By: #### CBC #### [facility] [address] [address] [address] Winifred Silver Basophils/100 WBC (Bld) 0.3 % Normal 0.2-2.[address] [facility] Comment on above: Performed By: #### CBC #### [facility] [address] [address] [address] Winifred Silver EO # 0.1 103/ul Normal 0.0-0.7 [facility] Comment on above: Performed By: #### CBC #### [facility] [address] [address] [address] Winifred Silver Eosinophils/100 WBC (Bld) 1.4 % Normal 0.9-7.[address] [facility] Comment on above: Performed By: #### CBC #### [facility] [address] [address] [address] Winifred Silver Erythrocyte distribution width (RBC) [Ratio] 13.0 % Normal 11.0-15.[address] [facility] Comment on above: Performed By: #### CBC #### [facility] [address] [address] [address] Winifred Silver Hematocrit (Bld) [Volume fraction] 32.3 % Critically low 36.0-48.[address] [facility] Comment on above: Performed By: #### CBC #### [facility] [address] [address] [address] Winifred Silver Hemoglobin (Bld) [Mass/Vol] 10.6 g/dL Critically low 12.0-16.[address] [facility] Comment on above: Performed By: #### CBC #### [facility] [address] [address] [address] Winifred Silver IG # 0.05 10e3/ul Critically high 0.00-0.03 [facility] Comment on above: Performed By: #### CBC #### [facility] [address] [place] [address] Dr. Winifred Silver IG % 0.5 % Normal 0.0-0.[address] [facility] Comment on above: Performed By: #### CBC #### [facility] [address] [place] [address] Dr. Winifred Silver LYMPH # 1.5 103/ul Normal 1.2-3.[address] [facility] Comment on above: Performed By: #### CBC #### [facility] [address] [place] [address] Dr. Winifred Silver Lymphocytes/100 WBC (Bld) 14.6 % Critically low 20.5-60.[address] [facility] Comment on above: Performed By: #### CBC #### [facility] [address] [place] [address] Dr. Winifred Silver MANUAL DIFF REQ NO Normal [facility] Comment on above: Performed By: #### CBC #### [facility] [address] [place] [address] Dr. Winifred Silver MCH (RBC) [Entitic mass] 29.4 pg Normal 26.7-34.[address] [facility] Comment on above: Performed By: #### CBC #### [facility] [address] [address] [address] Winifred Silver MCHC (RBC) [Mass/Vol] 32.8 g/dL Normal 29.9-35.2 [facility] Comment on above: Performed By: #### CBC #### [facility] [address] [place] [address] Dr. Winifred Silver MCV (RBC) [Entitic vol] 89.7 fL Normal 81.0-99.0 [facility] Comment on above: Performed By: #### CBC #### [facility] [address] [place] [address] Dr. Winifred Silver MONO # 0.7 103/ul Normal 0.3-0.8 [facility] Comment on above: Performed By: #### CBC #### [facility] [address] [place] [address] Dr. Winifred Silver Monocytes/100 WBC (Bld) 6.5 % Normal 1.7-12.0 [facility] Comment on above: Performed By: #### CBC #### [facility] [address] [place] [address] Dr. Winifred Silver NEUT # 7.7 103/ul Critically high 1.4-6.[address] [facility] Comment on above: Performed By: #### CBC #### [facility] [address] [place] [address] Dr. Winifred Silver Neutrophils/100 WBC (Bld) 76.7 % Critically high 43.0-75.0 [facility] Comment on above: Performed By: #### CBC #### [facility] [address] [place] [address] Dr. Winifred Silver Platelet mean volume (Bld) [Entitic vol] 11.1 fL Normal 9.5-13.5 [facility] Comment on above: Performed By: #### CBC #### [facility] [address] [place] [address] Dr. Winifred Silver PLT 204 103/ul Normal 150-450 [facility] Comment on above: Performed By: #### CBC #### [facility] [address] [place] [address] Dr. Winifred Silver RBC 3.60 106/ul Critically low 4.20-5.40 [facility] Comment on above: Performed By: #### CBC #### [facility] [address] [place] [address] Dr. Winifred Silver WBC 10.0 103/ul Normal 4.0-11.[address] [facility] Comment on above: Performed By: #### CBC #### [facility] [address] [place] [address] Dr. Winifred Silver DRUG SCREEN RAPID (URINE)on 10-06-2021 AMP Negative Normal NEGATIVE [facility] Comment on above: Performed By: #### DRUGRPD #### [facility] [address] [place] [address] Dr. Winifred Silver BAR Negative Normal NEGATIVE [facility] Comment on above: Performed By: #### DRUGRPD #### [facility] [address] [place] [address] Dr. Winifred Silver BUP Negative Normal NEGATIVE [facility] Comment on above: Performed By: #### DRUGRPD #### [facility] [address] [place] [address] Dr. Winifred Silver BZO Negative Normal NEGATIVE [facility] Comment on above: Performed By: #### DRUGRPD #### [facility] [address] [place] [address] Dr. Winifred Silver TIN Negative Normal NEGATIVE [facility] Comment on above: Performed By: #### DRUGRPD #### [facility] [address] [place] [address] Dr. Winifred Silver CUT-OFFS SEE BELOW Normal [facility] Comment on above: Result Comment: AMP (Amphetamine): [...] ng/mL Performed By: #### D RUGRPD #### [facility] [address] [place] [address] Dr. Winifred Silver DRUG CUT HEADER DRUG CLASS TEST SYST EM CUT-OFF CONCENTRATIONS ARE FOLLOWS: Normal [facility] Comment on above: Performed By: #### DRUGRPD #### [facility] [address] [place] [address] Dr. Winifred Silver mAMP Negative Normal NEGATIVE [facility] Comment on above: Performed By: #### DRUGRPD #### [facility] [address] [place] [address] Dr. Winifred Silver MTD Negative Normal NEGATIVE [facility] Comment on above: Performed By: #### DRUGRPD #### [facility] [address] [place] [address] Dr. Winifred Silver OPI Negative Normal NEGATIVE [facility] Comment on above: Performed By: #### DRUGRPD #### [facility] [address] [place] [address] Dr. Winifred Silver OXY Negative Normal NEGATIVE [facility] Comment on above: Performed By: #### DRUGRPD #### [facility] [address] [place] [address] Dr. Winifred Silver PCP Negative Normal NEGATIVE [facility] Comment on above: Performed By: #### DRUGRPD #### [facility] [address] [place] [address] Dr. Winifred Silver PPX Negative Normal NEGATIVE [facility] Comment on above: Performed By: #### DRUGRPD #### [facility] [address] [place] [address] Dr. Winifred Silver TCA Negative Normal NEGATIVE [facility] Comment on above: Performed By: #### DRUGRPD #### [facility] [address] [place] [address] Dr. Winifred Silver THC Negative Normal NEGATIVE [facility] Comment on above: Performed By: #### DRUGRPD #### [facility] [address] [address] [address] Winifred Silver TYPE AND SCREENon 10-06-2021 TYPE AND SCREEN Negative Normal [facility] Comment on above: Performed By: #### TNS #### [facility] [address] [place] [address] Dr. Winifred Silver UA (CLEAN/CATCH) BLADE CHANGER/MICRO I F IND.on 10-06-2021 Bilirubin Ql (U) Negative Normal NEGATIVE [facility] Comment on above: Performed By: #### UACSIND #### [facility] [address] [place] [address] Dr. Winifred Silver Clarity (U) CLEAR Normal CLEAR [facility] Comment on above: Performed By: #### UACSIND #### [facility] [address] [place] [address] Dr. Winifred Silver Color (U) LT. YELLOW Normal YELLOW [facility] Comment on above: Performed By: #### UACSIND #### [facility] [address] [place] [address] Dr. Winifred Silver Glucose Ql (U) Negative Normal NEGATIVE [facility] Comment on above: Performed By: #### UACSIND #### [facility] [address] [place] [address] Dr. Winifred Silver Hemoglobin Ql (U) Negative Normal NEGATIVE [facility] Comment on above: Performed By: #### UACSIND #### [facility] [address] [place] [address] Dr. Winifred Silver Ketones Ql (U) Negative Normal NEGATIVE [facility] Comment on above: Performed By: #### UACSIND #### [facility] [address] [place] [address] Dr. Winifred Silver LEUKOCYTES Negative Normal NEGATIVE [facility] Comment on above: Performed By: #### UACSIND #### [facility] [address] [place] [address] Dr. Winifred Silver Nitrite Ql (U) Negative Normal NEGATIVE [facility] Comment on above: Performed By: #### UACSIND #### [facility] [address] [place] [address] Dr. Winifred Silver pH (U) 6.0 [pH] Normal 5-9 [facility] Comment on above: Performed By: #### UACSIND #### [facility] [address] [place] [address] Dr. Winifred Silver SPEC GRAVITY 1.025 Normal 1.005-<=1.02 5 [facility] Comment on above: Performed By: #### UACSIND #### [facility] [address] [place] [address] Dr. Winifred Silver UA PROTEIN Negative Normal NEGATIVE/ TRACE [facility] Comment on above: Performed By: #### UACSIND #### [facility] [address] [place] [address] Dr. Winifred Silver UR MICRO IND NOT INDICATED Normal [facility] Comment on above: Performed By: #### UACSIND #### [facility] [address] [place] [address] Dr. Winifred Silver Urobilinogen Qn (U) 0.2 {Fredrick'U}/dL Normal 0.2 - 1.[address] [facility] Comment on above: Performed By: #### UACSIND #### [facility] [address] [place] [address] Dr. Winifred Silver Cov[facility]-19 [facility]on 09-21 SARS-CoV-2 (COVID-19) RNA JENARO+probe Ql (Unsp spec) Not detected Normal NOT DETECTED The [facility] Comment on above: Result Comment: This test is not yet sheri roved or cleared by the [place] FDA. When there are no FDA-approved or cleared tests available, and other criteria are met, FDA can make tests available under an emergency access mechanism called an Emergency Use Authorization (EUA). The EUA for this test is supported by the [place] of Health and Human Service's (HHS's) declaration [...] consistent with SARS-CoV-2. Performed By: #### C [facility] #### [facility] [address] [place] [address] Dr. Winifred Silver US PREG GROWTHon 10-01-2021 [...] by: SAMIRA VELA Date: 2021-10-01 19:[address] [facility] US PREG BIOPHY W NON STRESSo [...] by: PJ SAM Date: 2021-09-25 07:[address] [facility] CNOVon 01-16-2021 CNOV Office Visit (ORTHMN ) -- YEIMY HONEYCUTT ([id number]) 1995 F Date Time Provider Department 01/16/21 10:20 AM AYLIN GILLILAND During your visit today, we recorded the following information about you: Weight Height 77.1 kg 1.727 m Aylin Gilliland PA-C 02/11/2021 9:16 PM Signed Consultation requested by Kali Alcantara [address] [facility] [address] Yeimy Honeycutt is a 25 year old [...] Aylin Gilliland, MS, PA-C [facility] [place] Referring Provider: KALI ALCANTARA [[id number]] Allergies As of Date: 01/16/2021 Noted Allergy Reaction BACTRIM (SULFAMETHOXAZOLE) 10/10/2009 2 - Rash CHLORHEXIDINE GLUCONATE 12/28/2018 9 - Itching Date Reviewed: 01/16/2021 Reviewed by: Nakia Luna Ma - Fully Assessed Reason for Visit: Pain, Back [855] Primary Visit Diagnosis:Strain (more content not included)... Normal [facility] XR LUMBAR 3V AP/LAT/L5-S1on 01-16-2021 XR LUMBAR [...] bony abnormality or significant disc height loss. Chiropractic Doctor: TERESITA Transcribe Date/Time: Jan 16 2021 12:34P Dictated by : CARLTON MATTHEWS MD This examination was interpreted and the report reviewed and electronically signed by: CARLTON MATTHEWS MD on Jan 16 2021 12:35PM EST [id number] Normal [facility] CNPYisel 01-07-2021 CNPN Telephone ([facility]) -- YEIMY HONEYCUTT ([id number]) 1995 F Date Time Provider Department 01/07/21 AYLIN GILLILAND [facility] During your visit today, we recorded [...] Status:Closed by AYLIN GILLILAND on 01/07/21 Normal [facility] Coding Summary.on 05-18-2018 Coding Summary. CODING DATE: 018 FINAL [facility] STATUS: Home (Routine DC) PAYOR: [...] SyedNena Date Saved: 05/18/2018 08:[address] [facility] US Breast Unilateral Rt Blas alston 05-16-2018 [...] MD Transcribed by: KALIN Technologist: EULALIO Normal [facility] XR CHEST (2 VW)on 08-14-2017 XR CHEST (2 VW) EXAMINATION: XR CHES T (2 VW)CLINICAL HISTORY: chest pain COMPARISONS: None available.FINDINGS: Cardiac size and pulmonary vascularity are normal. The lungs are clear. There is no evidence of adenopathy. The bones are unremarkable.IMPRESSION: NORMAL CHEST RADIOGRAPHSInterpreted by:ARIAN Harrisigned by:Troy Rueda MD08/14/17inal result Normal [facility] Vital Signs Date Time Vital Sign Value Performing Clinician Facility 10-05-2022 13:25-040 Body height 172.72 cm Arlette Fofana Other [facility] Other 10-05-2022 13:25-0400 Body mass index (BMI) [Ratio] 28.86 kg/m2 Arlette Fofana Other [facility] Other 10-05-2022 13:25-040 Body temperature 98.2 [degF] Arlette Fofana Other [facility] Other 10-05-2022 13:25-0400 Body weight 86.09 kg Arlette Fofana Other [facility] Other 10-05-2022 13:25-0400 Respiratory rate 18 /min Arlette Fofana Other [facility] Other 10-05-2022 13:25-0400 SaO2% (BldA) [Mass fraction] 99 % [address]lette Ct Other [facility] Other Encounters Encounter Date Encounter Type Care Provider Facility Start: 06-09-2023 End: 06-09-2023 ambulatory BABAR OLSEN Not Available Start: 06-02-2023 End: 06-02-2023 ambulatory LISSY JAKE Not Available Start: 05-25-2023 End: 05-25-2023 ambulatory LISSY JAKE Not Available Start: 05-10-2023 End: 05-10-2023 ambulatory LISSY JAKE Not Available Start: 04-26-2023 End: 04-26-2023 ambulatory BABAR ANNMARIE Not Available Start: 04-12-2023 End: 04-12-2023 ambulatory LSISY JAKE Not Available Start: 10-05-2022 End: 10-05-2022 ambulatory Arlette Fofana Other [facility] Other Start: 10-05-2022 Office outpatient vi sit 15 minutes Arlette Fofana [facility] Start: 07-20-2022 End: 08-28-2022 ambulatory KAREN ROSETTE Facility:[facility] Start: 04-15-2022 End: 04-15-[address] BABAR OLSEN . Facility:[facility] Start: 10-23-2021 End: 11-12-2021 ambulatory KAREN ROSETTE Facility:[facility] Start: 10-16-2021 End: 10-16-2021 ambulatory KAREN ROSETTE Facility:[facility] Start: 10-08-2021 Encounter for preprocedural laboratory examination DR BABAR OLSEN . [facility] Start: 10-06-2021 End: 10-09-2021 Evaluation and management [...] 08-14-2017 End: 08-14-2017 Emergency department patient visit [facility] JANESVILLEDorene DUONG [facility] Procedures Date Procedure Procedure Detail Performing Clinician Start: 10-06-2021 Extraction of Produc ts of Conception, Low Cervical, Open Approach KAREN DINERO Start: 08-14-2017 Radiologic exam chest 2 views SIMRAN DUONG Start: 08-14-2017 EKG 12-LEAD SIMRAN DORSEY UL Payers Date Payer Category Payer Unknown [id number] 1995 Unknown [id number] 2.16.84 [id number] 1995 Unknown [id number] 2.16.84 0.1.416969.3.579.2.593 1995 Unknown [id number] 2.16.84 0.1.683770.3.579.2.593 1995 Unknown [id number] 2.16.84 0.1.695730.3.579.2.593 1993 Unknown [id number] 2.16.84 0.1.397113.3.579.2.593 1993 Unknown [id number] 2.16.84 0.1.024205.3.579.2.593 1995 Unknown [id number] 2.16.84 0.1.146971.3.579.2.593 1995 Unknown [id number] 2.16.84 0.1.532367.3.579.2.593 1995 Unknown [id number] 2.16.84 0.1.867576.3.579.2.593 1993 Unknown [id number] 2.16.84 0.1.098293.3.579.2.593 1993 Unknown [id number] 2.16.84 0.1.082566.3.579.2.1259 1993 Unknown [id number] 2.16.84 0.1.825584.3.579.2.1259 1993 Unknown [id number] 2.16.840 .1.452801.3.579.2.1259 1993 Unknown [id number] 2.16.840 .1.820114.3.579.2.1259 1993 Unknown [id number] 2.16.840 .1.727629.3.579.2.1259 1993 Unknown [id number] 2.16.840 .1.107105.3.579.2.1259 1959 Unknown [id number] Social History Date Type Detail Facility Unknown if ever smoked [facility] Other Sex Assigned At Sex Assigned At Bir th [facility] Other Evaluation note 10-05-2022 Note Date & [...] of diseases classified elsewhere (ICD-10 - B96.89) [facility] Other Clinical Note 10-06-2021 Note Date & Type Note Facility 10-06-2021 Note [facility] [place] [place] NAME: YEIMY RODRGIUEZ DATE OF : MEDICAL REC#: [id number] 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 PREOPERATIVE DIAGNOSIS: 1. at 39 2/7 weeks. 2. Previous . POSTOPERATIVE DIAGNOSIS: 1. at 39 2/7 weeks. 2. Previous . ANESTHESIA: Spinal with Duramorph. SURGEON: Babar Olsen D.O. BLOCK MAKING MACHINE OPERATOR: LAUREN Ellison URINE OUTPUT: Yellow and clear. [...] Olsen DO on 10/07/2021 09:42 AM EDT [facility] Signed and Approved by: DR BABAR OLSEN . 10/07/2021 09:42:[address] [facility] Discharge summary note 10-06-2021 Note Date [...] by: DR BABAR OLSEN . 10/13/2021 07:35:[address] [facility] Progress note 01-16-2021 Note Date & Type Note Facility 01-16-2021 Note HNO ID: [id number] Author: Aylin Gilliland PA-C Service: ? Author Type: Physician Security Sales Manager Type: Progress Notes Filed: 02/11/2021 9:16 PM Note Text: Consultation requested by Kali Alcantara [address] [facility] [address] Yeimy Honeycutt is a 25 year old [...] Aylin Gilliland MS, PA-C [facility] [place] [facility] Progress note 01-16-2021 Note Date & Type Note Facility 01-16-2021 Note HNO ID: [id number] Author: RT Jalen(R) Service: Radiology Author Type: Calendering Machine Operator Type: Progress Notes Filed: 01/16/2021 [...] RT Jalen(R) January 16, 2021 10:06 AM [facility] History general Narrative - Reported Note Date & Type Note Facility History general Narrative - Reported Type Medical History costal chondritis Medical History asthma - exercise induced Medical History 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 Surgical History pelvic cyst removed x2 Surgical History wrist surgery- right Surgical History lumpectomy 12/2017 Surgical History C section x2 Hospitalization History see above [facility] Other Summary Purpose Family History No Family [...] and content) DATE CREATED AUTHOR 11/25/2017 [facility] DATE CREATED AUTHOR AUTHOR'S ORGANIZ ATION 05/12/2019 [facility] DATE CREATED AUTHOR AUTHOR'S ORGANIZ ATION 07/12/2021 [facility] DATE CREATED AUTHOR AUTHOR'S ORGANIZ ATION 09/23/2022 [facility] DATE CREATED AUTHOR AUTHOR'S ORGANIZ ATION 06/10/2023 [facility] Special[facility] EPIC REASON FOR VISIT (unrecogniz ed [...] BE BASED ON THE PRIMARY CLINICAL RECORDS. [facility] [employer] [facility]. provides no warranty or guarantee of the accuracy or completeness of information in this document.
--- NOTE | 2023-06-21 15:06 | US_ITS ---
[address] [address] Patient Name: OLIVIA RODRIGUEZ MRN: [id number] date: 1995 Sex: F Assigned Patient Location: [facility] Current Patient Location: [facility] Accession/Order Number: [id number] Exam Date: 06/21/2023 15:09 Report Date: 06/21/2023 16:12 At the request of: BABAR ANGUIANO Procedure: US OB BPP w non-stress EXAMINATION: US OB BPP w non-stress HISTORY: History of prior with [facility] COMPARISON: No relevant comparison available. TECHNIQUE: Ultrasound biophysical profile was performed in the radiology department. FINDINGS: BREATHING MOVEMENTS: 2.0 GROSS BODY MOVEMENTS: 2.0 TONE: 2.0 QUALITATIVE AMNIOTIC FLUID VOLUME: 2.0 PRESENTATION: CEPHALIC HEART RATE: 152.5 bpm H.B./min AMNIOTIC FLUID VOLUME: 17.1 cm cm GESTATIONAL AGE: 36 weeks 1 days CONCLUSION: Total biophysical profile score: 8.0 Electronically authenticated by: PJ SAM Date: 06/21/2023 16:12
--- NOTE | 2023-06-21 15:06 | US_ITS ---
[address] [address] Patient Name: OLIVIA RODRIGUEZ MRN: [id number] date: 1995 Sex: F Assigned Patient Location: [facility] Current Patient Location: [facility] Accession/Order Number: [id number] Exam Date: 06/21/2023 15:09 Report Date: 06/21/2023 16:15 At the request of: BABAR ANGUIANO Procedure: US OB umbilical artery EXAMINATION: US OB umbilical artery HISTORY: History of prior with [facility] COMPARISON: 06/14/2023 TECHNIQUE: Duplex Doppler evaluation of the umbilical arteries. FINDINGS: position: Cephalic presentation, longitudinal lie Umbilical arteries: 2 Heart rate: 154 bpm Proximal umbilical artery: PSV/EDV: 95/46 cm/s. Resistive index 0.51. Ratio 2.0 Mid umbilical artery PSV/EDV: 84/47 cm/s. Resistive index 0.45. Ratio 1.8 Distal umbilical artery PSV/EDV: 59/33 cm/s. Resistive index 0.43. Ratio 1.8 Forward flow identified throughout diastole Clinical age: 37 weeks 1 day Clinical SANDRA: 07/18/2023 US/US OB umbilical artery IMPRESSION: Class 0, normal Umbilical Artery: Class 0 = Normal umbilical artery blood velocity Class I = increased RI or PI, but still forward flow in diastole Class II = Absent end diastolic flow (AEDF) Class III = Reversal of end diastolic flow (REDF) Resistive Index (RI)<1 Systolic/Diastolic ratio (S:D): An S:D ratio of 2-3 after 34 wks is normal Systolic/Diastolic ratio (S:D): Age 16: 3.01 for the 10th percentile, 4.25 for the 50th percentile, 6.07 for the 90th percentile Age 20: 3.16 for the 10th percentile, 4.04 for the 50th percentile, 5.24 for the 90th percentile Age 24: 2.70 for the 10th percentile, 3.50 for the 50th percentile, 4.75 for the 90th percentile Age 28: 2.41 for the 10th percentile, 3.02 for the 50th percentile, 3.97 for the 90th percentile Age 30: 2.43 for the 10th percentile, 3.04 for the 50th percentile, 3.80 for the 90th percentile Age 32: 2.27 for the 10th percentile, 2.73 for the 50th percentile, 3.57 for the 90th percentile Age 34: 2.08 for the 10th percentile, 2.52 for the 50th percentile, 3.41 for the 90th percentile Age 36: 1.96 for the 10th percentile, 2.35 for the 50th percentile, 3.15 for the 90th percentile Age 38: 1.89 for the 10th percentile, 2.24 for the 50th percentile, 3.10 for the 90th percentile Age 40: 1.88 for the 10th percentile, 2.22 for the 50th percentile, 2.68 for the 90th percentile Age 41: 1.93 for the 10th percentile, 2.21 for the 50th percentile, 2.55 for the 90th percentile Age 42: 1.91 for the 10th percentile, 2.51 for the 50th percentile, 3.21 for the 90th percentile Uteroplacental Artery: Resistive Index (RI): Normal=<0.55 High Resistance=Bilateral notches (after 26 wks) and RI>0.55. Unilateral notches (after 26 wks) and RI>0.65 Systolic/Diastolic ratio (S:D) = 2-3 is normal after 32 weeks. Electronically authenticated by: PJ SAM Date: 06/21/2023 16:15
[2023-06-21 15:59] VITALS: BP 114/60; PULSE 71
== END 2023-06-21 16:27 | disposition home or self-care (01) ==
LOC: US 07:12 → FBC 15:04
PROVIDERS: PCP Student in an Organized Health Care Education/Training Program; Visit Provider Obstetrics & Gynecology
DX: O26.843 Uterine size-date discrepancy, third trimester (principal); Z87.59 Personal history of other complications of pregnancy, childbirth and the puerperium; Z3A.36 36 weeks gestation of pregnancy
CPT/HCPCS: 76818; 76820

== ENCOUNTER 2023-06-22 14:35 | Outpatient (OUT) | payer OTHER, SELFPAY ==
--- NOTE | 2023-06-22 14:36 | US_ITS ---
[address] [address] Patient Name: OLIVIA RODRIGUEZ MRN: [id number] date: 1995 Sex: F Assigned Patient Location: [facility] Current Patient Location: [facility] Accession/Order Number: [id number] Exam Date: 06/22/2023 14:37 Report Date: 06/22/2023 15:10 At the request of: BABAR ANGUIANO Procedure: US OB growth EXAMINATION: US OB growth HISTORY: SIZE INCONSISTENT WITH DATES COMPARISON: No relevant comparison available. TECHNIQUE: Transabdominal sonographic examination was performed for obstetrical and evaluation. FINDINGS: Number: 1 Heart Rate: 142.0 bpm H.B. /min Amniotic Fluid Volume: 12.5 cm presentation: Cephalic presentation, longitudinal lie Cervix Length: 4.2 cm, closed BIOMETRY: BPD: 8.9 cm 35 weeks 6 days , 48% HC: 32.7 cm 37 weeks 1 days, 41% AC: 30.2 cm 34 weeks 1 days, 9% FL: 6.7 cm 34 weeks 4 days , 10% EFW:2498.7 grams; 5 lbs. 8 oz., 15% FL/AC: 22.3 FL/BPD: 75.8 HC/AC: 1.1 GESTATIONAL AGE: Age by EDC: 36 weeks 2 days Age by current US: 35 weeks 3 days SANDRA by current US: 07/24/23 SANDRA by EDC: 07/18/23 US/US OB growth IMPRESSION: Normal interval growth *Reference: [facility] Practice Guideline for the performance of Obstetric Ultrasound Examinations, February 21, 2007. Electronically authenticated by: PJ SAM Date: 06/22/2023 15:10
== END 2023-06-22 14:36 | disposition home or self-care (01) ==
LOC: NOMS 14:35
PROVIDERS: PCP Student in an Organized Health Care Education/Training Program; Visit Provider Obstetrics & Gynecology
DX: O26.843 Uterine size-date discrepancy, third trimester (principal); Z3A.36 36 weeks gestation of pregnancy
CPT/HCPCS: 76816; 87081

== ENCOUNTER 2023-06-22 20:09 | Outpatient (REF) | payer OTHER, SELFPAY ==
--- OUTSIDE RECORDS SUMMARY | 2023-06-22 20:14 | XMS_ITS | CCD ---
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 [employer]otive Name Role Phone SIMRAN DUONG [facility]available [facility] Care Unavailable ANNMARIE ., DR ECKERT Consulting Unavailable ANNMARIE ., DR ECKERT Attending Unavailable ANNMARIE ., DR ECKERT Procedure Practitioner Unavail able ANNMARIE ., DR ECKERT Admitting Unavailable AGUBEDA CAMEJO Consulting Unavailable ARLETTE MARROQUIN Consulting Unavailable KARASIK ., DR SCOTT Admitting Unavailabl e KARASIK ., DR SCOTT Consulting Unavailabl e ROSETTE, RARDEN Primary Care Unavailable KARASIK ., DR SCOTT Attending Unavailabl e ANNMARIE ., DR ECKERT Admitting Unavailable [facility] Primary Care Unavailable ANNMARIE ., DR ECKERT Consulting Unavailable ANNMARIE ., DR ECKERT Attending Unavailable KARASIK ., DR SCOTT Attending Unavailabl e KARASIK ., DR SCOTT Admitting Unavailabl e KARASIK ., DR SCOTT Consulting Unavailabl e ROSETTE, RARDEN Primary Care Unavailable HARRISON, DR PJ Araujo Consulting Unavailable ANNMARIE ., DR ECKERT Consulting Unavailable KARASIK ., DR SCOTT Attending Unavailabl e KARASIK ., DR SCOTT Admitting Unavailabl e KARASIK ., DR SCOTT Consulting Unavailabl e ROSETTE, RARDEN Primary Care Unavailable ANNMARIE ., DR ECKERT Consulting Unavailable Policaro, Samira Consulting Unavailable ROSETTE, RARDEN Primary Care Unavailable CARBALLO, TONNY Attending Unavailable CARBALLO, TONNY Admitting Unavailable ROSETTE, RARDEN Primary Care Unavailable ANNMARIE ., DR ECKERT Attending Unavailable ANNMARIE ., DR ECKERT Consulting Unavailable ANNMARIE ., DR ECKERT Admitting Unavailable [facility] Unavailable ANNMARIE ., DR ECKERT Attending Unavailable ANNMARIE ., DR ECKERT Admitting Unavailable [facility] Primary Care Unavailable ANNMARIE ., DR ECKERT Attending Unavailable ANNMARIE ., DR ECKERT Admitting Unavailable ANNMARIE ., DR ECKERT Consulting Unavailable [facility] Unavailable ANNMARIE ., DR ECKERT Attending Unavailable ANNMARIE ., DR ECKERT Admitting Unavailable Arlette Fofana Unavailable LISSY JOSEPH Attending Unavailable JAKE, LISSY Attending Unavailable ANNMARIE, BABAR Attending Unavailable JAKE, LISSY Attending Unavailable ANNMARIE, BABAR Attending Unavailable JAKE, LISSY Attending Unavailable Allergies Allergy Classification Reported Allergen(s) Allergy Type Date of Onset Reaction(s) Facility (1 source) Chlorhexidine Drug Allergy [facility] Repository (1 source) Sulfamethoxazole / Trimethoprim Drug Allergy [facility] Repository (1 source) Chlorhexidine Drug Allergy [facility] Other (1 source) Sulfamethoxazole / Trimethoprim Drug Allergy [facility] Other (1 source) Darvocet-N 50 Drug allergy [facility] Other Medications Current Medications Medication Drug Class(es) [...] Episodic Other aftercare (1 source) 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 [facility] Comment on above: Performed By: #### [id number] #### [facility] [address] [place] [address] Dr. Winifred Silver Age Gdln ACOG Testing - [facility] Comment on above: Performed By: #### [id number] #### [facility] [address] [address] [address] Winifred Silver DIAGNOSIS: Comment [facility] Comment on above: Result Comment: NEGATIVE FOR INTRAEPITHE LIAL LESION OR MALIGNANCY. Performed By: #### [id number] #### [facility] [address] [address] [address] Winifred Silver Methodology: Comment [facility] Comment on above: Result Comment: This liquid based ThinPr ep(R) pap test was screened with the use of an image guided system. Performed By: #### [id number] #### [facility] [address] [place] [address] Dr. Winifred Silver Note: Comment [facility] Comment on above: Result Comment: The Pap smear is a scree marlo test designed to aid in the detection of premalignant and malignant conditions of the uterine cervix. It is not a diagnostic procedure and should not be used as the sole means of detecting cervical cancer. Both false-positive and false-negative reports do occur. . Performed By: #### [id number] #### [facility] [address] [place] [address] Dr. Winifred Silver Performed by: Comment Normal [facility] Comment on above: Result Comment: Mi Cobb, Cytotech nologist (ASCP) Performed By: #### [id number] #### [facility] [address] [place] [address] Dr. Winifred Silver Reflex Criteria: Comment Normal [facility] Comment on above: Result Comment: The HPV DNA reflex crite ana were not met with this specimen result therefore, no HPV testing was performed. . Performed By: #### [id number] #### [facility] [address] [place] [address] Dr. Winifred Silver Specimen adequacy: Comment Normal [facility] Comment on above: Result Comment: Satisfactory for evaluat ion. Endocervical and/or squamous metaplastic cells (endocervical component) are present. Performed By: #### [id number] #### [facility] [address] [place] [address] Dr. Winifred Silver CBC AUTO DIFFon 10-07-2021 BASO # 0.1 103/ul Normal 0.0-0.1 [facility] Comment on above: Performed By: #### CBC ####[facility] [address] [address]Dr. Winifred Silver Basophils/100 WBC (Bld) 0.6 % Normal 0.2-2.0 [facility] Comment on above: Performed By: #### CBC ####[facility] [address] [address]DrDarius Silver EO # 0.3 103/ul Normal 0.0-0.7 [facility] Comment on above: Performed By: #### CBC ####[facility] [address] [address]DrDarius Silver Eosinophils/100 WBC (Bld) 2.6 % Normal 0.9-7.0 [facility] Comment on above: Performed By: #### CBC ####[facility] [address] [address]Dr. Winifred Silver Erythrocyte distribution width (RBC) [Ratio] 13.1 % Normal 11.0-15.0 [facility] Comment on above: Performed By: #### CBC ####[facility] [address] [address]Dr. Winifred Silver Hematocrit (Bld) [Volume fraction] 26.6 % Critically low 36.0-48.0 [facility] Comment on above: Performed By: #### CBC ####[facility] [address] [address]Dr. Winifred Silver Hemoglobin (Bld) [Mass/Vol] 8.7 g/dL Critically low 12.0-16.0 [facility] Comment on above: Performed By: #### CBC ####[facility] [address] [place], [place] [address]Dr. Winifred Silver IG # 0.04 10e3/ul Critically high 0.00-0.03 [facility] Comment on above: Performed By: #### CBC ####[facility] [address] [place], [place] [address]Dr. Winifred Silver IG % 0.4 % Normal 0.0-0.5 [facility] Comment on above: Performed By: #### CBC ####[facility] [address] [place], [place] [address]Dr. Winifred Silver LYMPH # 1.4 103/ul Normal 1.2-3.8 [facility] Comment on above: Performed By: #### CBC ####[facility] [address] [address]Dr. Winifred Silver Lymphocytes/100 WBC (Bld) 13.8 % Critically low 20.5-60.0 [facility] Comment on above: Performed By: #### CBC ####[facility] [address] [address]Dr. Winifred Silver MANUAL DIFF REQ NO Normal [facility] Comment on above: Performed By: #### CBC ####[facility] ital [address] [id number]. Winifred Nadeem MCH (RBC) [Entitic mass] 29.6 pg Normal 26.7-34.0 [facility] Comment on above: Performed By: #### CBC ####[facility] ital [address] [address]Dr. Jolenedaylin Silver MCHC (RBC) [Mass/Vol] 32.7 g/dL Normal 29.9-35.2 [facility] Comment on above: Performed By: #### CBC ####[facility] ital [address] [address]Dr. Winifred Silver MCV (RBC) [Entitic vol] 90.5 fL Normal 81.0-99.0 [facility] Comment on above: Performed By: #### CBC ####[facility] [address] [address]Dr. Winifred Silver MONO # 0.6 103/ul Normal 0.3-0.8 [facility] Comment on above: Performed By: #### CBC ####[facility] [address] [address]Dr. Winifred Silver Monocytes/100 WBC (Bld) 6.1 % Normal 1.7-12.0 [facility] Comment on above: Performed By: #### CBC ####[facility] [address] [address]Dr. Winifred Silver NEUT # 7.8 103/ul Critically high 1.4-6.5 [facility] Comment on above: Performed By: #### CBC ####[facility] [address] [address]Dr. Winifred Silver Neutrophils/100 WBC (Bld) 76.5 % Critically high 43.0-75.0 [facility] Comment on above: Performed By: #### CBC ####[facility] [address] [address]Dr. Winifred Silver Platelet mean volume (Bld) [Entitic vol] 10.5 fL Normal 9.5-13.5 [facility] Comment on above: Performed By: #### CBC ####[facility] [address] [id number] Winifred Silver PLT 147 103/ul Critically low 150-450 [facility] Comment on above: Performed By: #### CBC ####[facility] [address] [id number] Silver RBC 2.94 106/ul Critically low 4.20-5.40 [facility] Comment on above: Performed By: #### CBC ####[facility] [address] [id number] Silver WBC 10.2 103/ul Normal 4.0-11.0 [facility] Comment on above: Performed By: #### CBC ####[facility] [address] [address]DrDarius Silver CBC AUTO DIFFon 10-06-2021 BASO # 0.0 103/ul Normal 0.0-0.1 [facility] Comment on above: Performed By: #### CBC #### [facility] [address] [address] [address] Winifred Silver Basophils/100 WBC (Bld) 0.3 % Normal 0.2-2.0 [facility] Comment on above: Performed By: #### CBC #### [facility] [address] [address] [address] Winifred Silver EO # 0.1 103/ul Normal 0.0-0.7 [facility] Comment on above: Performed By: #### CBC #### [facility] [address] [address] [address] Winifred Silver Eosinophils/100 WBC (Bld) 1.4 % Normal 0.9-7.0 [facility] Comment on above: Performed By: #### CBC #### [facility] [address] [address] [address] Winifred Silver Erythrocyte distribution width (RBC) [Ratio] 13.0 % Normal 11.0-15.0 [facility] Comment on above: Performed By: #### CBC #### [facility] [address] [address] [address] Winifred Silver Hematocrit (Bld) [Volume fraction] 32.3 % Critically low 36.0-48.0 [facility] Comment on above: Performed By: #### CBC #### [facility] [address] [address] [address] Winifred Silver Hemoglobin (Bld) [Mass/Vol] 10.6 g/dL Critically low 12.0-16.0 [facility] Comment on above: Performed By: #### CBC #### [facility] [address] [address] [address] Winifred Silver IG # 0.05 10e3/ul Critically high 0.00-0.03 [facility] Comment on above: Performed By: #### CBC #### [facility] [address] [place] [address] Dr. Winifred Silver IG % 0.5 % Normal 0.0-0.5 [facility] Comment on above: Performed By: #### CBC #### [facility] [address] [place] [address] Dr. Winifred Silver LYMPH # 1.5 103/ul Normal 1.2-3.8 [facility] Comment on above: Performed By: #### CBC #### [facility] [address] [place] [address] Dr. Winifred Silver Lymphocytes/100 WBC (Bld) 14.6 % Critically low 20.5-60.0 [facility] Comment on above: Performed By: #### CBC #### [facility] [address] [place] [address] Dr. Winifred Silver MANUAL DIFF REQ NO Normal [facility] Comment on above: Performed By: #### CBC #### [facility] [address] [place] [address] Dr. Winifred Silver MCH (RBC) [Entitic mass] 29.4 pg Normal 26.7-34.0 [facility] Comment on above: Performed By: #### CBC #### [facility] [address] [address] [address] Winifred Silver MCHC (RBC) [Mass/Vol] 32.8 g/dL Normal 29.9-35.2 [facility] Comment on above: Performed By: #### CBC #### [facility] [address] [place] [address] Dr. Winifred Silver MCV (RBC) [Entitic vol] 89.7 fL Normal 81.0-99.0 [facility] Comment on above: Performed By: #### CBC #### [facility] [address] [place] [address] Dr. Winifred Silver MONO # 0.7 103/ul Normal 0.3-0.8 [facility] Comment on above: Performed By: #### CBC #### [facility] [address] [place] [address] Dr. Winifred Silver Monocytes/100 WBC (Bld) 6.5 % Normal 1.7-12.0 [facility] Comment on above: Performed By: #### CBC #### [facility] [address] [place] [address] Dr. Winifred Silver NEUT # 7.7 103/ul Critically high 1.4-6.5 [facility] Comment on above: Performed By: #### CBC #### [facility] [address] [place] [address] Dr. Winifred Silver Neutrophils/100 WBC (Bld) 76.7 % Critically high 43.0-75.0 [facility] Comment on above: Performed By: #### CBC #### [facility] [address] [place] [address] Dr. Winifred Silver Platelet mean volume (Bld) [Entitic vol] 11.1 fL Normal 9.5-13.5 [facility] Comment on above: Performed By: #### CBC #### [facility] [address] [place] [address] Dr. Winifred Silver PLT 204 103/ul Normal 150-450 [facility] Comment on above: Performed By: #### CBC #### [facility] [address] [place] [address] Dr. Winifred Silver RBC 3.60 106/ul Critically low 4.20-5.40 [facility] Comment on above: Performed By: #### CBC #### [facility] [address] [place] [address] Dr. Winifred Silver WBC 10.0 103/ul Normal 4.0-11.0 [facility] Comment on above: Performed By: #### CBC #### [facility] [address] [place] [address] Dr. Winifred Silver DRUG SCREEN RAPID (URINE)on 10-06-2021 AMP Negative Normal NEGATIVE [facility] Comment on above: Performed By: #### DRUGRPD #### [facility] [address] [place] [address] Dr. Winifred Silver BAR Negative Normal NEGATIVE [facility] Comment on above: Performed By: #### DRUGRPD #### [facility] [address] [place] [address] Dr. Winifred Silver BUP Negative Normal NEGATIVE [facility] Comment on above: Performed By: #### DRUGRPD #### [facility] [address] [place] [address] Dr. Winifred Silver BZO Negative Normal NEGATIVE [facility] Comment on above: Performed By: #### DRUGRPD #### [facility] [address] [place] [address] Dr. Winifred Silver TIN Negative Normal NEGATIVE [facility] Comment on above: Performed By: #### DRUGRPD #### [facility] [address] [place] [address] Dr. Winifred Silver CUT-OFFS SEE BELOW Normal [facility] Comment on above: Result Comment: AMP [...] ng/mL Performed By: #### D RUGRPD #### [facility] [address] [place] [address] Dr. Winifred Silver DRUG CUT HEADER DRUG CLASS TEST SYST EM CUT-OFF CONCENTRATIONS ARE FOLLOWS: Normal [facility] Comment on above: Performed By: #### DRUGRPD #### [facility] [address] [place] [address] Dr. Winifred Silver mAMP Negative Normal NEGATIVE [facility] Comment on above: Performed By: #### DRUGRPD #### [facility] [address] [place] [address] Dr. Winifred Silver MTD Negative Normal NEGATIVE [facility] Comment on above: Performed By: #### DRUGRPD #### [facility] [address] [place] [address] Dr. Winifred Silver OPI Negative Normal NEGATIVE [facility] Comment on above: Performed By: #### DRUGRPD #### [facility] [address] [place] [address] Dr. Winifred Silver OXY Negative Normal NEGATIVE [facility] Comment on above: Performed By: #### DRUGRPD #### [facility] [address] [place] [address] Dr. Winifred Silver PCP Negative Normal NEGATIVE [facility] Comment on above: Performed By: #### DRUGRPD #### [facility] [address] [place] [address] Dr. Winifred Silver PPX Negative Normal NEGATIVE [facility] Comment on above: Performed By: #### DRUGRPD #### [facility] [address] [place] [address] Dr. Winifred Silver TCA Negative Normal NEGATIVE [facility] Comment on above: Performed By: #### DRUGRPD #### [facility] [address] [place] [address] Dr. Winifred Silver THC Negative Normal NEGATIVE [facility] Comment on above: Performed By: #### DRUGRPD #### [facility] [address] [address] [address] Winifred Silver TYPE AND SCREENon 10-06-2021 TYPE AND SCREEN Negative Normal [facility] Comment on above: Performed By: #### TNS #### [facility] [address] [place] [address] Dr. Winifred Silver UA (CLEAN/CATCH) CHANGE NUMBER OPERATOR/MICRO I F IND.on 10-06-2021 Bilirubin Ql (U) Negative Normal NEGATIVE [facility] Comment on above: Performed By: #### UACSIND #### [facility] [address] [place] [address] Dr. Winifred Silver Clarity (U) CLEAR Normal CLEAR [facility] Comment on above: Performed By: #### UACSIND #### [facility] [address] [place] [address] Dr. Winifred Silver Color (U) LT. YELLOW Normal YELLOW [facility] Comment on above: Performed By: #### UACSIND #### [facility] [address] [place] [address] Dr. Winifred Silver Glucose Ql (U) Negative Normal NEGATIVE [facility] Comment on above: Performed By: #### UACSIND #### [facility] [address] [place] [address] Dr. Winifred Silver Hemoglobin Ql (U) Negative Normal NEGATIVE [facility] Comment on above: Performed By: #### UACSIND #### [facility] [address] [place] [address] Dr. Winifred Silver Ketones Ql (U) Negative Normal NEGATIVE [facility] Comment on above: Performed By: #### UACSIND #### [facility] [address] [place] [address] Dr. Winifred Silver LEUKOCYTES Negative Normal NEGATIVE [facility] Comment on above: Performed By: #### UACSIND #### [facility] [address] [place] [address] Dr. Winifred Silver Nitrite Ql (U) Negative Normal NEGATIVE [facility] Comment on above: Performed By: #### UACSIND #### [facility] [address] [place] [address] Dr. Winifred Silver pH (U) 6.0 [pH] Normal 5-9 [facility] Comment on above: Performed By: #### UACSIND #### [facility] [address] [place] [address] Dr. Winifred Silver SPEC GRAVITY 1.025 Normal 1.005-<=1.02 5 [facility] Comment on above: Performed By: #### UACSIND #### [facility] [address] [place] [address] Dr. Winifred Silver UA PROTEIN Negative Normal NEGATIVE/ TRACE [facility] Comment on above: Performed By: #### UACSIND #### [facility] [address] [place] [address] Dr. Winifred Silver UR MICRO IND NOT INDICATED Normal [facility] Comment on above: Performed By: #### UACSIND #### [facility] [address] [place] [address] Dr. Winifred Silver Urobilinogen Qn (U) 0.2 {Fredrick'U}/dL Normal 0.2 - 1.0 [facility] Comment on above: Performed By: #### UACSIND #### [facility] [address] [place] [address] Dr. Winifred Silver [facility]21 SARS-CoV-2 (COVID-19) RNA JENARO+probe Ql (Unsp spec) Not detected Normal NOT DETECTED [facility] Comment on above: Result Comment: This test is not yet sheri roved or cleared by the [place] FDA. When there are no FDA-approved or cleared tests available, and other criteria are met, FDA can make tests available under an emergency access mechanism called an Emergency Use Authorization (EUA). The EUA for this test is supported by the [place] of Health and Human Service's (HHS's) declaration [...] consistent with SARS-CoV-2. Performed By: #### [facility] #### [facility] [address] [place] [address] Dr. Winifred Silver US PREG GROWTHon 10-01-2021 [...] by: SAMIRA VELA Date: 2021-10-01 19:22 Normal [facility] US PREG BIOPHY W NON STRESSo [...] by: PJ SAM Date: 2021-09-25 07:47 Normal [facility] CNOVon 01-16-2021 CNOV Office Visit ([facility]TH[facility] ) -- YEIMY HONEYCUTT ([id number]) 1995 F Date Time Provider Department 01/16/21 10:20 AM AYLIN GILLILAND During your visit today, we recorded the following information about you: Weight Height 77.1 kg 1.727 m Aylin Gilliland PA-C 02/11/2021 9:16 PM Signed Consultation requested by Kali Alcantara [address] [facility] [address] Yeimy Honeycutt is a 25 year old [...] Aylin Gilliland, MS, PA-C Orthopaedic and Rheumatologic [place] Referring Provider: KALI ALCANTARA [[id number]] Allergies As of Date: 01/16/2021 Noted Allergy Reaction BACTRIM (SULFAMETHOXAZOLE) 10/10/2009 2 - Rash CHLORHEXIDINE GLUCONATE 12/28/2018 9 - Itching Date Reviewed: 01/16/2021 Reviewed by: Nakia Luna Ma - Fully Assessed Reason for Visit: Pain, Back [855] Primary Visit Diagnosis:Strain (more content not included)... Normal [facility] XR LUMBAR 3V AP/LAT/L5-S1on 01-16-2021 XR [...] bony abnormality or significant disc height loss. Acute Care Physical Therapist: TERESITA Transcribe Date/Time: Jan 16 2021 12:34P Dictated by : CARLTON MATTHEWS MD This examination was interpreted and the report reviewed and electronically signed by: CARLTON MATTHEWS MD on Jan 16 2021 12:35PM EST [id number] Normal [facility] CNPYisel 01-07-2021 CNPN Telephone ([facility]) -- YEIMY HONEYCUTT ([id number]) 1995 F Date Time Provider Department 01/07/21 AYLIN GILLILAND [facility] During your visit today, we recorded [...] Status:Closed by AYLIN GILLILAND on 01/07/21 Normal [facility] Coding Summary.on 05-18-2018 Coding Summary. CODING DATE: 018 FINAL [facility] STATUS: Home (Routine DC) PAYOR: Desmond APC [...] SyedNena Date Saved: 05/18/2018 08:52 am Normal [facility] US Breast Unilateral Rt Blas alston [...] (Electronic Signature): 05/16/2018 8:43 am Signed by: Itezl Marcano MD Transcribed by: KALIN Technologist: EULALIO Normal [facility] XR CHEST (2 VW)on 08-14-2017 XR CHEST (2 VW) EXAMINATION: XR CHES T (2 VW)CLINICAL HISTORY: chest pain COMPARISONS: None available.FINDINGS: Cardiac size and pulmonary vascularity are normal. The lungs are clear. There is no evidence of adenopathy. The bones are unremarkable.IMPRESSION: NORMAL CHEST RADIOGRAPHSInterpreted by:ARIAN Harrisigned by:Troy Rueda MD08/14/17inal result Normal [facility] Vital Signs Date Time Vital Sign Value Performing Clinician Facility 10-05-2022 13:25-040 Body height 172.72 cm Arlette Fofana Other [facility] Other 10-05-2022 13:25-0400 Body mass index (BMI) [Ratio] 28.86 kg/m2 Arlette Fofana Other [facility] Other 10-05-2022 13:25-040 Body temperature 98.2 [degF] Arlette Fofana Other [facility] Other 10-05-2022 13:25-0400 Body weight 86.09 kg Arlette Fofana Other [facility] Other 10-05-2022 13:25-0400 Respiratory rate 18 /min Arlette Fofana Other [facility] Other 10-05-2022 13:25-0400 SaO2% (BldA) [Mass fraction] 99 % [address] Other [facility] Other Encounters Encounter Date Encounter Type Care [...] 10-05-2022 End: 10-05-2022 ambulatory Arlette Fofana Other [facility] Other Start: 10-05-2022 Office outpatient vi sit 15 minutes Arlette Fofana [facility] Start: 07-20-2022 End: 08-28-2022 ambulatory KAREN ROSETTE Facility:[facility] Start: 04-15-2022 End: 04-15-[address] BABAR OLSEN . Facility:[facility] Start: 10-23-2021 End: 11-12-2021 ambulatory KAREN ROSETTE Facility:[facility] Start: 10-16-2021 End: 10-16-2021 ambulatory KAREN ROSETTE Facility:[facility] Start: 10-08-2021 Encounter for preprocedural laboratory examination DR BABAR OLSEN . [facility] Start: 10-06-2021 End: 10-09-2021 Evaluation and [...] [facility] Procedures Date Procedure Procedure Detail Performing Clinician Start: 10-06-2021 Extraction of Produc ts of Conception, Low Cervical, Open Approach KAREN DINERO Start: 08-14-2017 Radiologic exam chest 2 views SIMRAN DUNOG Start: 08-14-2017 EKG 12-LEAD SIMRAN DORSEY UL Payers Date Payer Category Payer Unknown [id number] 1993 Unknown [id number] 2.16.84 [id number] 1993 Unknown [id number] 2.16.84 0.1.298826.3.579.2.593 1993 Unknown [id number] 2.16.84 0.1.823481.3.579.2.593 1993 Unknown [id number] 2.16.84 0.1.568372.3.579.2.593 1993 Unknown [id number] 2.16.84 0.1.243140.3.579.2.593 1993 Unknown [id number] 2.16.84 0.1.924357.3.579.2.593 1993 Unknown [id number] 2.16.84 0.1.871378.3.579.2.593 1993 Unknown [id number] 2.16.84 0.1.054455.3.579.2.593 1993 Unknown [id number] 2.16.84 0.1.819288.3.579.2.593 1993 Unknown [id number] 2.16.84 0.1.800233.3.579.2.593 1993 Unknown [id number] 2.16.84 0.1.156005.3.579.2.1259 1993 Unknown [id number] 2.16.84 0.1.669482.3.579.2.1259 1993 Unknown [id number] 2.16.840 .1.020460.3.579.2.1259 1993 Unknown [id number] 2.16.840 .1.628236.3.579.2.1259 1993 Unknown [id number] 2.16.840 .1.272063.3.579.2.1259 1993 Unknown [id number] 2.16.840 .1.560272.3.579.2.1259 1959 Unknown [id number] Social History Date Type Detail Facility Unknown if ever smoked [facility] Other Sex Assigned At Sex Assigned At Bir th [facility] Other Evaluation note 10-05-2022 Note Date & [...] of diseases classified elsewhere (ICD-10 - B96.89) [facility] Other Clinical Note 10-06-2021 Note Date & Type Note Facility 10-06-2021 Note [facility], [place] NAME: YEIMY RODRIGUEZ DATE OF : MEDICAL REC#: [id number] [address] JUDGE: 1602 BARAK PRADO, TRANSADMIT DATE: 10/06/2021 05:30:00 [facility] DATE: 10/06/2021 21:00 DICTATING PHYSICIAN: BABAR OLSEN DICTATION DATE: 10/06/2021 08:00 OPERATIVE NOTE OPERATION DATE: 10/06/2021 PROCEDURE: Repeat low transverse section. PREOPERATIVE DIAGNOSIS: 1. at 39 2/7 weeks. 2. Previous . POSTOPERATIVE DIAGNOSIS: 1. at 39 2/7 weeks. 2. Previous . ANESTHESIA: Spinal with Duramorph. SURGEON: Babar Olsen D.O. CASTING MACHINE OPERATOR: LAUREN Ellison URINE OUTPUT: Yellow [...] Olsen DO on 10/07/2021 09:42 AM EDT [facility] Signed and Approved by: DR BABAR OLSEN . 10/07/2021 09:42:00 [facility] Discharge summary note 10-06-2021 Note Date [...] by: DR BABAR OLSEN . 10/13/2021 07:35:00 [facility] Progress note 01-16-2021 Note Date & Type Note Facility 01-16-2021 Note HNO ID: [id number] Author: Aylin Gilliland PA-C Service: ? Author Type: Physician Beauty Culturist Apprentice Type: Progress Notes Filed: 02/11/2021 9:16 PM Note Text: Consultation requested by Kali Alcantara [address] [facility], [facility] [id number] Yeimy Honeycutt is a 25 year old [...] Aylin Gilliland MS, PA-C Orthopaedic and Rheumatologic [place] [facility] Progress note 01-16-2021 Note Date & Type Note Facility 01-16-2021 Note HNO ID: [id number] Author: RT Jalen(R) Service: Radiology Author Type: B Operator Type: Progress Notes Filed: 01/16/2021 10:07 [...] RT Jalen(R) January 16, 2021 10:06 AM [facility] History general Narrative - Reported Note Date & Type Note Facility History general Narrative - Reported Type Medical History costal chondritis Medical History asthma - exercise induced Medical History 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 Surgical History pelvic cyst removed x2 Surgical History wrist surgery- right Surgical History lumpectomy 12/2017 Surgical History C section x2 Hospitalization History see above [facility] Other Summary Purpose Family History No Family [...] and content) DATE CREATED AUTHOR 11/25/2017 [facility] DATE CREATED AUTHOR AUTHOR'S ORGANIZ ATION 05/12/2019 [facility] DATE CREATED AUTHOR AUTHOR'S ORGANIZ ATION 07/12/2021 [facility] DATE CREATED AUTHOR AUTHOR'S ORGANIZ ATION 09/23/2022 [facility] DATE CREATED AUTHOR AUTHOR'S ORGANIZ ATION 06/10/2023 [facility] EPIC REASON FOR VISIT (unrecogniz ed [...] BE BASED ON THE PRIMARY CLINICAL RECORDS. [facility] KAYAK [facility]. provides no warranty or guarantee of the accuracy or completeness of information in this document.
== END 2023-06-22 20:10 | disposition home or self-care (01) ==
LOC: LAB 20:09
PROVIDERS: PCP Student in an Organized Health Care Education/Training Program; Visit Provider Physician Assistant
DX: Z34.93 Encounter for supervision of normal pregnancy, unspecified, third trimester (principal)
CPT/HCPCS: 87081

== ENCOUNTER 2023-06-24 08:00 | Outpatient (OUT) | payer OTHER, SELFPAY ==
--- OUTSIDE RECORDS SUMMARY | 2023-06-24 08:19 | XMS_ITS | CCD ---
Author Name Unknown Address [address] [place] [address] Organization [facility] Care Team Providers Care Physical Therapist Center Manager Name Role Phone SIMRAN DUONG Unavailable [facility]available [facility] Care Unavailable ANNMARIE ., DR ECKERT Consulting Unavailable ANNMARIE ., DR ECKERT Attending Unavailable ANNMARIE ., DR ECKERT Procedure Practitioner Unavail able ANNMARIE ., DR ECKERT Admitting Unavailable AGUBEDA CAMEJO Consulting Unavailable ARLETTE MARROQUIN Consulting Unavailable KARASIK ., DR SCOTT Admitting Unavailabl e KARASIK ., DR SCOTT Consulting Unavailabl e ROSETTE, [place] Primary Care Unavailable KARASIK ., DR SCOTT Attending Unavailabl e ANNMARIE ., DR ECKERT Admitting Unavailable [facility] Primary Care Unavailable ANNMARIE ., DR ECKERT Consulting Unavailable ANNMARIE ., DR ECKERT Attending Unavailable KARASIK ., DR SCOTT Attending Unavailabl e KARASIK ., DR SCOTT Admitting Unavailabl e KARASIK ., DR SCOTT Consulting Unavailabl e ROSETTE, [place] Primary Care Unavailable CLAREMONT, DR PJ Araujo Consulting Unavailable ANNMARIE ., DR ECKERT Consulting Unavailable KARASIK ., DR SCOTT Attending Unavailabl e KARASIK ., DR SCOTT Admitting Unavailabl e KARASIK ., DR SCOTT Consulting Unavailabl e ROSETTE, [place] Primary Care Unavailable ANNMARIE ., DR ECKERT Consulting Unavailable Policaro, Samira Consulting Unavailable ROSETTE, [place] Primary Care Unavailable CARBALLO, TONNY Attending Unavailable CARBALLO, TONNY Admitting Unavailable ROSETTE, [place] Primary Care Unavailable ANNMARIE ., DR ECKERT Attending Unavailable ANNMARIE ., DR ECKERT Consulting Unavailable ANNMARIE ., DR ECKERT Admitting Unavailable [facility] Unavailable ANNMARIE ., DR ECKERT Attending Unavailable ANNMARIE ., DR ECKERT Admitting Unavailable [facility] Care Unavailable ANNMARIE ., DR ECKERT Attending Unavailable ANNMARIE ., DR ECKERT Admitting Unavailable ANNMARIE ., DR ECKERT Consulting Unavailable [facility] Unavailable ANNMARIE ., DR ECKERT Attending Unavailable ANNMARIE ., DR ECKERT Admitting Unavailable Arlette Fofana Unavailable JAKE, LISSY Attending Unavailable JAKE, LISSY Attending Unavailable ANNMARIE, BABAR Attending Unavailable JAKE, LISSY Attending Unavailable JAKE, LISSY Attending Unavailable ANNMARIE, BABAR Attending Unavailable JAKE, LISSY Attending Unavailable Allergies Allergy Classification Reported Allergen(s) Allergy Type Date of Onset Reaction(s) Facility (1 source) Chlorhexidine Drug Allergy [facility] (1 source) Sulfamethoxazole / Trimethoprim Drug Allergy [facility] (1 source) Chlorhexidine Drug Allergy [facility] [employer] Other (1 source) Sulfamethoxazole / Trimethoprim Drug Allergy [facility] [employer] Other (1 source) Darvocet-N 50 Drug allergy [facility] [employer] Other Medications Current Medications Medication Drug Class(es) [...] 08-14-2017 Episodic Other aftercare (1 source) Other nursing home (current) drug therapy; Translations: [OTH SHELTER CURRENT 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] Onset: 10-13-2021 Episodic Other [...] applicable or unspecified; Translations: [MAT CARE OT FL FTL GRTH 3RD TM UNS] Onset: 10-04-2021 [...] pyogenes Org specific cx Ql (Throat) Negative [employer] Other Quick Strep [facility] [employer] Other PAP ACOG PANEL 2: 21 to 29on 04-24-2022 . . Normal [facility] Comment on above: Performed By: #### [id number] #### [facility] [address] [address] [address] Winifred Silver Age Gdln ACOG Testing - [facility] Comment on above: Performed By: #### [id number] #### [facility] [address] [address] [address] Winifred Silver DIAGNOSIS: Comment [facility] Comment on above: Result Comment: NEGATIVE FOR INTRAEPITHE LIAL LESION OR MALIGNANCY. Performed By: #### [id number] #### [facility] [address] [address] [address] Winifred Silver Methodology: Comment [facility] Comment on above: Result Comment: This liquid based ThinPr ep(R) pap test was screened with the use of an image guided system. Performed By: #### [id number] #### [facility] [address] [place] [address] Dr. Winifred Silver Note: Comment [facility] Comment on above: Result Comment: The Pap smear is a scree marlo test designed to aid in the detection of premalignant and malignant conditions of the uterine cervix. It is not a diagnostic procedure and should not be used as the sole means of detecting cervical cancer. Both false-positive and false-negative reports do occur. . Performed By: #### [id number] #### [facility] [address] [place] [address] Dr. Winifred Silver Performed by: Comment Normal [facility] Comment on above: Result Comment: Mi Cobb, [employer]otech nologist (ASCP) Performed By: #### [id number] #### [facility] [address] [place] [address] Dr. Winifred Silver Reflex Criteria: Comment Normal [facility] Comment on above: Result Comment: The HPV DNA reflex crite ana were not met with this specimen result therefore, no HPV testing was performed. . Performed By: #### [id number] #### [facility] [address] [place] [address] Dr. Winifred Silver Specimen adequacy: Comment Normal [facility] Comment on above: Result Comment: Satisfactory for evaluat ion. Endocervical and/or squamous metaplastic cells (endocervical component) are present. Performed By: #### [id number] #### [facility] [address] [place] [address] Dr. Winifred Silver CBC AUTO DIFFon 10-07-2021 BASO # 0.1 103/ul Normal 0.0-0.1 [facility] Comment on above: Performed By: #### CBC ####[facility] ital [address] [address]DrDarius Silver Basophils/100 WBC (Bld) 0.6 % Normal 0.2-2.0 [facility] Comment on above: Performed By: #### CBC ####[facility] [address] [address]DrDarius Silver EO # 0.3 103/ul Normal 0.0-0.7 [facility] Comment on above: Performed By: #### CBC ####[facility] [address] [address]DrDarius Silver Eosinophils/100 WBC (Bld) 2.6 % Normal 0.9-7.0 [facility] Comment on above: Performed By: #### CBC ####[facility] [address] [address]Dr. Winifred Silver Erythrocyte distribution width (RBC) [Ratio] 13.1 % Normal 11.0-15.0 [facility] Comment on above: Performed By: #### CBC ####[facility] [address] [address]Dr. Winifred Silver Hematocrit (Bld) [Volume fraction] 26.6 % Critically low 36.0-48.0 [facility] Comment on above: Performed By: #### CBC ####[facility] [address] [address]Dr. Winifred Silver Hemoglobin (Bld) [Mass/Vol] 8.7 g/dL Critically low 12.0-16.0 [facility] Comment on above: Performed By: #### CBC ####[facility] [address] [address]Dr. Winifred Silver IG # 0.04 10e3/ul Critically high 0.00-0.03 [facility] Comment on above: Performed By: #### CBC ####[facility] [address] [address]Dr. Winifred Silver IG % 0.4 % Normal 0.0-0.5 [facility] Comment on above: Performed By: #### CBC ####[facility] [address] [address]Dr. Winifred Silver LYMPH # 1.4 103/ul Normal 1.2-3.8 [facility] Comment on above: Performed By: #### CBC ####[facility] [address] [address]Dr. Winifred Silver Lymphocytes/100 WBC (Bld) 13.8 % Critically low 20.5-60.0 [facility] Comment on above: Performed By: #### CBC ####[facility] [address] [address]Dr. Winifred Silver MANUAL DIFF REQ NO Normal [facility] Comment on above: Performed By: #### CBC ####[facility] [address] [address]Dr. Winifred Silver MCH (RBC) [Entitic mass] 29.6 pg Normal 26.7-34.0 [facility] Comment on above: Performed By: #### CBC ####[facility] ital [address] [address]Dr. Winifred Nadeem MCHC (RBC) [Mass/Vol] 32.7 g/dL Normal 29.9-35.2 [facility] Comment on above: Performed By: #### CBC ####[facility] [address] [address]Dr. Jolenedaylin Silver MCV (RBC) [Entitic vol] 90.5 fL Normal 81.0-99.0 [facility] Comment on above: Performed By: #### CBC ####[facility] [address] [address]Dr. Winifred Silver MONO # 0.6 103/ul Normal 0.3-0.8 [facility] Comment on above: Performed By: #### CBC ####[facility] [address] [address]Dr. Jolenedaylin Silver Monocytes/100 WBC (Bld) 6.1 % Normal 1.7-12.0 [facility] Comment on above: Performed By: #### CBC ####[facility] [address] [address]Dr. Winifred Silver NEUT # 7.8 103/ul Critically high 1.4-6.[address] [facility] Comment on above: Performed By: #### CBC ####[facility] [address] [address]Dr. Winifred Silver Neutrophils/100 WBC (Bld) 76.5 % Critically high 43.0-75.0 [facility] Comment on above: Performed By: #### CBC ####[facility] [address] [address]Dr. Winifred Silver Platelet mean volume (Bld) [Entitic vol] 10.5 fL Normal 9.5-13.5 [facility] Comment on above: Performed By: #### CBC ####[facility] [address] [address]DrDarius Silver PLT 147 103/ul Critically low 150-450 [facility] Comment on above: Performed By: #### CBC ####[facility] [address] [address]DrDarius Silver RBC 2.94 106/ul Critically low 4.20-5.40 [facility] Comment on above: Performed By: #### CBC ####[facility] [address] [id number]. Winifred Silver WBC 10.2 103/ul Normal 4.0-11.0 [facility] Comment on above: Performed By: #### CBC ####[facility] [address] [address]Dr. Winifred Silver CBC AUTO DIFFon 10-06-2021 BASO # 0.0 103/ul Normal 0.0-0.1 [facility] Comment on above: Performed By: #### CBC #### [facility] [address] [address] [address] Winifred Silver Basophils/100 WBC (Bld) 0.3 % Normal 0.2-2.0 [facility] Comment on above: Performed By: #### CBC #### [facility] [address] [address] [address] Winifred Silver EO # 0.1 103/ul Normal 0.0-0.7 [facility] Comment on above: Performed By: #### CBC #### [facility] [address] [address] [address] Winifred Silver Eosinophils/100 WBC (Bld) 1.4 % Normal 0.9-7.0 [facility] Comment on above: Performed By: #### CBC #### [facility] [address] [address] [address] Winifred Silver Erythrocyte distribution width (RBC) [Ratio] 13.0 % Normal 11.0-15.0 [facility] Comment on above: Performed By: #### CBC #### [facility] [address] [address] [address] Winifred Silver Hematocrit (Bld) [Volume fraction] 32.3 % Critically low 36.0-48.0 [facility] Comment on above: Performed By: #### CBC #### [facility] [address] [address] [address] Winifred Silver Hemoglobin (Bld) [Mass/Vol] 10.6 g/dL Critically low 12.0-16.0 [facility] Comment on above: Performed By: #### CBC #### [facility] [address] [address] [address] Winifred Silver IG # 0.05 10e3/ul Critically high 0.00-0.03 [facility] Comment on above: Performed By: #### CBC #### [facility] [address] [place] [address] Dr. Winifred Silver IG % 0.5 % Normal 0.0-0.5 [facility] Comment on above: Performed By: #### CBC #### [facility] [address] [address] [address] Winifred Silver LYMPH # 1.5 103/ul Normal 1.2-3.8 [facility] Comment on above: Performed By: #### CBC #### [facility] [address] [place] [address] Dr. Winifred Silver Lymphocytes/100 WBC (Bld) 14.6 % Critically low 20.5-60.0 [facility] Comment on above: Performed By: #### CBC #### [facility] [address] [address] [address] Winifred Silver MANUAL DIFF REQ NO Normal [facility] Comment on above: Performed By: #### CBC #### [facility] [address] [place] [address] Dr. Winifred Silver MCH (RBC) [Entitic mass] 29.4 pg Normal 26.7-34.0 [facility] Comment on above: Performed By: #### CBC #### [facility] [address] [address] [address] Winifred Silver MCHC (RBC) [Mass/Vol] 32.8 g/dL Normal 29.9-35.2 [facility] Comment on above: Performed By: #### CBC #### [facility] [address] [address] [address] iWnifred Silver MCV (RBC) [Entitic vol] 89.7 fL Normal 81.0-99.0 [facility] Comment on above: Performed By: #### CBC #### [facility] [address] [address] [address] Winifred Silver MONO # 0.7 103/ul Normal 0.3-0.8 [facility] Comment on above: Performed By: #### CBC #### [facility] [address] [address] [address] Winifred Silver Monocytes/100 WBC (Bld) 6.5 % Normal 1.7-12.0 [facility] Comment on above: Performed By: #### CBC #### [facility] [address] [address] [address] Winifred Silver NEUT # 7.7 103/ul Critically high 1.4-6.5 [facility] Comment on above: Performed By: #### CBC #### [facility] [address] [address] [address] Winifred Silver Neutrophils/100 WBC (Bld) 76.7 % Critically high 43.0-75.0 [facility] Comment on above: Performed By: #### CBC #### [facility] [address] [address] [address] Winifred Silver Platelet mean volume (Bld) [Entitic vol] 11.1 fL Normal 9.5-13.5 [facility] Comment on above: Performed By: #### CBC #### [facility] [address] [address] [address] Winifred Silver PLT 204 103/ul Normal 150-450 [facility] Comment on above: Performed By: #### CBC #### [facility] [address] [address] [address] Winifred Silver RBC 3.60 106/ul Critically low 4.20-5.40 [facility] Comment on above: Performed By: #### CBC #### [facility] [address] [place] [address] Dr. Winifred Silver WBC 10.0 103/ul Normal 4.0-11.0 [facility] Comment on above: Performed By: #### CBC #### [facility] [address] [place] [address] Dr. Winifred Silver DRUG SCREEN RAPID (URINE)on 10-06-2021 AMP Negative Normal NEGATIVE [facility] Comment on above: Performed By: #### DRUGRPD #### [facility] [address] [place] [address] Dr. Winifred Silver BAR Negative Normal NEGATIVE [facility] Comment on above: Performed By: #### DRUGRPD #### [facility] [address] [place] [address] Dr. Winifred Silver BUP Negative Normal NEGATIVE [facility] Comment on above: Performed By: #### DRUGRPD #### [facility] [address] [place] [address] Dr. Winifred Silver BZO Negative Normal NEGATIVE [facility] Comment on above: Performed By: #### DRUGRPD #### [facility] [address] [place] [address] Dr. Winifred Silver TIN Negative Normal NEGATIVE [facility] Comment on above: Performed By: #### DRUGRPD #### [facility] [address] [place] [address] Dr. Winifred Silver CUT-OFFS SEE BELOW Normal [...] RUGRPD #### [facility] [address] [place] [address] Dr. Winifred Silver DRUG CUT HEADER DRUG CLASS TEST SYST EM CUT-OFF CONCENTRATIONS ARE FOLLOWS: Normal [facility] Comment on above: Performed By: #### DRUGRPD #### [facility] [address] [place] [address] Dr. Winifred Silver mAMP Negative Normal NEGATIVE [facility] Comment on above: Performed By: #### DRUGRPD #### [facility] [address] [place] [address] Dr. Winifred Silver MTD Negative Normal NEGATIVE [facility] Comment on above: Performed By: #### DRUGRPD #### [facility] [address] [place] [address] Dr. Winifred Silver OPI Negative Normal NEGATIVE [facility] Comment on above: Performed By: #### DRUGRPD #### [facility] [address] [place] [address] Dr. Winifred Silver OXY Negative Normal NEGATIVE [facility] Comment on above: Performed By: #### DRUGRPD #### [facility] [address] [place] [address] Dr. Winifred iSlver PCP Negative Normal NEGATIVE [facility] Comment on above: Performed By: #### DRUGRPD #### [facility] [address] [place] [address] Dr. Winifred Silver PPX Negative Normal NEGATIVE [facility] Comment on above: Performed By: #### DRUGRPD #### [facility] [address] [place] [address] Dr. Winifred Silver TCA Negative Normal NEGATIVE [facility] Comment on above: Performed By: #### DRUGRPD #### [facility] [address] [place] [address] Dr. Winifred Silver THC Negative Normal NEGATIVE [facility] Comment on above: Performed By: #### DRUGRPD #### [facility] [address] [address] [address] Winifred Silver TYPE AND SCREENon 10-06-2021 TYPE AND SCREEN Negative Normal [facility] Comment on above: Performed By: #### TNS #### [facility] [address] [place] [address] Dr. Winifred Silver UA (CLEAN/CATCH) MATERIALS ANALYST/MICRO I F IND.on 10-06-2021 Bilirubin Ql (U) Negative Normal NEGATIVE [facility] Comment on above: Performed By: #### UACSIND #### [facility] [address] [place] [address] Dr. Winifred Silver Clarity (U) CLEAR Normal CLEAR [facility] Comment on above: Performed By: #### UACSIND #### [facility] [address] [place] [address] Dr. Winifred Silver Color (U) LT. YELLOW Normal YELLOW [facility] Comment on above: Performed By: #### UACSIND #### [facility] [address] [place] [address] Dr. Winifred Silver Glucose Ql (U) Negative Normal NEGATIVE [facility] Comment on above: Performed By: #### UACSIND #### [facility] [address] [place] [address] Dr. Winifred Silver Hemoglobin Ql (U) Negative Normal NEGATIVE [facility] Comment on above: Performed By: #### UACSIND #### [facility] [address] [place] [address] Dr. Winifred Silver Ketones Ql (U) Negative Normal NEGATIVE [facility] Comment on above: Performed By: #### UACSIND #### [facility] [address] [address] [address] Winifred Silver LEUKOCYTES Negative Normal NEGATIVE [facility] Comment on above: Performed By: #### UACSIND #### [facility] [address] [place] [address] Dr. Winifred Silver Nitrite Ql (U) Negative Normal NEGATIVE [facility] Comment on above: Performed By: #### UACSIND #### [facility] [address] [place] [address] Dr. Winifred Silver pH (U) 6.0 [pH] Normal 5-9 [facility] Comment on above: Performed By: #### UACSIND #### [facility] [address] [place] [address] Dr. Winifred Silver SPEC GRAVITY 1.025 Normal 1.005-<=1.02 5 [facility] Comment on above: Performed By: #### UACSIND #### [facility] [address] [place] [address] Dr. Winifred Silver UA PROTEIN Negative Normal NEGATIVE/ TRACE [facility] Comment on above: Performed By: #### UACSIND #### [facility] [address] [place] [address] Dr. Winifred Silver UR MICRO IND NOT INDICATED Normal [facility] Comment on above: Performed By: #### UACSIND #### [facility] [address] [place] [address] Dr. Winifred Silver Urobilinogen Qn (U) 0.2 {Fredrick'U}/dL Normal 0.2 - 1.0 [facility] Comment on above: Performed By: #### UACSIND #### [facility] [address] [place] [address] Dr. Winifred Silver [facility]21 SARS-CoV-2 (COVID-19) RNA JENARO+probe Ql [...] for this test is supported by the [place] of Health and Human Service's (HHS's) declaration [...] SARS-CoV-2. Performed By: #### C TB #### [facility] [address] [place] [address] Dr. Winifred Silver US PREG GROWTHon 10-01-2021 [...] VELA Date: 2021-10-01 19:22 Normal [facility] US PREG BIOPHY W NON STRESSo [...] SAM Date: 2021-09-25 07:47 Normal [facility] CNOVon 01-16-2021 CNOV Office Visit (ORTH[facility] ) -- HONEYCUTTYEIMY ARRIETA ([id number]) 1995 F Date Time Provider Department 01/16/21 10:20 AM AYLIN GILLILAND During your visit today, we recorded the following information about you: Weight Height 77.1 kg 1.727 m Aylin Gilliland PA-C 02/11/2021 9:16 PM Signed Consultation requested by Kali Alcantara [address] [place] [facility] [address] Yeimy Honeycutt is a 25 year old [...] Aylin Gilliland, MS, PA-C [facility] [place] Referring Provider: KALI ALCANTARA [[id number]] Allergies As of Date: 01/16/2021 Noted Allergy Reaction BACTRIM (SULFAMETHOXAZOLE) 10/10/2009 2 - Rash CHLORHEXIDINE GLUCONATE 12/28/2018 9 - Itching Date Reviewed: 01/16/2021 Reviewed by: Nakia Luna Ma - Fully Assessed Reason for Visit: Pain, Back [855] Primary Visit Diagnosis:Strain (more content not included)... Normal [facility] XR LUMBAR 3V AP/LAT/L5-S1on 01-16-2021 XR [...] bony abnormality or significant disc height loss. Community Health Nurse Supervisor: TERESITA Transcribe Date/Time: Jan 16 2021 12:34P Dictated by : CARLTON MATTHEWS MD This examination was interpreted and the report reviewed and electronically signed by: CARLTON MATTHEWS MD on Jan 16 2021 12:35PM EST [id number] Normal [facility] CNPYisel 01-07-2021 CNPN Telephone ([facility]) -- YEIMY HONEYCUTT ([id number]) 1995 F Date Time Provider Department 01/07/21 AYLIN GILLILAND [facility] During your visit today, we recorded the following information about you: Aylin Gilliland PA-C 01/07/2021 5:34 PM Signed Spoke with patient to coordinate appt. States her insurance has changed since last visit. She would like to verify in-network coverage and cost before proceeding. I will have our registration/financial team contact her tomorrow. Aylin Gilliland, MS, JOSY Allergies As of Date: 01/07/2021 [...] Status:Closed by AYLIN GILLILAND on 01/07/21 Normal [facility] Coding Summary.on 05-18-2018 Coding Summary. CODING DATE: 018 FINAL [facility] STATUS: Home (Routine DC) PAYOR: Desmond [...] result in slightly different terminology. Coded By: Eileen Nino CphTdy Date Saved: 05/18/2018 08:[address] [facility] US Breast Unilateral Rt Blas alston [...] Transcribed by: KALIN Technologist: EULALIO Normal [facility] XR CHEST (2 VW)on 08-14-2017 XR CHEST (2 VW) EXAMINATION: XR CHES T (2 VW)CLINICAL HISTORY: chest pain COMPARISONS: None available.FINDINGS: Cardiac size and pulmonary vascularity are normal. The lungs are clear. There is no evidence of adenopathy. The bones are unremarkable.IMPRESSION: NORMAL CHEST RADIOGRAPHSInterpreted by:ARIAN Harrisigned by:Troy Rueda MD08/14/17inal result Normal [facility] Vital Signs Date Time Vital Sign Value Performing Clinician Facility 10-05-2022 13:25-040 Body height 172.[address] Other [facility] Other 10-05-2022 13:25-0400 Body mass index (BMI) [Ratio] 28.86 kg/m2 [facility] Other [facility] Other 10-05-2022 13:25-0400 Body temperature 98.2 [degF] [facility] Other [facility] Other 10-05-2022 13:25-0400 Body weight 86.[address] Other [facility] Other 10-05-2022 13:25-0400 Respiratory rate 18 /min [facility] Other [facility] Other 10-05-2022 13:25-0400 SaO2% (BldA) [Mass fraction] 99 % [facility] Other [facility] Other Encounters Encounter Date Encounter Type Care Provider Facility Start: 06-22-2023 End: 06-22-2023 ambulatory LISSY JAKE Not Available Start: 06-09-2023 End: 06-09-2023 ambulatory BABAR ANNMARIE Not Available Start: 06-02-2023 End: 06-02-2023 ambulatory LISSY JAKE Not Available Start: 05-25-2023 End: 05-25-2023 ambulatory LISSY JAKE Not Available Start: 05-10-2023 End: 05-10-2023 ambulatory LISSY JAKE Not Available Start: 04-26-2023 End: 04-26-2023 ambulatory BABAR ANNMARIE Not Available Start: 04-12-2023 End: 04-12-2023 ambulatory LISSY JAKE Not Available Start: 10-05-2022 End: 10-05-[address] Other [facility] Other Start: 10-05-2022 Office outpatient vi sit [...] 08-14-2017 Emergency department patient visit SIMRAN DUONG [facility] Procedures Date Procedure Procedure Detail Performing Clinician Start: 10-06-2021 Extraction of Produc ts of Conception, Low Cervical, Open Approach KAREN DINERO Start: 08-14-2017 Radiologic exam chest 2 views SIMRAN DUONG Start: 08-14-2017 EKG 12-LEAD SIMRAN SALEH Payers Date Payer Category Payer Unknown [id number] 1995 Unknown [id number] 2.16.84 0.1.985506.3.579.2.593 1993 Unknown [id number] 2.16.84 0.1.267529.3.579.2.593 1993 Unknown [id number] 2.16.84 0.1.902578.3.579.2.593 1993 Unknown [id number] 2.16.84 0.1.107036.3.579.2.593 1993 Unknown [id number] 2.16.84 0.1.591441.3.579.2.593 1993 Unknown [id number] 2.16.84 0.1.069634.3.579.2.593 1993 Unknown [id number] 2.16.84 0.1.557630.3.579.2.593 1993 Unknown [id number] 2.16.84 0.1.059177.3.579.2.593 1993 Unknown [id number] 2.16.84 0.1.603281.3.579.2.593 1993 Unknown [id number] 2.16.84 0.1.689318.3.579.2.593 1993 Unknown [id number] 2.16.84 0.1.173486.3.579.2.1259 1993 Unknown [id number] 2.16.84 0.1.623857.3.579.2.1259 1993 Unknown [id number] 2.16.84 0.1.206669.3.579.2.1259 1993 Unknown [id number] 2.16.840 .1.136133.3.579.2.1259 1993 Unknown [id number] 2.16.840 .1.657393.3.579.2.1259 1993 Unknown [id number] 2.16.840 .1.881124.3.579.2.1259 1993 Unknown [id number] 2.16.840 .1.564498.3.579.2.1259 1959 Unknown [id number] Social History Date Type Detail Facility Unknown if ever smoked [facility] Other Sex Assigned At Sex Assigned At Bir th [facility] Other Evaluation note 10-05-2022 Note Date & [...] of diseases classified elsewhere (ICD-10 - B96.89) [facility] Other Clinical Note 10-06-2021 Note Date & Type Note Facility 10-06-2021 Note [facility] [place], [place] NAME: YEIMY RODRIGUEZ DATE OF : MEDICAL REC#: [id number] [employer] INTERN: [address], TRANSADMIT DATE: 10/06/2021 05:30:00 SURGICAL CORSETIER DATE: 10/06/2021 21:00 DICTATING PHYSICIAN: BABAR OLSEN DICTATION DATE: 10/06/2021 08:00 OPERATIVE NOTE OPERATION DATE: 10/06/2021 PROCEDURE: Repeat low transverse section. PREOPERATIVE DIAGNOSIS: 1. at 39 2/7 weeks. 2. Previous . POSTOPERATIVE DIAGNOSIS: 1. at 39 2/7 weeks. 2. Previous . ANESTHESIA: Spinal with Duramorph. SURGEON: Babar Olsen D.O. LOFT PATTERNMAKER: LAUREN Ellison URINE OUTPUT: Yellow and clear. [...] and cut. Cord blood was obtained. The infant was handed off to awaiting team. The [...] Olsen DO on 10/07/2021 09:42 AM EDT [facility] Signed and Approved by: DR BABAR OLSEN . 10/07/2021 09:42:00 [facility] Discharge summary note 10-06-2021 Note Date [...] pain free and no longer on narcotics. [facility] Signed and Approved by: DR BABAR OLSEN . 10/13/2021 07:35:00 [facility] Progress note 01-16-2021 Note Date & Type Note Facility 01-16-2021 Note HNO ID: [id number] Author: Aylin Gilliland PA-C Service: ? Author Type: Physician Turntable Worker Type: Progress Notes Filed: 02/11/2021 9:16 PM Note Text: Consultation requested by Kali Alcantara [address] [place] [facility] [id number] Yeimy Honeycutt is a 25 year old [...] Aylin Gilliland, MS, PA-C [facility] [place] [facility] Progress note 01-16-2021 Note Date & Type Note Facility 01-16-2021 Note HNO ID: [id number] Author: RT Jalen(R) Service: Radiology Author Type: Bee Breeder Type: Progress Notes Filed: 01/16/2021 10:07 AM [...] RT Jalen(R) January 16, 2021 10:06 AM [facility] History general Narrative - Reported Note Date & Type Note Facility History general Narrative - Reported Type Medical History costal chondritis Medical History asthma - exercise induced Medical History 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 Surgical History pelvic cyst removed x2 Surgical History wrist surgery- right Surgical History lumpectomy 12/2017 Surgical History C section x2 Hospitalization History see above [facility] Other Summary Purpose Family History No Family [...] and content) DATE CREATED AUTHOR 11/25/2017 Erica Rowe [facility] DATE CREATED AUTHOR AUTHOR'S ORGANIZ ATION [facility] DATE CREATED AUTHOR AUTHOR'S ORGANIZ ATION 07/12/2021 [facility] DATE CREATED AUTHOR AUTHOR'S ORGANIZ ATION 09/23/2022 [facility] DATE CREATED AUTHOR AUTHOR'S [place] ATION 06/23/2023 [facility] EPIC REASON FOR VISIT (unrecogniz [...] BE BASED ON THE PRIMARY CLINICAL RECORDS. [facility] [employer] [facility]. provides no warranty or guarantee of the accuracy or completeness of information in this document.
[2023-06-24 15:16] VITALS: BP 110/60; PULSE 74
== END 2023-06-24 15:57 | disposition home or self-care (01) ==
LOC: FBCO 08:00 → FBC 15:05
PROVIDERS: PCP Student in an Organized Health Care Education/Training Program; Visit Provider Obstetrics & Gynecology
DX: O26.843 Uterine size-date discrepancy, third trimester (principal); Z87.59 Personal history of other complications of pregnancy, childbirth and the puerperium
CPT/HCPCS: 59025

== ENCOUNTER 2023-06-28 08:10 | Outpatient (OUT) | payer OTHER, SELFPAY ==
--- NOTE | 2023-06-28 | US_ITS ---
[address] [address] Patient Name: OLIVIA RODRIGUEZ MRN: [id number] date: 1995 Sex: F Assigned Patient Location: US Current Patient Location: Accession/Order Number: [id number] Exam Date: 06/28/2023 15:04 Report Date: 06/29/2023 07:17 At the request of: LISSY JOSEPH Procedure: US OB umbilical artery EXAMINATION: US OB umbilical artery HISTORY: HISTORY OF SGA COMPARISON: Ultrasound OB umbilical artery 06/21/2023 TECHNIQUE: Duplex Doppler evaluation of the umbilical arteries. FINDINGS: HEART RATE: 130 bpm UMBILICAL ARTERIES: 2 GESTATIONAL AGE: 37 weeks 1 day WAVEFORM: Normal upstroke. No notching. Forward flow in diastole. PEAK SYSTOLIC VELOCITY: 87 cm/s END DIASTOLIC VELOCITY: 45 cm/s SYST/DIAST RATIO (S:D): 2.0 RESISTIVE INDEX: 0.5 US/US OB umbilical artery IMPRESSION: 1. Class 0 = Normal umbilical artery blood velocity Electronically authenticated by: FLO ALFONSO Date: 06/29/2023 07:17
--- OUTSIDE RECORDS SUMMARY | 2023-06-28 08:26 | XMS_ITS | CCD ---
Author Name Unknown Address [address] [place] [address] Organization [facility] Care Team Providers Care Trash Hauler Name Role Phone SIMRAN DUONG Unavailable Unavailable ROSETTE, LEAVENWORTH Primary Care Unavailable ANNMARIE ., DR ECKERT Consulting Unavailable ANNMARIE ., DR ECKERT Attending Unavailable ANNMARIE ., DR ECKERT Procedure Practitioner Unavail able ANNMARIE ., DR ECKERT Admitting Unavailable AGUBOSIM EDA Consulting Unavailable ARLETTE MARROQUIN Consulting Unavailable KARASIK ., DR SCOTT Admitting Unavailabl e KARASIK ., DR SCOTT Consulting Unavailabl e ROSETTE, LEAVENWORTH Primary Care Unavailable KARASIK ., DR SCOTT Attending Unavailabl e ANNMARIE ., DR ECKERT Admitting Unavailable [facility] Primary Care Unavailable ANNMARIE ., DR ECKERT Consulting Unavailable ANNMARIE ., DR ECKERT Attending Unavailable KARASIK ., DR SCOTT Attending Unavailabl e KARASIK ., DR SCOTT Admitting Unavailabl e KARASIK ., DR SCOTT Consulting Unavailabl e ROSETTE, LEAVENWORTH Primary Care Unavailable DUNKIRK, DR PJ Araujo Consulting Unavailable ANNMARIE ., DR ECKERT Consulting Unavailable KARASIK ., DR SCOTT Attending Unavailabl e KARASIK ., DR SCOTT Admitting Unavailabl e KARASIK ., DR SCOTT Consulting Unavailabl e ROSETTE, LEAVENWORTH Primary Care Unavailable ANNMARIE ., DR ECKERT Consulting Unavailable Policaro, Samira Consulting Unavailable ROSETTE, LEAVENWORTH Primary Care Unavailable CARBALLO, TONNY Attending Unavailable CARBALLO, TONNY Admitting Unavailable ROSETTE, LEAVENWORTH Primary Care Unavailable ANNMARIE ., DR ECKERT Attending Unavailable ANNMARIE ., DR ECKERT Consulting Unavailable ANNMARIE ., DR ECKERT Admitting Unavailable ROSETTE, LEAVENWORTH Primary Care Unavailable NANMARIE ., DR ECKERT Attending Unavailable ANNMARIE ., DR ECKERT Admitting Unavailable ROSETTE, LEAVENWORTH Primary Care Unavailable ANNMARIE ., DR ECKERT Attending Unavailable ANNMARIE ., DR ECKERT Admitting Unavailable ANNMARIE ., DR ECKERT Consulting Unavailable [facility], [place] Primary Care Unavailable ANNMARIE ., DR ECKERT Attending Unavailable ANNMARIE ., DR ECKETR Admitting Unavailable CtArlette holder Unavailable MAURA JOSEPH Attending Unavailable JAKE, MAURA Attending Unavailable ANNMARIE, BABAR Attending Unavailable JAKE, MAURA Attending Unavailable JAKE, MAURA Attending Unavailable ANNMARIE, BABAR Attending Unavailable JAKE, MAURA Attending Unavailable Fern Martinez MD Primary Care Provider Allergies Allergy Classification Reported Allergen(s) Allergy Type Date of Onset Reaction(s) Facility (1 source) Chlorhexidine Drug Allergy [facility] Repository (1 source) Sulfamethoxazole / Trimethoprim Drug Allergy [facility] Repository (3 sources) Chlorhexidine Drug Allergy 12-29-19 19 hives, Itching [facility] Work Phone: (3 sources) Sulfamethoxazole / Trimethoprim Drug Allergy 05-18-20 19 hives, Rash, Swelling, Unknown [facility] Other (1 source) Darvocet-N 50 Drug allergy vomiting [facility] Other (2 sources) Sulfamethoxazole Propensity to adverse reactions 10-11-19 10 Rash [facility] (2 sources) Trimethoprim Drug Allergy 12-12-19 23 Rash [facility] (2 sources) Other Allergy to substance 04-26-20 23 GI intolerance [facility] Medications Current Medications Medication Drug Class(es) Dates Sig (Normalized) Sig (Original) amoxicillin 500 mg oral capsule (1 source) Penicillin-class Antibacterial Start: 10-05-2022 take 1 capsule by mouth every eight hours Amoxicillin 500 MG 1 capsule Orally three times a day for 10 day(s) September, Active Doxylamine Succinate, Sleep, (UNISOM PO) (2 sources) take 1 tablet by mouth at bedtime Doxylamine Succinate, Sleep, (UNISOM PO) Take 1 tablet by mouth at bedtime. 0 Active ondansetron 4 mg oral tablet (2 sources) Serotonin-3 Receptor Antagonist Start: 02-25-2023 take 1 tablet by mouth twice daily as needed for nausea ondansetron (Zofran) 4 MG tablet Indications: Nausea TAKE 1 TABLET BY MOUTH TWICE DAILY NEEDED FOR NAUSEA 30 tablet 0 02/25/2023 Active pantoprazole 40 mg delayed release oral tablet (2 sources) Proton Pump Inhibitor Start: 11-25-2022 End: 11-25-2023 take 1 tablet by mouth before mealtime pantoprazole (Protonix) 40 MG EC tablet Indications: Heartburn during in first trimester Take 1 tablet (40 mg) by mouth in the morning. Take before meals. Do not crush, chew, or split. . 30 tablet 11 11/25/2022 11/25/2023 Active Vit w/Fx-Slhnkmbsc-LO (PNV PO) (2 sources) Vit w/Au-Plehztwch-EE (PNV PO) Take by mouth. 0 Active pyridoxine hydrochloride 25 mg oral tablet (2 sources) take 1 tablet by mouth in the morning pyridoxine (Vitamin B-6) 25 MG tablet Take 25 mg by mouth in the morning. 0 Active Problems Active Problems Problem Classification Problem [...] IN UNSPECIFIED HIP] Onset: 07-20-2022 Episodic Other and delivery including normal (11 sources) Encounter for care and examination of lactating mother; Translations: [Encounter for routine follow-up] Onset: 10-13-2021 Episodic Other upper respiratory infections (2 sources) Acute pharyngitis, unspecified; Translations: [Acute pharyngitis due to other specified organisms] Episodic Residual codes; unclassified (2 sources) Past history of small for gestational age baby; Translations: [Personal history of other complications of , childbirth and the puerperium] Onset: 06-02-2023 06-02-2023 Episodic Unclassified (1 source) CONTACT W/AND (SUSP) [...] 08-14-2017 Episodic Other aftercare (1 source) 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; Translations: [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] Onset: 10-13-2021 Episodic Other [...] applicable or unspecified; Translations: [MAT CARE OT NC FTL GRTH 3RD TM UNS] Onset: 10-04-2021 Episodic Other screening for suspected conditions (not [...] Test Name Value Interpretation Reference Range Facility Urinalysis macro (dipstick) panel (U)on 06-24-2023 Bilirubin, UA Negative Negative - 4(70) +++ mg/dL [facility] Blood, UA Negative Negative - 50 Tyrese/mcL [facility] Clarity, UA Clear [facility] re Color, UA Yellow [facility] Glucose, UA Negative Negative - 1999(110) ++++ mg/dL [facility] Interpretation and review of laboratory results Normal [facility] Ketones, UA Negative Negative - 160(16) ++++ mg/dL [facility] Leukocytes, UA Negative Negative - 500+++ Antonio/mcL [facility] Nitrite, UA Negative Negative - Positive [facility] pH, UA 5.5 5 - 9 [facility] e Protein, UA Negative Negative - 1999(20) ++++ mg/dL [facility] Spec Grav, UA 1.020 1 - 1.03 [facility] Urobilinogen, UA 1.0 0.2 - 12 mg/dL [facility] 10-05-2022 S. pyogenes Org specific cx Ql (Throat) Negative [facility] Other Quick Strep [facility] Other PAP ACOG PANEL 2: 21 to 29on 04-24-2022 . . [facility] Comment on above: Performed By: #### [id number] #### [facility] [address] [place] [address] Dr. Winifred Silver Age Gdln ACOG Testing - [facility] Comment on above: Performed By: #### [id number] #### [facility] [address] [address] [address] Winifred Silver DIAGNOSIS: Comment [facility] Comment on above: Result Comment: NEGA TIVE FOR INTRAEPITHELIAL LESION OR MALIGNANCY. Performed By: #### [id number] #### [facility] [address] [place] [address] Dr. Winifred Silver Methodology: Comment Normal [facility] Comment on above: Result Comment: This liquid based ThinPrep(R) pap test was screened with the use of an image guided system. Performed By: #### [id number] #### [facility] [address] [place] [address] Dr. Winifred Silver Note: Comment Normal [facility] Comment on above: Result Comment: The Pap smear is a screening test designed to aid in the detection of premalignant and malignant conditions of the uterine cervix. It is not a diagnostic procedure and should not be used as the sole means of detecting cervical cancer. Both false-positive and false-negative reports do occur. . Performed By: #### [id number] #### [facility] [address] [place] [address] Dr. Winifred Silver Performed by: Comment Normal [facility] Comment on above: Result Comment: Clary Cobb Actuarial Science Professor (ASCP) Performed By: #### 4 [id number] #### [facility] [address] [place] [address] Dr. Winifred Silver Reflex Criteria: Comment Normal [facility] Comment on above: Result Comment: The HPV DNA reflex criteria were not met with this specimen result therefore, no HPV testing was performed. . Performed By: #### [id number] #### [facility] [address] [place] [address] Dr. Winifred Silver Specimen adequacy: Comment Normal [facility] Comment on above: Result Comment: Sati sfactory for evaluation. Endocervical and/or squamous metaplastic cells (endocervical component) are present. Performed By: #### 4 [id number] #### [facility] [address] [place] [address] Dr. Winifred Silver CBC AUTO DIFFon 10-07-2021 BASO # 0.1 103/ul Normal 0.0-0.1 [facility] Comment on above: Performed By: #### C BC ####[facility] [address] [id number]. Winifred Silver Basophils/100 WBC (Bld) 0.6 % Normal 0.2-2.0 [facility] Comment on above: Performed By: #### C BC ####[facility] [address] [place], [place] [id number]. Winifred Silver EO # 0.3 103/ul Normal 0.0-0.7 [facility] Comment on above: Performed By: #### C BC ####[facility] [address] [place], [place] [address]Dr. Winifred Silver Eosinophils/100 WBC (Bld) 2.6 % Normal 0.9-7.0 [facility] Comment on above: Performed By: #### C BC ####[facility] [address] [place], [place] [address]Dr. Winifred Silver Erythrocyte distribution width (RBC) [Ratio] 13.1 % Normal 11.0-15.0 [facility] Comment on above: Performed By: #### C BC ####[facility] [address] [place], [place] [address]Dr. Winifred Silver Hematocrit (Bld) [Volume fraction] 26.6 % Critically low 36.0-48.0 [facility] Comment on above: Performed By: #### C BC ####[facility] [address] [place], [place] [address]Dr. Winifred Silver Hemoglobin (Bld) [Mass/Vol] 8.7 g/dL Critically low 12.0-16.0 [facility] Comment on above: Performed By: #### C BC ####[facility] [address] [place], [place] [address]Dr. Winifred Silver IG # 0.04 10e3/ul Critically high 0.00-0.03 [facility] Comment on above: Performed By: #### C BC ####[facility] [address] [place], [place] [address]Dr. Winifred Silver IG % 0.4 % Normal 0.0-0.5 [facility] Comment on above: Performed By: #### C BC ####[facility] [address] [id number]. Winifred Silver LYMPH # 1.4 103/ul Normal 1.2-3.8 [facility] Comment on above: Performed By: #### C BC ####[facility] [address] [id number]. Winifred Silver Lymphocytes/100 WBC (Bld) 13.8 % Critically low 20.5-60.0 [facility] Comment on above: Performed By: #### C BC ####[facility] [address] [id number]. Winifred Silver MANUAL DIFF REQ NO Normal [facility] Comment on above: Performed By: #### C BC ####[facility] [address] [id number]. Winifred Silver MCH (RBC) [Entitic mass] 29.6 pg Normal 26.7-34.0 [facility] Comment on above: Performed By: #### C BC ####[facility] [address] [id number]. Winifred Silver MCHC (RBC) [Mass/Vol] 32.7 g/dL Normal 29.9-35.2 [facility] Comment on above: Performed By: #### C BC ####[facility] [address] [id number]. Winifred Silver MCV (RBC) [Entitic vol] 90.5 fL Normal 81.0-99.0 [facility] Comment on above: Performed By: #### C BC ####[facility] [address] [id number]. Winifred Silver MONO # 0.6 103/ul Normal 0.3-0.8 [facility] Comment on above: Performed By: #### C BC ####[facility] [address] [id number]. Winifred Silver Monocytes/100 WBC (Bld) 6.1 % Normal 1.7-12.0 [facility] Comment on above: Performed By: #### C BC ####[facility] [address] [place], [place] [address]JzDarius Silver NEUT # 7.8 103/ul Critically high 1.4-6.5 [facility] Comment on above: Performed By: #### C BC ####[facility] [address] [place], [place] [address]IoDr. Winifred Silver Neutrophils/100 WBC (Bld) 76.5 % Critically high 43.0-75.0 [facility] Comment on above: Performed By: #### C BC ####[facility] [address] [place], [place] [address]KkDr. Winifred Silver Platelet mean volume (Bld) [Entitic vol] 10.5 fL Normal 9.5-13.5 [facility] Comment on above: Performed By: #### C BC ####[facility] [address] [id number]. Winifred Silver PLT 147 103/ul Critically low 150-450 [facility] Comment on above: Performed By: #### C BC ####[facility] [address] [place], [place] [address]LhDr. Winifred Silver RBC 2.94 106/ul Critically low 4.20-5.40 [facility] Comment on above: Performed By: #### C BC ####[facility] [address] [id number]. Winifred Silver WBC 10.2 103/ul Normal 4.0-11.0 [facility] Comment on above: Performed By: #### C BC ####[facility] [address] [id number]. Winifred Silver CBC AUTO DIFFon 10-06-2021 BASO # 0.0 103/ul Normal 0.0-0.1 [facility] Comment on above: Performed By: #### C BC #### [facility] [address] [place], [place] [address] Dr. Winifred Silver Basophils/100 WBC (Bld) 0.3 % Normal 0.2-2.0 [facility] Comment on above: Performed By: #### C BC #### [facility] [address] [address] [address] Winifred Silver EO # 0.1 103/ul Normal 0.0-0.7 [facility] Comment on above: Performed By: #### C BC #### [facility] [address] [place] [address] Dr. Winifred Silver Eosinophils/100 WBC (Bld) 1.4 % Normal 0.9-7.0 [facility] Comment on above: Performed By: #### C BC #### [facility] [address] [place] [address] Dr. Winifred Silver Erythrocyte distribution width (RBC) [Ratio] 13.0 % Normal 11.0-15.0 [facility] Comment on above: Performed By: #### C BC #### [facility] [address] [place] [address] Dr. Winifred Silver Hematocrit (Bld) [Volume fraction] 32.3 % Critically low 36.0-48.0 [facility] Comment on above: Performed By: #### C BC #### [facility] [address] [place] [address] Dr. Winifred Silver Hemoglobin (Bld) [Mass/Vol] 10.6 g/dL Critically low 12.0-16.0 [facility] Comment on above: Performed By: #### C BC #### [facility] [address] [place] [address] Dr. Winifred Silver IG # 0.05 10e3/ul Critically high 0.00-0.03 [facility] Comment on above: Performed By: #### C BC #### [facility] [address] [place] [address] Dr. Winifred Silver IG % 0.5 % Normal 0.0-0.5 [facility] Comment on above: Performed By: #### C BC #### [facility] [address] [place] [address] Dr. Winifred Silver LYMPH # 1.5 103/ul Normal 1.2-3.8 [facility] Comment on above: Performed By: #### C BC #### [facility] [address] [place] [address] Dr. Winifred Silver Lymphocytes/100 WBC (Bld) 14.6 % Critically low 20.5-60.0 [facility] Comment on above: Performed By: #### C BC #### [facility] [address] [place] [address] Dr. Winifred Silver MANUAL DIFF REQ NO Normal [facility] Comment on above: Performed By: #### C BC #### [facility] [address] [place] [address] Dr. Winifred Silver MCH (RBC) [Entitic mass] 29.4 pg Normal 26.7-34.0 [facility] Comment on above: Performed By: #### C BC #### [facility] [address] [place] [address] Dr. Winifred Silver MCHC (RBC) [Mass/Vol] 32.8 g/dL Normal 29.9-35.2 [facility] Comment on above: Performed By: #### C BC #### [facility] [address] [place] [address] Dr. Winifred Silver MCV (RBC) [Entitic vol] 89.7 fL Normal 81.0-99.0 [facility] Comment on above: Performed By: #### C BC #### [facility] [address] [place] [address] Dr. Winifred Silver MONO # 0.7 103/ul Normal 0.3-0.8 [facility] Comment on above: Performed By: #### C BC #### [facility] [address] [place] [address] Dr. Winifred Silver Monocytes/100 WBC (Bld) 6.5 % Normal 1.7-12.0 [facility] Comment on above: Performed By: #### C BC #### [facility] [address] [place] [address] Dr. Winifred Silver NEUT # 7.7 103/ul Critically high 1.4-6.5 [facility] Comment on above: Performed By: #### C BC #### [facility] [address] [place] [address] Dr. Winifred Silver Neutrophils/100 WBC (Bld) 76.7 % Critically high 43.0-75.0 [facility] Comment on above: Performed By: #### C BC #### [facility] [address] [place] [address] Dr. Winifred Silver Platelet mean volume (Bld) [Entitic vol] 11.1 fL Normal 9.5-13.5 [facility] Comment on above: Performed By: #### C BC #### [facility] [address] [place] [address] Dr. Winifred Silver PLT 204 103/ul Normal 150-450 [facility] Comment on above: Performed By: #### C BC #### [facility] [address] [place] [address] Dr. Winifred Silver RBC 3.60 106/ul Critically low 4.20-5.40 [facility] Comment on above: Performed By: #### C BC #### [facility] [address] [place] [address] Dr. Winifred Silver WBC 10.0 103/ul Normal 4.0-11.0 [facility] Comment on above: Performed By: #### C BC #### [facility] [address] [place] [address] Dr. Winifred Silver DRUG SCREEN RAPID (URINE)on 10-06-2021 AMP Negative Normal NEGATIVE [facility] Comment on above: Performed By: #### D RUGRPD #### [facility] [address] [place] [address] Dr. Winifred Silver BAR Negative Normal NEGATIVE [facility] Comment on above: Performed By: #### D RUGRPD #### [facility] [address] [place] [address] Dr. Winifred Silver BUP Negative Normal NEGATIVE [facility] Comment on above: Performed By: #### D RUGRPD #### [facility] [address] [place] [address] Dr. Winifred Silver BZO Negative Normal NEGATIVE [facility] Comment on above: Performed By: #### D RUGRPD #### [facility] [address] [place] [address] Dr. Winifred Silver TIN Negative Normal NEGATIVE [facility] Comment on above: Performed By: #### D RUGRPD #### [facility] [address] [place] [address] Dr. Winifred Silver CUT-OFFS SEE BELOW Normal [facility] Comment on above: Result Comment: AMP (Amphetamine): 500ng/mL, BAR (Barbituates): 200 ng/mL, BZO (Benzodiazepines): 150 ng/mL, BUP (Buprenorphine): 10 ng/mL, TIN (Cocaine): 150 ng/mL, mAMP (Methamphetamine): 500 ng/mL, MTD (Methadone): 200 ng/mL, OPI (Opiates): 100 ng/mL, OXY (Oxycodone): 100 ng/mL, PCP (Phencyclidine): 25 ng/mL, PPX (Propoxyphene): 300 ng/mL, THC (Cannabinoids): 50 ng/mL, TCA (Trycyclic Antidepressants): 300 ng/mL Performed By: #### D RUGRPD #### [facility] [address] [place] [address] Dr. Winifred Silver DRUG CUT HEADER DRUG CLASS TEST SYST EM CUT-OFF CONCENTRATIONS ARE FOLLOWS: Normal [facility] Comment on above: Performed By: #### D RUGRPD #### [facility] [address] [place] [address] Dr. Winifred Silver mAMP Negative Normal NEGATIVE [facility] Comment on above: Performed By: #### D RUGRPD #### [facility] [address] [place] [address] Dr. Winifred Silver MTD Negative Normal NEGATIVE [facility] Comment on above: Performed By: #### D RUGRPD #### [facility] [address] [place] [address] Dr. Winifred Silver OPI Negative Normal NEGATIVE [facility] Comment on above: Performed By: #### D RUGRPD #### [facility] [address] [place] [address] Dr. Winifred Silver OXY Negative Normal NEGATIVE [facility] Comment on above: Performed By: #### D RUGRPD #### [facility] [address] [place] [address] Dr. Winifred Silver PCP Negative Normal NEGATIVE [facility] Comment on above: Performed By: #### D RUGRPD #### [facility] [address] [place] [address] Dr. Winifred Silver PPX Negative Normal NEGATIVE [facility] Comment on above: Performed By: #### D RUGRPD #### [facility] [address] [place] [address] Dr. Winifred Silver TCA Negative Normal NEGATIVE [facility] Comment on above: Performed By: #### D RUGRPD #### [facility] [address] [place] [address] Dr. Winifred Silver THC Negative Normal NEGATIVE [facility] Comment on above: Performed By: #### D RUGRPD #### [facility] [address] [place] [address] Dr. Winifred Silver TYPE AND SCREENon 10-06-2021 TYPE AND SCREEN Negative Normal [facility] Comment on above: Performed By: #### T NS #### [facility] [address] [place] [address] Dr. Winifred Silver UA (CLEAN/CATCH) DOOR PATCHER/MICRO I F IND.on 10-06-2021 Bilirubin Ql (U) Negative Normal NEGATIVE [facility] Comment on above: Performed By: #### U ACSIND #### [facility] [address] [place] [address] Dr. Winifred Silver Clarity (U) CLEAR Normal CLEAR [facility] Comment on above: Performed By: #### U ACSIND #### [facility] [address] [place] [address] Dr. Winifred Silver Color (U) LT. YELLOW Normal YELLOW [facility] Comment on above: Performed By: #### U ACSIND #### [facility] [address] [place] [address] Dr. Winifred Silver Glucose Ql (U) Negative Normal NEGATIVE [facility] Comment on above: Performed By: #### U ACSIND #### [facility] [address] [address] [address] Winifred Silver Hemoglobin Ql (U) Negative Normal NEGATIVE [facility] Comment on above: Performed By: #### U ACSIND #### [facility] [address] [address] [address] Winifred Silver Ketones Ql (U) Negative Normal NEGATIVE [facility] Comment on above: Performed By: #### U ACSIND #### [facility] [address] [address] [address] Winifred Silver LEUKOCYTES Negative Normal NEGATIVE [facility] Comment on above: Performed By: #### U ACSIND #### [facility] [address] [address] [address] Winifred Silver Nitrite Ql (U) Negative Normal NEGATIVE [facility] Comment on above: Performed By: #### U ACSIND #### [facility] [address] [address] [address] Winifred Silver pH (U) 6.0 [pH] Normal 5-9 [facility] Comment on above: Performed By: #### U ACSIND #### [facility] [address] [address] [address] Winifred Silver SPEC GRAVITY 1.025 Normal 1.005-<=1.02 5 [facility] Comment on above: Performed By: #### U ACSIND #### [facility] [address] [address] [address] Winifred Sivler UA PROTEIN Negative Normal NEGATIVE/ TRACE [facility] Comment on above: Performed By: #### U ACSIND #### [facility] [address] [address] [address] Winifred Silver UR MICRO IND NOT INDICATED Normal [facility] Comment on above: Performed By: #### U ACSIND #### [facility] [address] [place] [address] Dr. Winifred Silver Urobilinogen Qn (U) 0.2 {Fredrick'U}/dL Normal 0.2 - 1.0 [facility] Comment on above: Performed By: #### U ACSIND #### [facility] [address] [place], [place] [address] Dr. Winifred Silver Covid-19 PCR ([facility])on 09-21 SARS-CoV-2 (COVID-19) RNA JENARO+probe Ql (Unsp spec) Not detected Normal NOT DETECTED [facility] Comment on above: Result Comment: This test is not yet approved or cleared by the [place] FDA. When there are no FDA-approved or cleared tests available, and other criteria are met, FDA can make tests available under an emergency access mechanism called an Emergency Use Authorization (EUA). The EUA for this test is supported by the Backup Administrator of Health and Human Service's (HHS's) declaration [...] consistent with SARS-CoV-2. Performed By: #### C VDTBH #### [facility] [address] [place], [place] [address] Dr. Winifred Silver US PREG GROWTHon 10-01-2021 [...] by: SAMIRA VELA Date: 2021-10-01 19:22 Normal [facility] US PREG BIOPHY W NON STRESSo [...] by: PJ SAM Date: 2021-09-25 07:47 Normal [facility] CNOVon 01-16-2021 CNOV Office Visit (ORTHMN ) ----- YEIMY HONEYCUTT ([id number]) 1995 F Date Time Provider Department 01/16/21 10:20 AM AYLIN GILLILAND During your visit today, we recorded the following information about you: Weight Height 77.1 kg 1.727 m Aylin Gilliland PA-C 02/11/2021 9:16 PM Signed Consultation requested by Kali Alcantara [address] [facility] [address] Yeimy Honeycutt is a 25 year old [...] Aylin Gilliland, MS, PA-C [facility] [place] Referring Provider: KALI ALCANTARA [[id number]] Allergies As of Date: 01/16/2021 Noted Allergy Reaction BACTRIM (SULFAMETHOXAZOLE) 10/10/2009 2 - Rash CHLORHEXIDINE GLUCONATE 12/28/2018 9 - Itching Date Reviewed: 01/16/2021 Reviewed by: Nakia Luna Ma - Fully Assessed Reason for Visit: Pain, Back [855] Primary Visit Diagnosis:Strain (more content not included)... Normal [facility] XR LUMBAR 3V AP/LAT/L5-S1on 01-16-2021 XR LUMBAR [...] bony abnormality or significant disc height loss. [employer] Cutter Machine: TERESITA Transcribe Date/Time: Jan 16 2021 12:34P Dictated by : CARLTON MATTHEWS MD This examination was interpreted and the report reviewed and electronically signed by: CARLTON MATTHEWS MD on Jan 16 2021 12:35PM EST [id number] Normal [facility] 01-07-2021 [facility] ----- YEIMY HONEYCUTT ([id number]) 1995 F Date Time Provider Department 01/07/21 AYLIN GILLILAND [facility] During your visit today, we recorded [...] Status:Closed by AYLIN GILLILAND on 01/07/21 Normal [facility] Coding Summary.on 05-18-2018 Coding Summary. CODING DATE: 018 FINAL [facility] STATUS: Home (Routine DC) PAYOR: Desmond APC [...] CphT Date Saved: 05/18/2018 08:52 am Normal [facility] US Breast Unilateral Rt Comp leteon 05-16-2018 US Breast Unilateral Rt Complete Exam [...] MD Transcribed by: KALIN Technologist: EULALIO Normal [facility] XR CHEST (2 VW)on 08-14-2017 XR CHEST (2 VW) EXAMINATION: XR CHES T (2 VW)CLINICAL HISTORY: chest pain COMPARISONS: None available.FINDINGS: Cardiac size and pulmonary vascularity are normal. The lungs are clear. There is no evidence of adenopathy. The bones are unremarkable.IMPRESSION: NORMAL CHEST RADIOGRAPHSInterpreted by:ARIAN Harrisigned by:Troy Rueda MD08/14/17inal result Normal [facility] Vital Signs Date Time Vital Sign Value Performing Clinician Facility 06-22-2023 15:16-0500 Body mass index (BMI) [Ratio] 32.84 kg/m2 Maura Joseph PA Work Phone: [facility] 06-22-2023 15:16-0500 Body weight 97.98 kg Maura Joseph PA Work Phone: [facility] 06-22-2023 15:16-0500 Diastolic blood pressure 72 mm[Hg] Maura Joseph PA Work Phone: [facility] 06-22-2023 15:16-0500 Systolic blood pressure 112 mm[Hg] Maura Joseph PA Work Phone: [facility] 10-05-2022 13:25-0400 Body height 172.72 cm Arlette Fofana Other [facility] 10-05-2022 13:25-0400 Body mass index (BMI) [Ratio] 28.86 kg/m2 Arlette Hermanmond Other [facility] 10-05-2022 13:25-0400 Body temperature 98.2 [degF] Arlette Hermanmond Other [facility] 10-05-2022 13:25-0400 Body weight 86.09 kg Arlette Hermanmond Other [facility] 10-05-2022 13:25-0400 Respiratory rate 18 /min Arlette Hermanmond Other [facility] 10-05-2022 13:25-0400 SaO2% (BldA) [Mass fraction] 99 % Arlette Hermanmond Other [facility] Other Encounters Encounter Date Encounter Type Care Provider Facility Start: 06-22-2023 End: 06-22-2023 ambulatory MAURA JAKE Not Available Start: 06-22-2023 End: 06-22-2023 flow sheet Maura DORSEY Work Phone: [facility] Comment on above: Third trimester preg annette Start: 06-09-2023 End: 06-09-2023 ambulatory BABAR ANNMARIE Not Available Start: 06-02-2023 End: 06-02-2023 ambulatory MAURA JAKE Not Available Start: 05-25-2023 End: 05-25-2023 ambulatory MAURA JAKE Not Available Start: 05-10-2023 End: 05-10-2023 ambulatory MAURA JAKE Not Available Start: 04-26-2023 End: 04-26-2023 ambulatory BABAR ANNMARIE Not Available Start: 04-12-2023 End: 04-12-2023 ambulatory MAURA JAKE Not Available Start: 10-05-2022 End: 10-05-2022 ambulatory Arlette Fofana Other [facility] Start: 10-05-2022 Office outpatient vi sit 15 minutes Arlette Fofana [facility] Start: 07-20-2022 End: 08-28-2022 ambulatory KAREN ROSETTE Facility:[facility] Start: 04-15-2022 End: 04-15-[address] BABAR OLSEN . Facility:[facility] Start: 10-23-2021 End: 11-12-2021 ambulatory KAREN ROSETTE Facility:[facility] Start: 10-16-2021 End: 10-16-2021 ambulatory KAREN ROSETTE Facility:[facility] Start: 10-08-2021 Encounter for preprocedural laboratory examination DR BABAR OLSEN . [facility] Start: 10-06-2021 End: 10-09-2021 Evaluation and management of inpatient KAREN ROSETTE Facility:[facility] Start: 10-04-2021 End: 10-04-[address] SONIA BOWLING . Facility:[facility] Start: 10-03-2021 End: 10-04-2021 ambulatory KAREN MARTINEZ Facility:[facility] Start: 10-03-2021 End: 10-04-2021 Encounter for preprocedural laboratory examination KAREN MARTINEZ Facility:[facility] Start: 10-01-2021 End: 10-01-[address] SONIA BOWLING . Facility:[facility] Start: 09-27-2021 End: 09-27-[address] BABAR OLSEN . Facility:[facility] Start: 09-24-2021 End: 09-24-[address] SONIA BOWLING . Facility:[facility] Start: 08-14-2017 End: 08-14-2017 [facility] Procedures Date Procedure Procedure Detail Performing Clinician Start: 06-24-2023 Urnls dip stick/tabl et rgnt non-auto w/o micrscp Maura DORSEY Work Phone: Start: 04-15-2022 Microscopic observat ion [Identifier] in Cervix by Cyto stain Maura DORSEY Work Phone: Start: 10-06-2021 Extraction of Produc ts of Conception, Low Cervical, Open Approach KAREN MARTINEZ Start: 08-14-2017 Radiologic exam ches t 2 views SIMRAN DUONG Start: 08-14-2017 EKG 12-LEAD SIMRAN DORSEY Plan of Treatment Date Care Activity Detail Author Start: 04-15-2025 Screening for malign ant neoplasm of cervix [facility] Start: 06-29-2023 End: 06-29-2023 Patient encounter procedure 06/29/2023 3:00 PM EST Routine [facility] [address] [place] [address] Maura Joseph PA [address] [place] [address] Third trimester [facility] Comment on above: Third trimester preg annette Start: 2023 Screening for malign ant neoplasm of cervix HPV/Cotest [facility] Start: 01-22-2023 Influenza vaccination Influenz a Vaccine (#1) [facility] GBS swab, PCR GBS swab, PCR La b Routine Third trimester Ordered: 06/22/2023 [facility] Work Phone: Comment on above: Ordered: 06/22/2023 Immunizations Immunization Date Immunization Notes Care Provider Kaylie leidy 04-05-2003 influenza virus vacc ine, unspecified formulation Maura DORSEY Work Phone: [facility] Payers Date Payer Category Payer Unknown FRONTPATH FRONTP ATH [id number] 2022-Present [address] [place] [address] [id number] 2017 Unknown [id number] 1995 Unknown [id number] [id number] 3 1993 Unknown [id number] 2.16.840.1.164563.3.579.2.59 3 1993 Unknown [id number] 2.16.840.1.808837.3.579.2.59 3 1993 Unknown [id number] 2.16.840.1.511996.3.579.2.59 3 1993 Unknown [id number] 2.16.840.1.811412.3.579.2.59 3 1993 Unknown [id number] 2.16.840.1.551392.3.579.2.59 3 1993 Unknown [id number] 2.16.840.1.865633.3.579.2.59 3 1993 Unknown [id number] 2.16.840.1.747031.3.579.2.59 3 1993 Unknown [id number] 2.16.840.1.586783.3.579.2.59 3 1993 Unknown [id number] 2.16.840.1.889775.3.579.2.59 3 1993 Unknown [id number] 2.16.840.1.344530.3.579.2.12 59 1993 Unknown [id number] 2.16.840.1.927530.3.579.2.12 59 1993 Unknown [id number] 2.16.840.1.228272.3.579.2.12 59 1993 Unknown [id number] 2.16.840.1.250230.3.579.2.12 59 1993 Unknown [id number] 2.16.840.1.356867.3.579.2.12 59 1993 Unknown [id number] 2.16.840.1.063958.3.579.2.12 59 1993 Unknown [id number] 2.16.840.1.506997.3.579.2.12 59 1959 Unknown [id number] Social History Date Type Detail Facility Unknown if ever smoked [facility] Start: 01-06-2023 End: 04-09-2023 Sex Assigned At [facility] Start: 01-06-2023 Tobacco smoking status IDIS Never smoked tobacco [facility] Start: 01-06-2023 Tobacco use and exposure Smokeless tobacco non-user [facility] Start: 06-21-2023 Alcohol intake Current drinker of alcohol (finding) [facility] Start: 01-06-2023 End: 04-09-2023 History of Social function [facility] How often to you hav e a drink containing alcohol? Monthly or less [facility] How many standard drinks containing alcohol do you have on a typical day? 1 or 2 [facility] How often do you hav e 6 or more drinks on 1 occasion? Never [facility] Start: 05-07-2023 Alcohol Comment 1 or 2 drinks on a typical day/monthly or less, Caffeine intake: none [facility] Start: 10-25-2022 [facility] Start: 1995 Sex Assigned At Female [facility] Start: 01-04-2023 Gender identity Identifies as female gender (finding) [facility] Start: 01-04-2023 Sexual orientation Heterosexual (finding) [facility] History of Present illness Narrative 06-22-[address] - 06/22/2023 3:00 PM EST Note Date & Type Note Facility 06-22-2023 History of Presen t illness Narrative Reason for Appointment: Patient ID: Yeimy Rodriguez is a 28 y.o. female who presents for Routine Visit Patient presents today for Return OB appointment. Patient presents today for a routine obstetrics appointment. Patient is currently 36w2d with a Estimated Date of Delivery: 07/18/23. Current Medications: has a current medication list which includes the following prescription(s): doxylamine succinate (sleep), ondansetron, pantoprazole, vit w/wf-tterbwjgx-ce, and pyridoxine. 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 Aneurysmal bone cyst Asthma (CMS/HCC) Asthma, 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 Breast mass, right Dysphagia Finger fracture, right Foot fracture, right H/O section LPRD (laryngopharyngeal reflux disease) Motion sickness Rosacea Throat discomfort Tonsillar hypertrophy Wrist fracture, bilateral Family History Problem Relation Name Age of Onset Breast cancer Mother Diabetes Mother Heart defect Father Congenital Aortic stenosis Father Other (Mental Retardation) Sister Social History Tobacco Use Smoking status: Never Smokeless tobacco: Never Substance Use Topics Alcohol use: Yes Comment: 1 or 2 drinks on a typical day/monthly or less, Caffeine intake: none Drug use: Never Past Surgical History: Procedure Laterality Date BONE CYST EXCISION 2009 BONE CYST EXCISION aneurysmal bone cyst of pelvis x 2 BREAST MASS EXCISION Right Intraductal Papilloma SECTION, LOW TRANSVERSE 10/11/2019 SECTION, LOW TRANSVERSE 10/06/2021 PAP SMEAR 04/08/2021 Normal WISDOM TOOTH EXTRACTION wisdom teeth WRIST FRACTURE SURGERY Right 2006 Allergies Allergen Reactions Chlorhexidine Itching Other GI intolerance Sulfamethoxazole Rash Sulfamethoxazole-Trimethoprim Rash, Swelling and Unknown Trimethoprim Rash Review of Systems: Review of Systems Constitutional: Negative. HENT: Negative. Eyes: Negative. Respiratory: Negative. Cardiovascular: Negative. Gastrointestinal: Negative. Genitourinary: Negative. Musculoskeletal: Negative. Skin: Negative. Neurological: Negative. All other systems reviewed and are negative. Hematological: Negative. Endocrine: Negative. Allergic/Immunologic: Negative. Objective Physical Exam Constitutional: Appearance: Normal appearance. She is normal weight. HENT: Head: Normocephalic. Cardiovascular: Rate and Rhythm: Normal rate. Pulses: Normal pulses. Pulmonary: Effort: Pulmonary effort is normal. Breath sounds: Normal breath sounds. Abdominal: Palpations: Abdomen is soft. Musculoskeletal: General: Normal range of motion. Neurological: General: No focal deficit present. Mental Status: She is alert and oriented to person, place, and time. Psychiatric: Mood and Affect: Mood normal. Behavior: Behavior normal. Thought Content: Thought content normal. Judgment: Judgment normal. Vitals and nursing note reviewed. Vitals: Estimated body mass index is 32.84 kg/m as calculated from the following: Height as of 12/11/22: 5' 8 . Weight as of this encounter: 216 lb. BP: 112/72 Patient's last menstrual period was 10/11/2022 (exact date). Assessment/Plan Encounter Diagnosis Name Primary? Third trimester Patient is doing well but has complaints of being tired, d/t . Patient has verbalized frequent movement. labor precautions were given, fkc tid. As previously documented patient desires sterilization during the time of her repeat section. I have discussed with the patient in detail that a salpingectomy is considered to be permanent and patient verbalized understanding and that she does not desire anymore children. Patient will undergo repeat section and bilateral salpingectomy on 07/12/[address] Olsen. Surgical consents were signed, partners instructions were given, mmc was reviewed, and patient is to proceed to [facility] OR on her scheduled day. Patient is to return in 1 week for scheduled routine OB appointment. Follow Up: Patient is to return to office in 1 week for routine OB apptment Documented by WILLIAN Lane on behalf of: WILLIAN Lane documented in this encounter [facility] Evaluation note 10-05-2022 Note Date & Type [...] of diseases classified elsewhere (ICD-10 - B96.89) [facility] Clinical Note 10-06-2021 Note Date & Type Note Facility 10-06-[address], [place] NAME: YEIMY RODRIGUEZ DATE OF : MEDICAL REC#: [id number] IT BUSINESS ANALYST: [address], TRANSADMIT DATE: 10/06/2021 05:30:00 PAPER HANDLER DATE: 10/06/2021 21:00 DICTATING PHYSICIAN: BABAR OLSEN DICTATION DATE: 10/06/2021 08:00 OPERATIVE NOTE OPERATION DATE: 10/06/2021 PROCEDURE: Repeat low transverse section. PREOPERATIVE DIAGNOSIS: 1. at 39 2/7 weeks. 2. Previous . POSTOPERATIVE DIAGNOSIS: 1. at 39 2/7 weeks. 2. Previous . ANESTHESIA: Spinal with Duramorph. SURGEON: Babar Olsen D.O. EMERGENCY ROOM CLINICIAN: LAUREN Ellison URINE OUTPUT: Yellow and clear. [...] Olsen DO on 10/07/2021 09:42 AM EDT [facility] Signed and Approved by: DR BABAR OLSEN . 10/07/2021 09:42:00 [facility] Discharge summary note 10-06-2021 Note Date [...] pain free and no longer on narcotics. [facility] Signed and Approved by: DR BABAR OLSEN . 10/13/2021 07:35:00 [facility] Progress note 01-16-2021 Note Date & Type Note Facility 01-16-2021 Note HNO ID: [id number] Author: Aylin Gilliland PA-C Service: ? Author Type: Physician Graduate Student Instructor Type: Progress Notes Filed: 02/11/2021 9:16 PM Note Text: Consultation requested by Kali Alcantara [address] [facility] [address] Yeimy Honeycutt is a 25 year old [...] virtual visit option also. Aylin Gilliland MS, PAYaniraC [facility] [place] [facility] Progress note 01-16-2021 Note Date & Type Note Facility 01-16-2021 Note HNO ID: [id number] Author: RT Jalen(R) Service: Radiology Author Type: Tie Tamper Type: Progress Notes Filed: 01/16/2021 10:07 AM [...] RT Jalen(R) January 16, 2021 10:06 AM [facility] Evaluation note Note Date & Type Note Facility Evaluation note Diagnosis Third trimester state, incidental Third trimester state, incidental documented in this encounter [facility] History general Narrative - Reported Note Date & Type Note Facility History general Narrative - Reported Type Medical History costal chondritis Medical History asthma - exercise induced Medical History 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 Surgical History pelvic cyst removed x2 Surgical History wrist surgery- right Surgical History lumpectomy 12/2017 Surgical History C section x2 Hospitalization History see above [facility] Other Summary Purpose Family History No Family [...] content) DATE CREATED AUTHOR 11/25/2017 Erica Rowe [facility] DATE CREATED AUTHOR AUTHOR'S ORGANIZ ATION 05/12/2019 Norm Mendes [facility] DATE CREATED AUTHOR AUTHOR'S ORGANIZ ATION 07/12/2021 [facility] DATE CREATED AUTHOR AUTHOR'S ORGANIZ ATION 09/23/2022 [facility] DATE CREATED AUTHOR AUTHOR'S ORGANIZ ATION 06/23/2023 [facility] EPIC REASON FOR VISIT (unrecogniz ed section and content) Reason Comments Routine Visit Care Teams (unrecognized sec tion and content) Trash Hauler Relationship Specialty Start Date End Date Fern Martinez MD [address] [place] [address] PCP - General Family Medicine 12/11/22 FOR RECORDS PERTAINING TO PATIENTS WHO ARE [...] BE BASED ON THE PRIMARY CLINICAL RECORDS. [employer] provides no warranty or guarantee of the accuracy or completeness of information in this document.
--- NOTE | 2023-06-28 15:03 | US_ITS ---
[address] [address] Patient Name: OLIVIA RODRIGUEZ MRN: [id number] date: 1995 Sex: F Assigned Patient Location: US Current Patient Location: Accession/Order Number: [id number] Exam Date: 06/28/2023 15:04 Report Date: 06/29/2023 07:06 At the request of: LISSY JOSEPH Procedure: US OB BPP w non-stress EXAMINATION: US OB BPP w non-stress HISTORY: HISTORY OF SGA COMPARISON: Ultrasound OB biophysical 06/21/2023 TECHNIQUE: Ultrasound biophysical profile was performed in the radiology department. BREATHING MOVEMENTS: 2.0 GROSS BODY MOVEMENTS: 2.0 TONE: 2.0 QUALITATIVE AMNIOTIC FLUID VOLUME: 2.0 PRESENTATION: Cephalic HEART RATE: 129.8 bpm bpm. AMNIOTIC FLUID VOLUME: 14.9 cm GESTATIONAL AGE: 37 weeks 1 days CONCLUSION: Total biophysical profile score 8.0. Electronically authenticated by: FLO ALFONSO Date: 06/29/2023 07:06
[2023-06-28 15:47] VITALS: BP 114/63; PULSE 71
== END 2023-06-28 16:15 ==
LOC: US 08:22 → FBC 15:08
PROVIDERS: PCP Student in an Organized Health Care Education/Training Program; Visit Provider Physician Assistant
DX: Z87.59 Personal history of other complications of pregnancy, childbirth and the puerperium (principal); O26.843 Uterine size-date discrepancy, third trimester; Z3A.37 37 weeks gestation of pregnancy
CPT/HCPCS: 76818; 76820

== ENCOUNTER 2023-07-01 07:40 | Outpatient (OUT) | payer OTHER, SELFPAY ==
--- OUTSIDE RECORDS SUMMARY | 2023-07-01 07:52 | XMS_ITS | CCD ---
Author Name Unknown Address [address] [place] [address] Organization [facility] Care Team Providers Care Ladle Handler Name Role Phone RHODA LORETTAASHWIN Unavailable Unavailable [facility] Primary Care Unavailable ANNMARIE ., DR ECKERT Consulting Unavailable ANNMARIE ., DR ECKERT Attending Unavailable ANNMARIE ., DR ECKERT Procedure Practitioner Unavail able ANNMARIE ., DR ECKERT Admitting Unavailable ANNAMARIAUBBASHIR EDA Consulting Unavailable ARLETTE MARROQUIN Consulting Unavailable KARASIK ., DR SCOTT Admitting Unavailabl e KARASIK ., DR SCOTT Consulting Unavailabl e [facility] Primary Care Unavailable KARASIK ., DR SCOTT Attending Unavailabl e ANNMARIE ., DR ECKERT Admitting [facility] Unavailable ANNMARIE ., DR ECKERT Consulting Unavailable ANNMARIE ., DR ECKERT Attending Unavailable KARASIK ., DR SCOTT Attending Unavailabl e KARASIK ., DR SCOTT Admitting Unavailabl e KARASIK ., DR SCOTT Consulting Unavailabl e [facility] Primary Care Unavailable WE[facility], DR PJ Araujo Consulting Unavailable ANNMARIE ., DR ECKERT Consulting Unavailable KARASIK ., DR SCOTT Attending Unavailabl e KARASIK ., DR SCOTT Admitting Unavailabl e KARASIK ., DR SCOTT Consulting Unavailabl e [facility] Primary Care Unavailable ANNMARIE ., DR ECKERT Consulting Unavailable Policaro, Samira Consulting Unavailable [facility] Primary Care Unavailable TONNY CARBALLO Attending Unavailable TONNY CARBALLO Admitting Unavailable [facility] Primary Care Unavailable ANNMARIE ., DR ECKERT Attending Unavailable ANNMARIE ., DR ECKERT Consulting Unavailable ANNMARIE ., DR ECKERT Admitting Unavailable [facility] Primary Care Unavailable ANNMARIE ., DR ECKERT Attending Unavailable ANNMARIE ., DR ECKERT Admitting Unavailable [facility] Primary Care Unavailable ANNMARIE ., DR ECKERT Attending Unavailable ANNMARIE ., DR ECKERT Admitting Unavailable ANNMARIE ., DR ECKERT Consulting Unavailable [facility] Primary Care Unavailable ANNMARIE ., DR ECKERT Attending Unavailable ANNMARIE ., DR ECKERT Admitting Unavailable CtArlette holder Unavailable Fern Martinez MD Primary Care Provider JAKE, MAURA Attending Unavailable JAKE, MAURA Attending Unavailable ANNMARIE, BABAR Attending Unavailable JAKE, MAURA Attending Unavailable JAKE, MAURA Attending Unavailable JAKE, MAURA Attending Unavailable ANNMARIE, BABAR Attending Unavailable JAKE, MAURA Attending Unavailable Allergies Allergy Classification Reported Allergen(s) Allergy Type Date of Onset Reaction(s) Facility (1 source) Chlorhexidine Drug Allergy [facility] [place] Repository (1 source) Sulfamethoxazole / Trimethoprim Drug Allergy [facility] Repository (5 sources) Chlorhexidine Drug Allergy 12-29-19 19 hives, Itching [facility] Healthcare Work Phone: (5 sources) Sulfamethoxazole / Trimethoprim Drug Allergy 05-18-20 19 hives, Rash, Swelling, Unknown [facility] Other (1 source) Darvocet-N 50 Drug allergy vomiting [facility] Other (4 sources) Sulfamethoxazole Propensity to adverse reactions 10-11-19 10 Rash [facility] Healthcare (4 sources) Trimethoprim Drug Allergy 12-12-19 23 Rash [facility] (4 sources) Other Allergy to substance 04-26-20 23 GI intolerance [facility] Medications Current Medications Medication Drug Class(es) Dates Sig (Normalized) Sig (Original) amoxicillin 500 mg oral capsule (1 source) Penicillin-class Antibacterial Start: 10-05-2022 take 1 capsule by mouth every eight hours Amoxicillin 500 MG 1 capsule Orally three times a day for 10 day(s) September, Active Doxylamine Succinate, Sleep, (UNISOM PO) (4 sources) take 1 tablet by mouth at bedtime Doxylamine Succinate, Sleep, (UNISOM PO) Take 1 tablet by mouth at bedtime. 0 Active ondansetron 4 mg oral tablet (4 sources) Serotonin-3 Receptor Antagonist Start: 02-25-2023 take 1 tablet by mouth twice daily as needed for nausea ondansetron (Zofran) 4 MG tablet Indications: Nausea TAKE 1 TABLET BY MOUTH TWICE DAILY NEEDED FOR NAUSEA 30 tablet 0 02/25/2023 Active pantoprazole 40 mg delayed release oral tablet (4 sources) Proton Pump Inhibitor Start: 11-25-2022 End: 11-25-2023 take 1 tablet by mouth before mealtime pantoprazole (Protonix) 40 MG EC tablet Indications: Heartburn during in first trimester Take 1 tablet (40 mg) by mouth in the morning. Take before meals. Do not crush, chew, or split. . 30 tablet 11 11/25/2022 11/25/2023 Active Vit w/Qz-Bugjnzqeu-LO (PNV PO) (4 sources) Vit w/Uv-Frajzphql-AF (PNV PO) Take by mouth. 0 Active pyridoxine hydrochloride 25 mg oral tablet (4 sources) take 1 tablet by mouth in [...] 07-20-2022 Episodic Other and delivery including normal (13 sources) Encounter for care and examination of lactating mother; Translations: [Encounter for routine follow-up] Onset: 10-13-2021 Episodic Other upper respiratory infections (2 sources) Acute pharyngitis, unspecified; Translations: [Acute pharyngitis due to other specified organisms] Episodic Residual codes; unclassified (4 sources) Past history of small for gestational [...] 08-14-2017 Episodic Other aftercare (1 source) Other intermodal customer service (current) drug therapy; Translations: [OT [facility]FP CURRENT 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] Onset: 10-13-2021 Episodic Other [...] applicable or unspecified; Translations: [MAT CARE OT RI FTL GRTH 3RD TM UNS] Onset: 10-04-2021 [...] Reference Range Facility Urinalysis macro (dipstick) panel (U)Ordered By: Marley Walker on 06-29-2023 Bilirubin, UA Negative Negative - 4(70) +++ mg/dL [facility] Blood, UA Negative Negative - 50 Tyrese/mcL [facility] Healthcare Clarity, UA Clear [facility] re Color, UA Yellow [facility] Healthcar e Glucose, UA Negative Negative - 1999(110) ++++ mg/dL [facility] Interpretation and review of laboratory results Normal [facility] Ketones, UA Negative Negative - 160(16) ++++ mg/dL [facility] Leukocytes, UA Negative Negative - 500+++ Antonio/mcL [facility] Nitrite, UA Negative Negative - Positive [facility] pH, UA 7.0 5 - 9 [facility] Healthcar e Protein, UA Negative Negative - 1999(20) ++++ mg/dL [facility] Spec Grav, UA 1.015 1 - 1.03 [facility] Urobilinogen, UA 0.2 0.2 - 12 mg/dL [facility] Health[facility] e Urinalysis macro (dipstick) panel (U)on 06-24-2023 Bilirubin, UA Negative Negative - 4(70) +++ mg/dL [facility] Blood, UA Negative Negative - 50 Tyrese/mcL [facility] Healthcare Clarity, UA Clear [facility] re Color, UA Yellow [facility] Healthcar e Glucose, UA Negative Negative - 1999(110) ++++ mg/dL [facility] Interpretation and review of laboratory results Normal [facility] Ketones, UA Negative Negative - 160(16) ++++ mg/dL [facility] Leukocytes, UA Negative Negative - 500+++ Antonio/mcL [facility] Nitrite, UA Negative Negative - Positive [facility] pH, UA 5.5 5 - 9 [facility] e Protein, UA Negative Negative - 1999(20) ++++ mg/dL [facility] Spec Grav, UA 1.020 1 - 1.03 [facility] Urobilinogen, UA 1.0 0.2 - 12 mg[facility] Quick Strepon 10-05-2022 S. pyogenes Org specific cx Ql (Throat) Negative [facility] Other Quick Strep [facility] Other PAP ACOG PANEL 2: 21 to 29on 04-24-2022 . . [facility] Comment on above: Performed By: #### [id number] #### [facility] [address] [place] [address] Dr. Winifred Silver Age Gdln ACOG Testing - [facility] Comment on above: Performed By: #### [id number] #### [facility] [address] [place] [address] Dr. Winifred Silver DIAGNOSIS: Comment [facility] Comment on above: Result Comment: NEGA TIVE FOR INTRAEPITHELIAL LESION OR MALIGNANCY. Performed By: #### 4 [id number] #### [facility] [address] [place] [address] Dr. Winifred Silver Methodology: Comment [facility] Comment on above: Result Comment: This liquid based ThinPrep(R) pap test was screened with the use of an image guided system. Performed By: #### [id number] #### [facility] [address] [place] [address] Dr. Winifred Silver Note: Comment [facility] Comment on above: Result Comment: The Pap smear is a screening test designed to aid in the detection of premalignant and malignant conditions of the uterine cervix. It is not a diagnostic procedure and should not be used as the sole means of detecting cervical cancer. Both false-positive and false-negative reports do occur. . Performed By: #### [id number] #### [facility] [address] [place] [address] Dr. Winifred Silver Performed by: Comment [facility] Comment on above: Result Comment: Clary [employer] Machine Shop Helper (ASCP) Performed By: #### 4 [id number] #### [facility] [address] [place] [address] Dr. Winifred Silver Reflex Criteria: Comment Normal [facility] Comment on above: Result Comment: The HPV DNA reflex criteria were not met with this specimen result therefore, no HPV testing was performed. . Performed By: #### 4 [id number] #### [facility] [address] [place] [address] Dr. Winifred Silver Specimen adequacy: Comment Normal [facility] Comment on above: Result Comment: Sati sfactory for evaluation. Endocervical and/or squamous metaplastic cells (endocervical component) are present. Performed By: #### 4 [id number] #### [facility] [address] [place] [address] Dr. Winifred Silver CBC AUTO DIFFon 10-07-2021 BASO # 0.1 103/ul Normal 0.0-0.1 [facility] Comment on above: Performed By: #### C BC ####[facility] [address] [place] [address]Dr. Winifred Silver Basophils/100 WBC (Bld) 0.6 % Normal 0.2-2.0 [facility] Comment on above: Performed By: #### C BC ####[facility] [address] [place], [place] [address]DrDarius Silver EO # 0.3 103/ul Normal 0.0-0.7 [facility] Comment on above: Performed By: #### C BC ####[facility] [address] [place] [address]DrDarius Silver Eosinophils/100 WBC (Bld) 2.6 % Normal 0.9-7.0 [facility] Comment on above: Performed By: #### C BC ####[facility] [address] [place] [address]DrDarius Silver Erythrocyte distribution width (RBC) [Ratio] 13.1 % Normal 11.0-15.0 [facility] Comment on above: Performed By: #### C BC ####[facility] [address] [place] [address]Dr. Winifred Silver Hematocrit (Bld) [Volume fraction] 26.6 % Critically low 36.0-48.0 [facility] Comment on above: Performed By: #### C BC ####[facility] [address] [place] [address]Dr. Winifred Nadeem Hemoglobin (Bld) [Mass/Vol] 8.7 g/dL Critically low 12.0-16.0 [facility] Comment on above: Performed By: #### C BC ####[facility] [address] [place], [place] [address]Dr. Winifred Nadeem IG # 0.04 10e3/ul Critically high 0.00-0.03 [facility] Comment on above: Performed By: #### C BC ####[facility] [address] [place], [place] [address]Dr. Winifred Silver IG % 0.4 % Normal 0.0-0.5 [facility] [place] Comment on above: Performed By: #### C BC ####[facility] [address] [place], [place] [address]Dr. Jolenedaylin Silver LYMPH # 1.4 103/ul Normal 1.2-3.8 [facility] Comment on above: Performed By: #### C BC ####[facility] [address] [place], [place] [address]Dr. Jolenedaylin Silver Lymphocytes/100 WBC (Bld) 13.8 % Critically low 20.5-60.0 [facility] Comment on above: Performed By: #### C BC ####[facility] [address] [place], [place] [address]Dr. Jolenedaylin Silver MANUAL DIFF REQ NO Normal [facility] Comment on above: Performed By: #### C BC ####[facility] [address] [place], [place] [address]DrDarius Jolenedaylin Silver MCH (RBC) [Entitic mass] 29.6 pg Normal 26.7-34.0 [facility] Comment on above: Performed By: #### C BC ####[facility] [address] [place] [id number]. Winifred Silver MCHC (RBC) [Mass/Vol] 32.7 g/dL Normal 29.9-35.2 [facility] Comment on above: Performed By: #### C BC ####[facility] [address] [place] [id number]. Winifred Silver MCV (RBC) [Entitic vol] 90.5 fL Normal 81.0-99.0 [facility] Comment on above: Performed By: #### C BC ####[facility] [address] [place] [id number]. Winifred Silver MONO # 0.6 103/ul Normal 0.3-0.8 [facility] Comment on above: Performed By: #### C BC ####[facility] [address] [place], [place] [address]Dr. Winifred Silver Monocytes/100 WBC (Bld) 6.1 % Normal 1.7-12.0 [facility] Comment on above: Performed By: #### C BC ####[facility] [address] [place], [place] [address]Dr. Winifred Silver NEUT # 7.8 103/ul Critically high 1.4-6.5 [facility] Comment on above: Performed By: #### C BC ####[facility] [address] [place], [place] [address]Dr. Winifred Silver Neutrophils/100 WBC (Bld) 76.5 % Critically high 43.0-75.0 [facility] Comment on above: Performed By: #### C BC ####[facility] [address] [place], [place] [address]Dr. Winifred Silver Platelet mean volume (Bld) [Entitic vol] 10.5 fL Normal 9.5-13.5 [facility] Comment on above: Performed By: #### C BC ####[facility] [address] [place], [place] [address]Dr. Winifred Silver PLT 147 103/ul Critically low 150-450 [facility] Comment on above: Performed By: #### C BC ####[facility] [address] [place], [place] [address]CkDr. Winifred Silver RBC 2.94 106/ul Critically low 4.20-5.40 [facility] Comment on above: Performed By: #### C BC ####[facility] [address] [place], [place] [address]NeDr. Winifred Silver WBC 10.2 103/ul Normal 4.0-11.0 [facility] Comment on above: Performed By: #### C BC ####[facility] [address] [place], [place] [address]CfDarius Silver CBC AUTO DIFFon 10-06-2021 BASO # 0.0 103/ul Normal 0.0-0.1 [facility] Comment on above: Performed By: #### C BC #### [facility] [address] [address] [address] Winifred Silver Basophils/100 WBC (Bld) 0.3 % Normal 0.2-2.0 [facility] Comment on above: Performed By: #### C BC #### [facility] [address] [address] [address] Winifred Silver EO # 0.1 103/ul Normal 0.0-0.7 [facility] Comment on above: Performed By: #### C BC #### [facility] [address] [address] [address] Winifred Silver Eosinophils/100 WBC (Bld) 1.4 % Normal 0.9-7.0 [facility] Comment on above: Performed By: #### C BC #### [facility] [address] [address] [address] Winifred Silver Erythrocyte distribution width (RBC) [Ratio] 13.0 % Normal 11.0-15.0 [facility] Comment on above: Performed By: #### C BC #### [facility] [address] [address] [address] Winifred Silver Hematocrit (Bld) [Volume fraction] 32.3 % Critically low 36.0-48.0 [facility] Comment on above: Performed By: #### C BC #### [facility] [address] [address] [address] Winifred Silver Hemoglobin (Bld) [Mass/Vol] 10.6 g/dL Critically low 12.0-16.0 [facility] Comment on above: Performed By: #### C BC #### [facility] [address] [address] [address] Winifred Silver IG # 0.05 10e3/ul Critically high 0.00-0.03 [facility] Comment on above: Performed By: #### C BC #### [facility] [address] [address] [address] Winifred Silver IG % 0.5 % Normal 0.0-0.5 [facility] Comment on above: Performed By: #### C BC #### [facility] [address] [address] [address] Winifred Silver LYMPH # 1.5 103/ul Normal 1.2-3.8 [facility] Comment on above: Performed By: #### C BC #### [facility] [address] [address] [address] Winifred Silver Lymphocytes/100 WBC (Bld) 14.6 % Critically low 20.5-60.0 [facility] Comment on above: Performed By: #### C BC #### [facility] [address] [address] [address] Winifred Silver MANUAL DIFF REQ NO Normal [facility] Comment on above: Performed By: #### C BC #### [facility] [address] [address] [address] Winifred Silver MCH (RBC) [Entitic mass] 29.4 pg Normal 26.7-34.0 [facility] Comment on above: Performed By: #### C BC #### [facility] [address] [address] [address] Winifred Silver MCHC (RBC) [Mass/Vol] 32.8 g/dL Normal 29.9-35.2 [facility] Comment on above: Performed By: #### C BC #### [facility] [address] [address] [address] Winifred Silver MCV (RBC) [Entitic vol] 89.7 fL Normal 81.0-99.0 [facility] Comment on above: Performed By: #### C BC #### [facility] [address] [place] [address] Dr. Winifred Silver MONO # 0.7 103/ul Normal 0.3-0.8 [facility] Comment on above: Performed By: #### C BC #### [facility] [address] [place] [address] Dr. Winifred Silver Monocytes/100 WBC (Bld) 6.5 % Normal 1.7-12.0 [facility] Comment on above: Performed By: #### C BC #### [facility] [address] [place] [address] Dr. Winifred Silver NEUT # 7.7 103/ul Critically high 1.4-6.5 [facility] Comment on above: Performed By: #### C BC #### [facility] [address] [place] [address] Dr. Winifred Silver Neutrophils/100 WBC (Bld) 76.7 % Critically high 43.0-75.0 [facility] Comment on above: Performed By: #### C BC #### [facility] [address] [place] [address] Dr. Winifred Silver Platelet mean volume (Bld) [Entitic vol] 11.1 fL Normal 9.5-13.5 [facility] Comment on above: Performed By: #### C BC #### [facility] [address] [place] [address] Dr. Winifred Silver PLT 204 103/ul Normal 150-450 [facility] Comment on above: Performed By: #### C BC #### [facility] [address] [place] [address] Dr. Winifred Silver RBC 3.60 106/ul Critically low 4.20-5.40 [facility] Comment on above: Performed By: #### C BC #### [facility] [address] [place] [address] Dr. Winifred Silver WBC 10.0 103/ul Normal 4.0-11.0 [facility] Comment on above: Performed By: #### C BC #### [facility] [address] [place] [address] Dr. Winifred Silver DRUG SCREEN RAPID (URINE)on 10-06-2021 AMP Negative Normal NEGATIVE [facility] Comment on above: Performed By: #### D RUGRPD #### [facility] [address] [place] [address] Dr. Winifred Silver BAR Negative Normal NEGATIVE [facility] Comment on above: Performed By: #### D RUGRPD #### [facility] [address] [place] [address] Dr. Winifred Silver BUP Negative Normal NEGATIVE [facility] [place] Comment on above: Performed By: #### D RUGRPD #### [facility] [address] [place] [address] Dr. Winifred Silver BZO Negative Normal NEGATIVE [facility] Comment on above: Performed By: #### D RUGRPD #### [facility] [address] [place] [address] Dr. Winifred Silver TIN Negative Normal NEGATIVE [facility] Comment on above: Performed By: #### D RUGRPD #### [facility] [address] [place] [address] Dr. Winifred Silver CUT-OFFS SEE BELOW Normal [facility] Comment on above: Result Comment: [...] ng/mL Performed By: #### D RUGRPD #### [facility] [address] [place] [address] Dr. Winifred Silver DRUG CUT HEADER DRUG CLASS TEST SYST EM CUT-OFF CONCENTRATIONS ARE FOLLOWS: Normal [facility] Comment on above: Performed By: #### D RUGRPD #### [facility] [address] [place] [address] Dr. Winifred Silver mAMP Negative Normal NEGATIVE [facility] Comment on above: Performed By: #### D RUGRPD #### [facility] [address] [address] [address] Winifred Silver MTD Negative Normal NEGATIVE [facility] Comment on above: Performed By: #### D RUGRPD #### [facility] [address] [place] [address] Dr. Winifred Silver OPI Negative Normal NEGATIVE [facility] Comment on above: Performed By: #### D RUGRPD #### [facility] [address] [address] [address] Winifred Silver OXY Negative Normal NEGATIVE [facility] Comment on above: Performed By: #### D RUGRPD #### [facility] [address] [place] [address] Dr. Winifred Silver PCP Negative Normal NEGATIVE [facility] [place] Comment on above: Performed By: #### D RUGRPD #### [facility] [address] [place] [address] Dr. Winifred Silver PPX Negative Normal NEGATIVE [facility] Comment on above: Performed By: #### D RUGRPD #### [facility] [address] [place] [address] Dr. Winifred Silver TCA Negative Normal NEGATIVE [facility] Comment on above: Performed By: #### D RUGRPD #### [facility] [address] [place] [address] Dr. Winifred Silver THC Negative Normal NEGATIVE [facility] Comment on above: Performed By: #### D RUGRPD #### [facility] [address] [place] [address] Dr. Yilan Silver TYPE AND SCREENon 10-06-2021 TYPE AND SCREEN Negative Normal [facility] Comment on above: Performed By: #### T NS #### [facility] [address] [place] [address] Dr. Winifred Silver UA (CLEAN/CATCH) COAL EQUIPMENT OPERATOR/MICRO I F IND.on 10-06-2021 Bilirubin Ql (U) Negative Normal NEGATIVE [facility] Comment on above: Performed By: #### U ACSIND #### [facility] [address] [address] [address] Winifred Silver Clarity (U) CLEAR Normal CLEAR [facility] [place] Comment on above: Performed By: #### U ACSIND #### [facility] [address] [place] [address] Dr. Winifred Silver Color (U) LT. YELLOW Normal YELLOW [facility] Comment on above: Performed By: #### U ACSIND #### [facility] [address] [place] [address] Dr. Winifred Silver Glucose Ql (U) Negative Normal NEGATIVE [facility] Comment on above: Performed By: #### U ACSIND #### [facility] [address] [place] [address] Dr. Winifred Silver Hemoglobin Ql (U) Negative Normal NEGATIVE [facility] Comment on above: Performed By: #### U ACSIND #### [facility] [address] [place] [address] Dr. Winifred Silver Ketones Ql (U) Negative Normal NEGATIVE [facility] Comment on above: Performed By: #### U ACSIND #### [facility] [address] [place] [address] Dr. Winifred Silver LEUKOCYTES Negative Normal NEGATIVE [facility] [place] Comment on above: Performed By: #### U ACSIND #### [facility] [address] [place] [address] Dr. Winifred Silver Nitrite Ql (U) Negative Normal NEGATIVE [facility] Comment on above: Performed By: #### U ACSIND #### [facility] [address] [place] [address] Dr. Winifred Silver pH (U) 6.0 [pH] Normal 5-9 [facility] [place] Comment on above: Performed By: #### U ACSIND #### [facility] [address] [place] [address] Dr. Winifred Silver SPEC GRAVITY 1.025 Normal 1.005-<=1.02 5 [facility] Comment on above: Performed By: #### U ACSIND #### [facility] [address] [place] [address] Dr. Winifred Silver UA PROTEIN Negative Normal NEGATIVE/ TRACE [facility] Comment on above: Performed By: #### U ACSIND #### [facility] [address] [place] [address] Dr. Winifred Silver UR MICRO IND NOT INDICATED Normal [facility] Comment on above: Performed By: #### U ACSIND #### [facility] [address] [place] [address] Dr. Winifred Silver Urobilinogen Qn (U) 0.2 {Fredrick'U}/dL Normal 0.2 - 1.0 [facility] Comment on above: Performed By: #### U ACSIND #### [facility] [address] [place] [address] Dr. Winifred Silver Covid-19 PCR ([facility])on 09-21 SARS-CoV-2 (COVID-19) RNA JENARO+probe Ql (Unsp spec) Not detected Normal NOT DETECTED [facility] Comment on above: Result Comment: This test is not yet approved or cleared by the [place] FDA. When there are no FDA-approved or cleared tests available, and other criteria are met, FDA can make tests available under an emergency access mechanism called an Emergency Use Authorization (EUA). The EUA for this test is supported by the [place] of Health and Human Service's (HHS's) declaration [...] SARS-CoV-2. Performed By: #### C TB #### [facility] [address] [place] [address] Dr. Winifred Silver US PREG GROWTHon 10-01-2021 [...] by: SAMIRA VELA Date: 2021-10-01 19:22 Normal [facility] US PREG BIOPHY W NON STRESSo n [...] by: PJ SAM Date: 2021-09-25 07:47 Normal [facility] CNOVon 01-16-2021 CNOV Office Visit (ORTHMN ) ----- YEIMY HONEYCUTT ([id number]) 1995 F Date Time Provider Department 01/16/21 10:20 AM AYLIN GILLILAND During your visit today, we recorded the following information about you: Weight Height 77.1 kg 1.727 m Aylin Gilliland PA-C 02/11/2021 9:16 PM Signed Consultation requested by Kali Alcantara [address] [facility] [address] Yeimy Honeycutt is a 25 year old [...] Aylin Gilliland, MS, PA-C [facility] [place] Referring Provider: KALI ALCANTARA [[id number]] Allergies As of Date: 01/16/2021 Noted Allergy Reaction BACTRIM (SULFAMETHOXAZOLE) 10/10/2009 2 - Rash CHLORHEXIDINE GLUCONATE 12/28/2018 9 - Itching Date Reviewed: 01/16/2021 Reviewed by: Nakia Luna Ma - Fully Assessed Reason for Visit: Pain, Back [855] Primary Visit Diagnosis:Strain (more content not included)... Normal [facility] XR LUMBAR 3V AP/LAT/L5-S1on 01-16-2021 [...] bony abnormality or significant disc height loss. [employer]: [email or web address] Transcribe Date/Time: Jan 16 2021 12:34P Dictated by : CARLTON MATTHEWS MD This examination was interpreted and the report reviewed and electronically signed by: CARLTON MATTHEWS MD on Jan 16 2021 12:35PM EST [id number] Normal [facility] ----- YEIMY HONEYCUTT ([id number]) 1995 F Date Time Provider Department 01/07/21 [...] Encounter Status:Closed by AYLIN GILLILAND on 01/07/21 [facility] Coding Summary.on 05-18-2018 Coding Summary. CODING DATE: 018 FINAL [facility] STATUS: Home (Routine DC) PAYOR: Desmond [...] Nino CphT Date Saved: 05/18/2018 08:52 am [facility] US Breast Unilateral Rt Comp leteon 05-16-2018 [...] MD Transcribed by: KALIN Technologist: EULALIO Normal [facility] XR CHEST (2 VW)on 08-14-2017 XR CHEST (2 VW) EXAMINATION: XR CHES T (2 VW)CLINICAL HISTORY: chest pain COMPARISONS: None available.FINDINGS: Cardiac size and pulmonary vascularity are normal. The lungs are clear. There is no evidence of adenopathy. The bones are unremarkable.IMPRESSION: NORMAL CHEST RADIOGRAPHSInterpreted by:ARIAN Harrisigned by:Troy Rueda MD08/14/17inal result Normal [facility] Vital Signs Date Time Vital Sign Value Performing Clinician Facility 06-29-2023 15:19-0500 Body mass index (BMI) [Ratio] 32.86 kg/m2 Maura DORSEY Work Phone: [facility] 06-29-2023 15:19-0500 Body weight 98.03 kg Maura DORSEY Work Phone: [facility] 06-29-2023 15:19-0500 Diastolic blood pressure 70 mm[Hg] Maura DORSEY Work Phone: [facility] 06-29-2023 15:19-0500 Systolic blood pressure 116 mm[Hg] Maura DORSEY Work Phone: [facility] 06-22-2023 15:16-0500 Body mass index (BMI) [Ratio] 32.84 kg/m2 Maura DORSEY Work Phone: [facility] 06-22-2023 15:16-0500 Body weight 97.98 kg Maura DORSEY Work Phone: [facility] 06-22-2023 15:16-0500 Diastolic blood pressure 72 mm[Hg] Maura DORSEY Work Phone: [facility] 06-22-2023 15:16-0500 Systolic blood pressure 112 mm[Hg] Maura DORSEY Work Phone: [facility] 10-05-2022 13:25-0400 Body height 172.72 cm Arlette Hermanmond Other [facility] Other 10-05-2022 13:25-0400 Body mass index (BMI) [Ratio] 28.86 kg/m2 Arlette Fofana Other [facility] Other 10-05-2022 13:25-0400 Body temperature 98.2 [degF] Arlette Fofana Other [facility] Other 10-05-2022 13:25-0400 Body weight 86.09 kg Arlette Fofana Other [facility] Other 10-05-2022 13:25-0400 Respiratory rate 18 /min Arlette Hermanmond Other [facility] Other 10-05-2022 13:25-0400 SaO2% (BldA) [Mass fraction] 99 % Arlette Fofana Other [facility] Other Encounters Encounter Date Encounter Type Care Provider Facility Start: 06-29-2023 End: 06-29-2023 ambulatory MAURA JOSEPH Not Available Start: 06-29-2023 End: 06-29-2023 flow sheet Maura DORSEY Work Phone: [facility] Comment on above: Third trimester preg annette Start: 06-22-2023 End: 06-22-2023 ambulatory MAURA JAKE Not Available Start: 06-22-2023 End: 06-22-2023 flow sheet Maura Joseph PA Work Phone: [facility] Comment on [...] 10-05-2022 End: 10-05-2022 ambulatory Arlette Fofana Other [facility] Other Start: 10-05-2022 Office outpatient vi sit 15 minutes Arlette Fofana [facility] Start: 07-20-2022 End: 08-28-2022 ambulatory KAREN ROSETTE Facility:[facility] Start: 04-15-2022 End: 04-15-[address] BABAR OLSEN . Facility:[facility] Start: 10-23-2021 End: 11-12-2021 ambulatory KAREN ROSETTE Facility:[facility] Start: 10-16-2021 End: 10-16-2021 ambulatory KAREN ROSETTE Facility:[facility] Start: 10-08-2021 Encounter for preprocedural laboratory examination DR BABAR OLSEN . [facility] Start: 10-06-2021 End: 10-09-2021 Evaluation and management of inpatient KAREN ROSETTE Facility:[facility] Start: 10-04-2021 End: 10-04-[address] SONIA BOWLING . Facility:[facility] Start: 10-03-2021 End: 10-04-2021 ambulatory KAREN RSOETTE Facility:[facility] Start: 10-03-2021 End: 10-04-2021 Encounter for preprocedural laboratory examination KAREN MARTINEZ Facility:[facility] Start: 10-01-2021 End: 10-01-[address] SONIA BOWLING . Facility:[facility] Start: 09-27-2021 End: 09-27-[address] BABAR OLSEN . Facility:[facility] Start: 09-24-2021 End: 09-24-[address] SONIA BOWLING . Facility:[facility] Start: 08-14-2017 End: 08-14-2017 Emergency department patient visit SIMRAN DUONG [facility] Procedures Date Procedure Procedure Detail Performing Clinician Start: 06-29-2023 Urnls dip stick/tabl et rgnt non-auto w/o micrscp Maura DORSEY Work Phone: Start: 06-24-2023 Urnls dip stick/tabl et rgnt non-auto w/o micrscp Maura DORSEY Work Phone: Start: 04-15-2022 Microscopic observat ion [Identifier] in Cervix by Cyto stain Maura DORSEY Work Phone: Start: 10-06-2021 Extraction of Produc ts of Conception, Low Cervical, Open Approach KAREN MARTINEZ Start: 08-14-2017 Radiologic exam ches t 2 views SIMRAN DUONG Start: 08-14-2017 EKG 12-LEAD SIMRAN DORSEY UL Plan of Treatment Date Care Activity Detail Author Start: 04-15-2025 Screening for malign ant neoplasm of cervix [facility] Start: 07-06-2023 End: 07-06-2023 Patient encounter procedure 07/06/2023 2:30 PM EST Routine [facility] [address] [place] [id number] Babar Olsen, DO [address] [place], [place] [id number] [facility] Start: 06-29-2023 End: 06-29-2023 Patient encounter procedure 06/29/2023 3:00 PM EST Routine [facility] [address] [place] [id number] Maura Joseph PA [address] [place] [address] [place] [address] Third trimester [facility] Comment on above: Third trimester preg annette Start: 2023 Screening for malign ant neoplasm of cervix HPV/Cotest [facility] Start: 01-22-2023 Influenza vaccination Influenz a Vaccine (#1) [facility] GBS swab, PCR GBS swab, PCR La b Routine Third trimester Ordered: 06/22/2023 [facility] Work Phone: Comment on above: Ordered: 06/22/2023 Immunizations Immunization Date Immunization Notes Care Provider Fa cility 04-05-2003 influenza virus vacc ine, unspecified formulation Maura DORSEY Work Phone: [facility] Payers Date Payer Category Payer Unknown FRONTPATH FRONTP ATH [id number] 2022-Present [address] [place] [address] [id number] 2017 Unknown [id number] 1995 Unknown [id number] 2..[id number] 3 1993 Unknown [id number] 2.840.1.010919.3.579.2.59 3 1993 Unknown [id number] 2.16.840.1.907382.3.579.2.59 3 1993 Unknown [id number] 2.16.840.1.117563.3.579.2.59 3 1993 Unknown [id number] 2.16.840.1.225661.3.579.2.59 3 1993 Unknown [id number] 2.16.840.1.211732.3.579.2.59 3 1993 Unknown [id number] 2.16.840.1.304635.3.579.2.59 3 1993 Unknown [id number] 2.16.840.1.533727.3.579.2.59 3 1993 Unknown [id number] 2.16.840.1.939509.3.579.2.59 3 1993 Unknown [id number] 2.16.840.1.977172.3.579.2.59 3 1993 Unknown [id number] 2.16.840.1.503892.3.579.2.12 59 1993 Unknown [id number] 2.16.840.1.381677.3.579.2.12 59 1993 Unknown [id number] 2.16.840.1.434030.3.579.2.12 59 1993 Unknown [id number] 2.16.840.1.768634.3.579.2.12 59 1993 Unknown [id number] 2.16.840.1.369228.3.579.2.12 59 1993 Unknown [id number] 2.16.840.1.207964.3.579.2.12 59 1993 Unknown [id number] 2.16.840.1.725151.3.579.2.12 59 1993 Unknown [id number] 2.16.840.1.298282.3.579.2.12 59 1959 Unknown [id number] Social History Date Type Detail Facility Unknown if ever smoked [facility] Other Start: 01-06-2023 End: 04-09-2023 Sex Assigned At [facility] Start: 01-06-2023 Tobacco smoking status MNIS Never smoked tobacco [facility] Start: 01-06-2023 Tobacco use and exposure Smokeless tobacco non-user [facility] Start: 06-21-2023 End: 06-29-2023 Alcohol intake Current drinker of alcohol (finding) [facility] Start: 01-06-2023 End: 11-17-2023 History of Social function [facility] How [...] Healthcare Start: 01-04-2023 Sexual orientation Heterosexual (finding) [facility] History of Present illness Narrative 06-29-[address] - 06/29/2023 3:00 PM EST Note Date & Type Note Facility 06-29-2023 History of Presen t illness Narrative Reason for Appointment: Patient ID: Yeimy Rodriguez is a 28 y.o. female who presents for Routine Visit Patient presents today for Return OB appointment. Current Medications: has a current medication list which includes the following prescription(s): doxylamine succinate (sleep), ondansetron, pantoprazole, vit w/qf-mmugmvipu-zm, and pyridoxine. Medical History: Active Ambulatory Problems [...] Rash Review of Systems: Review of Systems Objective OBGyn Exam Vitals: Estimated body mass index is 32.86 kg/m as calculated from the following: Height as of 12/11/22: 5' 8 . Weight as of this encounter: 216 lb 1.9 oz. BP: 116/70 Patient's last menstrual period was 10/11/2022 (exact date). Assessment/Plan Encounter Diagnosis Name Primary? Third trimester Patient presents today for a routine obstetrics appointment. Patient is currently 37w2d with a Estimated Date of Delivery: 07/18/23. Patient presents today for a routine obstetrics appointment. Patient is currently 37w2d . Patient states she is doing well but has complaints of being tired due to current . Patient has verbalizes frequent movement. labor precautions was discussed/given and patient was instructed to perform kick counts three times a day. Follow Up: Patient is to return to office in 1 week for routine OB appointment. Documented by WILLIAN Lane on behalf of: WILLIAN Lane documented in this encounter [facility] History of Present illness Narrative [...] prescription(s): doxylamine succinate (sleep), ondansetron, pantoprazole, vit w/[id number]-bexgwkdoy-tm, and pyridoxine. Medical History: Active Ambulatory Problems [...] reviewed, and patient is to proceed to [facility] OR on her scheduled day. Patient is to return in 1 week for scheduled routine OB appointment. Follow Up: Patient is to return to office in 1 week for routine OB apptment Documented by WILLIAN Lane on behalf of: WILLIAN Lane documented in this encounter [facility] Healthcare Evaluation note 10-05-2022 Note Date [...] of diseases classified elsewhere (ICD-10 - B96.89) [facility] Other Clinical Note 10-06-2021 Note Date & Type Note Facility 10-06-2021 Note [facility] [place], [place] NAME: YEIMY RODRIGUEZ DATE OF : MEDICAL REC#: [id number] DESKTOP SUPPORT TECHNICIAN: [address], TRANSADMIT DATE: 10/06/2021 05:30:00 EDUCATIONAL TECHNICIAN DATE: 10/06/2021 21:00 DICTATING PHYSICIAN: BABAR OLSEN DICTATION DATE: 10/06/2021 08:00 OPERATIVE NOTE OPERATION DATE: 10/06/2021 PROCEDURE: Repeat low transverse section. PREOPERATIVE DIAGNOSIS: 1. at 39 2/7 weeks. 2. Previous . POSTOPERATIVE DIAGNOSIS: 1. at 39 2/7 weeks. 2. Previous . ANESTHESIA: Spinal with Duramorph. SURGEON: Babar Olsen D.O. LAMINATOR PRINTED CIRCUIT BOARDS: LAUREN Ellison URINE OUTPUT: Yellow and clear. [...] Olsen DO on 10/07/2021 09:42 AM EDT IF Signed and Approved by: DR BABAR OLSEN . 10/07/2021 09:42:00 [facility] Discharge summary note 10-06-2021 Note Date & [...] by: DR BABAR OLSEN . 10/13/2021 07:35:00 [facility] Progress note 01-16-2021 Note Date & Type Note Facility 01-16-2021 Note HNO ID: [id number] Author: Aylin Gilliland PA-C Service: ? Author Type: Physician Technical Illustrator Type: Progress Notes Filed: 02/11/2021 9:16 PM Note Text: Consultation requested by Kali Alcantara [address] [facility] [address] Yeimy Honeycutt is a 25 year old [...] Aylin Gilliland, MS, PA-C [facility] [place] [facility] Progress note 01-16-2021 Note Date & Type Note Facility 01-16-2021 Note HNO ID: [id number] Author: RT Jalen(R) Service: Radiology Author Type: Corrosion Prevention Metal Sprayer Type: Progress Notes Filed: 01/16/2021 10:07 AM [...] RT Jalen(R) January 16, 2021 10:06 AM [facility] Evaluation note Note Date & Type Note Facility Evaluation note Diagnosis Third trimester state, incidental Third trimester state, incidental documented in this encounter [facility] Evaluation note Note Date & Type Note Facility Evaluation note Diagnosis Third trimester state, incidental documented in this [...] C section x2 Hospitalization History see above [facility] Other Summary Purpose Family History No Family History Records FoundNo Family History Records FoundNo Family History Records FoundNo Family History Records FoundNo Family History Records Found Advance Directives No Advanced Directives Records FoundNo Advanced Directives Records FoundNo Advanced Directives Records FoundNo Advanced Directives Records FoundNo Advanced Directives Records Found Additional Source Comments INFORMATION SOURCE (unrecogn ized section and content) DATE CREATED AUTHOR 11/25/2017 [facility] DATE CREATED AUTHOR AUTHOR'S ORGANIZ ATION 05/12/[address] [facility] DATE CREATED AUTHOR AUTHOR'S ORGANIZ ATION 07/12/2021 [facility] DATE CREATED AUTHOR AUTHOR'S ORGANIZ ATION 09/23/2022 [facility] DATE CREATED AUTHOR AUTHOR'S ORGANIZ ATION 06/30/2023 [facility] EPIC REASON FOR VISIT (unrecogniz ed section and content) Reason Comments Routine Visit Care Teams (unrecognized sec tion and content) Ladle Handler Relationship Specialty Start Date End Date Fern Martinez MD [address] [place] [address] PCP - General Family Medicine 12/11/22 Ladle Handler Relationship Specialty Start Date End Date Fern Martinez MD [address] [place] [address] PCP - General Family Medicine 12/11/22 FOR [...] BE BASED ON THE PRIMARY CLINICAL RECORDS. [employer] [facility]. provides no warranty or guarantee of the accuracy or completeness of information in this document.
--- NOTE | 2023-07-01 15:32 | PC.NURSE ---
PATIENT NST COMPLETED ON THONG MONITOR AND PAPER TRACING FOR NST TODAY
== END 2023-07-01 15:50 | disposition home or self-care (01) ==
LOC: FBCO 08:27 → FBC 15:06
PROVIDERS: PCP Student in an Organized Health Care Education/Training Program; Visit Provider Obstetrics & Gynecology
DX: O26.843 Uterine size-date discrepancy, third trimester (principal); Z87.59 Personal history of other complications of pregnancy, childbirth and the puerperium
CPT/HCPCS: 59025

== ENCOUNTER 2023-07-05 07:32 | Outpatient (OUT) | payer OTHER, SELFPAY ==
--- OUTSIDE RECORDS SUMMARY | 2023-07-05 07:36 | XMS_ITS | CCD ---
Author Name Unknown Address [address] [place] [address] Organization [facility] Care Team Providers Care Drone Operator Name Role Phone SIMRAN DUONG Unavailable Unavailable [facility] Primary Care Unavailable ANNMARIE ., DR ECKERT Consulting Unavailable ANNMARIE ., DR ECKERT Attending Unavailable ANNMARIE ., DR ECKERT Procedure Practitioner Unavail able ANNMARIE ., DR ECKERT Admitting Unavailable ANNAMARIAUBBASHIR EDA Consulting Unavailable ARLETTE MARROQUIN Consulting Unavailable KARASIK ., DR SCOTT Admitting Unavailabl e KARASIK ., DR SCOTT Consulting Unavailabl e ROSETTE, HORNITOS Primary Care Unavailable KARASIK ., DR SCOTT Attending Unavailabl e ANNMARIE ., DR ECKERT Admitting [facility] Unavailable ANNMARIE ., DR ECKERT Consulting Unavailable ANNMARIE ., DR ECKERT Attending Unavailable KARASIK ., DR SCOTT Attending Unavailabl e KARASIK ., DR SCOTT Admitting Unavailabl e KARASIK ., DR SCOTT Consulting Unavailabl e ROSETTE, HORNITOS Primary Care Unavailable WEST, DR PJ Araujo Consulting Unavailable ANNMARIE ., DR ECKERT Consulting Unavailable KARASIK ., DR SCOTT Attending Unavailabl e KARASIK ., DR SCOTT Admitting Unavailabl e KARASIK ., DR SCOTT Consulting Unavailabl e ROSETTE, HORNITOS Primary Care Unavailable ANNMARIE ., DR ECKERT Consulting Unavailable Policaro, Samira Consulting Unavailable ROSETTE, HORNITOS Primary Care Unavailable TONNY CARBALLO Attending Unavailable TONNY CARBALLO Admitting Unavailable ROSETTE, HORNITOS Primary Care Unavailable ANNMARIE ., DR ECKERT Attending Unavailable ANNMARIE ., DR ECKERT Consulting Unavailable ANNMARIE ., DR ECKERT Admitting Unavailable ROSETTE, HORNITOS Primary Care Unavailable ANNMARIE ., DR ECKERT Attending Unavailable ANNMARIE ., DR ECKERT Admitting Unavailable ROSETTE, HORNITOS Primary Care Unavailable ANNMARIE ., DR ECKERT Attending Unavailable ANNMARIE ., DR ECKERT Admitting Unavailable ANNMARIE ., DR ECKERT Consulting Unavailable ROSETTE, HORNITOS Primary Care Unavailable ANNMARIE ., DR ECKERT [...] Reaction(s) Facility (1 source) Chlorhexidine Drug Allergy [facility] Repository (1 source) Sulfamethoxazole / Trimethoprim Drug Allergy [facility] Repository (5 sources) Chlorhexidine Drug Allergy 12-29-19 19 hives, Itching [facility] Work Phone: (5 sources) Sulfamethoxazole / Trimethoprim Drug Allergy 05-18-20 19 hives, Rash, Swelling, Unknown [facility] Other (1 source) Darvocet-N 50 Drug allergy vomiting [facility] Other (4 sources) Sulfamethoxazole Propensity to adverse reactions 10-11-19 10 Rash [facility] (4 sources) Trimethoprim Drug Allergy 12-12-19 23 Rash [facility] (4 sources) Other Allergy to substance 04-26-20 23 GI intolerance [facility] Medications Current Medications Medication Drug Class(es) [...] 30 tablet 11 11/25/2022 11/25/2023 Active Vit w/Th-Vjysfhknz-TR (PNV PO) (4 sources) Vit w/Jr-Bozjrlidu-FI (PNV PO) Take by mouth. 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] Onset: 10-13-2021 Episodic Other [...] applicable or unspecified; Translations: [MAT CARE OT MS FTL GRTH 3RD TM UNS] Onset: 10-04-2021 [...] UA Negative Negative - 4(70) +++ mg/dL [facility] Blood, UA Negative Negative - 50 Tyrese/mcL [facility] Healthcare Clarity, UA Clear [facility] re Color, UA Yellow [facility] Healthcar e Glucose, UA Negative Negative - 1999(110) ++++ mg/dL [facility] Interpretation and review of laboratory results Normal [facility] Ketones, UA Negative Negative - 160(16) ++++ mg/dL [facility] Leukocytes, UA Negative Negative - 500+++ Antonio/mcL [facility] Nitrite, UA Negative Negative - Positive [facility] pH, UA 7.0 5 - 9 [facility] Health[facility] e Protein, UA Negative Negative - 1999(20) ++++ mg/dL [facility] Spec Grav, UA 1.015 1 - 1.03 [facility] Urobilinogen, UA 0.2 0.2 - 12 mg/dL [facility] Urinalysis macro (dipstick) panel (U)on 06-24-2023 Bilirubin, UA Negative Negative - 4(70) +++ mg/dL [facility] Blood, UA Negative Negative - 50 Tyrese/mcL [facility] Healthcare Clarity, UA Clear [facility] re Color, UA Yellow [facility] e Glucose, UA Negative Negative - 1999(110) ++++ mg/dL [facility] Interpretation and review of laboratory results Normal [facility] Ketones, UA Negative Negative - 160(16) ++++ mg/dL [facility] Leukocytes, UA Negative Negative - 500+++ Antonio/mcL [facility] Nitrite, UA Negative Negative - Positive [facility] pH, UA 5.5 5 - 9 [facility] e Protein, UA Negative Negative - 1999(20) ++++ mg/dL [facility] Spec Grav, UA 1.020 1 - 1.03 [facility] Urobilinogen, UA 1.0 0.2 - 12 mg[facility] Quick Strepon 10-05-2022 S. pyogenes Org specific cx Ql (Throat) Negative [facility] [employer] Other Quick Strep [facility] [employer] Other PAP ACOG PANEL 2: 21 to 29on 04-24-2022 . . [facility] Comment on above: Performed By: #### [id number] #### [facility] [address] [place] [address] Dr. Winifred Silver Age Gdln ACOG Testing - [facility] Comment on above: Performed By: #### [id number] #### [facility] [address] [place] [address] Dr. Winifred Silver DIAGNOSIS: Comment [facility] Comment on above: Result Comment: NEGA TIVE FOR INTRAEPITHELIAL LESION OR MALIGNANCY. Performed By: #### [id number] #### [facility] [address] [place] [address] Dr. Winifred Silver Methodology: Comment [facility] Comment on above: Result Comment: This liquid based ThinPrep(R) pap test was screened with the use of an image guided system. Performed By: #### [id number] #### [facility] [address] [place] [address] Dr. Winifred Silver Note: Comment [facility] Comment on above: Result Comment: The Pap smear is a screening test designed to aid in the detection of premalignant and malignant conditions of the uterine cervix. It is not a diagnostic procedure and should not be used as the sole means of detecting cervical cancer. Both false-positive and false-negative reports do occur. . Performed By: #### [id number] #### [facility] [address] [place] [address] Dr. Winifred Silver Performed by: Comment [facility] Comment on above: Result Comment: [employer] (ASCP) Performed By: #### [id number] #### [facility] [address] [place] [address] Dr. Winifred Silver Reflex Criteria: Comment Normal [facility] Comment on above: Result Comment: The HPV DNA reflex criteria were not met with this specimen result therefore, no HPV testing was performed. . Performed By: #### 4 [id number] #### [facility] [address] [place] [address] Dr. Winifred Silver Specimen adequacy: Comment Normal [facility] Comment on above: Result Comment: Sati sfactory for evaluation. Endocervical and/or squamous metaplastic cells (endocervical component) are present. Performed By: #### 4 [id number] #### [facility] [address] [place] [address] Dr. Winifred Silver CBC AUTO DIFFon 10-07-2021 BASO # 0.1 103/ul Normal 0.0-0.1 [facility] Comment on above: Performed By: #### C BC ####[facility] [address] [place] [address]Dr. Winifred Silver Basophils/100 WBC (Bld) 0.6 % Normal 0.2-2.0 [facility] Comment on above: Performed By: #### C BC ####[facility] [address] [place], [place] [address]DrDarius Silver EO # 0.3 103/ul Normal 0.0-0.7 [facility] Comment on above: Performed By: #### C BC ####[facility] [address] [place] [address]DrDarius Silver Eosinophils/100 WBC (Bld) 2.6 % Normal 0.9-7.0 [facility] Comment on above: Performed By: #### C BC ####[facility] [address] [place] [address]DrDarius Silver Erythrocyte distribution width (RBC) [Ratio] 13.1 % Normal 11.0-15.0 [facility] Comment on above: Performed By: #### C BC ####[facility] [address] [place] [address]Dr. Winifred Silver Hematocrit (Bld) [Volume fraction] 26.6 % Critically low 36.0-48.0 [facility] Comment on above: Performed By: #### C BC ####[facility] [address] [place] [address]Dr. Winifred Nadeem Hemoglobin (Bld) [Mass/Vol] 8.7 g/dL Critically low 12.0-16.0 [facility] Comment on above: Performed By: #### C BC ####[facility] [address] [place], [place] [address]Dr. Winifred Nadeem IG # 0.04 10e3/ul Critically high 0.00-0.03 [facility] Comment on above: Performed By: #### C BC ####[facility] [address] [place], [place] [address]Dr. Winifred Silver IG % 0.4 % Normal 0.0-0.5 [facility] Comment on above: Performed By: #### C BC ####[facility] [address] [place], [place] [address]Dr. Jolenedaylin Silver LYMPH # 1.4 103/ul Normal 1.2-3.8 [facility] Comment on above: Performed By: #### C BC ####[facility] [address] [place], [place] [address]Dr. Jolenedaylin Silver Lymphocytes/100 WBC (Bld) 13.8 % Critically low 20.5-60.0 [facility] Comment on above: Performed By: #### C BC ####[facility] [address] [place], [place] [address]Dr. Jolenedaylin Silver MANUAL DIFF REQ NO Normal [facility] Comment on above: Performed By: #### C BC ####[facility] [address] [place], [place] [address]DrDarius Jolenedaylin Silver MCH (RBC) [Entitic mass] 29.6 pg Normal 26.7-34.0 [facility] Comment on above: Performed By: #### C BC ####[facility] [address] [place] [id number]. Winifred Silver MCHC (RBC) [Mass/Vol] 32.7 g/dL Normal 29.9-35.2 [facility] Comment on above: Performed By: #### C BC ####[facility] [address] [place] [id number]. Winifred Silver MCV (RBC) [Entitic vol] 90.5 fL Normal 81.0-99.0 [facility] Comment on above: Performed By: #### C BC ####[facility] [address] [place] [address]Dr. Winifred Silver MONO # 0.6 103/ul Normal 0.3-0.8 [facility] Comment on above: Performed By: #### C BC ####[facility] [address] [place], [place] [address]Dr. Winifred Silver Monocytes/100 WBC (Bld) 6.1 % Normal 1.7-12.0 [facility] Comment on above: Performed By: #### C BC ####[facility] [address] [place], [place] [address]Dr. Winifred Silver NEUT # 7.8 103/ul Critically high 1.4-6.5 [facility] Comment on above: Performed By: #### C BC ####[facility] [address] [place], [place] [address]Dr. Winifred Silver Neutrophils/100 WBC (Bld) 76.5 % Critically high 43.0-75.0 [facility] Comment on above: Performed By: #### C BC ####[facility] [address] [place], [place] [address]Dr. Winifred Silver Platelet mean volume (Bld) [Entitic vol] 10.5 fL Normal 9.5-13.5 [facility] Comment on above: Performed By: #### C BC ####[facility] [address] [place], [place] [address]Dr. Winifred Silver PLT 147 103/ul Critically low 150-450 [facility] Comment on above: Performed By: #### C BC ####[facility] [address] [place], [place] [address]InDr. Winifred Silver RBC 2.94 106/ul Critically low 4.20-5.40 [facility] Comment on above: Performed By: #### C BC ####[facility] [address] [place], [place] [address]GfDr. Winifred Silver WBC 10.2 103/ul Normal 4.0-11.0 [facility] Comment on above: Performed By: #### C BC ####[facility] [address] [place], [place] [address]DdDarius Silver CBC AUTO DIFFon 10-06-2021 BASO # 0.0 103/ul Normal 0.0-0.1 [facility] Comment on above: Performed By: #### C BC #### [facility] [address] [place] [address] [address] Winifred Silver Basophils/100 WBC (Bld) 0.3 % Normal 0.2-2.0 [facility] Comment on above: Performed By: #### C BC #### [facility] [address] [place] [address] [address] Winifred Silver EO # 0.1 103/ul Normal 0.0-0.7 [facility] Comment on above: Performed By: #### C BC #### [facility] [address] [place] [address] [address] Winifred Silver Eosinophils/100 WBC (Bld) 1.4 % Normal 0.9-7.0 [facility] Comment on above: Performed By: #### C BC #### [facility] [address] [place] [address] [address] Winifred Silver Erythrocyte distribution width (RBC) [Ratio] 13.0 % Normal 11.0-15.0 [facility] Comment on above: Performed By: #### C BC #### [facility] [address] [place] [address] [address] Winifred Silver Hematocrit (Bld) [Volume fraction] 32.3 % Critically low 36.0-48.0 [facility] Comment on above: Performed By: #### C BC #### [facility] [address] [place] [address] [address] Winifred Silver Hemoglobin (Bld) [Mass/Vol] 10.6 g/dL Critically low 12.0-16.0 [facility] Comment on above: Performed By: #### C BC #### [facility] [address] [place] [address] [address] Winifred Silver IG # 0.05 10e3/ul Critically high 0.00-0.03 [facility] Comment on above: Performed By: #### C BC #### [facility] [address] [place] [address] [address] Winifred Silver IG % 0.5 % Normal 0.0-0.5 [facility] Comment on above: Performed By: #### C BC #### [facility] [address] [place] [address] [address] Winifred Silver LYMPH # 1.5 103/ul Normal 1.2-3.8 [facility] Comment on above: Performed By: #### C BC #### [facility] [address] [place] [address] [address] Winifred Silver Lymphocytes/100 WBC (Bld) 14.6 % Critically low 20.5-60.0 [facility] Comment on above: Performed By: #### C BC #### [facility] [address] [place] [address] [address] Winifred Silver MANUAL DIFF REQ NO Normal [facility] Comment on above: Performed By: #### C BC #### [facility] [address] [place] [address] [address] Winifred Silver MCH (RBC) [Entitic mass] 29.4 pg Normal 26.7-34.0 [facility] Comment on above: Performed By: #### C BC #### [facility] [address] [place] [address] [address] Winifred Silver MCHC (RBC) [Mass/Vol] 32.8 g/dL Normal 29.9-35.2 [facility] Comment on above: Performed By: #### C BC #### [facility] [address] [place] [address] [address] Winifred Silver MCV (RBC) [Entitic vol] 89.7 fL Normal 81.0-99.0 [facility] Comment on above: Performed By: #### C BC #### [facility] [address] [place] [address] Dr. Winifred Silver MONO # 0.7 103/ul Normal 0.3-0.8 [facility] Comment on above: Performed By: #### C BC #### [facility] [address] [place] [address] Dr. Winifred Silver Monocytes/100 WBC (Bld) 6.5 % Normal 1.7-12.0 [facility] Comment on above: Performed By: #### C BC #### [facility] [address] [place] [address] Dr. Winifred Silver NEUT # 7.7 103/ul Critically high 1.4-6.5 [facility] Comment on above: Performed By: #### C BC #### [facility] [address] [place] [address] Dr. Winifred Silver Neutrophils/100 WBC (Bld) 76.7 % Critically high 43.0-75.0 [facility] Comment on above: Performed By: #### C BC #### [facility] [address] [place] [address] Dr. Winifred Silver Platelet mean volume (Bld) [Entitic vol] 11.1 fL Normal 9.5-13.5 [facility] Comment on above: Performed By: #### C BC #### [facility] [address] [place] [address] Dr. Winifred Silver PLT 204 103/ul Normal 150-450 [facility] Comment on above: Performed By: #### C BC #### [facility] [address] [place] [address] Dr. Winifred Silver RBC 3.60 106/ul Critically low 4.20-5.40 [facility] Comment on above: Performed By: #### C BC #### [facility] [address] [place] [address] Dr. Winifred Silver WBC 10.0 103/ul Normal 4.0-11.0 [facility] Comment on above: Performed By: #### C BC #### [facility] [address] [place] [address] Dr. Winifred Silver DRUG SCREEN RAPID (URINE)on 10-06-2021 AMP Negative Normal NEGATIVE [facility] Comment on above: Performed By: #### D RUGRPD #### [facility] [address] [place] [address] Dr. Winifred Silver BAR Negative Normal NEGATIVE [facility] Comment on above: Performed By: #### D RUGRPD #### [facility] [address] [place] [address] Dr. Winifred Silver BUP Negative Normal NEGATIVE [facility] Comment on above: Performed By: #### D RUGRPD #### [facility] [address] [place] [address] Dr. Winifred Silver BZO Negative Normal NEGATIVE [facility] Comment on above: Performed By: #### D RUGRPD #### [facility] [address] [place] [address] Dr. Winifred Silver TIN Negative Normal NEGATIVE [facility] Comment on above: Performed By: #### D RUGRPD #### [facility] [address] [place] [address] Dr. Winifred Silver CUT-OFFS SEE BELOW Normal [facility] Comment on above: Result Comment: AMP [...] ng/mL Performed By: #### D RUGRPD #### [facility] [address] [place] [address] Dr. Winifred Silver DRUG CUT HEADER DRUG CLASS TEST SYST EM CUT-OFF CONCENTRATIONS ARE FOLLOWS: Normal [facility] Comment on above: Performed By: #### D RUGRPD #### [facility] [address] [place] [address] Dr. Winifred Silver mAMP Negative Normal NEGATIVE [facility] Comment on above: Performed By: #### D RUGRPD #### [facility] [address] [place] [address] [address] Winifred Silver MTD Negative Normal NEGATIVE [facility] Comment on above: Performed By: #### D RUGRPD #### [facility] [address] [place] [address] Dr. Winifred Silver OPI Negative Normal NEGATIVE [facility] Comment on above: Performed By: #### D RUGRPD #### [facility] [address] [place] [address] [address] Winifred Silver OXY Negative Normal NEGATIVE [facility] Comment on above: Performed By: #### D RUGRPD #### [facility] [address] [place] [address] Dr. Winifred Silver PCP Negative Normal NEGATIVE [facility] Comment on above: Performed By: #### D RUGRPD #### [facility] [address] [place] [address] Dr. Winifred Silver PPX Negative Normal NEGATIVE [facility] Comment on above: Performed By: #### D RUGRPD #### [facility] [address] [place] [address] Dr. Winifred Silver TCA Negative Normal NEGATIVE [facility] Comment on above: Performed By: #### D RUGRPD #### [facility] [address] [place] [address] Dr. Winifred Silver THC Negative Normal NEGATIVE [facility] Comment on above: Performed By: #### D RUGRPD #### [facility] [address] [place] [address] Dr. Yilan Silver TYPE AND SCREENon 10-06-2021 TYPE AND SCREEN Negative Normal [facility] Comment on above: Performed By: #### T NS #### [facility] [address] [place] [address] Dr. Winifred Silver UA (CLEAN/CATCH) RINKMAN/MICRO I F IND.on 10-06-2021 Bilirubin Ql (U) Negative Normal NEGATIVE [facility] Comment on above: Performed By: #### U ACSIND #### [facility] [address] [place] [address] [address] Winifred Silver Clarity (U) CLEAR Normal CLEAR [facility] Comment on above: Performed By: #### U ACSIND #### [facility] [address] [place] [address] Dr. Winifred Silver Color (U) LT. YELLOW Normal YELLOW [facility] Comment on above: Performed By: #### U ACSIND #### [facility] [address] [place] [address] Dr. Winifred Silver Glucose Ql (U) Negative Normal NEGATIVE [facility] Comment on above: Performed By: #### U ACSIND #### [facility] [address] [place] [address] Dr. Winifred Silver Hemoglobin Ql (U) Negative Normal NEGATIVE [facility] Comment on above: Performed By: #### U ACSIND #### [facility] [address] [place] [address] Dr. Winifred Silver Ketones Ql (U) Negative Normal NEGATIVE [facility] Comment on above: Performed By: #### U ACSIND #### [facility] [address] [place] [address] Dr. Winifred Silver LEUKOCYTES Negative Normal NEGATIVE [facility] Comment on above: Performed By: #### U ACSIND #### [facility] [address] [place] [address] Dr. Winifred Silver Nitrite Ql (U) Negative Normal NEGATIVE [facility] Comment on above: Performed By: #### U ACSIND #### [facility] [address] [place] [address] Dr. Winifred Silver pH (U) 6.0 [pH] Normal 5-9 [facility] Comment on above: Performed By: #### U ACSIND #### [facility] [address] [place] [address] Dr. Winifred Silver SPEC GRAVITY 1.025 Normal 1.005-<=1.[address] [facility] Comment on above: Performed By: #### U ACSIND #### [facility] [address] [place] [address] Dr. Winifred Silver UA PROTEIN Negative Normal NEGATIVE/ TRACE [facility] Comment on above: Performed By: #### U ACSIND #### [facility] [address] [place] [address] Dr. Winifred Silver UR MICRO IND NOT INDICATED Normal [facility] Comment on above: Performed By: #### U ACSIND #### [facility] [address] [place] [address] Dr. Winifred Silver Urobilinogen Qn (U) 0.2 {Fredrick'U}/dL Normal 0.2 - 1.0 [facility] Comment on above: Performed By: #### U ACSIND #### [facility] [address] [place] [address] Dr. Winifred Silver Covid-19 PCR ([facility])on 09-21 SARS-CoV-2 (COVID-19) RNA JENARO+probe Ql (Unsp spec) Not detected Normal NOT DETECTED [facility] Comment on above: Result Comment: This test is not yet approved or cleared by the [place] FDA. When there are no FDA-approved or cleared tests available, and other criteria are met, FDA can make tests available under an emergency access mechanism called an Emergency Use Authorization (EUA). The EUA for this test is supported by the [place] of Health and Human Service's (HHS's) declaration [...] SARS-CoV-2. Performed By: #### C TB #### [facility] [address] [place] [address] Dr. Winifred Silver US PREG GROWTHon 10-01-2021 [...] by: SAMIRA VELA Date: 2021-10-01 19:[address] [facility] US PREG BIOPHY W NON STRESSo [...] by: PJ SAM Date: 2021-09-25 07:[address] [facility] CNOVon 01-16-2021 CNOV Office Visit (ORTHMN ) ----- YEIMY HONEYCUTT ([id number]) 1995 F Date Time Provider Department 01/16/21 10:20 AM AYLIN GILLILAND During your visit today, we recorded the following information about you: Weight Height 77.1 kg 1.727 m Aylin Gilliland PA-C 02/11/2021 9:16 PM Signed Consultation requested by Kali Alcantara [address] [facility] [address] Yeimy Honeycutt is a 25 year old [...] Aylin Gilliland, MS, PA-C Orthopaedic and Rheumatologic [place] Referring Provider: KALI ALCANTARA [[id number]] Allergies As of Date: 01/16/2021 Noted Allergy Reaction BACTRIM (SULFAMETHOXAZOLE) 10/10/2009 2 - Rash CHLORHEXIDINE GLUCONATE 12/28/2018 9 - Itching Date Reviewed: 01/16/2021 Reviewed by: Nakia Luna Ma - Fully Assessed Reason for Visit: Pain, Back [855] Primary Visit Diagnosis:Strain (more content not included)... [facility] XR LUMBAR 3V AP/LAT/L5-S1on 01-16-2021 XR [...] bony abnormality or significant disc height loss. Screen Tacker: TERESITA Transcribe Date/Time: Jan 16 2021 12:34P Dictated by : CARLTON MATTHEWS MD This examination was interpreted and the report reviewed and electronically signed by: CARLTON MATTHEWS MD on Jan 16 2021 12:35PM EST [id number] [facility] CNPYisel 01-07-2021 [facility] ----- YEIMY HONEYCUTT ([id number]) 1995 F Date Time Provider Department 01/07/21 AYLIN GILLILAND [facility] During your visit today, we recorded [...] Encounter Status:Closed by AYLIN GILLILAND on 01/07/21 [facility] Coding Summary.on 05-18-2018 Coding Summary. CODING DATE: 018 FINAL [facility] STATUS: Home (Routine DC) PAYOR: Desmond [...] Nino CphT Date Saved: 05/18/2018 08:52 am [facility] US Breast Unilateral Rt Comp leteon 05-16-2018 [...] Signature): 05/16/2018 8:43 am Signed by: Itzel Mracano MD Transcribed by: KALIN Technologist: EULALIO Normal [facility] XR CHEST (2 VW)on 08-14-2017 XR CHEST (2 VW) EXAMINATION: XR CHES T (2 VW)CLINICAL HISTORY: chest pain COMPARISONS: None available.FINDINGS: Cardiac size and pulmonary vascularity are normal. The lungs are clear. There is no evidence of adenopathy. The bones are unremarkable.IMPRESSION: NORMAL CHEST RADIOGRAPHSInterpreted by:ARIAN Harrisigned by:Troy Rueda MD08/14/17inal result Normal [facility] Vital Signs Date Time Vital Sign Value Performing Clinician Facility 06-29-2023 15:19-0500 Body mass index (BMI) [Ratio] 32.86 kg/m2 Maura DORSEY Work Phone: [facility] 06-29-2023 15:19-0500 Body weight 98.03 kg Maura DORSEY Work Phone: [facility] 06-29-2023 15:19-0500 Diastolic blood pressure 70 mm[Hg] Maura DORSEY Work Phone: [facility] 06-29-2023 15:19-0500 Systolic blood pressure 116 mm[Hg] Maura DORSEY Work Phone: [facility] 06-22-2023 15:16-0500 Body mass index (BMI) [Ratio] 32.84 kg/m2 Maura DORSEY Work Phone: [facility] 06-22-2023 15:16-0500 Body weight 97.98 kg Maura DORSEY Work Phone: [facility] 06-22-2023 15:16-0500 Diastolic blood pressure 72 mm[Hg] Maura DORSEY Work Phone: [facility] 06-22-2023 15:16-0500 Systolic blood pressure 112 mm[Hg] Maura DORSEY Work Phone: [facility] 10-05-2022 13:25-0400 Body height 172.72 cm Arlette Hermanmond Other [facility] 10-05-2022 13:25-0400 Body mass index (BMI) [Ratio] 28.86 kg/m2 Arlette Ffoana Other [facility] 10-05-2022 13:25-0400 Body temperature 98.2 [degF] Arlette Fofana Other [facility] 10-05-2022 13:25-0400 Body weight 86.09 kg Arlette Fofana Other [facility] 10-05-2022 13:25-0400 Respiratory rate 18 /min Arlette Hermanmond Other [facility] 10-05-2022 13:25-0400 SaO2% (BldA) [Mass fraction] 99 % Arlette Fofana Other [facility] Other Encounters Encounter Date Encounter Type Care Provider Facility Start: 06-29-2023 End: 06-29-2023 ambulatory MAURA JOSEPH Not Available Start: 06-29-2023 End: 06-29-2023 flow sheet Maura DORSEY Work Phone: [facility] Comment on above: Third trimester [...] 10-05-2022 End: 10-05-2022 ambulatory Arlette Fofana Other [facility] Start: 10-05-2022 Office outpatient vi sit 15 minutes Arlette Fofana [facility] Start: 07-20-2022 End: 08-28-2022 ambulatory KAREN ROSETTE Facility:[facility] Start: 04-15-2022 End: 04-15-[address] BABAR OLSEN . Facility:[facility] Start: 10-23-2021 End: 11-12-2021 ambulatory KAREN ROSETTE Facility:[facility] Start: 10-16-2021 End: 10-16-2021 ambulatory KAREN ROSETTE Facility:[facility] Start: 10-08-2021 Encounter for preprocedural laboratory examination DR BABAR OLSEN . [facility] Start: 10-06-2021 End: 10-09-2021 Evaluation and [...] 08-14-2017 Emergency department patient visit SIMRAN DUONG [facility] Procedures Date Procedure Procedure Detail Performing [...] [facility] [address] [place] [id number] Babar Olsen, DO [address] [place], [place] [id number] [facility] Start: 06-29-2023 End: 06-29-2023 Patient encounter procedure 06/29/2023 3:00 PM EST Routine [facility] [address] [place] [id number] Maura Joseph PA [address] [place] [address] [place] [address] Third trimester [facility] Comment on [...] Payer Category Payer Unknown FRONTPATH FRONTP ATH [id number] 2022-Present [address] [place] [address] [id number] 2017 Unknown [id number] 1995 Unknown [id number] 2..840.1.783745.3.579.2.59 3 1993 Unknown [id number] 2.840.1.062663.3.579.2.59 3 1993 Unknown [id number] 2.16.840.1.031073.3.579.2.59 3 1993 Unknown [id number] 2.16.840.1.384645.3.579.2.59 3 1993 Unknown [id number] 2.16.840.1.872618.3.579.2.59 3 1993 Unknown [id number] 2.16.840.1.200245.3.579.2.59 3 1993 Unknown [id number] 2.16.840.1.608661.3.579.2.59 3 1993 Unknown [id number] 2.16.840.1.024631.3.579.2.59 3 1993 Unknown [id number] 2.16.840.1.774344.3.579.2.59 3 1993 Unknown [id number] 2.16.840.1.510960.3.579.2.59 3 1993 Unknown [id number] 2.16.840.1.123870.3.579.2.12 59 1993 Unknown [id number] 2.16.840.1.071714.3.579.2.12 59 1993 Unknown [id number] 2.16.840.1.783561.3.579.2.12 59 1993 Unknown [id number] 2.16.840.1.931342.3.579.2.12 59 1993 Unknown [id number] 2.16.840.1.999070.3.579.2.12 59 1993 Unknown [id number] 2.16.840.1.299516.3.579.2.12 59 1993 Unknown [id number] 2.16.840.1.504471.3.579.2.12 59 1993 Unknown [id number] 2.16.840.1.200322.3.579.2.12 59 1959 Unknown [id number] Social History Date Type Detail Facility Unknown if ever smoked [facility] Start: 01-06-2023 End: 04-09-2023 Sex Assigned At [facility] Start: 01-06-2023 Tobacco smoking status RIIS Never smoked tobacco [facility] Start: 01-06-2023 [...] prescription(s): doxylamine succinate (sleep), ondansetron, pantoprazole, vit w/ck-lwpvxeshz-ul, and pyridoxine. Medical History: Active Ambulatory Problems [...] prescription(s): doxylamine succinate (sleep), ondansetron, pantoprazole, vit w/yg-hdibcpsuf-hc, and pyridoxine. Medical History: Active Ambulatory Problems [...] reviewed, and patient is to proceed to [facility] OR on her scheduled day. Patient is to return in 1 week for scheduled routine OB appointment. Follow Up: Patient is to return to office in 1 week for routine OB apptment Documented by WILLIAN Lane on behalf of: WILLIAN Lane documented in this encounter [facility] Evaluation note 10-05-2022 Note Date [...] of diseases classified elsewhere (ICD-10 - B96.89) [facility] Clinical Note 10-06-2021 Note Date & Type Note Facility 10-06-2021 Note [facility] [place], [place] NAME: YEIMY RODRIGUEZ DATE OF : MEDICAL REC#: [id number] DIRECTOR OF SUPPLY CHAIN: [address], TRANSADMIT DATE: 10/06/2021 05:30:00 SUBSTATION MAINTENANCE TECHNICIAN DATE: 10/06/2021 21:00 DICTATING PHYSICIAN: BABAR OLSEN DICTATION DATE: 10/06/2021 08:00 OPERATIVE NOTE OPERATION DATE: 10/06/2021 PROCEDURE: Repeat low transverse section. PREOPERATIVE DIAGNOSIS: 1. at 39 2/7 weeks. 2. Previous . POSTOPERATIVE DIAGNOSIS: 1. at 39 2/7 weeks. 2. Previous . ANESTHESIA: Spinal with Duramorph. SURGEON: Babar Olsen D.O. CLINICAL DATA MANAGEMENT MANAGER: LAUREN Ellison URINE OUTPUT: Yellow and clear. [...] by: DR BABAR OLSEN . 10/07/2021 09:42:00 [facility] Discharge summary note 10-06-2021 Note Date [...] by: DR BABAR OLSEN . 10/13/2021 07:35:00 [facility] Progress note 01-16-2021 Note Date & Type Note Facility 01-16-2021 Note HNO ID: [id number] Author: Aylin Gilliland PA-C Service: ? 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 Type: Progress Notes Filed: 01/16/2021 10:07 AM [...] RT Jalen(R) January 16, 2021 10:06 [facility] note Note Date & Type Note [...] C section x2 Hospitalization History see above [facility] Other Summary Purpose Family History No Family History Records FoundNo Family History Records FoundNo Family History Records FoundNo Family History Records FoundNo Family History Records Found Advance Directives No Advanced Directives Records FoundNo Advanced Directives Records FoundNo Advanced Directives Records FoundNo Advanced Directives Records FoundNo Advanced Directives Records Found Additional Source Comments INFORMATION SOURCE (unrecogn ized section and content) DATE CREATED AUTHOR 11/25/2017 [facility] DATE CREATED AUTHOR AUTHOR'S ORGANIZ ATION 05/12/2019 [facility] DATE CREATED AUTHOR AUTHOR'S ORGANIZ ATION 07/12/2021 [facility] DATE CREATED AUTHOR AUTHOR'S ORGANIZ ATION 09/23/2022 [facility] DATE CREATED AUTHOR AUTHOR'S ORGANIZ ATION 06/30/2023 [facility] dical Specialists EPIC REASON FOR VISIT (unrecogniz ed section and content) Reason Comments Routine Visit Care Teams (unrecognized sec tion and content) 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 [facility] [facility]. provides no warranty or guarantee of the accuracy or completeness of information in this document.
--- NOTE | 2023-07-05 15:05 | US_ITS ---
[address] [address] Patient Name: OLIVIA RODRIGUEZ MRN: [id number] date: 1995 Sex: F Assigned Patient Location: US Current Patient Location: Accession/Order Number: [id number] Exam Date: 07/05/2023 15:06 Report Date: 07/06/2023 07:09 At the request of: BABAR ANGUIANO Procedure: US OB BPP w non-stress EXAMINATION: US OB BPP w non-stress HISTORY: HISTORY OF PRIOR WITH SGA Z87.59 COMPARISON: No relevant comparison available. TECHNIQUE: Ultrasound biophysical profile was performed in the radiology department. FINDINGS: BREATHING MOVEMENTS: 2 GROSS BODY MOVEMENTS: 2 TONE: 2 QUALITATIVE AMNIOTIC FLUID VOLUME: 2 PRESENTATION: CEPHALIC HEART RATE: 141.4 bpm H.B./min AMNIOTIC FLUID VOLUME: 18.4 cm cm GESTATIONAL AGE: 38 weeks 1 days CONCLUSION: Total biophysical profile score: 8 Electronically authenticated by: PJ SAM Date: 07/06/2023 07:09
--- NOTE | 2023-07-05 15:06 | US_ITS ---
[address] [address] Patient Name: OLIVIA RODRIGUEZ MRN: [id number] date: 1995 Sex: F Assigned Patient Location: Current Patient Location: Accession/Order Number: [id number] Exam Date: 07/05/2023 15:06 Report Date: 07/06/2023 07:12 At the request of: BABAR ANGUIANO Procedure: US OB umbilical artery EXAMINATION: US OB umbilical artery HISTORY: HISTORY OF PRIOR WITH SGA Z87.59 COMPARISON: No relevant comparison available. TECHNIQUE: Duplex Doppler evaluation of the umbilical arteries. FINDINGS: position: Cephalic presentation, longitudinal lie Amniotic fluid volume: 18.5 cm, normal. Largest fluid pocket: 6.4 cm Heart rate: 141 bpm Proximal umbilical artery PSV/EDV: 67/32 cm/s. Resistive index 0.52. Ratio 2.1 Mid umbilical artery PSV/EDV: 67/39 cm/s. Resistive index 0.41. Ratio 1.7 Distal umbilical artery PSV/EDV: 54/32 cm/s. Resistive index 0.41. Ratio 1.7 Forward flow identified throughout diastole US/US OB umbilical artery IMPRESSION: Normal exam. Class 0 Umbilical Artery: Class 0 = Normal umbilical artery blood velocity Class I = increased RI or PI, but still forward flow in diastole Class II = Absent end diastolic flow (AEDF) Class III = Reversal of end diastolic flow (REDF) Resistive Index (RI)<1 Systolic/Diastolic ratio (S:D): An S:D ratio of 2-3 after 34 wks is normal Systolic/Diastolic ratio (S:D): Age 16: 3.01 for the 10th percentile, 4.25 for the 50th percentile, 6.07 for the 90th percentile Age 20: 3.16 for the 10th percentile, 4.04 for the 50th percentile, 5.24 for the 90th percentile Age 24: 2.70 for the 10th percentile, 3.50 for the 50th percentile, 4.75 for the 90th percentile Age 28: 2.41 for the 10th percentile, 3.02 for the 50th percentile, 3.97 for the 90th percentile Age 30: 2.43 for the 10th percentile, 3.04 for the 50th percentile, 3.80 for the 90th percentile Age 32: 2.27 for the 10th percentile, 2.73 for the 50th percentile, 3.57 for the 90th percentile Age 34: 2.08 for the 10th percentile, 2.52 for the 50th percentile, 3.41 for the 90th percentile Age 36: 1.96 for the 10th percentile, 2.35 for the 50th percentile, 3.15 for the 90th percentile Age 38: 1.89 for the 10th percentile, 2.24 for the 50th percentile, 3.10 for the 90th percentile Age 40: 1.88 for the 10th percentile, 2.22 for the 50th percentile, 2.68 for the 90th percentile Age 41: 1.93 for the 10th percentile, 2.21 for the 50th percentile, 2.55 for the 90th percentile Age 42: 1.91 for the 10th percentile, 2.51 for the 50th percentile, 3.21 for the 90th percentile Uteroplacental Artery: Resistive Index (RI): Normal=<0.55 High Resistance=Bilateral notches (after 26 wks) and RI>0.55. Unilateral notches (after 26 wks) and RI>0.65 Systolic/Diastolic ratio (S:D) = 2-3 is normal after 32 weeks. Electronically authenticated by: PJ SAM Date: 07/06/2023 07:12
[2023-07-05 15:35] VITALS: BP 109/64; PULSE 64
== END 2023-07-05 16:10 | disposition home or self-care (01) ==
LOC: US 07:32 → FBC 15:29
PROVIDERS: PCP Student in an Organized Health Care Education/Training Program; Visit Provider Obstetrics & Gynecology
DX: O26.843 Uterine size-date discrepancy, third trimester (principal); Z3A.38 38 weeks gestation of pregnancy; Z87.59 Personal history of other complications of pregnancy, childbirth and the puerperium
CPT/HCPCS: 59025; 76818; 76820

== ENCOUNTER 2023-07-08 07:55 | Outpatient (OUT) | payer OTHER, SELFPAY ==
--- OUTSIDE RECORDS SUMMARY | 2023-07-08 08:03 | XMS_ITS | CCD ---
Author Name Unknown Address [id number] [place] [address] Organization [facility] Care Team Providers Care Emergency Service Restorer Name Role Phone RHODA LORETTAASHWIN Unavailable Unavailable [facility] Primary Care Unavailable PRETTY ., DR ECKERT Consulting Unavailable PRETTY ., DR ECKERT Attending Unavailable PRETTY ., DR ECKERT Procedure Practitioner Unavail able PRETTY ., DR ECKERT Admitting Unavailable ANNAMARIAUBBASHIR EDA Consulting Unavailable ARLETTE MARROQUIN Consulting Unavailable KARASIK ., DR SCOTT Admitting Unavailabl e KARASIK ., DR SCOTT Consulting Unavailabl e ROSETTE, BRIGHTON Primary Care Unavailable KARASIK ., DR SCOTT Attending Unavailabl e PRETTY ., DR ECKERT Admitting [facility] Unavailable PRETTY ., DR ECKERT Consulting Unavailable PERTTY ., DR ECKERT Attending Unavailable KARASIK ., DR SCOTT Attending Unavailabl e KARASIK ., DR SCOTT Admitting Unavailabl e KARASIK ., DR SCOTT Consulting Unavailabl e ROSETTE, BRIGHTON Primary Care Unavailable WEST, DR PJ Araujo Consulting Unavailable PRETTY ., DR ECKERT Consulting Unavailable KARASIK ., DR SCOTT Attending Unavailabl e KARASIK ., DR SCOTT Admitting Unavailabl e KARASIK ., DR SCOTT Consulting Unavailabl e ROSETTE, BRIGHTON Primary Care Unavailable PRETTY ., DR ECKERT Consulting Unavailable Policaro, Samira Consulting Unavailable ROSETTE, BRIGHTON Primary Care Unavailable TONNY CARBALLO Attending Unavailable TONNY CARBALLO Admitting Unavailable ROSETTE, BRIGHTON Primary Care Unavailable PRETTY ., DR ECKERT Attending Unavailable PRETTY ., DR ECKERT Consulting Unavailable PRETTY ., DR ECKERT Admitting Unavailable ROSETTE, BRIGHTON Primary [facility] Unavailable PRETTY ., DR ECKERT Attending Unavailable PRETTY ., DR ECKERT Admitting Unavailable ROSETTE, BRIGHTON Primary Care Unavailable PRETTY ., DR ECKERT Attending Unavailable PRETTY ., DR ECKERT Admitting Unavailable PRETTY ., DR ECKERT Consulting [facility] Unavailable PRETTY ., DR ECKERT Attending Unavailable PRETTY ., DR ECKERT Admitting Unavailable Arlette Fofana Unavailable Fern Martinez MD Primary Care Provider JAKE, MAURA Attending Unavailable JAKE, MAURA Attending Unavailable PRETTY, BABAR Attending Unavailable JAKE, MAURA Attending Unavailable JAKE, MAURA Attending Unavailable PRETTY, BABAR Attending Unavailable JAKE, MAURA Attending Unavailable PRETTY, BABAR Attending Unavailable JAKE, MAURA Attending Unavailable Allergies Allergy Classification Reported Allergen(s) Allergy Type Date of Onset Reaction(s) Facility (1 source) Chlorhexidine Drug Allergy [facility] Repository (1 source) Sulfamethoxazole / Trimethoprim Drug Allergy [facility] Repository (7 sources) Chlorhexidine Drug Allergy 12-29-19 19 hives, Itching [facility] Work Phone: (7 sources) Sulfamethoxazole / Trimethoprim Drug Allergy 05-18-20 19 hives, Rash, Swelling, Unknown [facility] [employer] Other (1 source) Darvocet-N 50 Drug allergy vomiting [facility] [employer] Other (6 sources) Sulfamethoxazole Propensity to adverse reactions 10-11-19 10 Rash [facility] (6 sources) Trimethoprim Drug Allergy 12-12-19 23 Rash [facility] (6 sources) Other Allergy to substance 04-26-20 23 GI intolerance [facility] Medications Current Medications Medication Drug Class(es) Dates Sig (Normalized) Sig (Original) [id number] 200 actuat albuterol 0.09 mg/actuat metered dose inhaler (2 sources) beta2-Adrenergic Agonist Start: 05-24-2023 take 2-3 puff(s) by mouth every four to six hours albuterol HFA 90 mcg/act inhaler INHALE 2 TO 3 PUFFS BY MOUTH EVERY 4 TO 6 HOURS 0 05/24/2023 Active amoxicillin 500 mg oral capsule (1 source) Penicillin-class Antibacterial Start: 10-05-2022 take 1 capsule by mouth every eight hours Amoxicillin 500 MG 1 capsule Orally three times a day for 10 day(s) September, Active Doxylamine Succinate, Sleep, (UNISOM PO) (6 sources) take 1 tablet by mouth at bedtime Doxylamine Succinate, Sleep, (UNISOM PO) Take 1 tablet by mouth at bedtime. 0 Active ondansetron 4 mg oral tablet (6 sources) Serotonin-3 Receptor Antagonist Start: 02-25-2023 take 1 tablet by mouth twice daily as needed for nausea ondansetron (Zofran) 4 MG tablet Indications: Nausea TAKE 1 TABLET BY MOUTH TWICE DAILY NEEDED FOR NAUSEA 30 tablet 0 02/25/2023 Active pantoprazole 40 mg delayed release oral tablet (6 sources) Proton Pump Inhibitor Start: 11-25-2022 End: 11-25-2023 take 1 tablet by mouth before mealtime pantoprazole (Protonix) 40 MG EC tablet Indications: Heartburn during in first trimester Take 1 tablet (40 mg) by mouth in the morning. Take before meals. Do not crush, chew, or split. . 30 tablet 11 11/25/2022 11/25/2023 Active Vit w/Gu-Lkdsttbai-JF (PNV PO) (6 sources) Vit w/Wf-Agnjhzxqy-KD (PNV PO) Take by mouth. 0 Active pyridoxine hydrochloride 25 mg oral tablet (6 sources) take 1 tablet by mouth in [...] 07-20-2022 Episodic Other and delivery including normal (15 sources) Encounter for care and examination of lactating mother; Translations: [Encounter for routine follow-up] Onset: 10-13-2021 Episodic Other upper respiratory infections (2 sources) Acute pharyngitis, unspecified; Translations: [Acute pharyngitis due to other specified organisms] Episodic Residual codes; unclassified (6 sources) Past history of small for gestational [...] intermodal customer service (current) drug therapy; Translations: [OTH APARTMENT MANAGER CURRENT 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] Onset: 10-13-2021 Episodic [...] applicable or unspecified; Translations: [MAT CARE OTH NV FTL GRTH 3RD TM UNS] Onset: 10-04-2021 [...] UA Negative Negative - 4(70) +++ mg/dL [facility] Blood, UA Negative Negative - 50 Tyrese/mcL [facility] Clarity, UA Clear [facility] re Color, UA Yellow [facility] Glucose, UA Negative Negative - 1999(110) ++++ mg/dL [facility] Interpretation and review of laboratory results Normal [facility] Ketones, UA Negative Negative - 160(16) ++++ mg/dL [facility] Leukocytes, UA Negative Negative - 500+++ Antonio/mcL [facility] Nitrite, UA Negative Negative - Positive [facility] pH, UA 7.0 5 - 9 [facility] e Protein, UA Negative Negative - 1999(20) ++++ mg/dL [facility] Spec Grav, UA 1.015 1 - 1.03 [facility] Urobilinogen, UA 0.2 0.2 - 12 mg/dL [facility] Urinalysis macro (dipstick) panel (U)on 06-24-2023 Bilirubin, UA Negative Negative - 4(70) +++ mg/dL [facility] Blood, UA Negative Negative - 50 Tyrese/mcL [facility] Clarity, UA Clear [facility] re Color, UA Yellow [facility] e Glucose, UA Negative Negative - 1999(110) ++++ mg/dL [facility] Interpretation and review of laboratory results Normal [facility] Ketones, UA Negative Negative - 160(16) ++++ mg/dL [facility] Leukocytes, UA Negative Negative - 500+++ Antonio/mcL [facility] Nitrite, UA Negative Negative - Positive [facility] pH, UA 5.5 5 - 9 [facility] Health[facility] e Protein, UA Negative Negative - 1999(20) ++++ mg/dL [facility] Spec Grav, UA 1.020 1 - 1.03 [facility] Urobilinogen, UA 1.0 0.2 - 12 mg/dL [facility] Quick Strepon 10-05-2022 S. pyogenes Org specific cx Ql (Throat) Negative [employer] Other Quick Strep [email or web address] [facility] [employer] Other PAP ACOG PANEL 2: 21 to 29on 04-24-2022 . . Normal [facility] Comment on above: Performed By: #### [id number] #### [facility] [address] [place] [address] Dr. Winifred Silver Age Gdln ACOG Testing - [facility] Comment on above: Performed By: #### [id number] #### [facility] [address] [address] [address] Winifred Silver DIAGNOSIS: Comment [facility] Comment on above: Result Comment: NEGA TIVE FOR INTRAEPITHELIAL LESION OR MALIGNANCY. Performed By: #### 4 [id number] #### [facility] [address] [address] [address] Winifred Silver Methodology: Comment [facility] Comment on above: Result Comment: This liquid based ThinPrep(R) pap test was screened with the use of an image guided system. Performed By: #### 4 [id number] #### [facility] [address] [address] [address] Winifred Silver Note: Comment [facility] Comment on above: Result Comment: The Pap smear is a screening test designed to aid in the detection of premalignant and malignant conditions of the uterine cervix. It is not a diagnostic procedure and should not be used as the sole means of detecting cervical cancer. Both false-positive and false-negative reports do occur. . Performed By: #### [id number] #### [facility] [address] [place] [address] Dr. Winifred Silver Performed by: Comment Normal [facility] Comment on above: Result Comment: Clary Cobb Aerial Photographer (ASCP) Performed By: #### 4 [id number] #### [facility] [address] [place] [address] Dr. Winifred Silver Reflex Criteria: Comment Normal [facility] Comment on above: Result Comment: The HPV DNA reflex criteria were not met with this specimen result therefore, no HPV testing was performed. . Performed By: #### [id number] #### [facility] [address] [place] [address] Dr. Winifred Silver Specimen adequacy: Comment Normal [facility] Comment on above: Result Comment: Sati sfactory for evaluation. Endocervical and/or squamous metaplastic cells (endocervical component) are present. Performed By: #### 4 [id number] #### [facility] [address] [place] [address] Dr. Winifred Silver CBC AUTO DIFFon 10-07-2021 BASO # 0.1 103/ul Normal 0.0-0.1 [facility] Comment on above: Performed By: #### C BC ####[facility] [address] [place], [place] [address]Dr. Winifred Silver Basophils/100 WBC (Bld) 0.6 % Normal 0.2-2.0 [facility] Comment on above: Performed By: #### C BC ####[facility] [address] [place], [place] [address]Dr. Winifred Silver EO # 0.3 103/ul Normal 0.0-0.7 [facility] Comment on above: Performed By: #### C BC ####[facility] [address] [place], [place] [address]Dr. Winifred Silver Eosinophils/100 WBC (Bld) 2.6 % Normal 0.9-7.0 [facility] Comment on above: Performed By: #### C BC ####[facility] [address] [address]Dr. Winifred Silver Erythrocyte distribution width (RBC) [Ratio] 13.1 % Normal 11.0-15.0 [facility] Comment on above: Performed By: #### C BC ####[facility] [address] [place], [place] [address]Dr. Winifred Silver Hematocrit (Bld) [Volume fraction] 26.6 % Critically low 36.0-48.0 [facility] Comment on above: Performed By: #### C BC ####[facility] [address] [place], [place] [address]Dr. Winifred Silver Hemoglobin (Bld) [Mass/Vol] 8.7 g/dL Critically low 12.0-16.0 [facility] Comment on above: Performed By: #### C BC ####[facility] [address] [place], [place] [address]Dr. Winifred Silver IG # 0.04 10e3/ul Critically high 0.00-0.03 [facility] Comment on above: Performed By: #### C BC ####[facility] [address] [place], [place] [address]Dr. Winifred Silver IG % 0.4 % Normal 0.0-0.5 [facility] Comment on above: Performed By: #### C BC ####[facility] [address] [place], [place] [address]Dr. Winifred Silver LYMPH # 1.4 103/ul Normal 1.2-3.8 [facility] Comment on above: Performed By: #### C BC ####[facility] [address] [place], [place] [address]Dr. Winifred Silver Lymphocytes/100 WBC (Bld) 13.8 % Critically low 20.5-60.0 [facility] Comment on above: Performed By: #### C BC ####[facility] [address] [place], [place] [id number]. Jolenedaylin Silver MANUAL DIFF REQ NO Normal [facility] Comment on above: Performed By: #### C BC ####[facility] [address] [address]Dr. Winifred Silver MCH (RBC) [Entitic mass] 29.6 pg Normal 26.7-34.0 [facility] Comment on above: Performed By: #### C BC ####[facility] [address] [place], [place] [address]Dr. Winifred Nadeem MCHC (RBC) [Mass/Vol] 32.7 g/dL Normal 29.9-35.2 [facility] Comment on above: Performed By: #### C BC ####[facility] [address] [place], [place] [address]Dr. Jolenedaylin Silver MCV (RBC) [Entitic vol] 90.5 fL Normal 81.0-99.0 [facility] Comment on above: Performed By: #### C BC ####[facility] [address] [place], [place] [address]Dr. Winifred Nadeem MONO # 0.6 103/ul Normal 0.3-0.8 [facility] Comment on above: Performed By: #### C BC ####[facility] [address] [place], [place] [address]Dr. Winifred Silver Monocytes/100 WBC (Bld) 6.1 % Normal 1.7-12.0 [facility] Comment on above: Performed By: #### C BC ####[facility] [address] [place], [place] [address]Dr. Jolenedaylin Nadeem NEUT # 7.8 103/ul Critically high 1.4-6.5 [facility] Comment on above: Performed By: #### C BC ####[facility] [address] [place], [place] [address]Dr. Winifred Silver Neutrophils/100 WBC (Bld) 76.5 % Critically high 43.0-75.0 [facility] Comment on above: Performed By: #### C BC ####[facility] [address] [place], [place] [id number]. Winifred Silver Platelet mean volume (Bld) [Entitic vol] 10.5 fL Normal 9.5-13.5 [facility] Comment on above: Performed By: #### C BC ####[facility] [address] [address]DrDarius Silver PLT 147 103/ul Critically low 150-450 [facility] Comment on above: Performed By: #### C BC ####[facility] [address] [address]Dr. Winifred Silver RBC 2.94 106/ul Critically low 4.20-5.40 [facility] Comment on above: Performed By: #### C BC ####[facility] [address] [address]DrDarius Silver WBC 10.2 103/ul Normal 4.0-11.0 [facility] Comment on above: Performed By: #### C BC ####[facility] [address] [address]DrDarius Silver CBC AUTO DIFFon 10-06-2021 BASO # 0.0 103/ul Normal 0.0-0.1 [facility] Comment on above: Performed By: #### C BC #### [facility] [address] [address] [address] Winifred Silver Basophils/100 WBC (Bld) 0.3 % Normal 0.2-2.0 [facility] Comment on above: Performed By: #### C BC #### [facility] [address] [address] [address] Winifred Silver EO # 0.1 103/ul Normal 0.0-0.7 [facility] Comment on above: Performed By: #### C BC #### [facility] [address] [address] [address] Winifred Silver Eosinophils/100 WBC (Bld) 1.4 % Normal 0.9-7.0 [facility] Comment on above: Performed By: #### C BC #### [facility] [address] [address] [address] Winifred Silver Erythrocyte distribution width (RBC) [Ratio] 13.0 % Normal 11.0-15.0 [facility] Comment on above: Performed By: #### C BC #### [facility] [address] [place] [address] Dr. Winifred Silver Hematocrit (Bld) [Volume fraction] 32.3 % Critically low 36.0-48.0 [facility] Comment on above: Performed By: #### C BC #### [facility] [address] [place] [address] Dr. Winifred Silver Hemoglobin (Bld) [Mass/Vol] 10.6 g/dL Critically low 12.0-16.0 [facility] Comment on above: Performed By: #### C BC #### [facility] [address] [place] [address] Dr. Winifred Silver IG # 0.05 10e3/ul Critically high 0.00-0.03 [facility] Comment on above: Performed By: #### C BC #### [facility] [address] [place] [address] Dr. Winifred Silver IG % 0.5 % Normal 0.0-0.5 [facility] Comment on above: Performed By: #### C BC #### [facility] [address] [place] [address] Dr. Winifred Silver LYMPH # 1.5 103/ul Normal 1.2-3.8 [facility] Comment on above: Performed By: #### C BC #### [facility] [address] [place] [address] Dr. Winifred Silver Lymphocytes/100 WBC (Bld) 14.6 % Critically low 20.5-60.0 [facility] Comment on above: Performed By: #### C BC #### [facility] [address] [place] [address] Dr. Winifred Silver MANUAL DIFF REQ NO Normal [facility] Comment on above: Performed By: #### C BC #### [facility] [address] [place] [address] Dr. Winifred Silver MCH (RBC) [Entitic mass] 29.4 pg Normal 26.7-34.0 [facility] Comment on above: Performed By: #### C BC #### [facility] [address] [place] [address] Dr. Winifred Silver MCHC (RBC) [Mass/Vol] 32.8 g/dL Normal 29.9-35.2 [facility] Comment on above: Performed By: #### C BC #### [facility] [address] [address] [address] Winifred Silver MCV (RBC) [Entitic vol] 89.7 fL Normal 81.0-99.0 [facility] Comment on above: Performed By: #### C BC #### [facility] [address] [place] [address] Dr. Winifred Silver MONO # 0.7 103/ul Normal 0.3-0.8 [facility] Comment on above: Performed By: #### C BC #### [facility] [address] [place] [address] Dr. Winifred Silver Monocytes/100 WBC (Bld) 6.5 % Normal 1.7-12.0 [facility] Comment on above: Performed By: #### C BC #### [facility] [address] [place] [address] Dr. Winifred Silver NEUT # 7.7 103/ul Critically high 1.4-6.5 [facility] Comment on above: Performed By: #### C BC #### [facility] [address] [place] [address] Dr. Winifred Silver Neutrophils/100 WBC (Bld) 76.7 % Critically high 43.0-75.0 [facility] Comment on above: Performed By: #### C BC #### [facility] [address] [place] [address] Dr. Winifred Silver Platelet mean volume (Bld) [Entitic vol] 11.1 fL Normal 9.5-13.5 [facility] Comment on above: Performed By: #### C BC #### [facility] [address] [place] [address] Dr. Winifred Silver PLT 204 103/ul Normal 150-450 [facility] Comment on above: Performed By: #### C BC #### [facility] [address] [place] [address] Dr. Winifred Silver RBC 3.60 106/ul Critically low 4.20-5.40 [facility] Comment on above: Performed By: #### C BC #### [facility] [address] [place] [address] Dr. Winifred Silver WBC 10.0 103/ul Normal 4.0-11.0 [facility] Comment on above: Performed By: #### C BC #### [facility] [address] [place] [address] Dr. Winifred Silver DRUG SCREEN RAPID (URINE)on 10-06-2021 AMP Negative Normal NEGATIVE [facility] Comment on above: Performed By: #### D RUGRPD #### [facility] [address] [place] [address] Dr. Winifred Silver BAR Negative Normal NEGATIVE [facility] Comment on above: Performed By: #### D RUGRPD #### [facility] [address] [place] [address] Dr. Winifred Silver BUP Negative Normal NEGATIVE [facility] Comment on above: Performed By: #### D RUGRPD #### [facility] [address] [place] [address] Dr. Winifred Silver BZO Negative Normal NEGATIVE [facility] Comment on above: Performed By: #### D RUGRPD #### [facility] [address] [place] [address] Dr. Winifred Silver TIN Negative Normal NEGATIVE [facility] Comment on above: Performed By: #### D RUGRPD #### [facility] [address] [place] [address] Dr. Winifred Silver CUT-OFFS SEE BELOW Normal [facility] Comment on above: Result Comment: AMP (Amphetamine): [...] By: #### D RUGRPD #### [facility] [address] [place] [address] Dr. Winifred Silver DRUG CUT HEADER DRUG CLASS TEST SYST EM CUT-OFF CONCENTRATIONS ARE FOLLOWS: Normal [facility] Comment on above: Performed By: #### D RUGRPD #### [facility] [address] [place] [address] Dr. Winifred Silver mAMP Negative Normal NEGATIVE [facility] Comment on above: Performed By: #### D RUGRPD #### [facility] [address] [place] [address] Dr. Winifred Silver MTD Negative Normal NEGATIVE [facility] Comment on above: Performed By: #### D RUGRPD #### [facility] [address] [place] [address] Dr. Winifred Silver OPI Negative Normal NEGATIVE [facility] Comment on above: Performed By: #### D RUGRPD #### [facility] [address] [place] [address] Dr. Winifred Silver OXY Negative Normal NEGATIVE [facility] Comment on above: Performed By: #### D RUGRPD #### [facility] [address] [place] [address] Dr. Winifred Silver PCP Negative Normal NEGATIVE [facility] Comment on above: Performed By: #### D RUGRPD #### [facility] [address] [place] [address] Dr. Winifred Silver PPX Negative Normal NEGATIVE [facility] Comment on above: Performed By: #### D RUGRPD #### [facility] [address] [place] [address] Dr. Winifred Silver TCA Negative Normal NEGATIVE [facility] Comment on above: Performed By: #### D RUGRPD #### [facility] [address] [address] [address] Winifred Silver THC Negative Normal NEGATIVE [facility] Comment on above: Performed By: #### D RUGRPD #### [facility] [address] [address] [address] Winifred Silver TYPE AND SCREENon 10-06-2021 TYPE AND SCREEN Negative Normal [facility] Comment on above: Performed By: #### T NS #### [facility] [address] [address] [address] Winifred Silver UA (CLEAN/CATCH) STAFF MECHANICAL ENGINEER/MICRO I F IND.on 10-06-2021 Bilirubin Ql (U) Negative Normal NEGATIVE [facility] Comment on above: Performed By: #### U ACSIND #### [facility] [address] [place] [address] Dr. Winifred Silver Clarity (U) CLEAR Normal CLEAR [facility] Comment on above: Performed By: #### U ACSIND #### [facility] [address] [address] [address] Winifred Silver Color (U) LT. YELLOW Normal YELLOW [facility] Comment on above: Performed By: #### U ACSIND #### [facility] [address] [address] [address] Winifred Silver Glucose Ql (U) Negative Normal NEGATIVE The [facility] Comment on above: Performed By: #### U ACSIND #### [facility] [address] [address] [address] Winifred Silver Hemoglobin Ql (U) Negative Normal NEGATIVE [facility] Comment on above: Performed By: #### U ACSIND #### [facility] [address] [address] [address] Winifred Silver Ketones Ql (U) Negative Normal NEGATIVE [facility] Comment on above: Performed By: #### U ACSIND #### [facility] [address] [place] [address] Dr. Winifred Silver LEUKOCYTES Negative Normal NEGATIVE [facility] Comment on above: Performed By: #### U ACSIND #### [facility] [address] [place] [address] Dr. Winifred Silver Nitrite Ql (U) Negative Normal NEGATIVE [facility] Comment on above: Performed By: #### U ACSIND #### [facility] [address] [place] [address] Dr. Winifred Silver pH (U) 6.0 [pH] Normal 5-9 [facility] Comment on above: Performed By: #### U ACSIND #### [facility] [address] [place] [address] Dr. Winifred Silver SPEC GRAVITY 1.025 Normal 1.005-<=1.02 5 [facility] Comment on above: Performed By: #### U ACSIND #### [facility] [address] [place] [address] Dr. Winifred Silver UA PROTEIN Negative Normal NEGATIVE/ TRACE [facility] Comment on above: Performed By: #### U ACSIND #### [facility] [address] [place] [address] Dr. Winifred Silver UR MICRO IND NOT INDICATED Normal [facility] Comment on above: Performed By: #### U ACSIND #### [facility] [address] [place] [address] Dr. Winifred Silver Urobilinogen Qn (U) 0.2 {Ferdrick'U}/dL Normal 0.2 - 1.0 [facility] Comment on above: Performed By: #### U ACSIND #### [facility] [address] [place] [address] Dr. Winifred Silver Covid-19 PCR (CVDTBH)on 09-21 SARS-CoV-2 (COVID-19) RNA JENARO+probe Ql (Unsp spec) Not detected Normal NOT DETECTED [facility] Comment on above: Result Comment: This test is not yet approved or cleared by the [place] FDA. When there are no FDA-approved or cleared tests available, and other criteria are met, FDA can make tests available under an emergency access mechanism called an Emergency Use Authorization (EUA). The EUA for this test is supported by the Garbage Collector of Health and Human Service's (HHS's) declaration [...] SARS-CoV-2. Performed By: #### [facility] #### [facility] [address] [place] [address] Dr. Winifred Silver US PREG GROWTHon 10-01-2021 [...] SAMIRA VELA Date: 2021-10-01 19:22 Normal [facility] US PREG BIOPHY W NON STRESSo [...] by: PJ SAM Date: 2021-09-25 07:47 Normal [facility] CNOVon 01-16-2021 CNOV Office Visit (ORTHMN ) ----- YEIMY HONEYCUTT ([id number]) 1995 F Date Time Provider Department 01/16/21 10:20 AM AYLIN GILLILAND During your visit today, we recorded the following information about you: Weight Height 77.1 kg 1.727 m Aylin Gilliland PA-C 02/11/2021 9:16 PM Signed Consultation requested by Kali Alcantara [id number] [facility] [address] Yeimy Honeycutt is a 25 year old [...] Aylin Gilliland, MS, PA-C [facility] [place] Referring Provider: KALI ALCANTARA [[id number]] Allergies As of Date: 01/16/2021 Noted Allergy Reaction BACTRIM (SULFAMETHOXAZOLE) 10/10/2009 2 - Rash CHLORHEXIDINE GLUCONATE 12/28/2018 9 - Itching Date Reviewed: 01/16/2021 Reviewed by: Nakia Luna Ma - Fully Assessed Reason for Visit: Pain, Back [855] Primary Visit Diagnosis:Strain (more content not included)... Normal [facility] XR LUMBAR 3V AP/LAT/L5-S1on [...] bony abnormality or significant disc height loss. Porter Baggage: PSCB Transcribe Date/Time: Jan 16 2021 12:34P Dictated by : CARLTON MATTHEWS MD This examination was interpreted and the report reviewed and electronically signed by: CARLTON MATTHEWS MD on Jan 16 2021 12:35PM EST [id number] Normal [facility] CNPNon 01-07-2021 CNPN Telephone ([facility]) ----- YINKAYEIMY ([id number]) 1995 F Date Time Provider Department 01/07/21 AYLIN GILLILAND [facility] During your visit today, we [...] Status:Closed by AYLIN GILLILAND on 01/07/21 Normal [facility] Coding Summary.on 05-18-2018 Coding Summary. CODING DATE: 018 FINAL [facility] STATUS: Home (Routine DC) PAYOR: Desmond [...] CphT Date Saved: 05/18/2018 08:52 am Normal [facility] US Breast Unilateral Rt Comp alecia 05-16-2018 US Breast Unilateral Rt Complete Exam [...] MD Transcribed by: KALIN Technologist: EULALIO Normal [facility] XR CHEST (2 VW)on 08-14-2017 XR CHEST (2 VW) EXAMINATION: XR CHES T (2 VW)CLINICAL HISTORY: chest pain COMPARISONS: None available.FINDINGS: Cardiac size and pulmonary vascularity are normal. The lungs are clear. There is no evidence of adenopathy. The bones are unremarkable.IMPRESSION: NORMAL CHEST RADIOGRAPHSInterpreted by:ARIAN Harrisigned by:Troy Rueda MD08/14/17inal result Normal [facility] Vital Signs Date Time Vital Sign Value Performing Clinician Facility 07-06-2023 14:39-0500 Body mass index (BMI) [Ratio] 32.86 kg/m2 Gigit DO Work Phone: [facility] 07-06-2023 14:39-0500 Body weight 98.03 kg Gigit DO Work Phone: [facility] 07-06-2023 14:39-0500 Diastolic blood pressure 74 mm[Hg] Babar Pretty DO Work Phone: [facility] 07-06-2023 14:39-0500 Systolic blood pressure 120 mm[Hg] Babar Pretty DO Work Phone: [facility] 06-29-2023 15:19-0500 Body mass index (BMI) [Ratio] 32.86 kg/m2 Maura Jake PA Work Phone: [facility] 06-29-2023 15:19-0500 Body weight 98.03 kg Maura Jake PA Work Phone: [facility] 06-29-2023 15:19-0500 Diastolic blood pressure 70 mm[Hg] Maura Jake PA Work Phone: [facility] 06-29-2023 15:19-0500 Systolic blood pressure 116 mm[Hg] Maura Barnett PA Work Phone: [facility] 06-22-2023 15:16-0500 Body mass index (BMI) [Ratio] 32.84 kg/m2 Maura Barnett PA Work Phone: [facility] 06-22-2023 15:16-0500 Body weight 97.98 kg Maura Jake PA Work Phone: [facility] 06-22-2023 15:16-0500 Diastolic blood pressure 72 mm[Hg] Maura Barnett PA Work Phone: [facility] 06-22-2023 15:16-0500 Systolic blood pressure 112 mm[Hg] Maura Barnett PA Work Phone: [facility] 10-05-2022 13:25-0400 Body height 172.72 cm Arlette Fofana Other [facility] Other 10-05-2022 13:25-0400 Body mass index (BMI) [Ratio] 28.86 kg/m2 Arlette Fofana Other [facility] Other 10-05-2022 13:25-0400 Body temperature 98.2 [degF] Arlette Fofana Other [facility] Other 10-05-2022 13:25-0400 Body weight 86.09 kg Arlette Fofana Other [facility] Other 10-05-2022 13:25-0400 Respiratory rate 18 /min Arlette Fofana Other [facility] Other 10-05-2022 13:25-0400 SaO2% (BldA) [Mass fraction] 99 % Arlette Fofana Other [facility] Other Encounters Encounter Date Encounter Type Care Provider Facility Start: 07-06-2023 End: 07-06-2023 ambulatory BABAR PRETTY Not Available Start: 07-06-2023 End: 07-06-2023 flow sheet Babar Pretty DO Work Phone: [facility] Comment on above: Third trimester preg annette Start: 06-29-2023 End: 06-29-2023 ambulatory MAURA JAKE Not Available Start: 06-29-2023 End: 06-29-2023 flow sheet Maura Joseph PA Work Phone: [facility] Comment on above: Third trimester preg annette Start: 06-22-2023 End: 06-22-2023 ambulatory MAURA JAKE Not Available Start: 06-22-2023 End: 06-22-2023 flow sheet Maura Joseph PA Work Phone: [facility] Comment on above: Third trimester preg annette Start: 06-09-2023 End: 06-09-2023 ambulatory BABAR PRETTY Not Available Start: 06-02-2023 End: 06-02-2023 ambulatory MAURA JAKE Not Available Start: 05-25-2023 End: 05-25-2023 ambulatory MAURA JAKE Not Available Start: 05-10-2023 End: 05-10-2023 ambulatory MAURA JAKE Not Available Start: 04-26-2023 End: 04-26-2023 ambulatory BABAR OLSEN Not Available Start: 04-12-2023 End: 04-12-2023 ambulatory MAURA JOSEPH Not Available Start: 10-05-2022 End: 10-05-2022 ambulatory Arlette Fofana Other [facility] [email or web address] Other Start: 10-05-2022 Office outpatient vi sit 15 minutes Arlette Fofana [facility] Start: 07-20-2022 End: 08-28-2022 ambulatory KAREN ROSETTE Facility:[facility] Start: 04-15-2022 End: 04-15-[address] BABAR OLSEN . Facility:[facility] Start: 10-23-2021 End: 11-12-2021 ambulatory KAREN ROSETTE Facility:[facility] Start: 10-16-2021 End: 10-16-2021 ambulatory KAREN ROSETTE Facility:[facility] Start: 10-08-2021 Encounter for preprocedural laboratory examination DR BABAR OLSEN . [facility] Start: 10-06-2021 End: 10-09-2021 Evaluation and management of inpatient KAREN ROSETTE Facility:[facility] Start: 10-04-2021 End: 10-04-[address] SONIA BOWLING . Facility:[facility] Start: 10-03-2021 End: 10-04-2021 ambulatory KAREN ROSETTE Facility:[facility] Start: 10-03-2021 End: 10-04-2021 Encounter for preprocedural laboratory examination KAREN TAMEZGLES Facility:[facility] Start: 10-01-2021 End: 10-01-[address] SONIA BOWLING . Facility:[facility] Start: 09-27-2021 End: 09-27-[address] BABAR OLSEN . Facility:[facility] Start: 09-24-2021 End: 09-24-[address] SONIA BOWLING . Facility:[facility] Start: 08-14-2017 End: 08-14-2017 Emergency department patient visit [facility] Procedures Date Procedure Procedure Detail Performing Clinician [...] Screening for malign ant neoplasm of cervix [facility] Start: 07-19-2023 End: 07-19-2023 Patient encounter procedure 07/19/2023 2:00 PM EST Office Visit [facility] [address] [place] [id number] Maura Joseph, PA [address] [place] [address] [facility] Start: 07-06-2023 End: 07-06-2023 Patient encounter procedure 07/06/2023 2:30 PM EST Routine [facility] [address] [place] [place] [id number] Babar Olsen DO [address] [place] [address] [facility] Start: 06-29-2023 End: 06-29-2023 Patient encounter procedure 06/29/2023 3:00 PM EST Routine [facility] [address] [place] [id number] Maura Joseph, PA [address] [place], [place] [id number] Third trimester [facility] Comment on above: Third trimester preg annette Start: 2023 Screening for malign ant neoplasm of cervix HPV/Cotest [facility] Start: 01-22-2023 Influenza vaccination Influenz a Vaccine (#1) [facility] GBS swab, PCR GBS swab, PCR La b Routine Third trimester Ordered: 06/22/2023 [facility] Work Phone: Comment on above: Ordered: 06/22/2023 Immunizations Immunization Date Immunization Notes Care Provider Kaylie forbes 04-05-2003 influenza virus vacc ine, unspecified formulation Maura Joseph PA Work Phone: [facility] Payers Date Payer Category Payer Unknown FRONTPATH FRONTP ATH [id number] 2022-Present [address] [place] [address] [id number] 2017 Unknown [id number] 1995 Unknown [id number] 2.16.840.1.010159.3.579.2.59 3 1993 Unknown [id number] 2.16.840.1.028541.3.579.2.59 3 1993 Unknown [id number] 2.16.840.1.285535.3.579.2.59 3 1993 Unknown [id number] 2.16.840.1.576140.3.579.2.59 3 1993 Unknown [id number] 2.16.840.1.041601.3.579.2.59 3 1993 Unknown [id number] 2.16.840.1.573514.3.579.2.59 3 1993 Unknown [id number] 2.16.840.1.809046.3.579.2.59 3 1993 Unknown [id number] 2.16.840.1.733616.3.579.2.59 3 1993 Unknown [id number] 2.16.840.1.014272.3.579.2.59 3 1993 Unknown [id number] 2.16.840.1.492397.3.579.2.59 3 1993 Unknown [id number] 2.16.840.1.522436.3.579.2.12 59 1993 Unknown [id number] 2.16.840.1.451796.3.579.2.12 59 1993 Unknown [id number] 2.16.840.1.060103.3.579.2.12 59 1993 Unknown [id number] 2.16.840.1.547660.3.579.2.12 59 1993 Unknown [id number] 2.16.840.1.471095.3.579.2.12 59 1993 Unknown [id number] 2.16.840.1.822776.3.579.2.12 59 1993 Unknown [id number] 2.16.840.1.492306.3.579.2.12 59 1993 Unknown [id number] 2.16.840.1.036205.3.579.2.12 59 1993 Unknown [id number] 2.16.840.1.978968.3.579.2.12 59 1959 Unknown [id number] Social History Date Type Detail Facility Unknown if ever smoked [facility] Other Start: 01-06-2023 End: 04-09-2023 Sex Assigned At [facility] Start: 01-06-2023 Tobacco smoking status [facility] Never smoked tobacco [facility] Start: 01-06-2023 Tobacco use and exposure Smokeless tobacco non-user [facility] Start: 06-21-2023 End: 07-06-2023 Alcohol intake Current drinker of alcohol (finding) [...] Healthcare Start: 1995 Sex Assigned At Female [facility] Start: 01-04-2023 Gender identity Identifies as female gender (finding) [facility] Start: 01-04-2023 Sexual orientation Heterosexual (finding) [facility] Clinical Notes 01-16-2021 to 07-06-2023 Sherly Villa LPN - 07/06/2023 2:30 PM WILLIAN Noble - 06/29/2023 3:00 PM WILLIAN Noble - 06/22/2023 3:00 PM EST Note Date & Type Note Facility 07-06-2023 History of Presen t illness Narrative Reason for Appointment: Patient ID: Yeimy Rodriguez is a 28 y.o. female who presents for Routine Visit Patient presents today for Return OB appointment. Current Medications: has a current medication list which includes the following prescription(s): albuterol hfa, doxylamine succinate (sleep), ondansetron, pantoprazole, vit w/ow-flfktytjc-lb, and pyridoxine. Medical History: Active Ambulatory Problems [...] Exam Constitutional: Appearance: Normal appearance. She is well-developed. Cardiovascular: Rate and Rhythm: Normal rate and regular rhythm. Pulmonary: Effort: Pulmonary effort is normal. Breath sounds: Normal breath sounds. Abdominal: General: Bowel sounds are normal. There is no distension. Palpations: Abdomen is soft. Tenderness: There is no abdominal tenderness. There is no guarding or rebound. Musculoskeletal: General: No swelling. Normal range of motion. Right lower leg: No edema. Left lower leg: No edema. Neurological: Mental Status: She is alert and oriented to person, place, and time. Skin: General: Skin is warm and dry. Psychiatric: Mood and Affect: Mood normal. Behavior: Behavior normal. Vitals and nursing note reviewed. Exam conducted with a doughnut machine operator helper present. Vitals: Estimated body mass index is 32.86 kg/m as calculated from the following: Height as of 12/11/22: 5' 8 . Weight as of this encounter: 216 lb 1.9 oz. BP: 120/74 Patient's last menstrual period was 10/11/2022 (exact date). Assessment/Plan Encounter Diagnosis Name Primary? Third trimester Patient presents today for a routine obstetrics appointment. Patient is currently 38w2d . Patient states she is doing well but has complaints of being tired due to current . Patient has verbalizes frequent movement. labor precautions was discussed/given and patient was instructed to perform kick counts three times a day. Follow Up: Patient is to return to office in 2 week for postop check Documented by Sherly Villa LPN on behalf of: Babar Olsen DO documented in this encounter [facility] 06-29-2023 History of Presen t illness Narrative Reason for Appointment: Patient ID: Yeimy Rodriguez is a 28 y.o. female who presents for Routine Visit Patient presents today for Return OB appointment. Current Medications: has a current medication list which includes the following prescription(s): doxylamine succinate (sleep), ondansetron, pantoprazole, vit w/ls-buztbllzg-oo, and pyridoxine. Medical History: Active Ambulatory Problems [...] of: WILLIAN Lane documented in this encounter [facility] 06-22-2023 History of Presen t illness Narrative [...] prescription(s): doxylamine succinate (sleep), ondansetron, pantoprazole, vit w/tq-vddzllppn-ed, and pyridoxine. Medical History: Active Ambulatory Problems [...] reviewed, and patient is to proceed to [facility] OR on her scheduled day. Patient is to return in 1 week for scheduled routine OB appointment. Follow Up: Patient is to return to office in 1 week for routine OB apptment Documented by WILLIAN Lane on behalf of: WILLIAN Lane documented in this encounter [facility] 10-05-2022 Evaluation note Encounter Date Diagnosis Assessment [...] of diseases classified elsewhere (ICD-10 - B96.89) [facility] Other 05-16-20[facility] [place] NAME: YEIMY RODRIGUEZ DATE OF : MEDICAL REC#: [id number] ASSET RECOVERY SPECIALIST: [address], TRANSADMIT DATE: 10/06/2021 05:30:00 FINANCIAL ACCOUNTING MANAGER DATE: 10/06/2021 21:00 DICTATING PHYSICIAN: BABAR OLSEN DICTATION DATE: 10/06/2021 08:00 OPERATIVE NOTE OPERATION DATE: 10/06/2021 PROCEDURE: Repeat low transverse section. PREOPERATIVE DIAGNOSIS: 1. at 39 2/7 weeks. 2. Previous . POSTOPERATIVE DIAGNOSIS: 1. at 39 2/7 weeks. 2. Previous . ANESTHESIA: Spinal with Duramorph. SURGEON: Babar Olsen D.O. TIRE TRIMMER HAND: LAUREN Ellison URINE OUTPUT: Yellow and clear. [...] Olsen DO on 10/07/2021 09:42 AM EDT [facility] Signed and Approved by: DR BABAR OLSEN . 10/07/2021 09:42:00[facility]05-16-2022 NoteDISCHARGE SUMMARY DISCHARGE DATE: 10/09/2021 PRIMARY DIAGNOSES: 1. [...] pain free and no longer on narcotics. [facility] Signed and Approved by: DR BABAR OLSEN . 10/13/2021 07:35:00[facility]08-26-2021 NoteHNO ID: [id number] Author: Aylin Gilliland PA-C Service: ? Author Type: Physician Director Software Quality Assurance Type: Progress Notes Filed: 02/11/2021 9:16 PM Note Text: Consultation requested by Kali Alcantara [address] [facility] [address] Yeimy Honeycutt is a 25 year old [...] Aylin Gilliland, MS, PA-C [facility] Note HNO ID: [id number] Author: RT Jalen(R) Service: Radiology Author Type: Golf Range Attendant Type: Progress Notes Filed: 01/16/2021 10:07 AM [...] BY: RT Jalen(R) January 16, 2021 10:06 [facility] Third trimester state, incidental Third trimester state, incidental [facility] Diagnosis Third trimester state, incidental [facility] Diagnosis Third trimester state, incidental [facility] Narrative - Reported* Type Description Date Medical History costal chondritis Medical History asthma - exercise induced Medical History 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 Surgical History pelvic cyst removed x2 Surgical History wrist surgery- right Surgical History lumpectomy 12/2017 Surgical History C section x2 Hospitalization History see above [facility] Other Summary Purpose Family History No Family [...] content) DATE CREATED AUTHOR 11/25/2017 [facility] DATE CREATED AUTHOR AUTHOR'S ORGANIZ ATION 05/12/2019 [facility] DATE CREATED AUTHOR AUTHOR'S ORGANIZ ATION 07/12/2021 [facility] DATE CREATED AUTHOR AUTHOR'S ORGANIZ ATION 09/23/2022 [facility] DATE CREATED AUTHOR AUTHOR'S ORGANIZ ATION 07/08/2023 [facility] EPIC REASON FOR VISIT (unrecogniz ed section and content) Reason Comments Routine Visit Care Teams (unrecognized sec tion and content) Emergency Service Restorer Relationship Specialty Start Date End Date Fern Martinez MD [address] [place] [address] PCP - General Family Medicine 12/11/22 Emergency Service Restorer Relationship Specialty Start Date End Date Fern Martinez MD [address] [place] [address] PCP - General Family Medicine 12/11/22 Emergency Service Restorer Relationship Specialty Start Date End Date Fern Martinez MD [address] [place] [address] PCP - General Family Medicine 12/11/22 FOR [...] BE BASED ON THE PRIMARY CLINICAL RECORDS. [facility]. provides no warranty or guarantee of the accuracy or completeness of information in this document.
[2023-07-08 15:12] VITALS: BP 117/67; PULSE 88
== END 2023-07-08 15:37 | disposition home or self-care (01) ==
LOC: FBCO 08:00 → FBC 15:05
PROVIDERS: PCP Student in an Organized Health Care Education/Training Program; Visit Provider Obstetrics & Gynecology
DX: O26.843 Uterine size-date discrepancy, third trimester (principal); Z87.59 Personal history of other complications of pregnancy, childbirth and the puerperium
CPT/HCPCS: 59025

== ENCOUNTER 2023-07-12 05:19 | Inpatient (IN) | payer OTHER, SELFPAY ==
[2023-07-12] VITALS (42 sets, daily range): BP systolic 65–114; BP diastolic 42–73; PULSE 54–93; RESP 4–25; TEMP 36–36.6; O2SAT 96–97
--- OUTSIDE RECORDS SUMMARY | 2023-07-12 05:23 | XMS_ITS | CCD ---
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 Primary Care Unavailable PRETTY ., DR ECKERT Consulting Unavailable PRETTY ., DR ECKERT Attending Unavailable PRETTY ., DR ECKERT Procedure Practitioner Unavail able PRETTY ., DR ECKERT Admitting Unavailable ANNAMARIAUBBASHIR EDA Consulting Unavailable ARLETTE MARROQUIN Consulting Unavailable KARASIK ., DR SCOTT Admitting Unavailabl e KARASIK ., DR SCOTT Consulting Unavailabl e ROSETTE, HALSTAD Primary Care Unavailable KARASIK ., DR SCOTT Attending Unavailabl e PRETTY ., DR ECKERT Admitting [facility] Unavailable PRETTY ., DR ECKERT Consulting Unavailable PRETTY ., DR ECKERT Attending Unavailable KARASIK ., DR SCOTT Attending Unavailabl e KARASIK ., DR SCOTT Admitting Unavailabl e KARASIK ., DR SCOTT Consulting Unavailabl e ROSETTE, HALSTAD Primary Care Unavailable WEST, DR PJ Araujo Consulting Unavailable PRETTY ., DR ECKERT Consulting Unavailable KARASIK ., DR SCOTT Attending Unavailabl e KARASIK ., DR SCOTT Admitting Unavailabl e KARASIK ., DR SCOTT Consulting Unavailabl e ROSETTE, HALSTAD Primary Care Unavailable PRETTY ., DR ECKERT Consulting Unavailable Policaro, Samira Consulting Unavailable ROSETTE, HALSTAD Primary Care Unavailable TONNY CARBALLO Attending Unavailable TONNY CARBALLO Admitting Unavailable ROSETTE, HALSTAD Primary Care Unavailable PRETTY ., DR ECKERT Attending Unavailable PRETTY ., DR ECKERT Consulting Unavailable PRETTY ., DR ECKERT Admitting Unavailable ROSETTE, HALSTAD Primary [facility] Unavailable PRETTY ., DR ECKERT Attending Unavailable PRETTY ., DR ECKERT Admitting Unavailable ROSETTE, HALSTAD Primary Care Unavailable PRETTY ., DR ECKERT Attending Unavailable PRETTY ., DR ECKERT Admitting Unavailable PRETTY ., DR ECKERT Consulting [facility] Unavailable PRETTY ., DR ECKERT [...] Reaction(s) Facility (1 source) Chlorhexidine Drug Allergy [facility]ository (1 source) Sulfamethoxazole / Trimethoprim Drug Allergy [facility] (7 sources) Chlorhexidine Drug Allergy 12-29-19 19 hives, Itching [facility] Work Phone: (7 sources) Sulfamethoxazole / Trimethoprim Drug Allergy 05-18-20 19 hives, Rash, Swelling, Unknown [facility] [employer] Other (1 source) Darvocet-N 50 Drug allergy vomiting [facility] [employer] Other (6 sources) Sulfamethoxazole Propensity to adverse reactions 10-11-19 10 Rash [facility] (6 sources) Trimethoprim Drug Allergy 12-12-19 23 Rash [facility] (6 sources) Other Allergy to substance 04-26-20 23 GI intolerance [facility] Medications Current Medications Medication Drug Class(es) Dates Sig (Normalized) Sig (Original) [id number] 200 actuat albuterol 0.09 mg/actuat metered dose [...] 30 tablet 11 11/25/2022 11/25/2023 Active Vit w/Ko-Ocficfhpq-RR (PNV PO) (6 sources) Vit w/Aa-Zibatwryg-WL (PNV PO) Take by mouth. 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] Onset: 10-13-2021 Episodic Other [...] applicable or unspecified; Translations: [MAT CARE OTH OK FTL GRTH 3RD TM UNS] Onset: 10-04-2021 [...] UA Negative Negative - 4(70) +++ mg/dL [facility] Blood, UA Negative Negative - 50 Tyrese/mcL [facility] Clarity, UA Clear [facility] re Color, UA Yellow [facility] Glucose, [facility]A Negative Negative - 1999(110) ++++ mg/dL [facility] Interpretation and review of laboratory results Normal [facility] Ketones, UA Negative Negative - 160(16) ++++ mg/dL [facility] Leukocytes, UA Negative Negative - 500+++ Antonio/mcL [facility] Nitrite, UA Negative Negative - Positive [facility] pH, UA 7.0 5 - 9 [facility] e Protein, UA Negative Negative - 1999(20) ++++ mg/dL [facility] Spec Grav, UA 1.015 1 - 1.03 [facility] Urobilinogen, UA 0.2 0.2 - 12 mg/dL [facility] Urinalysis macro (dipstick) panel (U)on 06-24-2023 Bilirubin, UA Negative Negative - 4(70) +++ mg/dL [facility] Blood, UA Negative Negative - 50 Tyrese/mcL [facility] Clarity, UA Clear [facility] re Color, UA Yellow [facility] Glucose, UA Negative Negative - 1999(110) ++++ mg/dL [facility] Interpretation and review of laboratory results Normal [facility] Ketones, UA Negative Negative - 160(16) ++++ mg/dL [facility] Leukocytes, UA Negative Negative - 500+++ Antonio/mcL [facility] Nitrite, UA Negative Negative - Positive [facility] pH, UA 5.5 5 - 9 [facility] Protein, UA Negative Negative - 1999(20) ++++ mg/dL [facility] Spec Grav, UA 1.020 1 - 1.03 [facility] Urobilinogen, UA 1.0 0.2 - 12 mg/dL [facility] Quick Strepon 10-05-2022 S. pyogenes Org specific cx Ql (Throat) Negative [employer] Other Quick Strep [employer] [facility] [employer] Other PAP ACOG PANEL 2: 21 to 29on 04-24-2022 . . Normal [facility] Comment on above: Performed By: #### [id number] #### [facility] [address] [place] [address] Dr. Winifred Silver Age Gdln ACOG Testing - [facility] Comment on above: Performed By: #### [id number] #### [facility] [address] [address] [address] Winifred Silver DIAGNOSIS: Comment [facility] Comment on above: Result Comment: NEGA TIVE FOR INTRAEPITHELIAL LESION OR MALIGNANCY. Performed By: #### [id number] #### [facility] [address] [address] [address] Winifred Silver Methodology: Comment [facility] Comment on above: Result Comment: This liquid based ThinPrep(R) pap test was screened with the use of an image guided system. Performed By: #### [id number] #### [facility] [address] [address] [address] Winifred Silver Note: Comment [facility] Comment on above: Result Comment: The Pap smear is a screening test designed to aid in the detection of premalignant and malignant conditions of the uterine cervix. It is not a diagnostic procedure and should not be used as the sole means of detecting cervical cancer. Both false-positive and false-negative reports do occur. . Performed By: #### [id number] #### [facility] [address] [place] [address] Dr. Winifred Silver Performed by: Comment Normal [facility] Comment on above: Result Comment: Clary Cobb Manager [employer] (ASCP) Performed By: #### [id number] #### [facility] [address] [place] [address] Dr. Winifred Silver Reflex Criteria: Comment Normal [facility] Comment on above: Result Comment: The HPV DNA reflex criteria were not met with this specimen result therefore, no HPV testing was performed. . Performed By: #### [id number] #### [facility] [address] [place] [address] Dr. Winifred Silver Specimen adequacy: Comment Normal [facility] Comment on above: Result Comment: Sati sfactory for evaluation. Endocervical and/or squamous metaplastic cells (endocervical component) are present. Performed By: #### [id number] #### [facility] [address] [place] [address] Dr. Winifred Silver CBC AUTO DIFFon 10-07-2021 BASO # 0.1 103/ul Normal 0.0-0.1 [facility] Comment on above: Performed By: #### C BC ####[facility] [address] [place], [place] [address]Dr. Winifred Silver Basophils/100 WBC (Bld) 0.6 % Normal 0.2-2.0 [facility] Comment on above: Performed By: #### C BC ####[facility] [address] [place], [place] [address]Dr. Winifred Silver EO # 0.3 103/ul Normal 0.0-0.7 [facility] Comment on above: Performed By: #### C BC ####[facility] [address] [place], [place] [address]Dr. Winifred Silver Eosinophils/100 WBC (Bld) 2.6 % Normal 0.9-7.0 [facility] Comment on above: Performed By: #### C BC ####[facility] [address] [address]Dr. Winifred Silver Erythrocyte distribution width (RBC) [Ratio] 13.1 % Normal 11.0-15.0 [facility] Comment on above: Performed By: #### C BC ####[facility] [address] [place], [place] [address]Dr. Winifred Silver Hematocrit (Bld) [Volume fraction] 26.6 % Critically low 36.0-48.0 [facility] Comment on above: Performed By: #### C BC ####[facility] [address] [place], [place] [address]Dr. Winifred Silver Hemoglobin (Bld) [Mass/Vol] 8.7 g/dL Critically low 12.0-16.0 [facility] Comment on above: Performed By: #### C BC ####[facility] [address] [place], [place] [address]Dr. Winifred Silver IG # 0.04 10e3/ul Critically high 0.00-0.[address] [facility] Comment on above: Performed By: #### C BC ####[facility] [address] [place], [place] [address]Dr. Winifred Silver IG % 0.4 % Normal 0.0-0.5 [facility] Comment on above: Performed By: #### C BC ####[facility] [address] [place], [place] [address]Dr. Winifred Silver LYMPH # 1.4 103/ul Normal 1.2-3.8 [facility] Comment on above: Performed By: #### C BC ####[facility] [address] [place], [place] [address]Dr. Winifred Silver Lymphocytes/100 WBC (Bld) 13.8 % Critically low 20.5-60.0 [facility] Comment on above: Performed By: #### C BC ####[facility] [address] [place], [place] [id number]. Jolenedaylin Silver MANUAL DIFF REQ NO Normal [facility] Comment on above: Performed By: #### C BC ####[facility] [address] [address]Dr. Winifred Silver MCH (RBC) [Entitic mass] 29.6 pg Normal 26.7-34.0 [facility] Comment on above: Performed By: #### C BC ####[facility] [address] [place], [place] [address]Dr. Winifred Nadeem MCHC (RBC) [Mass/Vol] 32.7 g/dL Normal 29.9-35.2 [facility] Comment on above: Performed By: #### C BC ####[facility] [address] [place], [place] [address]Dr. Jolenedaylin Silver MCV (RBC) [Entitic vol] 90.5 fL Normal 81.0-99.0 [facility] Comment on above: Performed By: #### C BC ####[facility] [address] [place], [place] [address]Dr. Winifred Nadeem MONO # 0.6 103/ul Normal 0.3-0.8 [facility] Comment on above: Performed By: #### C BC ####[facility] [address] [place], [place] [address]Dr. Winifred Silver Monocytes/100 WBC (Bld) 6.1 % Normal 1.7-12.0 [facility] Comment on above: Performed By: #### C BC ####[facility] [address] [place], [place] [address]Dr. Jolenedaylin Nadeem NEUT # 7.8 103/ul Critically high 1.4-6.5 [facility] Comment on above: Performed By: #### C BC ####[facility] [address] [place], [place] [address]Dr. Winifred Silver Neutrophils/100 WBC (Bld) 76.5 % Critically high 43.0-75.0 [facility] Comment on above: Performed By: #### C BC ####[facility] [address] [place], [place] [address]Dr. Winifred Silver Platelet mean volume (Bld) [Entitic vol] 10.5 fL Normal 9.5-13.5 [facility] Comment on above: Performed By: #### C BC ####[facility] [address] [address]DrDarius Silver PLT 147 103/ul Critically low 150-450 [facility] Comment on above: Performed By: #### C BC ####[facility] [address] [address]Dr. Winifred Silver RBC 2.94 106/ul Critically low 4.20-5.40 [facility] Comment on above: Performed By: #### C BC ####[facility] [address] [address]DrDarius Silver WBC 10.2 103/ul Normal 4.0-11.0 [facility] Comment on above: Performed By: #### C BC ####[facility] [address] [address]DrDarius Silver CBC AUTO DIFFon 10-06-2021 BASO # 0.0 103/ul Normal 0.0-0.1 [facility] Comment on above: Performed By: #### C BC #### [facility] [address] [address] [address] Winifred Silver Basophils/100 WBC (Bld) 0.3 % Normal 0.2-2.0 [facility] Comment on above: Performed By: #### C BC #### [facility] [address] [address] [address] Winifred Silver EO # 0.1 103/ul Normal 0.0-0.7 [facility] Comment on above: Performed By: #### C BC #### [facility] [address] [address] [address] Winifred Silver Eosinophils/100 WBC (Bld) 1.4 % Normal 0.9-7.0 [facility] Comment on above: Performed By: #### C BC #### [facility] [address] [address] [address] Winifred Silver Erythrocyte distribution width (RBC) [Ratio] 13.0 % Normal 11.0-15.0 [facility] Comment on above: Performed By: #### C BC #### [facility] [address] [place] [address] Dr. Winifred Silver Hematocrit (Bld) [Volume fraction] 32.3 % Critically low 36.0-48.0 [facility] Comment on above: Performed By: #### C BC #### [facility] [address] [place] [address] Dr. Winifred Silver Hemoglobin (Bld) [Mass/Vol] 10.6 g/dL Critically low 12.0-16.0 [facility] Comment on above: Performed By: #### C BC #### [facility] [address] [place] [address] Dr. Winifred Silver IG # 0.05 10e3/ul Critically high 0.00-0.[address] [facility] Comment on above: Performed By: #### C BC #### [facility] [address] [place] [address] Dr. Winifred Silver IG % 0.5 % Normal 0.0-0.5 [facility] Comment on above: Performed By: #### C BC #### [facility] [address] [place] [address] Dr. Winifred Silver LYMPH # 1.5 103/ul Normal 1.2-3.8 [facility] Comment on above: Performed By: #### C BC #### [facility] [address] [place] [address] Dr. Winifred Silver Lymphocytes/100 WBC (Bld) 14.6 % Critically low 20.5-60.0 [facility] Comment on above: Performed By: #### C BC #### [facility] [address] [place] [address] Dr. Winifred Silver MANUAL DIFF REQ NO Normal [facility] Comment on above: Performed By: #### C BC #### [facility] [address] [place] [address] Dr. Winifred Silver MCH (RBC) [Entitic mass] 29.4 pg Normal 26.7-34.0 [facility] Comment on above: Performed By: #### C BC #### [facility] [address] [place] [address] Dr. Winifred Silver MCHC (RBC) [Mass/Vol] 32.8 g/dL Normal 29.9-35.2 [facility] Comment on above: Performed By: #### C BC #### [facility] [address] [address] [address] Winifred Silver MCV (RBC) [Entitic vol] 89.7 fL Normal 81.0-99.0 [facility] Comment on above: Performed By: #### C BC #### [facility] [address] [place] [address] Dr. Winifred Silver MONO # 0.7 103/ul Normal 0.3-0.8 [facility] Comment on above: Performed By: #### C BC #### [facility] [address] [place] [address] Dr. Winifred Silver Monocytes/100 WBC (Bld) 6.5 % Normal 1.7-12.0 [facility] Comment on above: Performed By: #### C BC #### [facility] [address] [place] [address] Dr. Winifred Silver NEUT # 7.7 103/ul Critically high 1.4-6.5 [facility] Comment on above: Performed By: #### C BC #### [facility] [address] [place] [address] Dr. Winifred Silver Neutrophils/100 WBC (Bld) 76.7 % Critically high 43.0-75.0 [facility] Comment on above: Performed By: #### C BC #### [facility] [address] [place] [address] Dr. Winifred Silver Platelet mean volume (Bld) [Entitic vol] 11.1 fL Normal 9.5-13.5 [facility] Comment on above: Performed By: #### C BC #### [facility] [address] [place] [address] Dr. Winifred Silver PLT 204 103/ul Normal 150-450 [facility] Comment on above: Performed By: #### C BC #### [facility] [address] [place] [address] Dr. Winifred Silver RBC 3.60 106/ul Critically low 4.20-5.40 [facility] Comment on above: Performed By: #### C BC #### [facility] [address] [place] [address] Dr. Winifred Silver WBC 10.0 103/ul Normal 4.0-11.0 [facility] Comment on above: Performed By: #### C BC #### [facility] [address] [place] [address] Dr. Winifred Silver DRUG SCREEN RAPID (URINE)on 10-06-2021 AMP Negative Normal NEGATIVE [facility] Comment on above: Performed By: #### D RUGRPD #### [facility] [address] [place] [address] Dr. Winifred Silver BAR Negative Normal NEGATIVE [facility] Comment on above: Performed By: #### D RUGRPD #### [facility] [address] [place] [address] Dr. Winifred Silver BUP Negative Normal NEGATIVE [facility] Comment on above: Performed By: #### D RUGRPD #### [facility] [address] [place] [address] Dr. Winifred Silver BZO Negative Normal NEGATIVE [facility] Comment on above: Performed By: #### D RUGRPD #### [facility] [address] [place] [address] Dr. Winifred Silver TIN Negative Normal NEGATIVE [facility] Comment on above: Performed By: #### D RUGRPD #### [facility] [address] [place] [address] Dr. Winifred Silver CUT-OFFS SEE BELOW Normal [facility] Comment on above: Result Comment: [...] ng/mL Performed By: #### D RUGRPD #### [facility] [address] [place] [address] Dr. Winifred Silver DRUG CUT HEADER DRUG CLASS TEST SYST EM CUT-OFF CONCENTRATIONS ARE FOLLOWS: Normal [facility] Comment on above: Performed By: #### D RUGRPD #### [facility] [address] [place] [address] Dr. Winifred Silver mAMP Negative Normal NEGATIVE [facility] Comment on above: Performed By: #### D RUGRPD #### [facility] [address] [place] [address] Dr. Winifred Silver MTD Negative Normal NEGATIVE [facility] Comment on above: Performed By: #### D RUGRPD #### [facility] [address] [place] [address] Dr. Winifred Silver OPI Negative Normal NEGATIVE [facility] Comment on above: Performed By: #### D RUGRPD #### [facility] [address] [place] [address] Dr. Winifred Silver OXY Negative Normal NEGATIVE [facility] Comment on above: Performed By: #### D RUGRPD #### [facility] [address] [place] [address] Dr. Winifred Silver PCP Negative Normal NEGATIVE [facility] Comment on above: Performed By: #### D RUGRPD #### [facility] [address] [place] [address] Dr. Winifred Silver PPX Negative Normal NEGATIVE [facility] Comment on above: Performed By: #### D RUGRPD #### [facility] [address] [place] [address] Dr. Winifred Silver TCA Negative Normal NEGATIVE [facility] Comment on above: Performed By: #### D RUGRPD #### [facility] [address] [address] [address] Winifred Silver THC Negative Normal NEGATIVE [facility] Comment on above: Performed By: #### D RUGRPD #### [facility] [address] [address] [address] Winifred Silver TYPE AND SCREENon 10-06-2021 TYPE AND SCREEN Negative Normal [facility] Comment on above: Performed By: #### T NS #### [facility] [address] [address] [address] 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 Winifred Silver Clarity (U) CLEAR Normal CLEAR [facility] Comment on above: Performed By: #### U ACSIND #### [facility] [address] [address] [address] Winifred Silver Color (U) LT. YELLOW Normal YELLOW [facility] Comment on above: Performed By: #### U ACSIND #### [facility] [address] [address] [address] Winifred Silver Glucose Ql (U) Negative Normal NEGATIVE [facility] Comment on above: Performed By: #### U ACSIND #### [facility] [address] [address] [address] Winifred Silver Hemoglobin Ql (U) Negative Normal NEGATIVE [facility] Comment on above: Performed By: #### U ACSIND #### [facility] [address] [address] [address] Winifred Silver Ketones Ql (U) Negative Normal NEGATIVE [facility] Comment on above: Performed By: #### U ACSIND #### [facility] [address] [place] [address] Dr. Winifred Silver LEUKOCYTES Negative Normal NEGATIVE [facility] Comment on above: Performed By: #### U ACSIND #### [facility] [address] [place] [address] Dr. Winifred Silver Nitrite Ql (U) Negative Normal NEGATIVE [facility] Comment on above: Performed By: #### U ACSIND #### [facility] [address] [place] [address] Dr. Winifred Silver pH (U) 6.0 [pH] Normal 5-9 [facility] Comment on above: Performed By: #### U ACSIND #### [facility] [address] [place] [address] Dr. Winifred Silver SPEC GRAVITY 1.025 Normal 1.005-<=1.02 5 [facility] Comment on above: Performed By: #### U ACSIND #### [facility] [address] [place] [address] Dr. Winifred Silver UA PROTEIN Negative Normal NEGATIVE/ TRACE [facility] Comment on above: Performed By: #### U ACSIND #### [facility] [address] [place] [address] Dr. Winifred Silver UR MICRO IND NOT INDICATED Normal [facility] Comment on above: Performed By: #### U ACSIND #### [facility] [address] [place] [address] Dr. Winifred Silver Urobilinogen Qn (U) 0.2 {Fredrick'U}/dL Normal 0.2 - 1.0 [facility] Comment on above: Performed By: #### U ACSIND #### [facility] [address] [place] [address] Dr. Winifred Silver Covid-19 PCR (CVDTBH)on 09-21 SARS-CoV-2 (COVID-19) RNA JENARO+probe Ql (Unsp spec) Not detected Normal NOT DETECTED [facility] Comment on above: Result Comment: This test is not yet approved or cleared by the [place] FDA. When there are no FDA-approved or cleared tests available, and other criteria are met, FDA can make tests available under an emergency access mechanism called an Emergency Use Authorization (EUA). The EUA for this test is supported by the Transfer Worker of Health and Human Service's (HHS's) declaration [...] consistent with SARS-CoV-2. Performed By: #### C [facility] #### [facility] [address] [place] [address] Dr. Winifred Silver US PREG GROWTHon 10-01-2021 [...] SAMIRA VELA Date: 2021-10-01 19:22 Normal [facility] US PREG BIOPHY W NON [...] by: PJ SAM Date: 2021-09-25 07:47 Normal [facility] CNOVon 01-16-2021 CNOV Office Visit (ORTHMN ) ----- YEIMY HONEYCUTT ([id number]) 1995 F Date Time Provider Department 01/16/21 10:20 AM AYLIN GILLILAND During your visit today, we recorded the following information about you: Weight Height 77.1 kg 1.727 m Aylin Gilliland PA-C 02/11/2021 9:16 PM Signed Consultation requested by Kali Alcantara [address] [facility] [address] Yeimy Honeycutt is a 25 year old [...] Aylin Gilliland, MS, PA-C [facility] [place] Referring Provider: KALI ALCANTARA [[id number]] Allergies As of Date: 01/16/2021 Noted Allergy Reaction BACTRIM (SULFAMETHOXAZOLE) 10/10/2009 2 - Rash CHLORHEXIDINE GLUCONATE 12/28/2018 9 - Itching Date Reviewed: 01/16/2021 Reviewed by: Nakia Luna Ma - Fully Assessed Reason for Visit: Pain, Back [855] Primary Visit Diagnosis:Strain (more content not included)... Normal [facility] XR LUMBAR 3V AP/LAT/L5-S1on 01-16-2021 [...] bony abnormality or significant disc height loss. Timber Spotter: PSCB Transcribe Date/Time: Jan 16 2021 12:34P Dictated by : CARLTON MATTHEWS MD This examination was interpreted and the report reviewed and electronically signed by: CARLTON MATTHEWS MD on Jan 16 2021 12:35PM EST [id number] Normal [facility] CNPNon 01-07-2021 CNPN Telephone ([facility]) ----- YINKAYEIMY ([id number]) 1995 F Date Time Provider Department 01/07/21 AYLIN GILLILAND [facility] During your visit today, we recorded [...] AYLIN GILLILAND on 01/07/21 Normal [facility] Coding Summary.on 05-18-2018 Coding Summary. CODING DATE: 018 FINAL [facility] STATUS: Home (Routine DC) PAYOR: [...] CphT Date Saved: 05/18/2018 08:52 am Normal [facility] US Breast Unilateral Rt Comp alecia 05-16-2018 [...] EULALIO Normal [facility] XR CHEST (2 VW)on 08-14-2017 XR CHEST (2 VW) EXAMINATION: XR CHES T (2 VW)CLINICAL HISTORY: chest pain COMPARISONS: None available.FINDINGS: Cardiac size and pulmonary vascularity are normal. The lungs are clear. There is no evidence of adenopathy. The bones are unremarkable.IMPRESSION: NORMAL CHEST RADIOGRAPHSInterpreted by:ARIAN Harrisigned by:Troy Rueda MD08/14/17inal result Normal [facility] Vital Signs Date Time Vital Sign Value Performing Clinician Facility 07-06-2023 14:39-0500 Body mass index (BMI) [Ratio] 32.86 kg/m2 Carbylan BioSur[employer] DO Work Phone: [facility] 07-06-2023 14:39-0500 Body weight 98.03 kg Carbylan BioSur[employer] DO Work Phone: [facility] 07-06-2023 14:39-0500 Diastolic blood pressure 74 mm[Hg] Babar Pretty DO Work Phone: [facility] 07-06-2023 14:39-0500 Systolic blood pressure 120 mm[Hg] Babar Pretty DO Work Phone: [facility] 06-29-2023 15:19-0500 Body mass index (BMI) [Ratio] 32.86 kg/m2 Maura Jake PA Work Phone: [facility] 06-29-2023 15:19-0500 Body weight 98.03 kg Maura Jake PA Work Phone: [facility] 06-29-2023 15:19-0500 Diastolic blood pressure 70 mm[Hg] Maura Jake PA Work Phone: [facility] 06-29-2023 15:19-0500 Systolic blood pressure 116 mm[Hg] Maura Cantil PA Work Phone: [facility] 06-22-2023 15:16-0500 Body mass index (BMI) [Ratio] 32.84 kg/m2 Maura Cantil PA Work Phone: [facility] 06-22-2023 15:16-0500 Body weight 97.98 kg Maura Jake PA Work Phone: [facility] 06-22-2023 15:16-0500 Diastolic blood pressure 72 mm[Hg] Maura Cantil PA Work Phone: [facility] 06-22-2023 15:16-0500 Systolic blood pressure 112 mm[Hg] Maura Cantil PA Work Phone: [facility] 10-05-2022 13:25-0400 Body height 172.72 cm Arlette Fofana Other [employer] Other 10-05-2022 13:25-0400 Body mass index (BMI) [Ratio] 28.86 kg/m2 Arlette Fofana Other [employer] Other 10-05-2022 13:25-0400 Body temperature 98.2 [degF] Arlette Fofana Other [employer] Other 10-05-2022 13:25-0400 Body weight 86.09 kg Arlette Fofana Other [employer] Other 10-05-2022 13:25-0400 Respiratory rate 18 /min Arlette Fofana Other [employer] Other 10-05-2022 13:25-0400 SaO2% (BldA) [Mass fraction] 99 % Arlette Fofana Other [employer] Other Encounters Encounter Date Encounter Type Care Provider Facility Start: 07-06-2023 End: 07-06-2023 ambulatory BABAR PRETTY Not Available Start: 07-06-2023 End: 07-06-2023 flow sheet Babar Pretty DO Work Phone: [facility] Comment on above: Third [...] 10-05-2022 End: 10-05-2022 ambulatory Arlette Fofana Other [facility] [employer] Other Start: 10-05-2022 Office outpatient vi sit 15 minutes Arlette Fofana [facility] Start: 07-20-2022 End: 08-28-2022 ambulatory KAREN ROSETTE Facility:[facility] Start: 04-15-2022 End: 04-15-[address] BABAR OLSEN . Facility:[facility] Start: 10-23-2021 End: 11-12-2021 ambulatory KAREN ROSETTE Facility:[facility] Start: 10-16-2021 End: 10-16-2021 ambulatory KAREN ROSETTE Facility:[facility] Start: 10-08-2021 Encounter for preprocedural laboratory examination DR BABAR OLSEN . [facility] Start: 10-06-2021 End: 10-09-2021 Evaluation and [...] 08-14-2017 End: 08-14-2017 Emergency department patient visit [facility] Procedures Date Procedure Procedure Detail Performing [...] Screening for malign ant neoplasm of cervix [facility] Start: 07-19-2023 End: 07-19-2023 Patient encounter procedure 07/19/2023 2:00 PM EST Office Visit [facility] [address] [place] [id number] Maura Joseph, PA [address] [place] [address] [facility] Start: 07-06-2023 End: 07-06-2023 Patient encounter procedure 07/06/2023 2:30 PM EST Routine [facility] [address] [place] [id number] Babar Olsen DO [address] [place] [address] [facility] Start: 06-29-2023 End: 06-29-2023 Patient encounter procedure 06/29/2023 3:00 PM EST Routine [facility] [address] [place] [id number] Maura Joseph, PA [address] [place], [place] [id number] Third trimester [facility] Comment on above: Third trimester preg annette Start: 2023 Screening for malign ant neoplasm of cervix HPV/Cotest [facility] Start: 01-22-2023 Influenza vaccination Influenz a Vaccine (#1) [facility] GBS swab, PCR GBS swab, PCR La b Routine Third trimester Ordered: 06/22/2023 [facility] Work Phone: Comment on above: Ordered: 06/22/2023 Immunizations Immunization Date Immunization Notes Care Provider Kaylie forbes 04-05-2003 influenza virus vacc ine, unspecified formulation Maura Joseph PA Work Phone: [facility] Payers Date Payer Category Payer Unknown FRONTPATH FRONTP ATH [id number] 2022-Present [address] [place] [address] [id number] 2017 Unknown [id number] 1995 Unknown [id number] [id number] 3 1993 Unknown [id number] 2.16.840.1.272540.3.579.2.59 3 1993 Unknown [id number] 2.16.840.1.487957.3.579.2.59 3 1993 Unknown [id number] 2.16.840.1.216374.3.579.2.59 3 1993 Unknown [id number] 2.16.840.1.556605.3.579.2.59 3 1993 Unknown [id number] 2.16.840.1.336076.3.579.2.59 3 1993 Unknown [id number] 2.16.840.1.459426.3.579.2.59 3 1993 Unknown [id number] 2.16.840.1.892525.3.579.2.59 3 1993 Unknown [id number] 2.16.840.1.427633.3.579.2.59 3 1993 Unknown [id number] 2.16.840.1.297062.3.579.2.59 3 1993 Unknown [id number] 2.16.840.1.142891.3.579.2.12 59 1993 Unknown [id number] 2.16.840.1.116463.3.579.2.12 59 1993 Unknown [id number] 2.16.840.1.196739.3.579.2.12 59 1993 Unknown [id number] 2.16.840.1.866214.3.579.2.12 59 1993 Unknown [id number] 2.16.840.1.212941.3.579.2.12 59 1993 Unknown [id number] 2.16.840.1.167422.3.579.2.12 59 1993 Unknown [id number] 2.16.840.1.168697.3.579.2.12 59 1993 Unknown [id number] 2.16.840.1.934750.3.579.2.12 59 1993 Unknown [id number] 2.16.840.1.082456.3.579.2.12 59 1959 Unknown [id number] Social History Date Type Detail Facility Unknown if ever smoked [employer] Other Start: 01-06-2023 End: 04-09-2023 Sex Assigned At [facility] Start: 01-06-2023 Tobacco smoking status [facility] Never smoked tobacco [facility] Start: 01-06-2023 [...] Healthcare Start: 1995 Sex Assigned At Female [facility] Start: 01-04-2023 Gender identity Identifies as female gender (finding) [facility] Start: 01-04-2023 Sexual orientation Heterosexual (finding) [facility] Clinical Notes 01-16-2021 to 07-06-2023 Sherly Villa [...] hfa, doxylamine succinate (sleep), ondansetron, pantoprazole, vit w/ml-qltjtdmzs-ah, and pyridoxine. Medical History: Active Ambulatory Problems [...] nursing note reviewed. Exam conducted with a brake liner present. Vitals: Estimated body mass index is [...] Babar Olsen DO documented in this encounter [facility] 06-29-2023 History of Presen t illness Narrative Reason for Appointment: Patient ID: Yeimy Rodriguez is a 28 y.o. female who presents for Routine Visit Patient presents today for Return OB appointment. Current Medications: has a current medication list which includes the following prescription(s): doxylamine succinate (sleep), ondansetron, pantoprazole, vit w/gg-oeukmfinu-hr, and pyridoxine. Medical History: Active Ambulatory Problems [...] of: WILLIAN Lane documented in this encounter [facility] 06-22-2023 History of Presen t illness Narrative [...] prescription(s): doxylamine succinate (sleep), ondansetron, pantoprazole, vit w/uw-okposbqik-me, and pyridoxine. Medical History: Active Ambulatory Problems [...] reviewed, and patient is to proceed to [facility] OR on her scheduled day. Patient is to return in 1 week for scheduled routine OB appointment. 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 PREOPERATIVE DIAGNOSIS: 1. at 39 2/7 weeks. 2. Previous . POSTOPERATIVE DIAGNOSIS: 1. at 39 2/7 weeks. 2. Previous . ANESTHESIA: Spinal with Duramorph. SURGEON: Babar Olsen D.O. HEATING MECHANIC: LAUREN Ellison URINE OUTPUT: Yellow and clear. [...] Olsen DO on 10/07/2021 09:42 AM EDT [facility] Signed and Approved by: DR BABAR OLSEN . 10/07/2021 09:42:00[facility]05-16-2022 NoteDISCHARGE SUMMARY DISCHARGE DATE: 10/09/2021 PRIMARY [...] pain free and no longer on narcotics. [facility] Signed and Approved by: DR BABAR OLSEN . 10/13/2021 07:35:00[facility]08-26-2021 NoteHNO ID: [id number] Author: Aylin Gilliland PA-C Service: ? Author Type: Physician [employer] Instructor Type: Progress Notes Filed: 02/11/2021 9:16 PM Note Text: Consultation requested by Kali Alcantara [address] [facility] [address] Yeimy Honeycutt is a 25 year old [...] Aylin Gilliland, MS, PA-C [facility] Note HNO ID: [id number] Author: RT Jalen(R) Service: Radiology Author Type: Placement Director Type: Progress Notes Filed: 01/16/2021 10:07 [...] BY: RT Jalen(R) January 16, 2021 10:06 [facility] Diagnosis Third trimester state, incidental Third [...] C section x2 Hospitalization History see above [employer] Other Summary Purpose Family History No Family [...] content) DATE CREATED AUTHOR 11/25/2017 Erica Rowe [facility] DATE CREATED AUTHOR AUTHOR'S ORGANIZ ATION 05/12/2019 [facility] DATE CREATED AUTHOR AUTHOR'S ORGANIZ ATION 07/12/2021 [facility] DATE CREATED AUTHOR AUTHOR'S ORGANIZ ATION 09/23/2022 [facility] DATE CREATED AUTHOR AUTHOR'S ORGANIZ ATION 07/08/2023 [facility] dical Specialists EPIC REASON FOR VISIT (unrecogniz ed section and content) Reason Comments Routine Visit Care Teams (unrecognized sec tion and content) Music Typographer Relationship Specialty Start Date End Date Fern Martinez MD [address] [place] [address] PCP - General Family Medicine 12/11/22 Music Typographer Relationship Specialty Start Date End Date Fern Martinez MD [address] [place] [address] PCP - General Family Medicine 12/11/22 Music Typographer Relationship Specialty Start Date End Date Fern Martinez MD [address] [place] [address] PCP - General Family Medicine 12/11/22 FOR [...] BE BASED ON THE PRIMARY CLINICAL RECORDS. [facility]. provides no warranty or guarantee of the accuracy or completeness of information in this document.
[2023-07-12] MEDS: 0.9 % SODIUM CHLORIDE 1,000 ML 1000 ML IV ×2 (05:48→08:00)
[2023-07-12 06:00] LABS: Basophils Percent Auto 0.4 % (0.2-2.0); Eosinophils Absolute Auto 0.1 10^3/uL (0.0-0.7); Hematocrit 33.5 % (36.0-48.0); Hemoglobin 11.1 g/dL (12.0-16.0); Immature Granulocytes Abs Auto 0.06 10^3/uL (0.00-0.03); Immature Granulocytes Pct Auto 0.6 % (0.0-0.5); Lymphocytes Absolute Auto 1.6 10^3/uL (1.2-3.8); Lymphocytes Percent Auto 16.2 % (20.5-60.0); Mean Corpuscular HGB Conc 33.1 g/dL (29.9-35.2); Mean Corpuscular Hemoglobin 29.6 pg (26.7-34.0); Mean Corpuscular Volume 89.3 fL (81.0-99.0); Mean Platelet Volume 11.4 fL (9.5-13.5); Monocytes Absolute Auto 0.6 10^3/uL (0.3-0.8); Monocytes Percent Auto 5.6 % (1.7-12.0); Neutrophils Absolute Auto 7.6 10^3/uL (1.4-6.5); Neutrophils Percent Auto 76.2 % (43.0-75.0); Platelet Count 178 10^3/uL (150-450); Red Blood Count 3.75 10^6/uL (4.20-5.40); Red Cell Distribution Width 13.6 % (11.0-15.0)
[2023-07-12 06:01] LABS: Bilirubin Urine NEGATIVE (NEGATIVE); Blood Urine NEGATIVE (NEGATIVE); Clarity Urine CLEAR (CLEAR); Color Urine LT. YELLOW (YELLOW); Glucose Urine UA NEGATIVE (NEGATIVE); Ketones Urine NEGATIVE (NEGATIVE); Leukocyte Esterase Urine NEGATIVE (NEGATIVE); Nitrite Urine NEGATIVE (NEGATIVE); Protein Urine NEGATIVE (NEG/TRACE); Urobilinogen Urine 0.2 EU/dL (0.2-1.0); pH Urine 6.5 (5.0-9.0)
[2023-07-12 06:12] LABS: Amphetamine Screen Urine NEGATIVE (NEGATIVE); Barbiturates Screen Urine NEGATIVE (NEGATIVE); Benzodiazepines Screen Urine NEGATIVE (NEGATIVE); Buprenorphine Screen Urine NEGATIVE (NEGATIVE); Cannabinoid Screen Urine NEGATIVE (NEGATIVE); Cocaine Screen Urine NEGATIVE (NEGATIVE); Methadone Screen Urine NEGATIVE (NEGATIVE); Methamphetamines Screen Urine NEGATIVE (NEGATIVE); Opiate Screen Urine NEGATIVE (NEGATIVE); Oxycodone Screen Urine NEGATIVE (NEGATIVE); Phencyclidine Screen Urine NEGATIVE (NEGATIVE); Tricyclic Antidepressant Urine NEGATIVE (NEGATIVE)
[2023-07-12 06:14] LABS: Bacteria Urine NONE SEEN #/HPF (NONE SEEN); Cast Seen? NONE SEEN #/LPF (NONE SEEN); Crystals Seen? None Seen #/HPF (None Seen); Mucus Urine TRACE (NONE SEEN); RBC Urine 0-2 #/HPF (0-2); Squamous Epithelial Cell Urine RARE #/LPF (NONE/RARE); WBC Urine NONE SEEN #/HPF (NONE SEEN)
[2023-07-12] MEDS: FAMOTIDINE/PF 20 MG/2 ML VIAL IV (08:10)
[2023-07-12] MEDS: METOCLOPRAMIDE HCL 10 MG/2 ML VIAL IVP (08:10)
[2023-07-12] MEDS: CEFAZOLIN SODIUM/DEXTROSE,ISO 2 GM/50 ML PIGGYBACK IV ×2 (08:10→13:56)
[2023-07-12] MEDS: CITRIC ACID/SODIUM CITRATE 30 ML SOLUTION ORACIT SHOHL'S SOLN PO (08:11)
[2023-07-12] MEDS: LACTATED RINGER'S SOLUTION 1,000 ML 50 ML IV (09:00)
--- NOTE | 2023-07-12 09:11 | PM.ONB ---
Brief Operative Note Date of procedure: 07/12/23 Pre-op diagnosis: iup at 39wks, desires permanent sterilization, previous c/s Post-op diagnosis: same as pre-op Procedure: NAME OF PROCEDURE: [ section with bilateral salpingectomy ] PROCEDURE: Patient was taken back to the Operating Room where she was given a spinal anesthesia with Duramorph without difficulty. She was prepped and draped in the normal sterile fashion. A Pfannenstiel skin incision was then made 2?cm above the symphysis pubis and carried down to underlying rectus fascia using a Bovie. The fascia was incised in the midline and extended laterally using Yee scissors. Two Yoly clamps were placed on the superior aspect of the fascia and dissected off the underlying rectus muscles. The same was performed on the inferior aspect as well. The muscles were then in the midline. Peritoneum was identified and entered bluntly. The peritoneum was then extended superiorly and inferiorly with good visualization of the bladder. The bladder blade was inserted. Vesicouterine peritoneum was identified, tented up, and entered with Metzenbaum scissors. A bladder flap was then created digitally. The bladder blade was reinserted. A low transverse incision was made on the patient's uterus and extended laterally digitally. The was then delivered atraumatically after the bladder blade was removed in the cephalic position. The cord was clamped and cut. Cord blood was obtained. The infant was handed off to awaiting team. The patient's placenta was spontaneously delivered. The uterus was then exteriorized. The uterus was cleared of all clots and debris. The bladder blade was reinserted. The patient's uterine incision was closed using #0 Vicryl in a running lock fashion. Excellent hemostasis was assured.? The rt tube was identified and grasped with babock, the ligasure was used to transect and ligate the tube in its entirity, this was done on the contralateral side as well. The uterus was then returned to the patient's abdomen. The patient's abdomen was copiously irrigated using warm saline. Peritoneal gutters were cleared of all clots and debris. Again excellent hemostasis was assured. The patient's fascia was closed using #0 Vicryl in a running fashion. The patient's skin was closed using 4-0 Vicryl subcuticularly. The patient tolerated the procedure well. Sponge, lap, and needle counts were correct x2. The patient was taken to the Recovery Room in stable condition. Anesthesia: MERRILL Surgeon: Carson Olsen Carpet Yarn Winder Operator: Ivana Zheng Estimated blood loss (mL): 575 Pathology: none sent Condition: stable Disposition: PACU Urinary Catheter Management Urinary Catheter Management Urethral: Cath placed during this visit: yes Urethral indwelling: No Insertion date: 07/12/23 Insertion time: 06:00
--- NOTE | 2023-07-12 09:12 | PM.OBPRCCS ---
Procedure Pre-op/Post-op diagnoses: Pre-Op/Post-Op Diagnoses Operation Date: 07/12/23 07:30 <No data on this case meets the specified criteria> Procedure: Procedures Operation Date: 07/12/23 07:30 Actual Procedure Side Surgeon p Repeat with Bilateral Salpingectomy Bilateral Carson Olsen DO Licensed Funeral Director: Ivana Zheng Estimated blood loss (mL): 575 Disposition: PACU Anesthesia type: Spinal
[2023-07-12] MEDS: 0.9 % SODIUM CHLORIDE 10 ML VIAL 35 ML INJ (09:35)
[2023-07-12] MEDS: BUPIVACAINE LIPOSOME/PF 266 MG/13.3 ML VIAL INJ (09:35)
[2023-07-12] MEDS: BUPIVACAINE HCL 0.5% PF 50 MG/10 ML VIAL 20 ML INJ (09:35)
[2023-07-12] MEDS: OXYTOCIN/0.9 % SODIUM CHLORIDE 20 UNITS/1,000 ML PLAST..BAG 200 UNIT IV (11:22)
[2023-07-12] MEDS: KETOROLAC TROMETHAMINE 30 MG/ML VIAL IVP ×2 (15:12→21:02)
[2023-07-12] MEDS: ACETAMINOPHEN 500 MG TABLET 1000 MG PO (17:19)
[2023-07-12] MEDS: ENOXAPARIN SODIUM 40 MG/0.4 ML SYRINGE SUBQ (21:02)
[2023-07-13 00:42] VITALS: BP 109/74; TEMP 36.6
[2023-07-13] MEDS: ACETAMINOPHEN 500 MG TABLET 1000 MG PO ×3 (00:42→16:04)
[2023-07-13 00:45] VITALS: RESP 16
[2023-07-13] MEDS: IBUPROFEN 400 MG TABLET 800 MG PO ×3 (03:13→21:24)
[2023-07-13 03:14] VITALS: BP 99/59; PULSE 60; RESP 16; RESP 18; TEMP 36.6; O2SAT 96
[2023-07-13 06:30] LABS: Basophils Absolute Auto 0.1 10^3/uL (0.0-0.1); Basophils Percent Auto 0.4 % (0.2-2.0); Eosinophils Absolute Auto 0.1 10^3/uL (0.0-0.7); Hematocrit 29.5 % (36.0-48.0); Hemoglobin 9.6 g/dL (12.0-16.0); Immature Granulocytes Abs Auto 0.07 10^3/uL (0.00-0.03); Immature Granulocytes Pct Auto 0.5 % (0.0-0.5); Lymphocytes Absolute Auto 2.1 10^3/uL (1.2-3.8); Lymphocytes Percent Auto 15.1 % (20.5-60.0); Mean Corpuscular HGB Conc 32.5 g/dL (29.9-35.2); Mean Corpuscular Hemoglobin 29.6 pg (26.7-34.0); Monocytes Absolute Auto 0.8 10^3/uL (0.3-0.8); Monocytes Percent Auto 5.6 % (1.7-12.0); Neutrophils Absolute Auto 10.7 10^3/uL (1.4-6.5); Neutrophils Percent Auto 77.4 % (43.0-75.0); Platelet Count 157 10^3/uL (150-450); Red Blood Count 3.24 10^6/uL (4.20-5.40); Red Cell Distribution Width 13.7 % (11.0-15.0); White Blood Count 13.8 10^3/uL (4.0-11.0)
--- NOTE | 2023-07-13 07:23 | W.PC.ACHO ---
Registration Status: ADM IN Primary Language: [place] Preferred Language: [place] Active Medications Generic Name Dose Route Start Last Admin Trade Name Freq PRN Reason Stop Dose Admin Acetaminophen 1,000 mg 07/12/23 16:30 07/13/23 00:42 Acetaminophen 500 Mg Tablet PO 07/14/23 08:30 1,000 mg Q8H MURALI Administration Al Hydroxide/Mg Hydroxide 2,400 mg 07/12/23 09:12 Magnesium Hydroxide 2,400 Mg/10 Ml Oral.Susp PO Q6H PRN Dyspepsia Diphenhydramine HCl 25 mg 07/12/23 09:12 Diphenhydramine Hcl 50 Mg/Ml (1ml) Vial IV 07/13/23 09:14 Q6H PRN Itching Diphtheria/Pertussis/Tetanus Vacc 0.5 ml 07/13/23 09:00 Adacel Diph,Pertuss(Acell),Tet Vac/Pf 0.5 Ml Adult Syringe IM 07/13/23 09:01 .ONCE ONE Docusate Sodium 100 mg 07/13/23 09:00 Docusate Sodium 100 Mg Capsule PO BID MURALI Enoxaparin Sodium 40 mg 07/12/23 21:00 07/12/23 21:02 Enoxaparin Sodium 40 Mg/0.4 Ml Syringe SUBQ 40 mg Q24H MURALI Administration Sodium Chloride 1,000 mls @ 125 mls/hr 07/12/23 09:30 Sodium Chloride 0.9% 1,000 Ml IV .Q8H MURALI Promethazine HCl 25 mg/ Sodium 51 mls @ 204 mls/hr 07/12/23 09:12 Chloride IV Q6H PRN Nausea And Vomiting Lactated Ringer's 1,000 mls @ 50 mls/hr 07/12/23 10:00 07/12/23 09:00 Lactated Ringers IV 50 mls/hr .Q20H MURALI Administration Ibuprofen 800 mg 07/12/23 09:12 07/13/23 03:13 Ibuprofen 400 Mg Tablet PO 800 mg Q8H PRN Administration Pain Ketorolac Tromethamine 30 mg 07/12/23 09:12 Ketorolac Tromethamine 30 Mg/Ml Vial IVP 07/14/23 09:13 Q6H PRN Pain Measles/Mumps/Rubella Vaccine Live 0.5 ml 07/13/23 09:00 Measles,Mumps,Rubella Vacc/Pf 0.5 Ml Vial SQ 07/13/23 09:01 .ONCE ONE Ondansetron HCl 4 mg 07/12/23 09:12 Ondansetron 4 Mg Rapdis Tablet PO Q6H PRN Nausea And Vomiting Ondansetron HCl 4 mg 07/12/23 09:12 Ondansetron Pf 4 Mg/2 Ml Vial IV Q6H PRN Nausea And Vomiting Oxycodone/Acetaminophen 1 tab 07/12/23 09:12 Oxycodone Hcl/Acetaminophen 5mg/325mg PO Q4H PRN Pain Scale 4-6 Oxycodone/Acetaminophen 2 tab 07/12/23 09:12 Oxycodone Hcl/Acetaminophen 5mg/325mg PO Q4H PRN Pain Scale 7-10 Senna 17.2 mg 07/12/23 20:00 Sennosides 8.6 Mg Tablet PO QHS PRN Constipation Simethicone 80 mg 07/12/23 09:12 Simethicone 80 Mg Tab.Chew PO QID PRN Abdominal Distention Diet Category Date Time Status Regular Consistency Diet Diet 07/12/23 09:13 Active Respiratory Pulse Oximetry 96 Pulse Oximetry 96 Pulse Oximetry 96 Pulse Oximetry 97 Pulse Oximetry 96 Pulse Oximetry 96 Pulse Oximetry 96 Pulse Oximetry 97 Pulse Oximetry 97 Pulse Oximetry 97 Pulse Oximetry 97 Pulse Oximetry 97 Pulse Oximetry 96 Pulse Oximetry 96 Pulse Oximetry 96 Pulse Oximetry 96 Oxygen Delivery Method Room Air Oxygen Delivery Method Room Air Oxygen Delivery Method Room Air Oxygen Delivery Method Room Air Oxygen Delivery Method Room Air Oxygen Delivery Method Room Air Oxygen Delivery Method Room Air Oxygen Delivery Method Room Air Oxygen Delivery Method Room Air Oxygen Delivery Method Room Air Cardiology Heart Sounds Strong,Regular Heart Sounds Strong,Regular Heart Sounds Strong,Regular Renal Bladder Pattern Continent Bladder Pattern Continent Bladder Pattern Continent Catheter Urinary Catheter Date of 07/12/23 Insertion [Urethral] Urinary Catheter Time of 06:00 Insertion [Urethral] Date Urinary Catheter Removed 07/12/23 [Urethral] Time Urinary Catheter 16:25 Discontinued [Urethral]
--- NOTE | 2023-07-13 07:36 | PM.OBPN ---
OB - PN: Subj Subjective Patient comments: no complaints [place] status: doing well and bottle feeding status: breast and bottle feeding Exam Constitutional Vital Signs, click to edit/add: Last Vital Signs Temp 97.9 F 07/13/23 03:14 Pulse 60 07/13/23 03:14 Resp 16 07/13/23 03:14 BP 99/59 07/13/23 03:14 Pulse Ox 96 07/13/23 03:14 O2 Del Method Room Air 07/13/23 03:14 Documenting provider has reviewed patient's vital signs: yes Common normals: no apparent distress General appearance: cooperative Orientation/consciousness: Yes awake, Yes oriented to person, Yes oriented to place and Yes oriented to time HENMT Common normals: normocephalic Eye Common normals: EOMs intact bilaterally General eye: normal appearance of both eyes Neck & C-Spine Common normals: full ROM General: normal visual inspection Lymph Lymphatic: no lymphadenopathy noted Chest Common normals: inspection of chest normal Respiratory Common normals: normal respiratory effort, no retractions and no use of accessory muscles Effort & inspection: able to speak in complete sentences Auscultation: clear to auscultation bilaterally Cardio Common normals: regular rate and regular rhythm Rate: regular rate Rhythm: regular rhythm GI Common normals: Normal to inspection, nondistended, normoactive bowel sounds present Inspection: normal to inspection Auscultation: normoactive bowel sounds Palpation: soft Percussion: normal to percussion Common normals: no CVA tenderness Back & Pelvis Common normals: no CVA tenderness Extremity Common normals: normal to inspection Neuro Common normals: oriented x3 Sensorium/orientation: awake, alert, oriented to person, oriented to place and oriented to time Psych Common normals: mental status grossly normal and thought process normal Attitude: calm Results Labs Labs: Short CBC 07/13/23 Range/Units 06:15 WBC 13.8 H (4.0-11.0) 10^3/uL Hgb 9.6 L (12.0-16.0) g/dL Hct 29.5 L (36.0-48.0) % Plt Count 157 (150-450) 10^3/uL Urinary Catheter Management Urinary Catheter Management Urethral: Cath placed during this visit: yes, but has since been removed by the nurse Urethral indwelling: No Insertion date: 07/12/23 Insertion time: 06:00 Removal date: 07/12/23 Removal time: 16:25 OB - PN: A/P Plan - Plan: routine postop care Time Spent with Patient Time: Total time spent is greater than 50% in coordination of care (as documented) at patient's floor/unit and/or counseling patient: Total time spent with greater than 50% in coordination of care (as documented) at patient's floor/unit and/or counseling patient: less than 15 minutes
[2023-07-13] MEDS: DOCUSATE SODIUM 100 MG CAPSULE PO ×2 (08:02→21:25)
[2023-07-13 09:04] VITALS: BP 111/63; PULSE 80; RESP 18; TEMP 36.4
[2023-07-13 16:06] VITALS: BP 122/67; PULSE 80; RESP 14; TEMP 37.3
[2023-07-13] MEDS: OXYCODONE HCL/ACETAMINOPHEN 5MG/325MG 1 TAB PO (18:45)
[2023-07-14 02:37] VITALS: BP 125/85; PULSE 70; RESP 18
[2023-07-14] MEDS: ACETAMINOPHEN 500 MG TABLET 1000 MG PO ×2 (02:37→12:22)
[2023-07-14] MEDS: IBUPROFEN 400 MG TABLET 800 MG PO (06:20)
--- NOTE | 2023-07-14 07:44 | W.PC.ACHO ---
Registration Status: ADM IN Primary Language: Chinese Preferred Language: Chinese Report received from Jacque Barr at 0700. Active Medications Generic Name Dose Route Start Last Admin Trade Name Freq PRN Reason Stop Dose Admin Acetaminophen 1,000 mg 07/12/23 16:30 07/14/23 02:37 Acetaminophen 500 Mg Tablet PO 07/14/23 08:30 1,000 mg Q8H MURALI Administration Al Hydroxide/Mg Hydroxide 2,400 mg 07/12/23 09:12 Magnesium Hydroxide 2,400 Mg/10 Ml Oral.Susp PO Q6H PRN Dyspepsia Docusate Sodium 100 mg 07/13/23 09:00 07/13/23 21:25 Docusate Sodium 100 Mg Capsule PO 100 mg BID MURALI Administration Enoxaparin Sodium 40 mg 07/12/23 21:00 07/12/23 21:02 Enoxaparin Sodium 40 Mg/0.4 Ml Syringe SUBQ 40 mg Q24H MURALI Administration Sodium Chloride 1,000 mls @ 125 mls/hr 07/12/23 09:30 Sodium Chloride 0.9% 1,000 Ml IV .Q8H MURALI Promethazine HCl 25 mg/ Sodium 51 mls @ 204 mls/hr 07/12/23 09:12 Chloride IV Q6H PRN Nausea And Vomiting Ibuprofen 800 mg 07/12/23 09:12 07/14/23 06:20 Ibuprofen 400 Mg Tablet PO 800 mg Q8H PRN Administration Pain Ketorolac Tromethamine 30 mg 07/12/23 09:12 Ketorolac Tromethamine 30 Mg/Ml Vial IVP 07/14/23 09:13 Q6H PRN Pain Ondansetron HCl 4 mg 07/12/23 09:12 Ondansetron 4 Mg Rapdis Tablet PO Q6H PRN Nausea And Vomiting Ondansetron HCl 4 mg 07/12/23 09:12 Ondansetron Pf 4 Mg/2 Ml Vial IV Q6H PRN Nausea And Vomiting Oxycodone/Acetaminophen 1 tab 07/12/23 09:12 07/13/23 18:45 Oxycodone Hcl/Acetaminophen 5mg/325mg PO 1 tab Q4H PRN Administration Pain Scale 4-6 Oxycodone/Acetaminophen 2 tab 07/12/23 09:12 Oxycodone Hcl/Acetaminophen 5mg/325mg PO Q4H PRN Pain Scale 7-10 Senna 17.2 mg 07/12/23 20:00 Sennosides 8.6 Mg Tablet PO QHS PRN Constipation Simethicone 80 mg 07/12/23 09:12 Simethicone 80 Mg Tab.Chew PO QID PRN Abdominal Distention Respiratory Oxygen Delivery Method Room Air Cardiology Heart Sounds Regular Renal Bladder Pattern Continent Bladder Pattern Continent
[2023-07-14 08:03] VITALS: RESP 16; TEMP 36.9
[2023-07-14] MEDS: DOCUSATE SODIUM 100 MG CAPSULE PO (08:09)
[2023-07-14 08:10] VITALS: BP 129/72; PULSE 75
--- NOTE | 2023-07-14 08:22 | PC.NURSE ---
Pt own ice pack given at this time for incision pain comfort.
--- NOTE | 2023-07-14 09:07 | PM.OBPN ---
OB - PN: Subj Subjective Patient comments: no complaints and pain well controlled [place] status: doing well Exam Constitutional Vital Signs, click to edit/add: Last Vital Signs Temp 98.5 F 07/14/23 08:03 Pulse 75 07/14/23 08:10 Resp 16 07/14/23 08:03 BP 129/72 07/14/23 08:10 Pulse Ox 96 07/13/23 03:14 O2 Del Method Room Air 07/14/23 08:03 Documenting provider has reviewed patient's vital signs: yes Common normals: no apparent distress Respiratory Common normals: clear to auscultation bilaterally Cardio Common normals: regular rate and regular rhythm GI Common normals: Normal to inspection, nondistended, normoactive bowel sounds present Extremity Common normals: no clubbing, cyanosis or edema and no calf tenderness Urinary Catheter Management Urinary Catheter Management Urethral: Cath placed during this visit: yes, but has since been removed by the nurse Urethral indwelling: No Insertion date: 07/12/23 Insertion time: 06:00 Removal date: 07/12/23 Removal time: 16:25 OB - PN: A/P Plan - day: 2 Time Spent with Patient Time: Total time spent is greater than 50% in coordination of care (as documented) at patient's floor/unit and/or counseling patient: Total time spent with greater than 50% in coordination of care (as documented) at patient's floor/unit and/or counseling patient: less than 15 minutes
[2023-07-14 12:00] VITALS: RESP 16; TEMP 36.7
[2023-07-14 12:19] VITALS: BP 117/75; PULSE 65
[2023-07-14] MEDS: SIMETHICONE 80 MG TAB.CHEW PO (12:19)
--- NOTE | 2023-07-22 | DS_ITS ---
DISCHARGE DATE: 07/22/2023 PRIMARY DIAGNOSES: 1. Intrauterine at 39 weeks. 2. Desires permanent sterilization. 3. Previous . PROCEDURE: section with bilateral salpingectomy. HOSPITAL COURSE: As expected. Please see chart for full details. LABORATORY DATA: Please see chart. COMPLICATIONS: None. DISCHARGE CONDITION: Stable. CONSULTATION: Anesthesia. DISCHARGE INSTRUCTIONS: 1. Diet: Regular. 2. Medications: a. Percocet 5/325 one to two p.o. every 4-6 hours p.r.n. pain. b. Motrin 800 one p.o. every 8 hours p.r.n. pain. 3. Followup in one week. Restrictions: Pelvic rest for 6 weeks. No heavy lifting. May drive when pain free and no longer on narcotics. [facility]
== END 2023-07-14 13:05 | disposition home or self-care (01) | DRG 785 ==
PROVIDERS: Admitting Provider Obstetrics & Gynecology; PCP Student in an Organized Health Care Education/Training Program; Visit Provider Obstetrics & Gynecology
PROC: 10D00Z1 Extraction of Products of Conception, Low, Open Approach (ICD-10-PCS; CPT 59514; principal; 2023-07-12 07:30)
DX: O34.211 Maternal care for low transverse scar from previous cesarean delivery (principal); O36.5930 Maternal care for other known or suspected poor fetal growth, third trimester, not applicable or unspecified; Z3A.39 39 weeks gestation of pregnancy; Z37.0 Single live birth; Z30.2 Encounter for sterilization
CPT/HCPCS: 36415; 51702; 64488; 80307; 81001; 85025; 86850; 86900; 86901; 88302; 94667; 94668; 96372; 96374; 96375; J0131; J0665; J0690; J1100; J1650; J1885; J2274; J2371; J2405; J2590; J2765

== ENCOUNTER 2023-12-05 07:46 | Emergency (ER) | payer OTHER, SELFPAY ==
[2023-12-05 07:50] VITALS: BP 127/74; PULSE 101; TEMP 36.7; O2SAT 100; BMI 28.1
--- NOTE | 2023-12-05 08:04 | ED.GENADUL1 ---
HPI HPI - General Adult General Chief complaint: Upper Respiratory Infection Stated complaint: SORE THROAT/FEVER Time Seen by Provider: 12/05/23 07:51 Source: patient Mode of arrival: walk-in Limitations: no limitations History of Present Illness HPI narrative: 28-year-old female to the emergency department with chief complaint of sore throat, body aches, chills. Symptoms began yesterday. Similar to past episode of strep throat. She denies any nausea, vomiting. Denies any cough, rhinorrhea, nasal congestion. Related Data Home Medications ?Medication ?Instructions ?Recorded ?Confirmed diphenhydramine HCl 25 mg .Route BEDTIME 06/07/23 06/07/23 pantoprazole 40 mg tablet,delayed 40 mg PO PRN PRN heartburn 06/07/23 06/07/23 release pyridoxine (vitamin B6) 25 mg 25 mg PO DAILY 06/07/23 06/07/23 tablet Previous Rx's ?Medication ?Instructions ?Recorded ibuprofen 800 mg tablet 800 mg PO Q8H PRN pain 14 days #40 07/14/23 tabs oxycodone-acetaminophen 5 mg-325 1 tab PO Q6H PRN pain 4 days #16 07/14/23 mg tablet (Percocet) tabs amoxicillin 500 mg tablet 500 mg PO BID 10 days #20 tabs 12/05/23 Allergies Allergy/AdvReac Type Severity Reaction Status Date / Time sulfamethoxazole AdvReac Severe Hives Verified 05/18/23 11:51 [From Bactrim] trimethoprim [From Bactrim] AdvReac Severe Hives Verified 05/18/23 11:51 Opioid HPI Opioid Management Most Recent Opioid Data: Last Pain Scale 4 07/14/23 12:22 Last ED Pain Assessment 12/05/23 07:55 Ur Phencyclidine Scrn Negative (NEGATIVE) 07/12/23 05:43 Review of Systems ROS Status of ROS 10 or more systems reviewed and unremarkable except as noted in history and below PFSH PFSH Social History Smoking status: Never smoker Highest level of school completed/degree received: Master's degree Exam Narrative Exam Narrative: VITALS: I have reviewed the triage vital signs. GENERAL: Well developed, well appearing adult in no acute distress. NEURO: Alert and oriented. Moves all extremities. Face is symmetric and expressive. EYES: PERRL. No scleral icterus or conjunctival injection. No discharge. HENT: Normocephalic, atraumatic. Hearing is grossly intact. Nares grossly patent and without discharge. Erythema about the posterior oropharynx. Mucous membranes moist. Uvula midline. No unilateral peritonsillar swelling. Tolerating secretions. No dysphonia. NECK: No JVD. Patient moves neck without restriction. No cervical lymphadenopathy. CARDIO: Rhythm regular. Normal rate. No murmur, rub, or gallop. Pulses equal bilaterally in the upper and lower extremity. No lower extremity edema. PULM: Lungs clear to auscultation in all akhtar. No wheezes, rales, or rhonchi. No conversational dyspnea. No splinting, stridor, or accessory muscle use. GI/: Abdomen is soft and non-tender. Normoactive bowel sounds. EXTREMITIES: Symmetric muscle bulk. No joint swelling. No clubbing, cyanosis, or deformity. SKIN: Warm and dry. Normal turgor. No rash or lesions appreciated. PSYCH: Mood, affect, and interaction is appropriate to the setting. Constitutional Vital Signs, click to edit/add: Last Vital Signs Temp 98.1 F 12/05/23 07:50 Pulse 101 H 12/05/23 07:50 Resp 18 12/05/23 07:50 BP 127/74 12/05/23 07:50 Pulse Ox 100 12/05/23 07:50 O2 Del Method Room Air 12/05/23 07:50 Course Vital Signs Vital signs: Vital Signs Temperature 98.1 F 12/05/23 07:50 Pulse Rate 101 H 12/05/23 07:50 Respiratory Rate 18 12/05/23 07:50 Blood Pressure 127/74 12/05/23 07:50 Pulse Oximetry 100 12/05/23 07:50 Oxygen Delivery Method Room Air 12/05/23 07:50 Temperature 98.1 F 12/05/23 07:50 Pulse Rate 101 H 12/05/23 07:50 Respiratory Rate 18 12/05/23 07:50 Blood Pressure 127/74 12/05/23 07:50 Pulse Oximetry 100 12/05/23 07:50 Oxygen Delivery Method Room Air 12/05/23 07:50 Medical Decision Making MDM Narrative Medical decision making narrative: Well-appearing 28-year-old female to the emergency department with chief complaint of sore throat, body aches, chills. Vital stable, the patient is afebrile. No evidence of peritonsillar abscess or deep space abscess. COVID-negative. Strep a antigen screen was positive. Dexamethasone is given for symptoms. Amoxicillin as prescribed strep pharyngitis. Return precautions were discussed. All questions were answered. The patient was discharged home. Medical Records Medical records reviewed: Yes I reviewed the patient's medical records Lab Data Lab results reviewed: Yes I reviewed the patient's lab results Labs: Lab Results 12/05/23 12/05/23 Range/Units 07:53 07:58 SARS-CoV-2 Ag (CV2AG) Negative (NEGATIVE) Streptococcus Screen Positive A Discharge Plan Discharge Stand Alone Forms: Portal Instructions Chief Complaint: Upper Respiratory Infection Clinical Impression: Acute streptococcal pharyngitis Patient Disposition: Home, Self-Care Time of Disposition Decision: 08:20 Condition: Good Mode of Transportation: Private Vehicle Prescriptions / Home Meds: New amoxicillin 500 mg tablet 500 mg PO BID 10 Days Qty: 20 0RF No Action pantoprazole 40 mg tablet,delayed release (DR/EC) 40 mg PO PRN PRN (Reason: heartburn) diphenhydramine HCl [Unisom (diphenhydramine)] 25 mg .Route BEDTIME pyridoxine (vitamin B6) 25 mg tablet 25 mg PO DAILY ibuprofen 800 mg tablet 800 mg PO Q8H PRN (Reason: pain) 14 Days Qty: 40 0RF oxycodone-acetaminophen [Percocet] 5-325 mg tablet 1 tab PO Q6H PRN (Reason: pain) 4 Days Qty: 16 0RF Print Language: Jamaican Instructions: Strep Throat (ED) Additional Instructions: Call the office of your primary care doctor to arrange for follow-up within the above-stated timeframe. Your ED visit was focused on your acute issue and does not replace primary care. You should review your labs, imaging, and diagnoses from this ED visit with your primary care physician. There may be non-emergent/ incidental findings that need further evaluation. You should review your vital signs including blood pressure with your PCP. If you were prescribed medications you should discuss possible side-effects and drug interactions with your pharmacist. Call 911 or go to the nearest Emergency Department if you develop any new or worsening symptoms. Seek immediate medical attention if you develop: worsening sore throat, difficulty swallowing, drooling, fever, chills, nausea, vomiting, diarrhea, chest pain, shortness of breath, weakness, or any new or worsening symptoms. Referrals: Physician,Non-Staff, MD [Primary Care Provider] - 1 week Discharge Date/Time: 12/05/23 08:30
[2023-12-05 08:13] LABS: Internal Control Within Normal Limits; Strep A Antigen Screen Positive
[2023-12-05 08:17] LABS: Internal Control Within Normal Limits; SARS-CoV-2 Ag NEGATIVE (NEGATIVE)
[2023-12-05] MEDS: DEXAMETHASONE SOD PHOS 10 MG/ML VIAL PO (08:26)
== END 2023-12-05 08:30 | disposition home or self-care (01) ==
PROVIDERS: Emergency Provider Student in an Organized Health Care Education/Training Program
DX: J02.0 Streptococcal pharyngitis (principal)
CPT/HCPCS: 87811; 87880; 99283; J1100

== ENCOUNTER 2024-02-23 20:15 | Outpatient (REF) | payer OTHER, SELFPAY ==
[2024-03-01 14:10] LABS: Age Gdln ACOG Testing Note (.); HPV Aptima Negative (Negative); IGP, Aptima HPV, rfx 16/18,45 Note (.)
== END 2024-02-23 20:16 | disposition home or self-care (01) ==
LOC: LAB 20:15
PROVIDERS: Visit Provider Obstetrics & Gynecology
DX: Z01.419 Encounter for gynecological examination (general) (routine) without abnormal findings (principal)
CPT/HCPCS: 88175

== ENCOUNTER 2024-03-14 07:30 | Outpatient (RCR) | payer OTHER, SELFPAY | END 2024-03-23 23:59 | disposition home or self-care (01) | LOC: HEMC 07:30 | PROVIDERS: Visit Provider Internal Medicine Hematology & Oncology | DX: Z15.09 Genetic susceptibility to other malignant neoplasm (principal); D72.829 Elevated white blood cell count, unspecified; D64.9 Anemia, unspecified; D50.9 Iron deficiency anemia, unspecified; Z80.3 Family history of malignant neoplasm of breast; Z80.42 Family history of malignant neoplasm of prostate; Z80.8 Family history of malignant neoplasm of other organs or systems; Z98.51 Tubal ligation status | CPT/HCPCS: G0463 ==

== ENCOUNTER 2024-04-19 07:43 | Outpatient (RCR) | payer OTHER, SELFPAY ==
[2024-04-06 15:56] LABS: Basophils Absolute Auto 0.1 10^3/uL (0.0-0.1); Basophils Percent Auto 0.8 % (0.2-2.0); Eosinophils Absolute Auto 0.1 10^3/uL (0.0-0.7); Eosinophils Percent Auto 2.1 % (0.9-7.0); Hematocrit 35.1 % (36.0-48.0); Hemoglobin 11.3 g/dL (12.0-16.0); Immature Granulocytes Abs Auto 0.02 10^3/uL (0.00-0.03); Immature Granulocytes Pct Auto 0.3 % (0.0-0.5); Lymphocytes Absolute Auto 1.6 10^3/uL (1.2-3.8); Lymphocytes Percent Auto 24.6 % (20.5-60.0); Mean Corpuscular HGB Conc 32.2 g/dL (29.9-35.2); Mean Corpuscular Hemoglobin 27.6 pg (26.7-34.0); Mean Corpuscular Volume 85.6 fL (81.0-99.0); Mean Platelet Volume 10.4 fL (9.5-13.5); Monocytes Absolute Auto 0.5 10^3/uL (0.3-0.8); Monocytes Percent Auto 7.4 % (1.7-12.0); Neutrophils Absolute Auto 4.1 10^3/uL (1.4-6.5); Neutrophils Percent Auto 64.8 % (43.0-75.0); Platelet Count 232 10^3/uL (150-450); Red Cell Distribution Width 14.2 % (11.0-15.0); White Blood Count 6.3 10^3/uL (4.0-11.0)
[2024-04-06 16:38] LABS: Percent Iron Saturation 10.5 %
[2024-04-08 06:10] LABS: Vitamin B12 746 pg/mL (232-1245)
[2024-04-12 15:06] VITALS: BP 136/79; PULSE 86; TEMP 36.9; O2SAT 99
[2024-04-12] MEDS: FERUMOXYTOL 510 MG in 0.9 % SODIUM CHLORIDE 100 ML 351 MG IV (15:15)
[2024-04-19 15:03] VITALS: BP 112/75; PULSE 60; TEMP 37.1; O2SAT 99
[2024-04-19] MEDS: FERUMOXYTOL 510 MG in 0.9 % SODIUM CHLORIDE 100 ML 351 MG IV (15:10)
--- NOTE | 2024-04-19 15:47 | PC.NURSE ---
Pt here for Fereheme infusion. IV started in Lt AC, infusion tolerated w/o incident. Pt d/c'd in stable condition.
== END 2024-04-22 23:59 | disposition home or self-care (01) ==
LOC: HEMC 07:43
PROVIDERS: Visit Provider Internal Medicine Hematology & Oncology
DX: D50.9 Iron deficiency anemia, unspecified (principal); D72.829 Elevated white blood cell count, unspecified; D64.9 Anemia, unspecified; Z15.09 Genetic susceptibility to other malignant neoplasm; K90.9 Intestinal malabsorption, unspecified; Z80.3 Family history of malignant neoplasm of breast; Z80.42 Family history of malignant neoplasm of prostate; Z80.8 Family history of malignant neoplasm of other organs or systems; Z98.51 Tubal ligation status
CPT/HCPCS: 36415; 82607; 82728; 83540; 83550; 85025; 96365; G0463; Q0138

== ENCOUNTER 2024-05-27 08:27 | Outpatient (OUT) | payer OTHER, SELFPAY ==
[2024-05-27 10:17] LABS: Percent Iron Saturation 46.8 %
== END 2024-05-27 08:28 | disposition home or self-care (01) ==
LOC: LAB 08:28
PROVIDERS: PCP Family Medicine; Visit Provider Internal Medicine Hematology & Oncology
DX: D64.9 Anemia, unspecified (principal); Z15.09 Genetic susceptibility to other malignant neoplasm; D50.9 Iron deficiency anemia, unspecified; D72.829 Elevated white blood cell count, unspecified; K90.9 Intestinal malabsorption, unspecified
CPT/HCPCS: 36415; 82728; 83540; 83550

== ENCOUNTER 2024-06-01 07:45 | Outpatient (RCR) | payer OTHER, SELFPAY ==
[2024-06-01 15:47] LABS: Basophils Absolute Auto 0.1 10^3/uL (0.0-0.1); Basophils Percent Auto 0.7 % (0.2-2.0); Eosinophils Absolute Auto 0.1 10^3/uL (0.0-0.7); Eosinophils Percent Auto 2.1 % (0.9-7.0); Immature Granulocytes Abs Auto 0.02 10^3/uL (0.00-0.03); Immature Granulocytes Pct Auto 0.3 % (0.0-0.5); Lymphocytes Absolute Auto 1.3 10^3/uL (1.2-3.8); Lymphocytes Percent Auto 19.6 % (20.5-60.0); Mean Corpuscular HGB Conc 33.3 g/dL (29.9-35.2); Mean Corpuscular Hemoglobin 29.7 pg (26.7-34.0); Mean Platelet Volume 10.4 fL (9.5-13.5); Monocytes Absolute Auto 0.6 10^3/uL (0.3-0.8); Monocytes Percent Auto 8.1 % (1.7-12.0); Neutrophils Absolute Auto 4.7 10^3/uL (1.4-6.5); Neutrophils Percent Auto 69.2 % (43.0-75.0); Platelet Count 205 10^3/uL (150-450); Red Blood Count 4.38 10^6/uL (4.20-5.40); Red Cell Distribution Width 15.9 % (11.0-15.0); White Blood Count 6.8 10^3/uL (4.0-11.0)
== END 2024-06-02 07:55 | disposition home or self-care (01) ==
LOC: HEMC 07:45
PROVIDERS: PCP Family Medicine; Visit Provider Internal Medicine Hematology & Oncology
DX: D50.9 Iron deficiency anemia, unspecified (principal); D72.829 Elevated white blood cell count, unspecified; D64.9 Anemia, unspecified; K90.9 Intestinal malabsorption, unspecified; Z15.09 Genetic susceptibility to other malignant neoplasm; Z80.3 Family history of malignant neoplasm of breast; Z98.51 Tubal ligation status
CPT/HCPCS: 36415; G0463

== ENCOUNTER 2024-10-27 09:25 | Outpatient (OUT) | payer OTHER, SELFPAY ==
--- OUTSIDE RECORDS SUMMARY | 2023-09-24 04:30 | XMS_ITS ---
Author Organization [facility] Address [address] [place] [address] Care Team Providers Care Canopy Stringer Name Role Phone Eleno Trevino Primary Care Provider [phone] ALLERGIES Allergen (clinical drug ingredient) Drug/Non Drug Allergy documented on EMR Reaction Allergy Type Onset Date Status sulfamethoxazole / trimethoprim Bactrim hives Drug Allergy Active REASON FOR VISIT Other MEDICATIONS Medication SIG (Take, Route, Frequency, Duration) Notes Start Date End Date Status Albuterol Sulfate HFA 108 (90 Base) MCG/ACT 1 puff as needed Inhalation every 4 hrs for 30 days 09/24/2023 Active SOCIAL HISTORY Tobacco Use: Social History Observation Description Date Details (start date - stop date) Never Smoker NA - NA Sex Assigned At : Social History Observation Description Sex Assigned At Unknown Tobacco Use/Smoking Question Answer Notes Are you a nonuser Section Notes: Home with , 3 kids. 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 1 dog - boxer/pit PROBLEMS Problem Type ICD Code Onset Dates Problem Status W/U Status Risk SNOMED Code Notes Problem Exercise induced bronchospasm (J45.990) Active confirmed Exercise induce d bronchospasm (309862830) VITAL SIGNS Height 68 in 09/24/2023 Encounters Encounter Location Date Provider Diagnosis [place] [place] [address] 09/24/2023 Eleno Trevino Other obesity due to excess calories E66.09 ; Body mass index [BMI] 31.0-31.9, adult Z68.31 ; Exercise induced bronchospasm J45.990 ; Myalgia M79.10 and Chronic fatigue R53.82 ASSESSMENTS Encounter Date Diagnosis Assessment Notes Treatment Notes Treatment Clinical Notes Section Notes 09/24/2023 Other obesity due to excess calories (ICD-10 - E66.09) Specific to this patient and their age, fitness level and comorbid conditions, discussed practical suggestions for aerobic, strength exercise and optimal diet. Try not to focus on weight but on waist circumference and healthy habits. Try to avoid artificial sugars like high fructose corn syrup, aspartame, sucralose - stevia may be better. Try to stand more and consider talking/singing while walking or in car. Limit processed foods. Discussed optimal waist circumference. Discussed concept that 100 calorie differences could be worth more that 10 lbs each year and gave examples of these.Discussed various forms of bariatric procedures but did not recommend. Discussed contrave, adipex, xenical, GLP-1's. Asked her to avoid all aspartame, sucralose and HFCS. Discussed possible low thyroid presentation and will hold on meds until this is checked. Consider adipex if labs are okay. Stressed that long-term success will depend of sustained lifestyle change and she agrees. Gave suggestions of execise she can do around her kids and recommend walk-fast run approach. 09/24/2023 Body mass index [BMI] 31.0-31.9, adult (ICD-10 - Z68.31) 09/24/2023 Exercise induced bronchospasm (ICD-10 - J45.990) Refilled albuterol. Recommend spacer 09/24/2023 Myalgia (ICD-10 - M79.10) Await TSH, vit D. Consider stretches, strengthening for bilateral ITB's 09/24/2023 Chronic fatigue (ICD-10 - R53.82) Await vit D, TSH, CBC 09/24/2023 Other Reviewed the above information and instructions with the patient. Patient voiced understanding of plan of care at the time visit was completed. PLAN OF TREATMENT Medication Medication Name Sig Start Date Stop Date Notes Albuterol Sulfate HFA 108 (9 0 Base) MCG/ACT 1 puff as needed Inhalation every 4 hrs for 30 days 09/24/2023 Treatment Notes Assessment Notes Other obesity due to excess calories Spe cific to this patient and their age, fitness level and comorbid conditions, discussed practical suggestions for aerobic, strength exercise and optimal diet. Try not to focus on weight but on waist circumference and healthy habits. Try to avoid artificial sugars like high fructose corn syrup, aspartame, sucralose - stevia may be better. Try to stand more and consider talking/singing while walking or in car. Limit processed foods. Discussed optimal waist circumference. Discussed concept that 100 calorie differences could be worth more that 10 lbs each year and gave examples of these.Discussed various forms of bariatric procedures but did not recommend. Discussed contrave, adipex, xenical, GLP-1's. Asked her to avoid all aspartame, sucralose and HFCS. Discussed possible low thyroid presentation and will hold on meds until this is checked. Consider adipex if labs are okay. Stressed that long-term success will depend of sustained lifestyle change and she agrees. Gave suggestions of execise she can do around her kids and recommend walk-fast run approach. Exercise induced bronchospasm Refilled a lbuterol. Recommend spacer Myalgia Await TSH, vit D. Co nsider stretches, strengthening for bilateral ITB's Chronic fatigue Await vit D, TSH, CB C Next Appt Details Follow Up: keep f/u, Reason: Progress Notes * Naila RODRIGUEZOB: 3 (28 yo F)Acc No.[id number]:09/24/2023 Patient: Yeimy RODRIGUEZ Provider: Eleno Trevino MD :1995 Age:28 Y Sex:Female Date:09/24/2023 Address:[address] [place], [place] [id number] Pcp:Domonique Guerin Subjective: * Chief Complaints: * Other * HPI: *: Wants to talk more about weight loss options. Feels doing well c exercise, increased water , portion control and brush cleaner foods. Weighing self 2x/week. Mom had gastric sleeve and has recently started a shot. Pt's hips are starting to hurt. Energy level is vey low. Drinks energy drinks.S-in-law wants her to start running - has needed inhaler for EIA.Ears pop c this. This encounter was undertaken via [video/telephone]. I introduced myself as Eleno Trevino MD, and greeted the patient by name and then verified their location. We reviewed the appropriateness of virtual care for this visit and the limitations of telemedicine. All issues below were discussed and addressed but no physical exam was performed except as documented. If it was felt the patient should be evaluated [id number], they were directed to the clinic for care either now or at a subsequent visit as indicated below. Verbal consent for telemedicine visit obtained from the patient. * ROS: c/o fatigue, achiness, inability to lose wt. 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 Last mammogram date 2017. Abnormal pap smear 0. * OB History: Total pregnancies 3. Total living children 3. C section(s) 3. # 1: Primary . # 2: Repeat . # 3 Repeat . * Surgical History: C section Pelvis Papaloma Rt breast Wrist set [place] teeth Tubal ligation * Hospitalization/Major Diagno stic Procedure: pelvis surgery -bone cyst and recurrence 2013 * Family History: Father: alive 59 yrs. Mother: alive 57 yrs. Sister 1: alive. Mother(36),aunt, MGM Breast cancer Father heart valve replacement and pre diabetic 1/2 sister c developmental delay. * Social History: Tobacco Use: Tobacco Use/Smoking Are you a nonuser Home with , 3 kids. 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 1 dog - boxer/pit. * Medications: * Allergies: Bactrim: hives - Allergy - Criticality Unknownno[Allergies Verified] Objective: * Vitals: Ht:68in. Assessment: * Assessment: 1. Other obesity due to excess calories - E66.09 (Primary) 2. Body mass index [BMI] 31.0-31.9, adult - Z68.31 3. Exercise induced bronchospasm - J45.990 4. Myalgia - M79.10 5. Chronic fatigue - R53.82 Plan: * Treatment: 2. Exercise induced bronchospasm Start Albuterol Sulfate HFA Aerosol Solution, 108 (90 Base) MCG/ACT, 1 puff as needed, Inhalation, every 4 hrs As needed, 30 days, 6.7 g, Refills 0. Notes: Refilled albuterol. Recommend spacer 3. Myalgia LAB: TSH (647670) (Ordered for 09/24/2023) LAB: Vitamin D, 25-Hydroxy (Vit D) (568630) (Ordered for 09/24/2023) LAB: CBC With Differential/Platelet (606300) (Ordered for 09/24/2023) Notes: Await TSH, vit D. Consider stretches, strengthening for bilateral ITB's 4. Chronic fatigue LAB: TSH (217576) (Ordered for 09/24/2023) LAB: Vitamin D, 25-Hydroxy (Vit D) (339555) (Ordered for 09/24/2023) LAB: CBC With Differential/Platelet (306495) (Ordered for 09/24/2023) Notes: Await vit D, TSH, CBC 5. Others Clinical Notes:Reviewed the above information and instructions with the patient. Patient voiced understandingof plan of care at the time visit was completed. * Procedure Codes: * Follow Up: keep f/u * Billing Information: * Visit Code: 26682 TeleMedicine Lvl 4. Modifiers: 95 * Procedure Codes: * Sign off status: Completed true * Provider: Eleno Trevino MD Date: 09/24/2023 History and Physical Notes * HPI (History of Present Illness) Category Sub-Category Detail Notes Category Not es * Wants to talk m ore about weight loss options. Feels doing well c exercise, increased water , portion control and brush cleaner foods. Weighing self 2x/week. Mom had gastric sleeve and has recently started a shot. Pt's hips are starting to hurt. Energy level is vey low. Drinks energy drinks.S-in-law wants her to start running - has needed inhaler for EIA.Ears pop c this. This encounter was undertaken via [video/telephone]. I introduced myself as Eleno Trevino MD, and greeted the patient by name and then verified their location. We reviewed the appropriateness of virtual care for this visit and the limitations of telemedicine. All issues below were discussed and addressed but no physical exam was performed except as documented. If it was felt the patient should be evaluated [id number], they were directed to the clinic for care either now or at a subsequent visit as indicated below. Verbal consent for telemedicine visit obtained from the patient.
--- OUTSIDE RECORDS SUMMARY | 2023-09-27 11:15 | XMS_ITS ---
Author Organization [facility] Address [address] [place] [address] Care Team Providers Care Mandolin Repairer Name Role Phone Eleno Trevino Primary Care Provider RESULTS Component Value Reference Range Notes TSH ([id number]) Reviewed date:09/29/2023 06:40:46 AM Interpretation:Normal Performing Lab:[facility] [address] [id number], Phone - [phone], Director - PhDPsychiatric Notes/Report: TSH 1.630 0.450-4.500 uIU/mL Vitamin D, 25-Hydroxy (Vit D ) ([id number]) Reviewed date:09/29/2023 06:40:09 AM Interpretation:Abnormal Performing Lab:[facility] [place], [address] [place] [id number], Phone - [phone], Director - PhDBayridge Hospitaluti Notes/Report: Vitamin D, 25-Hydroxy 15.6 30.0-100.0 ng/mL Vitamin D deficiency has been defined by the Phillips of Medicine and an Endocrine Society practice guideline as a level of serum 25-OH vitamin D less than 20 ng/mL (1,2). The Endocrine Society went on to further define vitamin D insufficiency as a level between 21 and 29 ng/mL (2). 1. IOM (Phillips of Medicine). 2010. Dietary reference intakes for calcium and D. [place]: The National Academies Press. 2. Parviz MF, Di HEAD, Seema GARCIA, et al. Evaluation, treatment, and prevention of vitamin D deficiency: an Endocrine Society clinical practice guideline. JCEM. 2011 [place]; 96(7):1911-30. CBC With Differential/Platel et ([id number]) Reviewed date:09/29/2023 06:39:39 AM Interpretation:Normal Performing Lab:[facility] [place], [address] [facility], [place], [place] [id number], Phone - [phone], Director - Lenora Notes/Report: WBC 6.8 3.4-10.8 x10E3/uL RBC 3.99 3.77-5.28 x10E6/uL Hemoglobin 11.1 11.1-15.9 g/dL Hematocrit 34.7 34.0-46.6 % MCV 87 79-97 fL MCH 27.8 26.6-33.0 pg MCHC 32.0 31.5-35.7 g/dL RDW 12.6 11.7-15.4 % Platelets 249 150-450 x10E3/uL Neutrophils 64 Not Estab. % Lymphs 24 Not Estab. % Monocytes 8 Not Estab. % Eos 3 Not Estab. % Basos 1 Not Estab. % Immature Cells Neutrophils (Absolute) 4.4 1.4-7.0 x10E3/uL Lymphs (Absolute) 1.6 0.7-3.1 x10E3/uL Monocytes(Absolute) 0.5 0.1-0.9 x10E3/uL Eos (Absolute) 0.2 0.0-0.4 x10E3/uL Baso (Absolute) 0.1 0.0-0.2 x10E3/uL Immature Granulocytes 0 Not Estab. % Immature Grans (Abs) 0.0 0.0-0.1 x10E3/uL NRBC Hematology Comments: REASON FOR VISIT fatigue MEDICATIONS Medication SIG (Take, Route, Frequency, Duration) Notes Start Date End Date Status Albuterol Sulfate HFA 108 (90 Base) MCG/ACT 1 puff as needed Inhalation every 4 hrs for 30 days 09/24/2023 Active VITAL SIGNS Weight 200.0 lbs 09/27/2023 Height 68 in 09/27/2023 BMI 30.41 09/27/2023 Weight-kg 90.72 kg 09/27/2023 Encounters Encounter Location Date Provider Diagnosis [place] [place] [address] 09/27/2023 Eleno Trevino Other obesity due to excess calories E66.09 ; Myalgia M79.10 and Chronic fatigue R53.82 ASSESSMENTS Encounter Date Diagnosis Assessment Notes Treatment Notes Treatment Clinical Notes Section Notes 09/27/2023 Other obesity due to excess calories (ICD-10 - E66.09) 09/27/2023 Myalgia (ICD-10 - M79.10) 09/27/2023 Chronic fatigue (ICD-10 - R53.82) PLAN OF TREATMENT No Information Procedure Notes * Category Sub-Category Detail Notes Venipuncture Venipuncture: 21 g butterfly, RT AC Space, 1 of Attempts, Successful, sitting, No Redness/Swelling at Site, Pt Tolerated Well Maura HERNANDEZA. Progress Notes * Naila RODRIGUEZOB: 3 (28 yo F)Acc No.[id number]:09/27/2023 Patient: Yeimy RODRIGUEZ Provider: Eleno Trevino MD :1995 Age:28 Y Sex:Female Date:09/27/2023 Address:[address] [place], [place] [address] Pcp:Domonique Guerin Subjective: * Chief Complaints: * 1. Fatigue. * Medical History: * Medications: Taking Albuterol Sulfate HFA 108 (90 Base) MCG/ACT Aerosol Solution 1 puff as needed Inhalation every 4 hrs As needed Objective: * Vitals: Wt:200.0lbs, Wt Chg: -5.4 lbs, Wt Chg %: -2.63%, Ht:68in, BMI:30.41, Wt-k.72 kg. Assessment: * Assessment: 1. Other obesity due to excess calories - E66.09 2. Myalgia - M79.10 3. Chronic fatigue - R53.82 Plan: * Treatment: Value Reference Range TSH 1.630 0.450-4.500 - uIU/mL ?LAB: Vitamin D, 25-Hydroxy (Vit D) ([id number]) (Collection Date & Time - 09/27/2023 03:10 PM)??Abnormal* Value Reference Range Vitamin D, 25-Hydroxy 15.6 L 30.0-100.0 - ng/mL * Eleno Trevino 09/29/2023 06:40 :03 AM MDT > will inform her 2.??Myalgia?LAB: TSH ([id number]) (Collection Date & Time - 09/27/2023 03:10 PM)?? Normal* Value Reference Range TSH 1.630 0.450-4.500 - uIU/mL ?LAB: Vitamin D, 25-Hydroxy (Vit D) ([id number]) (Collection Date & Time - 09/27/2023 03:10 PM)??Abnormal* Value Reference Range Vitamin D, 25-Hydroxy 15.6 L 30.0-100.0 - ng/mL * Eleno Trevino 09/29/2023 06:40 :03 AM MDT > will inform her ?LAB: CBC With Differential/Platelet ([id number]) (Collection Date & Time - 09/27/2023 03:10 PM)??Normal* Value Reference Range WBC 6.8 3.4-10.8 - x10E3/uL * RBC 3.99 3.77-5.28 - x10E6/uL * Hemoglobin 11.1 11.1-15.9 - g/dL * Hematocrit 34.7 34.0-46.6 - % * MCV 87 79-97 - fL * MCH 27.8 26.6-33.0 - pg * MCHC 32.0 31.5-35.7 - g/dL * RDW 12.6 11.7-15.4 - % * Platelets 249 150-450 - x10E3/uL * Neutrophils 64 Not Estab. - % * Lymphs 24 Not Estab. - % * Monocytes 8 Not Estab. - % * Eos 3 Not Estab. - % * Basos 1 Not Estab. - % * Neutrophils (Absolute) 4.4 1.4-7.0 - x10E3/u L * Lymphs (Absolute) 1.6 0.7-3.1 - x10E3/uL * Monocytes(Absolute) 0.5 0.1-0.9 - x10E3/uL * Eos (Absolute) 0.2 0.0-0.4 - x10E3/uL * Baso (Absolute) 0.1 0.0-0.2 - x10E3/uL * Immature Granulocytes 0 Not Estab. - % * Immature Grans (Abs) 0.0 0.0-0.1 - x10E3/uL 3.??Chronic fatigue?LAB: TSH ([id number]) (Collection Date & Time - 09/27/2023 03:10 PM)?? Normal* Value Reference Range TSH 1.630 0.450-4.500 - uIU/mL ?LAB: Vitamin D, 25-Hydroxy (Vit D) ([id number]) (Collection Date & Time - 09/27/2023 03:10 PM)??Abnormal* Value Reference Range Vitamin D, 25-Hydroxy 15.6 L 30.0-100.0 - ng/mL * Eleno Trevino 09/29/2023 06:40 :03 AM MDT > will inform her ?LAB: CBC With Differential/Platelet ([id number]) (Collection Date & Time - 09/27/2023 03:10 PM)??Normal* Value Reference Range WBC 6.8 3.4-10.8 - x10E3/uL * RBC 3.99 3.77-5.28 - x10E6/uL * Hemoglobin 11.1 11.1-15.9 - g/dL * Hematocrit 34.7 34.0-46.6 - % * MCV 87 79-97 - fL * MCH 27.8 26.6-33.0 - pg * MCHC 32.0 31.5-35.7 - g/dL * RDW 12.6 11.7-15.4 - % * Platelets 249 150-450 - x10E3/uL * Neutrophils 64 Not Estab. - % * Lymphs 24 Not Estab. - % * Monocytes 8 Not Estab. - % * Eos 3 Not Estab. - % * Basos 1 Not Estab. - % * Neutrophils (Absolute) 4.4 1.4-7.0 - x10E3/u L * Lymphs (Absolute) 1.6 0.7-3.1 - x10E3/uL * Monocytes(Absolute) 0.5 0.1-0.9 - x10E3/uL * Eos (Absolute) 0.2 0.0-0.4 - x10E3/uL * Baso (Absolute) 0.1 0.0-0.2 - x10E3/uL * Immature Granulocytes 0 Not Estab. - % * Immature Grans (Abs) 0.0 0.0-0.1 - x10E3/uL * Procedures: Venipuncture: Venipuncture: 21 g butterfly, RT AC Space, 1 of Attempts, Successful, sitting, No Redness/Swelling at Site, Pt Tolerated Well Maura Gonzales RMA.. * Billing Information: * Visit Code: * Procedure Codes: * Sign off status: Completed true * Provider: Eleno Trevino MD Date: 09/27/2023
--- OUTSIDE RECORDS SUMMARY | 2023-09-30 11:48 | XMS_ITS ---
Author Organization [facility]ILLING FACILITY [employer] [facility] Address [address] [place] [address] Care Team Providers Care Cloth Measurer Name Role Phone Eleno Trevino Primary Care Provider [phone] Encounters Encounter Location Date Provider Diagnosis [place] [address] [place] [address] 09/30/2023 Eleno Trevino Vitamin D deficiency E55.9 ASSESSMENTS Encounter Date Diagnosis Assessment Notes Treatment Notes Treatment Clinical Notes Section Notes 09/30/2023 Vitamin D deficiency (ICD-10 - E55.9) PLAN OF TREATMENT Future Test Test Name Order Date Vitamin D, 25-Hydroxy (Vit D) (054974) 0 09/30/2023 Progress Notes * Naila RODRIGUEZOB: 3 (28 yo F)Acc No.[id number]:09/30/2023 Patient: Yeimy RODRIGUEZ :1995 Age:28 Y Sex:Female Address:[address] [place] [address] Subjective: * Chief Complaints: * * HPI: *: vitamin D deficiency. * Medical History: * Surgical History: * Hospitalization/Major Diagno stic Procedure: * Medications: Objective: Assessment: * Assessment: 1. Vitamin D deficiency - E55.9 (Primary) Plan: * Treatment: * Procedure Codes: * true * Date: History and Physical Notes * HPI (History of Present Illness) Category Sub-Category Detail Notes Category Not es * vitamin D defic iency
--- OUTSIDE RECORDS SUMMARY | 2024-04-06 11:00 | XMS_ITS ---
Author Organization [facility] [place] Address [address] [place] [address] Care Team Providers Care Hospital Cook Name Role Phone Michelle FROST, Fern Primary Care Provider Barbie Dc [phone] REASON FOR VISIT MD Encounters Encounter Location Date Provider Diagnosis [facility] Oncology [address] [place] [address] 04/06/2024 Barbie Pinto Plan Of Treatment Next Appt Details Provider Name:Barbie Pinto , 10/31/2024 03:15:00 PM, [address] [place], [address], Progress Notes * JENNIFER MadisonAmbarOB: 3 (29 yo F)Acc No.[id number]:04/06/2024 UNLOCKED PROGRESS NOTE Progress Notes Patient: Yeimy JAMISON Provider: Michaela Pinto M.D. :1995 A ge:28 Y S ex:Female Date:04/06/2024 Address[id number] Pcp:Fern Martinez MD Subjective: * Chief Complaints: * 1 . MD. * Medical History: Objective: * Vitals: Assessment: Plan: * Treatment: * * Electronic signature of Russell Pinto MD, [id number] on 10/27/2024 at 09:29 AM EDT Sign off status: Pending Visit Status: C ONFSMS (Voice) * Provider: Michaela Pinto M.D. Date: 1 06/06/2023 Generated for Catherine perdomo/Marjan/Giancarlo on: 0 10/27/2024 09:29 AM EDT
--- OUTSIDE RECORDS SUMMARY | 2024-06-01 11:00 | XMS_ITS ---
Author Organization [facility] [place] Address [address] [place] [address] Care Team Providers Care Supervisor Vendor Quality Name Role Phone Michelle FROST, Fern Primary Care Provider Barbie Dc [phone] REASON FOR VISIT MD Encounters Encounter Location Date Provider Diagnosis [facility] Oncology [address] [place] [address] 06/01/2024 Barbie Pinto Plan Of Treatment Next Appt Details Provider Name:Barbie Pinto , 10/31/2024 03:15:00 PM, [address] [place], [address], Progress Notes * JENNIFER MadisonAmbarOB: 3 (29 yo F)Acc No.[id number]:06/01/2024 UNLOCKED PROGRESS NOTE Progress Notes Patient: Yeimy JAMISON Provider: Michaela Pinto M.D. :1995 A ge:29 Y S ex:Female Date:06/01/2024 Address:[address] [id number] Pcp:Fern Martinez MD Subjective: * Chief Complaints: * 1 . MD. * Medical History: Objective: * Vitals: Assessment: Plan: * Treatment: * * Electronic signature of Russell Pinto MD, [id number] on 10/27/2024 at 09:29 AM EDT Sign off status: Pending Visit Status: C ONFSMS (Voice) * Provider: Michaela Pinto M.D. Date: 0 06/01/2024 Generated for Catherine perdomo/Marjan/Giancarlo on: 0 10/27/2024 09:29 AM EDT
--- OUTSIDE RECORDS SUMMARY | 2024-10-27 09:28 | XMS_ITS | Patient Health Record ---
Author Organization [facility]ILLING FACILITY [employer] [facility] Address [address] [place] [address] Care Team Providers Care Senior Technical Writer Name Role Phone Eleno Trevino Primary Care Provider ALLERGIES Allergen (clinical drug ingredient) Drug/Non Drug Allergy documented on EMR Reaction Allergy Type Onset Date Status sulfamethoxazole / trimethoprim Bactrim hives Drug Allergy Active REASON FOR REFERRAL No Information MEDICATIONS Medication SIG (Take, Route, Frequency, Duration) [...] rare - 1-2/month. 1 dog - boxer/pit Home with , 3 kids. 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 1 dog - boxer/pit PROBLEMS Problem Type ICD Code Onset Dates Problem Status W/U Status Risk SNOMED Code Notes Problem Exercise induced bronchospasm (J45.990) Active confirmed Exercise induce d bronchospasm (370462787) PLAN OF TREATMENT Future Test Test Name Order Date Vitamin D, 25-Hydroxy (Vit D) (175631) 0 09/30/2023 Insurance Providers Payer Name Payer Address Payer Phone Subscriber Number Group Number Insured Name Patient Relationship to Insured Coverage Start Date Coverage End Date [facility] [employer] [address] [place] [address] [id number] Yeimy Romo Self - patient is the insured MEDICAL (GENERAL) HISTORY Medical History History ICD Code Exercise induced bronchospasm J45.990 Surgical History Surgery Date(Month/Year) Tubal ligation [place] teeth Wrist set Papaloma Rt breast Pelvis C section Hospitalization History Reason Date(Month/Year) pelvis surgery -bone cyst and recurrence 2013
--- OUTSIDE RECORDS SUMMARY | 2024-10-27 09:28 | XMS_ITS | Encounter Summary ---
Author Organization [facility] Address [address] [place] [address] Care Team Providers Care Youth Associate Name Role Phone Fern Martinez MD Primary Care Provider [phone] Encounter Details Date Type Department Care Team (Late st Contact Info) Description 07/06/2023 Clinisync Result Encounter [facility] External Department Unsolicited Carson Olsen, DO [address] [place], [place] [id number] Social History Tobacco Use Types Packs/Day Years Used Date Smoking Tobacco: Never Smokeless Tobacco: Never Alcohol Use Standard Drinks/Week Comments Yes 0 (1 standard drink = 0.6 oz pure alcohol) 1 or 2 drinks on a typical day/monthly or less, Caffeine intake: none AUDIT-C Answer Date Recorded Q1: How often do you have a drink containing alc ohol? Monthly or less 04/09/2023 Q2: How many drinks containi ng alcohol do you have on a typical day when you are drinking? 1 or 2 04/09/2023 Q3: How often do you have si x or more drinks on one occasion? Never 04/09/2023 Comments Yes Sex and Gender Information Value Date Recorded Sex Assigned at Female 01/04/2023 8:41 AM EDT Legal Sex Female 6:39 PM EDT Gender Identity Female 01/04/2023 8:41 AM EDT Sexual Orientation Straight 01/04/2023 8: 41 AM EDT documented as of this encounter Plan of Treatment Upcoming Encounters Date Type Department Care Team (Late st Contact Info) Description 03/05/2025 3:00 PM EDT Office Visit [facility] [address] [place] [id number] Carson Olsen DO [address] [place] [address] documented as of this encounter Procedures Procedure Name Priority Date/Time Associated Diagnosis Comments US OB BPP W NON-STRESS 07/06/2023 7:09 AM EST documented in this encounter Results * US OB BPP W NON-STRESS (07/06/2023 7:09 AM EST) Anatomical Region Laterality Modality Other 07/06/2023 7:09 AM EST Narrative 07/06/2023 7:12 AM EST [address] [address] Ultrasound Report Signed Patient: OLIVIA RODRIGUEZ MR#: [id number] : 1995 Acct:[id number] Age/Sex: 28 / F ADM Date: 07/05/23 Loc: US Attending Dr: Carson Olsen D.O. Ordering Physician: Carson Olsen D.O. Date of Service: 07/05/23 Procedure(s): US OB BPP w non-stress Accession Number(s): [id number] cc: Carson Olsen D.O.; KAREN MARTINEZ [address] [address] Patient Name: OLIVIA RODRIGUEZ MRN: [id number] date: 1995 Sex: F Assigned Patient Location: US Current Patient Location: Accession/Order Number: [id number] Exam Date: 07/05/2023 15:06 Report Date: 07/06/2023 07:09 At the request of: CARSON OLSEN Procedure: US OB BPP w non-stress EXAMINATION: US OB BPP w non-stress HISTORY: HISTORY OF PRIOR WITH SGA Z87.59 COMPARISON: No relevant comparison available. TECHNIQUE: Ultrasound biophysical profile was performed in the radiology department. FINDINGS: BREATHING MOVEMENTS: 2 GROSS BODY MOVEMENTS: 2 TONE: 2 QUALITATIVE AMNIOTIC FLUID VOLUME: 2 PRESENTATION: CEPHALIC HEART RATE: 141.4 bpm H.B./min AMNIOTIC FLUID VOLUME: 18.4 cm cm GESTATIONAL AGE: 38 weeks 1 days CONCLUSION: Total biophysical profile score: 8 Electronically authenticated by: PJ SAM Date: 07/06/2023 07:09 Dictated By: Pj Sam M.D. Signed By: 07/06/23711 DD/ 8 TD/TT: Thermit Welding Machine Operator: Procedure Note Radiology, Radiologist, MD - 07/28/2023 [place] [address] Ultrasound Report Signed Patient: OLIVIA RODRIGUEZ AMR#: [id number] : 1995Acct:[id number] Age/Sex: 28 / FADM Date: 07/05/23 Loc: US Attending Dr: Carson Olsen D.O. Ordering Physician: Carson Olsen D.O. Date of Service: 07/05/23 Procedure(s): US OB BPP w non-stress Accession Number(s): [id number] cc: Carson Olsen D.O.; KAREN MARTINEZ [place] [address] Patient Name: OLIVIA RODRIGUEZ MRN: [id number] date: 1995 Sex: F Assigned Patient Location: US Current Patient Location: Accession/Order Number: [id number] Exam Date: 07/05/2023 15:06 Report Date: 07/06/2023 07:09 At the request of: CARSON OLSEN Procedure: US OB BPP w non-stress EXAMINATION: US OB BPP w non-stress HISTORY: HISTORY OF PRIOR WITH SGA Z87.59 COMPARISON: No relevant comparison available. TECHNIQUE: Ultrasound biophysical profile was performed in the radiology department. FINDINGS: BREATHING MOVEMENTS: 2 GROSS BODY MOVEMENTS: 2 TONE: 2 QUALITATIVE AMNIOTIC FLUID VOLUME: 2 PRESENTATION: CEPHALIC HEART RATE: 141.4 bpm H.B./min AMNIOTIC FLUID VOLUME: 18.4 cm cm GESTATIONAL AGE: 38 weeks 1 days CONCLUSION: Total biophysical profile score: 8 Electronically authenticated by: PJ SAM Date: 07/06/2023 07:09 Dictated By: Pj Sam M.D. Signed By:07/06/23711 DD/ 8 TD/TT: Thermit Welding Machine Operator: us Carson Pretty DO [facility] Final Result documented in this encounter Visit Diagnoses Not on filedocumented in this encounter Care Teams Youth Associate Relationship Specialty Start Date End Date Fern Martinez MD [address] [place] [address] PCP - General Family Medicine 12/11/22 documented as of this encounter
--- OUTSIDE RECORDS SUMMARY | 2024-10-27 09:28 | XMS_ITS | Encounter Summary ---
Author Organization [facility] Address [address] [place] [address] Care Team Providers Care Manager Of Planning Name Role Phone Fern Martinez MD Primary Care Provider [phone] Encounter Details Date Type Department Care Team (Late st Contact Info) Description 06/29/2023 Clinisync Result Encounter [facility] External Department Unsolicited Maura Joseph PA [address] [place] [address] [place] [address] Social History Tobacco Use Types Packs/Day Years [...] PM EDT Office Visit [facility] [address] [place] [address] [place] [address] Carson Olsen, DO [address] [place] [address] [place] [address] documented as of this encounter Procedures Procedure Name Priority Date/Time Associated Diagnosis Comments US OB BPP W NON-STRESS 06/29/2023 7:06 AM EST documented in this encounter Results * US OB BPP W NON-STRESS (06/29/2023 7:06 AM EST) Anatomical Region Laterality Modality Other 06/29/2023 7:06 AM EST Narrative 06/29/2023 7:08 AM EST [address] [address] Ultrasound Report Signed Patient: OLIVIA RODRIGUEZ MR#: [id number] : 1995 Acct:[id number] Age/Sex: 28 / F ADM Date: 06/28/23 Loc: US Attending Dr: Maura Joseph Ordering Physician: Maura Joseph Date of Service: 06/28/23 Procedure(s): US OB BPP w non-stress Accession Number(s): [id number] cc: Maura Joseph; KAREN MARTINEZ [address] [address] Patient Name: OLIVIA RODRIGUEZ MRN: [id number] date: 1995 Sex: F Assigned Patient Location: US Current Patient Location: Accession/Order Number: [id number] Exam Date: 06/28/2023 15:04 Report Date: 06/29/2023 07:06 At the request of: MAURA JOSEPH Procedure: US OB BPP w non-stress EXAMINATION: US OB BPP w non-stress HISTORY: HISTORY OF SGA COMPARISON: Ultrasound OB biophysical 06/21/2023 TECHNIQUE: Ultrasound biophysical profile was performed in the radiology department. BREATHING MOVEMENTS: 2.0 GROSS BODY MOVEMENTS: 2.0 TONE: 2.0 QUALITATIVE AMNIOTIC FLUID VOLUME: 2.0 PRESENTATION: Cephalic HEART RATE: 129.8 bpm bpm. AMNIOTIC FLUID VOLUME: 14.9 cm GESTATIONAL AGE: 37 weeks 1 days CONCLUSION: Total biophysical profile score 8.0. Electronically authenticated by: FLO OCASIO Date: 06/29/2023 07:06 Dictated By: Flo Ocasio M.D. Signed By: 06/29/23707 DD/ 5 TD/TT: Oven Attendant: Procedure Note Radiology, Radiologist, MD - 07/28/2023 [place] [address] Ultrasound Report Signed Patient: OLIVIA RODRIGUEZMR#: [id number] : 1995Acct:[id number] Age/Sex: 28 / FADM Date: 06/28/23 Loc: US Attending Dr: Maura Joseph Ordering Physician: Maura Joseph Date of Service: 06/28/23 Procedure(s): US OB BPP w non-stress Accession Number(s): [id number] cc: Maura Joseph; KAREN MARTINEZ [place] [id number] Patient Name: OLIVIA RODRIGUEZ MRN: [id number] date: 1995 Sex: F Assigned Patient Location: US Current Patient Location: Accession/Order Number: [id number] Exam Date: 06/28/2023 15:04 Report Date: 06/29/2023 07:06 At the request of: MAURA JOSEPH Procedure: US OB BPP w non-stress EXAMINATION: US OB BPP w non-stress HISTORY: HISTORY OF SGA COMPARISON: Ultrasound OB biophysical 06/21/2023 TECHNIQUE: Ultrasound biophysical profile was performed in the radiology department. BREATHING MOVEMENTS: 2.0 GROSS BODY MOVEMENTS: 2.0 TONE: 2.0 QUALITATIVE AMNIOTIC FLUID VOLUME: 2.0 PRESENTATION: Cephalic HEART RATE: 129.8 bpm bpm. AMNIOTIC FLUID VOLUME: 14.9 cm GESTATIONAL AGE: 37 weeks 1 days CONCLUSION: Total biophysical profile score 8.0. Electronically authenticated by: FLO OCASIO Date: 06/29/2023 07:06 Dictated By: Flo Ocasio M.D. Signed By:06/29/23707 DD/ 5 TD/TT: Oven Attendant: Maura DORSEY [facility] Final Result documented in this encounter Visit Diagnoses Not on filedocumented in this encounter Care Teams Manager Of Planning Relationship Specialty Start Date End Date Fern Martinez MD [address] [place] [address] PCP - General Family Medicine 12/11/22 documented as of this encounter
--- OUTSIDE RECORDS SUMMARY | 2024-10-27 09:28 | XMS_ITS | Encounter Summary ---
Author Organization [facility] Address [address] [place] [address] Care Team Providers Care Radio Frequency Technician Name Role Phone Fern Martinez MD Primary Care Provider [phone] Encounter Details Date Type Department Care Team (Late st Contact Info) Description 06/22/2023 Clinisync Result Encounter [facility] External Department Unsolicited Casron Olsen, DO [address] [facility] [address] [place], [place] [id number] Social History Tobacco Use Types Packs/Day Years [...] EDT Office Visit [facility] BCP OB [address] [facility] [place] [address] Carson Olsen DO [address] [facility] [place] [address] documented as of this encounter Procedures Procedure Name Priority Date/Time Associated Diagnosis Comments US OB GROWTH 06/22/2023 3:10 PM EST documented in this encounter Results * US OB GROWTH (06/22/2023 3:10 PM EST) Anatomical Region Laterality Modality Other 06/22/2023 3:10 PM EST Narrative 06/22/2023 3:13 PM EST [address] [address] Ultrasound Report Signed Patient: OLIVIA RODRIGUEZ MR#: [id number] : 1995 Acct:[id number] Age/Sex: 28 / F ADM Date: 06/22/23 Loc: [facility] Attending Dr: Carson Olsen D.O. Ordering Physician: Carson Olsen D.O. Date of Service: 06/22/23 Procedure(s): US OB growth Accession Number(s): [id number] cc: Carson Olsen D.O.; KAREN MARTINEZ [address] [id number] Patient Name: OLIVIA RODRIGUEZ MRN: [id number] date: 1995 Sex: F Assigned Patient Location: [facility] Current Patient Location: [facility] Accession/Order Number: [id number] Exam Date: 06/22/2023 14:37 Report Date: 06/22/2023 15:10 At the request of: CARSON OLSEN Procedure: US OB growth EXAMINATION: US OB growth HISTORY: SIZE INCONSISTENT WITH DATES COMPARISON: No relevant comparison available. TECHNIQUE: Transabdominal sonographic examination was performed for obstetrical and evaluation. FINDINGS: Number: 1 Heart Rate: 142.0 bpm H.B. /min Amniotic Fluid Volume: 12.5 cm presentation: Cephalic presentation, longitudinal lie Cervix Length: 4.2 cm, closed BIOMETRY: BPD: 8.9 cm 35 weeks 6 days , 48% HC: 32.7 cm 37 weeks 1 days, 41% AC: 30.2 cm 34 weeks 1 days, 9% FL: 6.7 cm 34 weeks 4 days , 10% EFW:2498.7 grams; 5 lbs. 8 oz., 15% FL/AC: 22.3 FL/BPD: 75.8 HC/AC: 1.1 GESTATIONAL AGE: Age by EDC: 36 weeks 2 days Age by current US: 35 weeks 3 days SANDRA by current US: 07/24/23 SANDRA by EDC: 07/18/23 US/US OB growth IMPRESSION: Normal interval growth *Reference: [facility] Practice Guideline for the performance of Obstetric Ultrasound Examinations, February 21, 2007. Electronically authenticated by: PJ SAM Date: 06/22/2023 15:10 Dictated By: Pj Sam M.D. Signed By: 06/22/23 151 DD/ 151 TD/TT: Heading Maker: Procedure Note Radiology, Radiologist, MD - 07/28/2023 [place] [address] Ultrasound Report Signed Patient: OLIVIA RODRIGUEZMR#: [id number] : 1995Acct:[id number] Age/Sex: M Date: 06/22/23 Loc: [facility] Attending Dr: Carson Olsen D.O. Ordering Physician: Carson Olsen D.O. Date of Service: 06/22/23 Procedure(s): US OB growth Accession Number(s): [id number] cc: Carson Olsen D.O.; KAREN MARTINEZ [place] [id number] Patient Name: OLIVIA RODRIGUEZ MRN: [id number] date: 1995 Sex: F Assigned Patient Location: [facility] Current Patient Location: [facility] Accession/Order Number: [id number] Exam Date: 06/22/2023 14:37 Report Date: 06/22/2023 15:10 At the request of: CARSON OLSEN Procedure: US OB growth EXAMINATION: US OB growth HISTORY: SIZE INCONSISTENT WITH DATES COMPARISON: No relevant comparison available. TECHNIQUE: Transabdominal sonographic examination was performed for obstetrical and evaluation. FINDINGS: Number: 1 Heart Rate: 142.0 bpm H.B. /min Amniotic Fluid Volume: 12.5 cm presentation: Cephalic presentation, longitudinal lie Cervix Length: 4.2 cm, closed BIOMETRY: BPD: 8.9 cm 35 weeks 6 days , 48% HC: 32.7 cm 37 weeks 1 days, 41% AC: 30.2 cm 34 weeks 1 days, 9% FL: 6.7 cm 34 weeks 4 days , 10% EFW:2498.7 grams; 5 lbs. 8 oz., 15% FL/AC: 22.3 FL/BPD: 75.8 HC/AC: 1.1 GESTATIONAL AGE: Age by EDC: 36 weeks 2 days Age by current US: 35 weeks 3 days SANDRA by current US: 07/24/23 SANDRA by EDC: 07/18/23 US/US OB growth IMPRESSION: Normal interval growth *Reference: [facility] Practice Guideline for the performance of Obstetric Ultrasound Examinations, February 21, 2007. Electronically authenticated by: PJ SAM Date: 06/22/2023 15:10 Dictated By: Pj Sam M.D. Signed By:06/22/23 1513 DD/ 09 TD/TT: Heading Maker: us Carson Olsen DO [facility] Final Result documented in this encounter Visit Diagnoses Not on filedocumented in this encounter Care Teams Radio Frequency Technician Relationship Specialty Start Date End Date Fern Martinez MD [address] [place] [address] PCP - General Family Medicine 12/11/22 documented as of this encounter
--- OUTSIDE RECORDS SUMMARY | 2024-10-27 09:28 | XMS_ITS | Encounter Summary ---
Author Organization [facility] Address [address] [place] [address] Care Team Providers Care Analytics Associate Name Role Phone Fern Martinez MD Primary Care Provider [phone] Encounter Details Date Type Department Care Team (Late st Contact Info) Description 07/06/2023 Clinisync Result Encounter [facility] External Department Unsolicited Carson Olsen, DO [address] [facility] [address] [place], [place] [id number] Social History Tobacco Use Types Packs/Day Years [...] EDT Office Visit [facility] BCP OB [address] [facility] [place] [phone] Carson Olsen DO [address] [facility] [place] [address] documented as of this encounter Procedures Procedure Name Priority Date/Time Associated Diagnosis Comments US OB UMBILICAL ARTERY DOPPLER 07/06/2023 7:12 AM EST documented in this encounter Results * US OB UMBILICAL ARTERY DOPPLER (07/06/2023 7:12 AM EST) Anatomical Region Laterality Modality Radiographic Emily ging 07/06/2023 7:12 AM EST Narrative 07/06/2023 7:15 AM EST [address] [address] Ultrasound Report Signed Patient: OLIVIA RODRIGUEZ MR#: [id number] : 1995 Acct:[id number] Age/Sex: 28 / F ADM Date: 07/05/23 Loc: US Attending Dr: Carson Olsen D.O. Ordering Physician: Carson Olsen D.O. Date of Service: 07/05/23 Procedure(s): US OB umbilical artery Accession Number(s): [id number] cc: Carson Olsen D.O.; KAREN MARTINEZ [address] [address] Patient Name: OLIVIA RODRIGUEZ MRN: [id number] date: 1995 Sex: F Assigned Patient Location: US Current Patient Location: US Accession/Order Number: [id number] Exam Date: 07/05/2023 15:06 Report Date: 07/06/2023 07:12 At the request of: CARSON OLSEN Procedure: US OB umbilical artery EXAMINATION: US OB umbilical artery HISTORY: HISTORY OF PRIOR WITH SGA Z87.59 COMPARISON: No relevant comparison available. TECHNIQUE: Duplex Doppler evaluation of the umbilical arteries. FINDINGS: position: Cephalic presentation, longitudinal lie Amniotic fluid volume: 18.5 cm, normal. Largest fluid pocket: 6.4 cm Heart rate: 141 bpm Proximal umbilical artery PSV/EDV: 67/32 cm/s. Resistive index 0.52. Ratio 2.1 Mid umbilical artery PSV/EDV: 67/39 cm/s. Resistive index 0.41. Ratio 1.7 Distal umbilical artery PSV/EDV: 54/32 cm/s. Resistive index 0.41. Ratio 1.7 Forward flow identified throughout diastole US/US OB umbilical artery IMPRESSION: Normal exam. Class 0 Umbilical Artery: Class 0 = Normal umbilical artery blood velocity Class I = increased RI or PI, but still forward flow in diastole Class II = Absent end diastolic flow (AEDF) Class III = Reversal of end diastolic flow (REDF) Resistive Index (RI)<1 Systolic/Diastolic ratio (S:D): An S:D ratio of 2-3 after 34 wks is normal Systolic/Diastolic ratio (S:D): Age 16: 3.01 for the 10th percentile, 4.25 for the 50th percentile, 6.07 for the 90th percentile Age 20: 3.16 for the 10th percentile, 4.04 for the 50th percentile, 5.24 for the 90th percentile Age 24: 2.70 for the 10th percentile, 3.50 for the 50th percentile, 4.75 for the 90th percentile Age 28: 2.41 for the 10th percentile, 3.02 for the 50th percentile, 3.97 for the 90th percentile Age 30: 2.43 for the 10th percentile, 3.04 for the 50th percentile, 3.80 for the 90th percentile Age 32: 2.27 for the 10th percentile, 2.73 for the 50th percentile, 3.57 for the 90th percentile Age 34: 2.08 for the 10th percentile, 2.52 for the 50th percentile, 3.41 for the 90th percentile Age 36: 1.96 for the 10th percentile, 2.35 for the 50th percentile, 3.15 for the 90th percentile Age 38: 1.89 for the 10th percentile, 2.24 for the 50th percentile, 3.10 for the 90th percentile Age 40: 1.88 for the 10th percentile, 2.22 for the 50th percentile, 2.68 for the 90th percentile Age 41: 1.93 for the 10th percentile, 2.21 for the 50th percentile, 2.55 for the 90th percentile Age 42: 1.91 for the 10th percentile, 2.51 for the 50th percentile, 3.21 for the 90th percentile Uteroplacental Artery: Resistive Index (RI): Normal=<0.55 High Resistance=Bilateral notches (after 26 wks) and RI>0.55. Unilateral notches (after 26 wks) and RI>0.65 Systolic/Diastolic ratio (S:D) = 2-3 is normal after 32 weeks. Electronically authenticated by: PJ SAM Date: 07/06/2023 07:12 Dictated By: Pj Sam M.D. Signed By: 07/06/23714 DD/ 1 TD/TT: Configuration Consultant: Procedure Note Radiology, Radiologist, MD - 07/28/2023 [place] [address] Ultrasound Report Signed Patient: OLIVIA RODRIGUEZ AMR#: [id number] : 1995Acct:[id number] Age/Sex: 28 / FADM Date: 07/05/23 Loc: US Attending Dr: Carson Olsen D.O. Ordering Physician: Carson Olsen D.O. Date of Service: 07/05/23 Procedure(s): US OB umbilical artery Accession Number(s): [id number] cc: Carson Olsen D.O.; KAREN MARTINEZ [place] [id number] Patient Name: OLIVIA RODRIGUEZ MRN: [id number] date: 1995 Sex: F Assigned Patient Location: US Current Patient Location: US Accession/Order Number: [id number] Exam Date: 07/05/2023 15:06 Report Date: 07/06/2023 07:12 At the request of: CARSON OLSEN Procedure: US OB umbilical artery EXAMINATION: US OB umbilical artery HISTORY: HISTORY OF PRIOR WITH SGA Z87.59 COMPARISON: No relevant comparison available. TECHNIQUE: Duplex Doppler evaluation of the umbilical arteries. FINDINGS: position: Cephalic presentation, longitudinal lie Amniotic fluid volume: 18.5 cm, normal. Largest fluid pocket: 6.4 cm Heart rate: 141 bpm Proximal umbilical artery PSV/EDV: 67/32 cm/s. Resistive index 0.52. Ratio2.1 Mid umbilical artery PSV/EDV: 67/39 cm/s. Resistive index 0.41. Ratio 1.7 Distal umbilical artery PSV/EDV: 54/32 cm/s. Resistive index 0.41. Ratio1.7 Forward flow identified throughout diastole US/US OB umbilical artery IMPRESSION: Normal exam. Class 0 Umbilical Artery: Class 0 = Normal umbilical artery blood velocity Class I = increased RI or PI, but still forward flow in diastole Class II = Absent end diastolic flow (AEDF) Class III = Reversal of end diastolic flow (REDF) Resistive Index (RI)<1 Systolic/Diastolic ratio (S:D): An S:D ratio of 2-3 after 34 wks is normal Systolic/Diastolic ratio (S:D): Age 16: 3.01 for the 10th percentile, 4.25 for the 50th percentile, 6.07for the 90th percentile Age 20: 3.16 for the 10th percentile, 4.04 for the 50th percentile, 5.24for the 90th percentile Age 24: 2.70 for the 10th percentile, 3.50 for the 50th percentile, 4.75for the 90th percentile Age 28: 2.41 for the 10th percentile, 3.02 for the 50th percentile, 3.97for the 90th percentile Age 30: 2.43 for the 10th percentile, 3.04 for the 50th percentile, 3.80for the 90th percentile Age 32: 2.27 for the 10th percentile, 2.73 for the 50th percentile, 3.57for the 90th percentile Age 34: 2.08 for the 10th percentile, 2.52 for the 50th percentile, 3.41for the 90th percentile Age 36: 1.96 for the 10th percentile, 2.35 for the 50th percentile, 3.15for the 90th percentile Age 38: 1.89 for the 10th percentile, 2.24 for the 50th percentile, 3.10for the 90th percentile Age 40: 1.88 for the 10th percentile, 2.22 for the 50th percentile, 2.68for the 90th percentile Age 41: 1.93 for the 10th percentile, 2.21 for the 50th percentile, 2.55for the 90th percentile Age 42: 1.91 for the 10th percentile, 2.51 for the 50th percentile, 3.21for the 90th percentile Uteroplacental Artery: Resistive Index (RI): Normal=<0.55 High Resistance=Bilateral notches (after 26 wks) and RI>0.55. Unilateral notches (after 26 wks) and RI>0.65 Systolic/Diastolic ratio (S:D) = 2-3 is normal after 32 weeks. Electronically authenticated by: PJ SAM Date: 07/06/2023 07:12 Dictated By: Pj Sam M.D. Signed By:07/06/23714 DD/ 1 TD/TT: Configuration Consultant: us Carson Pretty DO IMG XR PROCEDURES Final Result documented in this encounter Visit Diagnoses Not on filedocumented in this encounter Care Teams Analytics Associate Relationship Specialty Start Date End Date Fern Martinez MD [address] [place] [address] PCP - General Family Medicine 12/11/22 documented as of this encounter
--- OUTSIDE RECORDS SUMMARY | 2024-10-27 09:28 | XMS_ITS | Encounter Summary ---
Author Organization [facility] Address [address] [place] [address] Care Team Providers Care Food Service Substitute Name Role Phone Fern Martinez MD Primary Care Provider [phone] Encounter Details Date Type Department Care Team (Late st Contact Info) Description 06/29/2023 Clinisync Result Encounter [facility] External Department Unsolicited Maura Joseph PA [address] [place] [address] [address] [place] [address] Social History Tobacco Use Types Packs/Day [...] PM EDT Office Visit [facility] BCP OB [address] [place] [address] [address] [place], [place] [address] Carson Olsen, DO [address] [place] [address] [place] [address] documented as of this encounter Procedures Procedure Name Priority Date/Time Associated Diagnosis Comments US OB UMBILICAL ARTERY DOPPLER 06/29/2023 7:17 AM EST documented in this encounter Results * US OB UMBILICAL ARTERY DOPPLER (06/29/2023 7:17 AM EST) Anatomical Region Laterality Modality Radiographic Emily ging 06/29/2023 7:17 AM EST Narrative 06/29/2023 7:20 AM EST [address] [address] Ultrasound Report Signed Patient: OLIVIA RODRIGUEZ MR#: [id number] : 1995 Acct:[id number] Age/Sex: 28 / F ADM Date: 06/28/23 Loc: US Attending Dr: Maura Joseph Ordering Physician: Maura Joseph Date of Service: 06/28/23 Procedure(s): US OB umbilical artery Accession Number(s): [id number] cc: Maura Joseph; KAREN MARTINEZ [address] [address] Patient Name: OLIVIA RODRIGUEZ MRN: [id number] date: 1995 Sex: F Assigned Patient Location: US Current Patient Location: US Accession/Order Number: [id number] Exam Date: 06/28/2023 15:04 Report Date: 06/29/2023 07:17 At the request of: MAURA JOSEPH Procedure: US OB umbilical artery EXAMINATION: US OB umbilical artery HISTORY: HISTORY OF SGA COMPARISON: Ultrasound OB umbilical artery 06/21/2023 TECHNIQUE: Duplex Doppler evaluation of the umbilical arteries. FINDINGS: HEART RATE: 130 bpm UMBILICAL ARTERIES: 2 GESTATIONAL AGE: 37 weeks 1 day WAVEFORM: Normal upstroke. No notching. Forward flow in diastole. PEAK SYSTOLIC VELOCITY: 87 cm/s END DIASTOLIC VELOCITY: 45 cm/s SYST/DIAST RATIO (S:D): 2.0 RESISTIVE INDEX: 0.5 US/US OB umbilical artery IMPRESSION: 1. Class 0 = Normal umbilical artery blood velocity Electronically authenticated by: FLO OCASIO Date: 06/29/2023 07:17 Dictated By: Flo Ocasio M.D. Signed By: 06/29/23719 DD/ 6 TD/TT: Pipe Joints Supervisor: Procedure Note Radiology, Radiologist, MD - 07/28/2023 [place] [address] Ultrasound Report Signed Patient: OLIVIA RODRIGUEZMR#: [id number] : 1995Acct:[id number] Age/Sex: 28 / FADM Date: 06/28/23 Loc: US Attending Dr: Maura Joseph Ordering Physician: Maura Joseph Date of Service: 06/28/23 Procedure(s): US OB umbilical artery Accession Number(s): [id number] cc: Maura Joseph; KAREN MARTINEZ [place] [id number] Patient Name: OLIVIA RODRIGUEZ MRN: [id number] date: 1995 Sex: F Assigned Patient Location: US Current Patient Location: US Accession/Order Number: [id number] Exam Date: 06/28/2023 15:04 Report Date: 06/29/2023 07:17 At the request of: MAURA JOSEPH Procedure: US OB umbilical artery EXAMINATION: US OB umbilical artery HISTORY: HISTORY OF SGA COMPARISON: Ultrasound OB umbilical artery 06/21/2023 TECHNIQUE: Duplex Doppler evaluation of the umbilical arteries. FINDINGS: HEART RATE: 130 bpm UMBILICAL ARTERIES: 2 GESTATIONAL AGE: 37 weeks 1 day WAVEFORM: Normal upstroke. No notching. Forward flow in diastole. PEAK SYSTOLIC VELOCITY: 87 cm/s END DIASTOLIC VELOCITY: 45 cm/s SYST/DIAST RATIO (S:D): 2.0 RESISTIVE INDEX: 0.5 US/US OB umbilical artery IMPRESSION: 1. Class 0 = Normal umbilical artery blood velocity Electronically authenticated by: FLO OCASIO Date: 06/29/2023 07:17 Dictated By: Flo Ocasio M.D. Signed By:06/29/23719 DD/ 6 TD/TT: Pipe Joints Supervisor: Maura DORSEY IMG XR PROCEDURES Final Result documented in this encounter Visit Diagnoses Not on filedocumented in this encounter Care Teams Food Service Substitute Relationship Specialty Start Date End Date Fern Martinez MD [address] [place] [address] PCP - General Family Medicine 12/11/22 documented as of this encounter
--- OUTSIDE RECORDS SUMMARY | 2024-10-27 09:28 | XMS_ITS | Encounter Summary ---
Author Organization [facility] Address [address] [place] [address] Care Team Providers Care Green Chainer Name Role Phone Fern Martinez MD Primary Care Provider [phone] Encounter Details Date Type Department Care Team ([facility] Contact Info) Description 07/12/2023 Abstract [facility] OB [address] [facility] [place] [place] [address] Carson Olsen, DO [address] [facility] [place] [address] Social History Tobacco Use Types Packs/Day Years [...] Upcoming Encounters Date Type Department Care Team ([facility] Contact Info) Description 03/05/2025 3:00 PM EDT Office Visit [facility] BCP OB [address] [facility] [place] [address] [place] [address] Carson Olsen, [address] [facility] [place] [address] documented as of this encounter Visit Diagnoses Not on filedocumented in this encounter Care Teams Green Chainer Relationship Specialty Start Date End Date Fern Martinez MD [address] [place] [address] PCP - General Family Medicine 12/11/22 documented as of this encounter
--- OUTSIDE RECORDS SUMMARY | 2024-10-27 09:29 | XMS_ITS | Encounter Summary ---
Author Organization [facility] Address [address] [place] [address] Care Team Providers Care Manufacturing Associate Name Role Phone Fern Martinez MD Primary Care Provider [phone] Encounter Details Date Type Department Care Team ([facility] Contact Info) Description 04/07/2024 Abstract [facility] OB [address] [facility] [address] [place] [place] [address] Carson Olsen, DO [address] [facility] [address] [place], [facility] Social History Tobacco Use Types Packs/Day Years [...] drinks on one occasion? Never 04/09/2023 Comments Unknown Sex and Gender Information Value Date Recorded Sex Assigned at Female 01/04/2023 8:41 AM EDT Legal Sex Female 6:39 PM EDT Gender Identity Female 01/04/2023 8:41 AM EDT Sexual Orientation Straight 01/04/2023 8: 41 AM EDT documented as of this encounter Plan of Treatment Upcoming Encounters Date Type Department Care Team (Late Contact Info) Description 03/05/2025 3:00 PM EDT Office Visit [facility] BCP OB [address] [facility] [place] [address] [place] [address] Carson Olsen, [address] [facility] [place] [address] documented as of this encounter Visit Diagnoses Not on filedocumented in this encounter Care Teams Manufacturing Associate Relationship Specialty Start Date End Date Fern Martinez MD [address] [place] [address] PCP - General Family Medicine 12/11/22 documented as of this encounter
--- OUTSIDE RECORDS SUMMARY | 2024-10-27 09:29 | XMS_ITS | Patient Health Record ---
Author Organization [facility] in [place] Address [address] [place] [address] Care Team Providers Care Alterations Tailor Name Role Phone Fern Martinez MD Primary Care Provider Barbie Dc Unavailable [phone] Results Component Value Reference Range Notes FERRITIN (Not yet reviewed b y provider) Interpretation: Performing Lab: Notes/Report: [facility] , Ferritin 10.0 8.0-252.0 ng/mL Performing Lab: see note ML - [facility] LB IRON AND TIBC (Not yet revie wed by provider) Interpretation: Performing Lab: Notes/Report: [facility] , Iron 32.0 50.0-170.0 ug/dL Total Iron Binding Capacity 306.0 250.0-450.0 u g/dL Percent Iron Saturation 10.5 Performing Lab: see note ML - [facility] LB CBC AUTO DIFF (Not yet revie wed by provider) Interpretation: Performing Lab: Notes/Report: [facility] , White Blood Count 6.8 4.0-11.0 10 3/uL Red Blood Count 4.38 4.20-5.40 10 6/uL Hemoglobin 13.0 12.0-16.0 g/dL Hematocrit 39.0 36.0-48.0 % Mean Corpuscular Volume 89.0 81.0-99.0 fL Mean Corpuscular Hemoglobin 29.7 26.7-34.0 pg Mean Corpuscular HGB Conc 33.3 29.9-35.2 g/dL Red Cell Distribution Width 15.9 11.0-15.0 % Platelet Count 205 150-450 10 3/uL Mean Platelet Volume 10.4 9.5-13.5 fL Neutrophils Percent Auto 69.2 43.0-75.0 % Lymphocytes Percent Auto 19.6 20.5-60.0 % Monocytes Percent Auto 8.1 1.7-12.0 % Eosinophils Percent Auto 2.1 0.9-7.0 % Basophils Percent Auto 0.7 0.2-2.0 % Immature Granulocytes Pct Auto 0.3 0.0-0.5 % Neutrophils Absolute Auto 4.7 1.4-6.5 10 3/uL Lymphocytes Absolute Auto 1.3 1.2-3.8 10 3/uL Monocytes Absolute Auto 0.6 0.3-0.8 10 3/uL Eosinophils Absolute Auto 0.1 0.0-0.7 10 3/uL Basophils Absolute Auto 0.1 0.0-0.1 10 3/uL Immature Granulocytes Abs Auto 0.02 0.00-0.03 10 3/uL Performing Lab: see note ML - [facility] LB Vitamin B12 (Not yet reviewe d by provider) Interpretation: Performing Lab: Notes/Report: [facility] , Vitamin B12 [phone] pg/mL [address] [place], [place] [id number] Performed at: [facility] With [employer]: Simon Diaz PhD, Phone: [phone] Performing Lab: see note - [facility] LB CBC AUTO DIFF (Not yet revie wed by provider) Interpretation: Performing Lab: Notes/Report: [facility] [place] [facility] , White Blood Count 6.3 4.0-11.0 10 3/uL Red Blood Count 4.10 4.20-5.40 10 6/uL Hemoglobin 11.3 12.0-16.0 g/dL Hematocrit 35.1 36.0-48.0 % Mean Corpuscular Volume 85.6 81.0-99.0 fL Mean Corpuscular Hemoglobin 27.6 26.7-34.0 pg Mean Corpuscular HGB Conc 32.2 29.9-35.2 g/dL Red Cell Distribution Width 14.2 11.0-15.0 % Platelet Count 232 150-450 10 3/uL Mean Platelet Volume 10.4 9.5-13.5 fL Neutrophils Percent Auto 64.8 43.0-75.0 % Lymphocytes Percent Auto 24.6 20.5-60.0 % Monocytes Percent Auto 7.4 1.7-12.0 % Eosinophils Percent Auto 2.1 0.9-7.0 % Basophils Percent Auto 0.8 0.2-2.0 % Immature Granulocytes Pct Auto 0.3 0.0-0.5 % Neutrophils Absolute Auto 4.1 1.4-6.5 10 3/uL Lymphocytes Absolute Auto 1.6 1.2-3.8 10 3/uL Monocytes Absolute Auto 0.5 0.3-0.8 10 3/uL Eosinophils Absolute Auto 0.1 0.0-0.7 10 3/uL Basophils Absolute Auto 0.1 0.0-0.1 10 3/uL Immature Granulocytes Abs Auto 0.02 0.00-0.03 10 3/uL Performing Lab: see note ML - [facility] LB IRON AND TIBC (Not yet revie wed by provider) Interpretation: Performing Lab: Notes/Report: [facility] , Iron 118.0 50.0-170.0 ug/dL Total Iron Binding Capacity 252.0 250.0-450.0 u g/dL Percent Iron Saturation 46.8 Performing Lab: see note ML - [facility] LB FERRITIN (Not yet reviewed b y provider) Interpretation: Performing Lab: Notes/Report: [facility] [place] [facility] , Ferritin 148.0 8.0-252.0 ng/mL Performing Lab: see note ML - [facility] LB Reason For Referral No Information Encounters Encounter Location Date Provider Diagnosis [facility] [address] [place] [address] 03/14/2024 Barbie Pinto [facility] [place] [facility] [address] [place] [address] 04/06/2024 Barbie Pinto [facility] [place] [facility] [address] [place] [address] 06/01/2024 Barbie iPnto Plan Of Treatment Pending Test Test Name Order Date CBC AUTO DIFF 04/06/2024 CBC AUTO DIFF 06/01/2024 FERRITIN 05/27/2024 FERRITIN 04/06/2024 IRON AND TIBC 04/06/2024 IRON AND TIBC 05/27/2024 Vitamin B12 04/06/2024 Next Appt Details Provider Name:Barbie Pinto , 10/31/2024 03:15:00 PM, [address] [place], [address], Insurance Providers Payer Name Payer Address Payer Phone Subscriber Number Group Number Insured Name Patient Relationship to Insured Coverage Start Date Coverage End Date FRON[employer]ATH [address] [place] [id number] Yeimy Romo Self - patient is the insured
--- OUTSIDE RECORDS SUMMARY | 2024-10-27 09:29 | XMS_ITS | Encounter Summary ---
Author Organization [facility] Address [address] [place] [address] Care Team Providers Care Calibration Tester Name Role Phone Fern Martinez MD Primary Care Provider Encounter Details Date Type Department Care Team ([facility] Contact Info) Description 03/24/2024 Abstract [facility] [address] [facility] [address] [place] [place] [address] Carson Olsen, DO [address] [place] [address] Social History Tobacco Use Types Packs/Day Years [...] EDT Office Visit [facility] [address] [facility] [place] [address] [place] [address] Carson Olsen, [address] [place] [address] documented as of this encounter Visit Diagnoses Not on filedocumented in this encounter Care Teams Calibration Tester Relationship Specialty Start Date End Date Fern Martinez MD [address] [place] [address] PCP - General Family Medicine 12/11/22 documented as of this encounter
--- OUTSIDE RECORDS SUMMARY | 2024-10-27 09:29 | XMS_ITS | Encounter Summary ---
Author Organization [facility] Address [address] [place] [address] Care Team Providers Care Pull Out Operator Name Role Phone Fern Martinez MD Primary Care Provider [phone] Encounter Details Date Type Department [facility] Team ([facility] Contact Info) Description 06/05/2024 Abstract [facility] OB [address] [place] [address] Carson Olsen, DO [address] [place] [address] Social History Tobacco Use Types Packs/Day Years [...] EDT Office Visit [facility] OB [address] [facility] [place] [place] [address] Carson Olsen, [address] [place] [address] documented as of this encounter Visit Diagnoses Not on filedocumented in this encounter Care Teams Pull Out Operator Relationship Specialty Start Date End Date Fern Martinez MD [address] [place] [address] PCP - General Family Medicine 12/11/22 documented as of this encounter
--- OUTSIDE RECORDS SUMMARY | 2024-10-27 09:29 | XMS_ITS | Encounter Summary ---
Author Organization [facility] Address [address] [place] [address] Care Team Providers Care Speed Reading Teacher Name Role Phone Fern Martinez MD Primary Care Provider [phone] Encounter Details Date Type Department Care Team ([facility] Contact Info) Description 03/02/2024 Orders Only [facility] OB [address] [place] [address] Inga Francis LPN [address] [place] [id number] Social History Tobacco Use Types Packs/Day Years [...] EDT Office Visit [facility] [address] [facility] [address] [place] [place] [address] Carson Olsen DO [address] [place] [address] [place] [address] documented as of this encounter Procedures Procedure Name Priority Date/Time Associated Diagnosis Comments PAP SMEAR Routine 02/23/2024 12:00 AM EDT documented in this encounter Results * Pap Smear (02/23/2024 12:00 AM EDT) Swab Cervical swab / Unknown us Carson Olsen DO LAB CYTOLOGY ORDERABLES Final Re sult EXTERNAL LAB documented in this encounter Visit Diagnoses Not on filedocumented in this encounter Care Teams Speed Reading Teacher Relationship Specialty Start Date End Date Fern Martinez MD [address] [place] [address] PCP - General Family Medicine 12/11/22 documented as of this encounter
--- OUTSIDE RECORDS SUMMARY | 2024-10-27 09:29 | XMS_ITS | Clinical Summary ---
Author Organization [facility] Address [address] [place] [address] Care Team Providers Care Under Seal Operator Name Role Phone Fern Martinez MD Primary Care Provider [phone] Allergies Active Allergy Reactions Criticality Noted Date Comments Acetaminophen GI intolerance 10/05/2022 Chlorhexidine Itching 12/28/2018 Other GI intolerance 04/26/2023 Propoxyphene GI intolerance 10/05/2022 Sulfamethoxazole Rash Low 10/10/2009 Sulfamethoxazole-Trimethoprim Rash,Swell ing,Unknown,Hi ves Low 05/18/2019 Trimethoprim Rash Low 12/11/2022 Medications pantoprazole (Protonix) 40 MG EC tabletIndication s:Heartburn during in first trimester Take 1 tablet (40 mg) by mouth in the morning. Take before meals. Do not crush, chew, or split. . 30 tablet 11 11/25/2022 Active Vit w/Wn-Klcqevegu-B A (PNV PO) Take by mouth. Active pyridoxine (Vitamin B-6) 25 MG tablet Take 25 mg by mouth in the morning. Active Doxylamine Succinate, Sleep, (UNISOM PO) Take 1 tablet by mouth at bedtime. Active ondansetron (Zofran) 4 MG tabletIndication s:Nausea TAKE 1 TABLET BY MOUTH TWICE DAILY NEEDED FOR NAUSEA 30 tablet 02/25/2023 Active albuterol HFA 90 mcg/act inhaler INHALE 2 TO 3 PUFFS BY MOUTH EVERY 4 TO 6 HOURS 05/24/2023 Active ibuprofen 800 MG tablet Take 800 mg by mouth every 8 (eight) hours 07/14/2023 Active oxyCODONE-acetam inophen (Percocet) 5-325 MG tablet Take 1 tablet by mouth every 6 (six) hours 07/14/2023 Active Active Problems Problem Noted Date Diagnosed Date History of prior with SGA 05/24 Family History Medical History Relation Name Comments Aortic stenosis Father Heart defect Father Congenital Breast cancer Mother Diabetes Mother Mental Retardation Sister Relation Name Status Comments Father Alive Mother Alive Sister Social History Tobacco Use Types Packs/Day Years Used Date Smoking Tobacco: Never Smokeless Tobacco: Never Tobacco Cessation:Counseling Given: Not Answered Alcohol Use Standard Drinks/Week Comments Yes 0 [...] Orientation Straight 01/04/2023 8: 41 AM EDT Last Filed Vital Signs Vital Sign Reading Time Taken Comments Blood Pressure 110/68 02/23/2024 3:34 PM EDT Pulse - - Temperature - - Respiratory Rate - - Oxygen Saturation - - Inhaled Oxygen Concentration - - Weight 84 kg (185 lb 1.9 oz) 02/23/2024 3:34 PM EDT Height 172.7 cm (5' 8 ) 12/11/2022 9:44 AM EDT Body Mass Index 28.15 12/11/2022 9:44 AM EDT Plan of Treatment Upcoming Encounters Date Type Department Care Team (Late st Contact Info) Description 03/05/2025 3:00 PM EDT Office Visit [facility] OB [address] [place] [place] [address] Carson Olsen DO [address] [place] [address] Health Maintenance Due Date Last Done Comments Influenza Vaccine (Season Ended) 2025 04/05/20 03 Pap Smear 02/22/2027 02/23/2024, 01/23, 04/15/2022 Cervical Cancer Screening 02/16/2028 HPV/Cotest 02/16/2028 Procedures Procedure Name Priority Date/Time Associated Diagnosis Comments PAP SMEAR Routine 02/23/2024 12:00 AM EDT from Last 3 Months or Most Recently Relevant to Health Maintenance Results * Pap Smear (02/23/2024 12:00 AM EDT) Swab Cervical swab / Unknown us Carson Olsen DO LAB CYTOLOGY ORDERABLES Final Re sult EXTERNAL LAB from Last 3 Months or Most Recently Relevant to Health Maintenance Insurance FRON[employer] Care Teams Under Seal Operator Relationship Specialty Start Date End Date Fern Martinez MD [address] [place] [address] PCP - General Family Medicine 12/11/22
--- OUTSIDE RECORDS SUMMARY | 2024-10-27 09:29 | XMS_ITS | Encounter Summary ---
Author Organization [facility] Address [address] [place] [address] Care Team Providers Care Equine Manager Name Role Phone Fern Martinez MD Primary Care Provider [phone] Encounter Details Date Type Department Care Team (Late st Contact Info) Description 03/03/2023 Clinisync Result Encounter [facility] External Department Unsolicited Carson Olsen, DO [address] [place] [address] Social History Tobacco Use Types Packs/Day Years Used Date Smoking Tobacco: Never Smokeless Tobacco: Never Alcohol Use Standard Drinks/Week Comments Yes 0 (1 standard drink = 0.6 oz pure alcohol) 1 or 2 drinks on a typical day/monthly or less Comments Yes Sex and Gender Information Value [...] 03/05/2025 3:00 PM EDT Office Visit [facility] OB [address] [place] [id number] Carson Olsen DO [address] [place] [address] documented as of this encounter Procedures Procedure Name Priority Date/Time Associated Diagnosis Comments US OB TRANSVAGINAL 03/03/2023 9: 44 PM EDT documented in this encounter Results * US OB TRANSVAGINAL (03/03/2023 9:44 PM EDT) Anatomical Region Laterality Modality Other 03/03/2023 9:44 PM EDT Narrative 03/03/2023 9:44 [place] [address] Ultrasound Report Signed Patient: OLIVIA RODRIGUEZ MR#: [id number] : 1995 Acct:[id number] Age/Sex: 27 / F ADM Date: 03/02/23 Loc: US Attending Dr: Carson Olsen D.O. Ordering Physician: Carson Olsen D.O. Date of Service: 03/02/23 Procedure(s): US OB transvaginal Accession Number(s): [id number] cc: Carson Olsen D.O.; Physician,Non-Staff M[place] [address] Patient Name: OLIVIA RODRIGUEZ MRN: [id number] date: 1995 Sex: F Assigned Patient Location: Current Patient Location: Accession/Order Number: [id number] Exam Date: 03/02/2023 20:35 Report Date: 03/03/2023 21:44 At the request of: CARSON OLSEN Procedure: US OB transvaginal EXAMINATION: US OB anatomy, US OB transvaginal HISTORY: SECOND TRIMESTER Z34.92 COMPARISON: No relevant comparison available. TECHNIQUE: Transabdominal sonographic examination was performed for obstetrical and evaluation. FINDINGS: Number: 1 Heart Rate: 137.1 bpm H.B. /min Amniotic Fluid Volume: Subjectively normal Placental Location: POSTERIOR with lower margin 1.2 cm from os. Cervix Length: 5.5 cm, closed. ANATOMY: Normal Structures -cerebellum, choroid plexus, cisterna magna, lateral cerebral ventricles, orbits, midline falx, hard palate, four-chamber heart, stomach, kidneys, bladder, umbilical cord insertion into abdomen, three-vessel cord, cervical spine, thoracic spine, lumbar spine, right upper extremity, left upper extremity, right lower extremity, left lower extremity. SUBOPTIMALLY SEEN: Cardiac outflow tracts, diaphragm, sacral spine ABNORMALITIES: None BIOMETRY: BPD: 4.5 cm 19 weeks 3 days HC: 17.4 cm 19 weeks 6 days AC: 14.2 cm 19 weeks 4 days FL: 3.3 cm 20 weeks 3 days EFW:321.7 grams; 27% FL/AC: 23.5 FL/BPD: 74.7 HC/AC: 1.2 GESTATIONAL AGE: Age by EDC: 20 weeks 2 days SANDRA by EDC: 07/18/2023 Age by current US: 19 weeks 6 days SANDRA by current US: 07/21/2023 US/US OB transvaginal IMPRESSION: 1. Single live intrauterine with growth detailed above. 2. Suboptimal visualization of the cardiac outflow tracts, diaphragm, sacral spine due to position. 3. Overall limited examination. Follow-up is recommended. Electronically authenticated by: EULALIO OCASIO Date: 03/03/2023 21:44 Dictated By: Eulalio Ocasio M.D. Signed By: 03/03/232152 DD/ 43 TD/TT: Director Sales Training: Procedure Note Radiology, Radiologist, MD - 03/03/2023 [place] [address] Ultrasound Report Signed Patient: OLIVIA RODRIGUEZMR#: [id number] : 1995Acct:[id number] Age/Sex: 27 / FADM Date: 03/02/23 Loc: US Attending Dr: Carosn Olsen D.O. Ordering Physician: Carson Olsen D.O. Date of Service: 03/02/23 Procedure(s): US OB transvaginal Accession Number(s): [id number] cc: Carson Olsen D.O.; Physician,Non-Staff Shashi The [place] [id number] Patient Name: OLIVIA RODRIGUEZ MRN: [id number] date: 1995 Sex: F Assigned Patient Location: US Current Patient Location: Accession/Order Number: [id number] Exam Date: 03/02/2023 20:35 Report Date: 03/03/2023 21:44 At the request of: CARSON OLSEN Procedure: US OB transvaginal EXAMINATION: US OB anatomy, US OB transvaginal HISTORY: SECOND TRIMESTER Z34.92 COMPARISON: No relevant comparison available. TECHNIQUE: Transabdominal sonographic examination was performed for obstetrical and evaluation. FINDINGS: Number: 1 Heart Rate: 137.1 bpm H.B. /min Amniotic Fluid Volume: Subjectively normal Placental Location: POSTERIOR with lower margin 1.2 cm from os. Cervix Length: 5.5 cm, closed. ANATOMY: Normal Structures -cerebellum, choroid plexus, cisterna magna, lateral cerebral ventricles, orbits, midline falx, hard palate, four-chamberheart, stomach, kidneys, bladder, umbilical cord insertion into abdomen,three-vessel cord, cervical spine, thoracic spine, lumbar spine, right upper extremity, left upper extremity, right lower extremity, left lower extremity. SUBOPTIMALLY SEEN: Cardiac outflow tracts, diaphragm, sacral spine ABNORMALITIES: None BIOMETRY: BPD: 4.5 cm 19 weeks 3 days HC: 17.4 cm 19 weeks 6 days AC: 14.2 cm 19 weeks 4 days FL: 3.3 cm 20 weeks 3 days EFW:321.7 grams; 27% FL/AC: 23.5 FL/BPD: 74.7 HC/AC: 1.2 GESTATIONAL AGE: Age by EDC: 20 weeks 2 days SANDRA by EDC: 07/18/2023 Age by current US: 19 weeks 6 days SANDRA by current US: 07/21/2023 US/US OB transvaginal IMPRESSION: 1. Single live intrauterine with growth detailed above. 2. Suboptimal visualization of the cardiac outflow tracts, diaphragm,sacral spine due to position. 3. Overall limited examination. Follow-up is recommended. Electronically authenticated by: EULALIO OCASIO Date: 03/03/2023 21:44 Dictated By: Eulalio Ocasio M.D. Signed By:03/03/232152 DD/ 43 TD/TT: Director Sales Training: us Carson Pretty DO [facility] Final Result documented in this encounter Visit Diagnoses Not on filedocumented in this encounter Care Teams Equine Manager Relationship Specialty Start Date End Date Fern Martinez MD [address] [place] [address] PCP - General Family Medicine 12/11/22 documented as of this encounter
--- OUTSIDE RECORDS SUMMARY | 2024-10-27 09:29 | XMS_ITS | Encounter Summary ---
Author Organization [facility] [email or web address] [facility] tem Address [id number] [address] [place] [address] Care Team Providers Care Electric Tool Repairer Name Role Phone Fern Martinez MD Primary Care Provider [phone] Encounter Details Date Type Department Care Team (Late st Contact Info) Description 03/19/2021 Orders Only Maternal- Medicine at [facility] [address] [facility] [place] [address] Phil Barrera MD [address] [place] [id number] Social History Tobacco Use Types Packs/Day Years Used Date Smoking Tobacco: Never Smokeless Tobacco: Never Alcohol Use Standard Drinks/Week Comments Not Currently 0 (1 standard drink = 0.6 oz pur e alcohol) PHQ-2 Answer Date Recorded Total Score 0 08/07/2019 Childcare Answer Date Recorded Childcare Unknown 05/02/2019 Employment Answer Date Recorded Employment Unknown 05/02/2019 Purpose - Life Answer Date Recorded Purpose and direction in life Unknown Comments Yes Sex and Gender Information Value Date Recorded Sex Assigned at Not on file Legal Sex Female 2:51 PM EST Gender Identity Not on file Sexual Orientation Not on file documented as of this encounter Plan of Treatment Not on file documented as of this encounter Procedures Procedure Name Priority Date/Time Associated Diagnosis Comments US OFFICE Routine 03/07/2021 documented in this encounter Results * Ultrasound office (03/07/2021) Anatomical Region Laterality Modality AMB Ultrasound us Phil Barrera MD G US ORDERABLES Edited Result - Final documented in this encounter Visit Diagnoses Not on filedocumented in this encounter Additional Health Concerns Assessment Noted Time PHQ-9 Depression Total Score: 0 08/07/19 20 10:10 AM EDT documented as of this encounter Care Teams Electric Tool Repairer Relationship Specialty Start Date End Date Fern Martinez MD PCP - General Family Medicine 03/24/21 documented as of this encounter
--- OUTSIDE RECORDS SUMMARY | 2024-10-27 09:29 | XMS_ITS | Data Portability ---
Author Organization [place] - [facility], Sudheer Smith Address [address] [place] [address] Care Team Providers Care Crane Assembler Name Role Phone [facility] Primary Care Provider [phone] Assessment No assessment recorded. Plan of Treatment Reminders Order Date Submit Date Provider Last Modified By Organization Details Last Modified Time Details Appointments InPerson; Lab Draw 2024 09:00A Antoinette Machado Dr Nurse or MA Not available Not available Not available InPerson; Chronic Disease Mgmt 2024 11:30A Antoinette Trevino MD Not available Not available Not available Lab CMP, serum or plasma 2024 025 [place] [employer] [facility], [facility] [place], [address], 10/26/2024 15:13:58 lipid panel, serum 2024 025 [place] [address] [facility], [address] [place] [address], [address], 10/26/2024 15:13:58 CBC w/ auto diff [address] [facility]41 [facility], [address] [place], [address], 10/26/2024 15:13:58 HbA1c (hemoglob in A1c), blood [address] [facility]41 [facility], [facility] [place], [address], 10/26/2024 15:13:58 Referral None recorded. Procedures None recorded. Surgeries None recorded. Imaging None recorded. Medication Orders escitalop radha 5 mg tablet 2024 025 [facility], [address] [place], [address], 10/26/2024 16:55:36 ondansetr on 8 mg disintegr ating tablet 2024 025 [facility], [address], [place], [place], [id number], 10/26/2024 14:23:22 pseudoeph edrine-gu aifenesin ER 60 mg-600 mg tablet,ex tend release 12hr 2024 025 [facility], [address] [place], [address], 08/23/2024 12:45:37 Patient TargetsNo targets recorded. Patient Instructions Encounter Date Encounter Id Patient Instructions Last Modified By Organization Details Last Modified Time 07/24/2024 [id number] upper respirator y infection (cold): care instructions [email or web address] Not available 07/24/2024 11:05:27 Discussed that this is likely viral given symptoms and duration. Encouraged increased fluid intake, adequate rest and proper hand hygiene. Discussed use of mucinex d and ibuprofen as well as nonpharmacologic therapies for symptom relief. Continue to monitor symptoms and call office on Wednesday afternoon if no improvement in symptoms or if symptoms worsen; will consider antibiotic treatment at that time. Pt acknowledged understanding and agreed with treatment plan. [email or web address] Not available 07/24/2024 11:07:50 08/23/2024 [id number] gastroenteritis: care instructions [email or web address] Not available 08/23/2024 13:20:41 Discussed that this is likely viral given symptoms, duration and exposure. Counseled on medication administration. Discussed resuming diet with small portions of bland food; adequate water intake. Get plenty of rest and practice good hygiene. Follow up if symptoms persist and/worsen. [email or web address] Not available 08/23/2024 13:20:41 Reason for Referral None Reported. 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 Procedures Surgical History Date Name Laterality Status Provider Name and Address Organization Details Recorded Time 4 Date of Last Pap Smear completed HOMER DAWN [place] [facility] 07/24/2024 09:57:54 extraction of wisdom tooth completed Not Available [facility] 02/27/2024 04:35:22 section completed Not Available [facility] 02/27/2024 04:35:22 ligation of fallopian tube completed Not Available [facility] 02/27/2024 04:35:22 Breast Biopsy completed HOMER DAWN IN [facility] 07/24/2024 09:53:58 Caesarean Section completed HOMER DAWN [place] [facility] 07/24/2024 09:53:58 Imaging Results None recorded. Procedure Notes None recorded. Medical Equipment None Reported. Allergies Allergen ID Allergen Name Allergen Category Reaction Reaction Severity Criticality Documentation Date Start Date Code Code System Note Provider Name and Address Organization Details Recorded Time 424912 Bactrim medicatio n hives Not available Not available 01/29/2024 61997 9 RxNorm Type: Aller gy Aller gyCod e: '4970 8-014 5-' ; Aller gyNam e: 'Bact rim'; Aller gyCon ceptT ype: 'NDC' ; Aller gyRea ction Sever ity: 'Unkn own'; Not Available [facility] 4 14:32:11 744685 Hibiclens medicatio n itching Not available [facility] 10/26/2024 94270 2 RxNorm Delphine Sheets null, [place] [facility] 5 14:22:46 Medications Name Sig Start Date Stop Date Status Note LastModified by Organization Details LastModified Time tretinoin 0.025 % topical cream APPLY a pea sized amount to the chest and back three nights per week increasi ng to NIGHTLY as tolerate d active Not Available Not Available No t Available amoxicill in 500 mg tablet TAKE 1 TABLET BY MOUTH TWICE DAILY FOR 10 DAYS 07/24 completed Not Available Not Available Not Available ondansetr on 8 mg disintegr ating tablet Place 1 tablet twice a day by translin gual route as needed for 5 days. 10/26 completed Not Available Not Available Not Available albuterol sulfate HFA 90 mcg/actua tion aerosol inhaler 1 puff as needed every 4 hrs , Inhalati on 08/23 completed Encounte r Date: 09/27/19 24 Status: 'Taking' ; Not Available Not Available Not Available spironola ctone 50 mg tablet TAKE 1 TABLET BY MOUTH DAILY WITH full glass OF water 10/26 completed Not Available Not Available Not Available escitalop radha 5 mg tablet Take 1 tablet every day by oral route for 90 days. 2024 active Not Available Not Available Not Avai lable Mucinex D 60 mg-600 mg tablet,ex tended release TAKE 2 TABLETS BY MOUTH EVERY 12 HOURS NEEDED 08/23 completed Not Available Not Available Not Available Vitals Date Recorded Body height Body mass index (BMI) Body weight Oxygen saturation Oxygen saturation in Arterial blood by Pulse oximetry Heart rate Body temperature Systolic blood pressure Diastolic blood pressure Provider Name and Address Organization Details Last Updated DateTime 5 172.72 cm 28.2 kg/m2 71809.3 1 g 98 % 98 % 91 /min 98.2 [degF] 105 mm[Hg] 70 mm[Hg] H[place]ER [place]WN [place] [facility] 5 10:02:09 Date Recorded Body height Body mass index (BMI) Body weight Respiratory rate Body temperature Oxygen saturation Oxygen saturation in Arterial blood by Pulse oximetry Heart rate Systolic blood pressure Diastolic blood pressure Provider Name and Address Organization Details Last Updated DateTime 5 172.72 cm 27.7 kg/m2 83757.2 5 g 16 /min 98.1 [degF] 99 % 99 % 63 /min 108 mm[Hg] 64 mm[Hg] Domonique Guerin [address], [place], [address], [place] [facility] 11:01:40 Date Recorded Body height Body mass index (BMI) Body weight Oxygen saturation Oxygen saturation in Arterial blood by Pulse oximetry Heart rate Systolic blood pressure Diastolic blood pressure Provider Name and Address Organization Details Last Updated DateTime 172.72 cm 27.5 kg/m2 76996.2 2 g 99 % 99 % 79 /min 126 mm[Hg] 74 mm[Hg] Delphine Sheets [place] [facility] 14:29:46 Social History Question Answer Notes LastModified by Organizat ion Details LastModified Time Tobacco Smoking Status Never Smoker SocialHis toryQuest ion: 'Tobacco Use/Smoki ng'; SocialHis toryRespo nse: 'Are you a: nonuser'; Not Available [facility] 02/27/2024 05:54:52 What Is Your Level Of Caffeine Consumption? Heavy [email or web address] Information not available 07/24/2024 How Much Tobacco Do You Chew? None [email or web address] Information not available 07/24/2024 What Is The Highest Grade Or Level Of School You Have Completed Or The Highest Degree You Have Received? [id number] Information not available 07/24/2024 Cigar Smoking No [email or web address] Information not available 07/24/2024 Does Anyone Insult Or Talk Down To You? Never [email or web address] Information not available 07/24/2024 Does Anyone Physically Hurt You At Home? Never [email or web address] Information not available 07/24/2024 Does Anyone Scream Or Curse At You? Never [email or web address] Information not available 07/24/2024 Does Anyone Threaten/bully You With Harm? Never [email or web address] Information not available 07/24/2024 Lives With , 2 Daughters, 1 Son [email or web address] Information not available 07/24/2024 Sleep Habits 6-8hrs A Night [email or web address] Information not available 07/24/2024 Have You Ever Served In The ? No Information not available 07/24/2024 What Was The Date Of Your Most Recent Tobacco Screening? 10/26/2024 [email or web address] Information not available 10/26/2024 What Is Your Relationship Status? [email or web address] Information not available 07/24/2024 Has Tobacco Cessation Counseling Been Provided? Yes [email or web address] Information not available 07/24/2024 On What Date Was Tobacco Cessation Counseling Provided? 10/26/2024 Information not available 10/26/2024 Sex: Unknown Functional Status Question Answer Note LastModified by Organizat ion Details LastModified Time How many times per week do you consume alcohol? Less than 1 time per week [email or web address] Information not available 10/26/2024 Do you or have you ever used any other forms of tobacco or nicotine? No [email or web address] Information not available 07/24/2024 What is your level of alcohol consumption? Occasional [email or web address] Information not available 07/24/2024 Do you or have you ever used smokeless tobacco? 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 Family History Relationship Description Onset Age of this Age Resolved Age Notes LastModified by Organization Details LastModified Time Mother Malignant tumor of breast [email or web address] Not available 07/24 09:53:50 Mother Migraine [email or web address] Not availab le 07/24/2024 09:53:50 Mother Obesity Not availabl e 07/24/2024 09:53:50 Mother Osteoporosis [email or web address] Not king ilable 07/24/2024 09:53:50 Maternal Aunt Malignant tumor of breast [email or web address] Not available 07/24 09:53:50 Maternal Aunt Obesity [email or web address] Not a vailable 07/24/2024 09:53:50 Maternal Grandmother Malignant tumor of breast Not available 07/24 09:53:50 Maternal Grandmother Obesity [email or web address] Not available 07/2024 09:53:50 Maternal Grandmother Dementia Not available 09:53:50 Paternal Uncle Diabetes mellitus [email or web address] Not available 07/24 09:53:50 Maternal Uncle Obesity [email or web address] Not available 025 09:53:50 Sister Obesity [email or web address] Not availabl e 07/24/2024 09:53:50 Sister Mental disorder [email or web address] Not available 07/24 09:53:50 Father Diabetes mellitus [email or web address] Not available 07/24 09:53:50 Notes:*Relative: Sister*Prob cody: aliveRelative: 'Sister 1'; *Relative: Father*Problem: alive 59 yrs *Relative: Mother*Problem: alive 57 yrs *Relative: Unspecified Relation*Problem: Mother(36),aunt, MGM Breast cancer Father heart valve replacement and pre diabetic 1/2 sister c developmental delay Medical History No medical history recorded. Gynecological History Statement/Question Response Date of Last Pap Smear 03/24/2024 Current Control Method Tubal Ligat ion Date of LMP 09/27/2024 Obstetrics History GPAL:G 3 P 0 0 0 3 Type Value Multiple Births 0 Full Term 0 Induced 0 Spontaneous 0 Premature 0 Living 3 Ectopics 0 Total 3 Immunizations Vaccine Type Date Status Note Provider Nam e and Address Organization Details Recorded Time Tdap 7 completed Delphine Sheets null, [place] [facility] 10/26/2024 14:19:44 Influenza, split virus, trivalent, preservative 3 completed Delphine Sheets null, [place] [facility] 10/26/2024 14:19:44 HPV, quadrivalent 7 completed Delphine Sheets null, [place] [facility] 10/26/2024 14:19:44 meningococcal MCV4P 7 completed Delphine Sheets null, [place] [facility] 10/26/2024 14:19:44 Tdap 0 completed Eleno Trevino MD [address], [facility], [address], [place] [facility] 10/26/2024 15:06:50 Past Encounters Encounter ID Performer Location Encounter Start Date Encounter Closed Date Diagnosis/Indication Diagnosis SNOMED-CT Code Diagnosis ICD10 Code Diagnosis Note [id number] Eleno Trevino MD [facility] [address] [place] [address] 07/24/2024 09:52:32 07/24/2024 11:08:45 Acute upper respiratory infection 47102217 J06.9 Call office on Wednesday if symptoms are not improving or worsening [id number] [facility] [address] [place] [address] 08/23/2024 10:57:58 08/23/2024 13:20:52 Viral gastroenteritis 313173316 A08.4 [id number] [facility] [address] [place] [address] 10/26/2024 14:18:54 10/26/2024 17:02:49 Adult health examination 382181826 Z00.00 Counseled on achieving or maintainin g a healthy lifestyle including strength, aerobic, balance training and a clean diet with portion control. Avoid high fructose corn syrup, sucralose and aspartame - stevia may be better. Discussed maintainin g lifelong learning and benefits of this. Optimal waist circumfere nce is half of their height, but 3 decreases in this can have powerful benefits. Discussed accident and abduction safety with a focus on car-relate d dangers. Discussed age and risk-relat ed recommenda tions for mammogram, colonoscop y and bone density screenings . Recommend self breast exam monthly. Try to maintain calcium intake at 5875-9561 mg daily - ideally from dietary sources - and vitamin D3 at 2000 IU daily. Daily weightbear ing exercise can help preserve bone health. Discussed skin protection and signs of concerning moles. Keep guns and ammo locked away separately . Today we reviewed all appropriat e screening recommenda tions and discussed age-approp riate vaccine recommenda tions. Last tdap during 5 years ago - aware she will booster for any dirty cuts Generalize d anxiety disorder 40735871 F41.1 Reinforced other means to improve mood and anxiety levels including stress reduction, clean diet, exercise and good sleep as well as prayer or meditation . Discussed counseling . Discussed with patient the pros and cons of using medication in this age group. They are aware of the increased risk of suicide with any medication that affects brain chemistry. The patient agrees to alert me immediatel y if their symptoms are worse or for any thoughts of suicide. F/u in office in 4 weeks - will also review wellness labs then Acne vulgaris 84842510 L 70.0 Plans to cont to f/u c derm. Did offer to Rx clindamyci n liquid separately until her f/u c derm in 3 mos if she can't reconcile cost options c 3 component cream Health Concerns Section Related Observation LastModified by Organization Gray ls LastModified Time None Recorded Concern Status LastModified by Organization Details LastModified Time None Recorded Advance Directives Directive None Recorded Payers Insurance Date Sequence Insurance Name Policy Number Policy Kenney Covered Member ID Kenney Member ID Guarantor Name 07/24/2024 1 *SELF PAY* UNKNOWN Yeimy Romo [id number] Yeimy Romo 07/24/2024 1 *SELF PAY* UNKNOWN Yeimy Romo [id number] Yeimy Romo 10/24/[address] [facility] [id number] Yeimy Romo [id number] Yeimy Romo Notes Date Note Type Note Provider Name and Address Organization Details Recorded Time 07/24/2024 text/html BRIAN is a 29 yo female presenting with nasal congestion, cough and sore throat onset 07/17/2024. Pt has taken mucinex dm and sudafed with some relief in symptoms, but has not taken medication since . Feels like symptoms are consistent; not worsening. Domonique Guerin NP [address], [place], [address], [place] [facility] 07/24/2024 11:08:36 08/23/2024 text/html BRIAN is a 29 yo female presenting with nausea, vomiting, fever, body aches and fatigue onset yesterday 08/22/2024. Pt states that she was around a relative this weekend who has similar symptoms this week. Pt reports vomiting once; has continued nausea. Tmax 101. Has taken ibuprofen, acetaminophen and pepcid with some relief in symptoms. Ate an egg and toast this morning and was able to keep it down but has nausea. Domonique Guerin NP [address], [place], [address], [place] [facility] 08/23/2024 13:20:47 10/26/2024 text/html BRIAN presents toda y for annual wellness screening. Acne questions. Saw derm - rx'd spironolactone. No better and made her mood much worse. Got new Rx for topical med c 3 components. No correlation to monthly cycles. Acne resolved c last . Also some anxiety? Irritable lots and poor concentration. Can't focus when kids are noisy. Can't work out since kids need something. Bowel, bladder fxn are good. Sleeps well. Eleno Trevino MD [address], [facility], [address], [place] [facility] 10/26/2024 17:02:48 OBGyn Episode No OBEpisode recorded.
--- OUTSIDE RECORDS SUMMARY | 2024-10-27 09:30 | XMS_ITS | Encounter Summary ---
Author Organization [facility] Address [address] [place] [address] Care Team Providers Care Advisory Internship Name Role Phone Fern Martinez MD Primary Care Provider [phone] Encounter Details Date Type Department Care Team (Late st Contact Info) Description 03/03/2023 Clinisync Result Encounter [facility] External Department Unsolicited Carson Olsen, DO [address] [place] [address] Social History Tobacco Use Types Packs/Day Years [...] 03/05/2025 3:00 PM EDT Office Visit [facility] OB [address] [place] [id number] Carson Olsen DO [address] [place] [address] documented as of this encounter Procedures Procedure Name Priority Date/Time Associated Diagnosis Comments US OB ANATOMY 03/03/2023 9:44 PM EDT documented in this encounter Results * US OB ANATOMY (03/03/2023 9:44 PM EDT) Anatomical Region Laterality Modality Other 03/03/2023 9:44 PM EDT Narrative 03/03/2023 9:44 [place] [address] Ultrasound Report Signed Patient: OLIVIA RODRIGUEZ MR#: [id number] : 1995 Acct:[id number] Age/Sex: 27 / F ADM Date: 03/02/23 Loc: US Attending Dr: Carson Olsen D.O. Ordering Physician: Carson Olsen D.O. Date of Service: 03/02/23 Procedure(s): US OB anatomy Accession Number(s): [id number] cc: Carson Olsen D.O.; Physician,Non-Staff M.DDarius [place] [address] Patient Name: OLIVIA RODRIGUEZ MRN: [id number] date: 1995 Sex: F Assigned Patient Location: US Current Patient Location: Accession/Order Number: [id number] Exam Date: 03/02/2023 20:35 Report Date: 03/03/2023 21:44 At the request of: CARSON OLSEN Procedure: US OB anatomy EXAMINATION: US OB anatomy, US OB transvaginal [...] SANDRA by current US: 07/21/2023 US/US OB anatomy IMPRESSION: 1. Single live intrauterine with growth detailed above. 2. Suboptimal visualization of the cardiac outflow tracts, diaphragm, sacral spine due to position. 3. Overall limited examination. Follow-up is recommended. Electronically authenticated by: EULALIO OCASIO Date: 03/03/2023 21:44 Dictated By: Eulalio Ocasio M.D. Signed By: 03/03/232152 DD/ 43 TD/TT: Outside Operator: Procedure Note Radiology, Radiologist, MD - 03/03/2023 [place] [address] Ultrasound Report Signed Patient: OLIVIA RODRIGUEZMR#: [id number] : 1995Acct:[id number] Age/Sex: 27 FADM Date: 03/02/23 Loc: US Attending Dr: Carson Olsen D.O. Ordering Physician: Carson Olsen D.O. Date of Service: 03/02/23 Procedure(s): US OB anatomy Accession Number(s): [id number] cc: Carson Olsen D.O.; Physician,Non-Staff Shashi [place] [address] Patient Name: OLIVIA RODRIGUEZ MRN: [facility]:[id number] date: 1995 Sex: F Assigned Patient Location: Current Patient Location: Accession/Order Number: [id number] Exam Date: 03/02/2023 20:35 Report Date: 03/03/2023 21:44 At the request of: CARSON OLSEN Procedure: US OB anatomy EXAMINATION: US OB anatomy, US OB transvaginal [...] SANDRA by current US: 07/21/2023 US/US OB anatomy IMPRESSION: 1. Single live intrauterine with growth detailed above. 2. Suboptimal visualization of the cardiac outflow tracts, diaphragm,sacral spine due to position. 3. Overall limited examination. Follow-up is recommended. Electronically authenticated by: EULALIO OCASIO Date: 03/03/2023 21:44 Dictated By: Eulalio Ocasio M.D. Signed By:03/03/232152 DD/ 43 TD/TT: Outside Operator: us Carson Olsen DO [facility] Final Result documented in this encounter Visit Diagnoses Not on filedocumented in this encounter Care Teams Advisory Internship Relationship Specialty Start Date End Date Fern Martinez MD [address] [place] [address] PCP - General Family Medicine 12/11/22 documented as of this encounter
--- OUTSIDE RECORDS SUMMARY | 2024-10-27 09:30 | XMS_ITS | Encounter Summary ---
Author Organization [facility] Address [address] [place] [address] Care Team Providers Care Crusher Loader Operator Name Role Phone Fern Martinez MD Primary Care Provider [phone] Encounter Details Date Type Department Care Team ([facility] Contact Info) Description 06/09/2023 Abstract [facility] [address] [place] [address] Mikayla Caceres LPN [address] [place] [address] Social History Tobacco Use Types Packs/Day Years [...] EDT Office Visit [facility] [address] [place] [address] Carson Olsen, [address] [facility] [place] [address] documented as of this encounter Visit Diagnoses Not on filedocumented in this encounter Care Teams Crusher Loader Operator Relationship Specialty Start Date End Date Fern Martinez MD [address] [place] [address] PCP - General Family Medicine 12/11/22 documented as of this encounter
--- OUTSIDE RECORDS SUMMARY | 2024-10-27 09:30 | XMS_ITS | Encounter Summary ---
Author Organization [facility] Address [address] [place] [address] Care Team Providers Care Certified Technician Specialist Name Role Phone Fern Martinez MD Primary Care Provider [phone] Encounter Details Date Type Department Care Team (Late st Contact Info) Description 05/25/2023 Clinisync Result Encounter [facility] External Department Unsolicited Carson Olsen, DO [address] [facility] [address] [place] [place], [place] [id number] Social History Tobacco Use Types Packs/Day Years [...] BCP OB [address] [facility] [place] [phone] Carson Olsen DO [address] [facility] [place] [address] documented as of this encounter Procedures Procedure Name Priority Date/Time Associated Diagnosis Comments US OB GROWTH 05/25/2023 2:43 PM EST documented in this encounter Results * US OB GROWTH (05/25/2023 2:43 PM EST) Anatomical Region Laterality Modality Other 05/25/2023 2:43 PM EST Narrative 05/25/2023 2:45 PM EST The [address] [address] Ultrasound Report Signed Patient: OLIVIA RODRIGUEZ MR#: [id number] : 1995 Acct:[id number] Age/Sex: 28 / F ADM Date: 05/25/23 Loc: US Attending Dr: Carson Olsen D.O. Ordering Physician: Carson Olsen D.O. Date of Service: 05/25/23 Procedure(s): US OB growth Accession Number(s): [id number] cc: Carson Olsen D.O.; Physician,Non-Staff MCristian The [address] [address] Patient Name: OLIVIA RODRIGUEZ MRN: [id number] date: 1995 Sex: F Assigned Patient Location: US Current Patient Location: US Accession/Order Number: [id number] Exam Date: 05/25/2023 14:00 Report Date: 05/25/2023 14:43 At the request of: CARSON OLSEN Procedure: US OB growth EXAMINATION: US OB growth HISTORY: SGA COMPARISON: 04/26/2023 FINDINGS: Heart Rate: 138.0 bpm Amniotic Fluid Volume: 9.8 cm Number: 1.0 Position: Cephalic presentation, longitudinal lie Maximum Vertical Pocket: 3.7 cm cm 0.7 cm cm 2.6 cm cm 2.9 cm cm BIOMETRY: BPD: 8.3 cm cm; 33 weeks 2 days; 70% HC: 30.4 cmcm; 33 weeks 5 days , 52% AC: 25.6 cm cm; 29 weeks 5 days, less than 3% FL: 5.9 cm cm; 30 weeks 6 days; 8.0 % % EFW: 1633.0 grams, 3 lbs. 10 oz., 7% FL/AC: 23.1 FL/BPD: 71.6 HC/AC: 1.2 GESTATIONAL AGE: Age by EDC: 32 weeks 2 days SANDRA by EDC: 07/18/2023 Age by US: 31 weeks 3 days SANDRA by US: 07/24/2023 US/US OB growth IMPRESSION: Abdominal circumference less than the 3rd percentile Estimated weight at the 7th percentile Electronically authenticated by: PJ SAM Date: 05/25/2023 14:43 Dictated By: Pj Sam M.D. Signed By: 05/25/23 1445 DD/ 1443 TD/TT: Caption Writer: Procedure Note Radiology, Radiologist, MD - 07/28/2023 [place] [address] Ultrasound Report Signed Patient: OLIVIA RODRIGUEZMR#: [id number] : 1995Acct:[id number] Age/Sex: 28 / FADM Date: 05/25/23 Loc: US Attending Dr: Carson Olsen D.O. Ordering Physician: Carson Olsen D.O. Date of Service: 05/25/23 Procedure(s): US OB growth Accession Number(s): [id number] cc: Carson Olsen D.O.; Physician,Non-Staff Shashi The [address] [address] Patient Name: OLIVIA RODRIGUEZ MRN: [id number] date: 1995 Sex: F Assigned Patient Location: US Current Patient Location: US Accession/Order Number: [id number] Exam Date: 05/25/2023 14:00 Report Date: 05/25/2023 14:43 At the request of: CARSON OLSEN Procedure: US OB growth EXAMINATION: US OB growth HISTORY: SGA COMPARISON: 04/26/2023 FINDINGS: Heart Rate: 138.0 bpm Amniotic Fluid Volume: 9.8 cm Number: 1.0 Position: Cephalic presentation, longitudinal lie Maximum Vertical Pocket: 3.7 cm cm 0.7 cm cm 2.6 cm cm 2.9 cm cm BIOMETRY: BPD: 8.3 cm cm; 33 weeks 2 days; 70% HC: 30.4 cmcm; 33 weeks 5 days , 52% AC: 25.6 cm cm; 29 weeks 5 days, less than 3% FL: 5.9 cm cm; 30 weeks 6 days; 8.0 % % EFW: 1633.0 grams, 3 lbs. 10 oz., 7% FL/AC: 23.1 FL/BPD: 71.6 HC/AC: 1.2 GESTATIONAL AGE: Age by EDC: 32 weeks 2 days SANDRA by EDC: 07/18/2023 Age by US: 31 weeks 3 days SNADRA by US: 07/24/2023 US/US OB growth IMPRESSION: Abdominal circumference less than the 3rd percentile Estimated weight at the 7th percentile Electronically authenticated by: PJ SAM Date: 05/25/2023 14:43 Dictated By: Pj Sam M.D. Signed By:05/25/23 1445 DD/ 1443 TD/TT: Caption Writer: us Carson Olsen DO [facility] Final Result documented in this encounter Visit Diagnoses Not on filedocumented in this encounter Care Teams Certified Technician Specialist Relationship Specialty Start Date End Date Fern Martinez MD [address] [place] [address] PCP - General Family Medicine 12/11/22 documented as of this encounter
--- OUTSIDE RECORDS SUMMARY | 2024-10-27 09:30 | XMS_ITS | Encounter Summary ---
Author Organization [facility] Address [address] [place] [address] Care Team Providers Care Income Tax Analyst Name Role Phone Fern Martinez MD Primary Care Provider [phone] Encounter Details Date Type Department Care Team (Late st Contact Info) Description 06/08/2023 Clinisync Result Encounter [facility] External Department Unsolicited Maura Joseph PA [address] [place] [address] [address] [place] [address] Social History Tobacco Use Types [...] PM EDT Office Visit [facility] BCP OB [address] [place] [address] [address] [place], [place] [phone] Carson Olsen, DO [address] [place] [address] [place] [address] documented as of this encounter Procedures Procedure Name Priority Date/Time Associated Diagnosis Comments US OB UMBILICAL ARTERY DOPPLER 06/08/2023 7:56 AM EST documented in this encounter Results * US OB UMBILICAL ARTERY DOPPLER (06/08/2023 7:56 AM EST) Anatomical Region Laterality Modality Radiographic Emily ging 06/08/2023 7:56 AM EST Narrative 06/08/2023 7:58 AM EST [address] [address] Ultrasound Report Signed Patient: OLIVIA RODRIGUEZ MR#: [id number] : 1995 Acct:[id number] Age/Sex: 28 / F ADM Date: 06/07/23 Loc: US Attending Dr: Maura Joseph Ordering Physician: Maura Joseph Date of Service: 06/07/23 Procedure(s): US OB umbilical artery Accession Number(s): [id number] cc: Maura Joseph; KAREN MARTINEZ [address] [address] Patient Name: OLIVIA RODRIGUEZ MRN: [id number] date: 1995 Sex: F Assigned Patient Location: [facility] Current Patient Location: US Accession/Order Number: [id number] Exam Date: 06/07/2023 13:10 Report Date: 06/08/2023 07:56 At the request of: MAURA JOSEPH Procedure: US OB umbilical artery EXAMINATION: US OB umbilical artery HISTORY: HISTORY OF SMALL GESTATIONAL AGE COMPARISON: No relevant comparison available. TECHNIQUE: Duplex Doppler evaluation of the umbilical arteries. FINDINGS: position: Cephalic presentation, longitudinal lie Amniotic fluid volume: 12.6 cm. Largest pocket 5.0 cm. Heart rate: 139 bpm Forward flow identified in the umbilical arteries throughout diastole Proximal umbilical artery PSV/EDV: 88/34 cm/s. Resistive index 0.61. Ratio 2.6. Mid umbilical artery PSV/EDV: 102/44 cm/s. Resistive index 0.57. Ratio 2.3 Distal umbilical artery PSV/EDV: 66/22 cm/s. Resistive index 0.67. Ratio 3.0 Clinical age: 34 weeks 1 day Clinical SANDRA: 07/18/2023 US/US OB umbilical artery IMPRESSION: Class 0, normal Umbilical Artery: Class 0 = Normal umbilical [...] weeks. Electronically authenticated by: PJ SAM Date: 06/08/2023 07:56 Dictated By: Pj Sam M.D. Signed By: 06/08/23 0758 DD/ 075 TD/TT: Nurse'S Companion: Procedure Note Radiology, Radiologist, MD - 06/08/2023 [place] [address] Ultrasound Report Signed Patient: OLIVIA RODRIGUEZMR#: [id number] : 1995Acct:[id number] Age/Sex: 28 / FADM Date: 06/07/23 Loc: US Attending Dr: Maura Joseph Ordering Physician: Maura Joseph Date of Service: 06/07/23 Procedure(s): US OB umbilical artery Accession Number(s): [id number] cc: Maura Joseph; KAREN MARTINEZ [place] [id number] Patient Name: OLIVIA RODRIGUEZ MRN: [id number] date: 1995 Sex: F Assigned Patient Location: [facility] Current Patient Location: US Accession/Order Number: [id number] Exam Date: 06/07/2023 13:10 Report Date: 06/08/2023 07:56 At the request of: MAURA JOSEPH Procedure: US OB umbilical artery EXAMINATION: US OB umbilical artery HISTORY: HISTORY OF SMALL GESTATIONAL AGE COMPARISON: No relevant comparison available. TECHNIQUE: Duplex Doppler evaluation of the umbilical arteries. FINDINGS: position: Cephalic presentation, longitudinal lie Amniotic fluid volume: 12.6 cm. Largest pocket 5.0 cm. Heart rate: 139 bpm Forward flow identified in the umbilical arteries throughout diastole Proximal umbilical artery PSV/EDV: 88/34 cm/s. Resistive index 0.61. Ratio 2.6. Mid umbilical artery PSV/EDV: 102/44 cm/s. Resistive index 0.57. Ratio 2.3 Distal umbilical artery PSV/EDV: 66/22 cm/s. Resistive index 0.67. Ratio3.0 Clinical age: 34 weeks 1 day Clinical SANDRA: 07/18/2023 US/US OB umbilical artery IMPRESSION: Class 0, normal Umbilical Artery: Class 0 = Normal umbilical [...] weeks. Electronically authenticated by: PJ SAM Date: 06/08/2023 07:56 Dictated By: Pj Sam M.D. Signed By:06/08/23 0758 DD/ 0756 TD/TT: Nurse'S Companion: us Maura DORSEY IMG XR PROCEDURES Final Result documented in this encounter Visit Diagnoses Not on filedocumented in this encounter Care Teams Income Tax Analyst Relationship Specialty Start Date End Date Fern Martinez MD [address] [place] [address] PCP - General Family Medicine 12/11/22 documented as of this encounter
--- OUTSIDE RECORDS SUMMARY | 2024-10-27 09:30 | XMS_ITS | Encounter Summary ---
Author Organization [facility] Address [address] [place] [address] Care Team Providers Care Mold Injector Name Role Phone Fern aMrtinez MD Primary Care Provider [phone] Encounter Details Date Type Department Care Team (Late st Contact Info) Description 06/08/2023 Clinisync Result Encounter [facility] External Department Unsolicited Maura Joseph PA [address] [place] [address] [place] [address] Social History Tobacco Use Types Packs/Day [...] 03/05/2025 3:00 PM EDT Office Visit [facility] OB [address] [place] [address] [place] [phone] Carson Olsen, DO [address] [place] [address] [place] [address] documented as of this encounter Procedures Procedure Name Priority Date/Time Associated Diagnosis Comments US OB BPP W NON-STRESS 06/08/2023 7:36 AM EST documented in this encounter Results * US OB BPP W NON-STRESS (06/08/2023 7:36 AM EST) Anatomical Region Laterality Modality Other 06/08/2023 7:36 AM EST Narrative 06/08/2023 7:38 AM EST [address] [address] Ultrasound Report Signed Patient: OLIVIA RODRIGUEZ MR#: [id number] : 1995 Acct:[id number] Age/Sex: 28 / F ADM Date: 06/07/23 Loc: US Attending Dr: Maura Joseph Ordering Physician: Maura Joseph Date of Service: 06/07/23 Procedure(s): US OB BPP w non-stress Accession Number(s): [id number] cc: Maura Joseph; KAREN MARTINEZ [address] [address] Patient Name: OLIVIA RODRIGUEZ MRN: [id number] date: 1995 Sex: F Assigned Patient Location: [facility] Current Patient Location: Accession/Order Number: [id number] Exam Date: 06/07/2023 13:10 Report Date: 06/08/2023 07:36 At the request of: MAURA JOSEPH Procedure: US OB BPP w non-stress EXAMINATION: US OB BPP w non-stress HISTORY: HISTORY OF SMALL GESTATIONAL AGE COMPARISON: No relevant comparison available. TECHNIQUE: Ultrasound biophysical profile was performed in the radiology department. FINDINGS: BREATHING MOVEMENTS: 2 GROSS BODY MOVEMENTS: 2 TONE: 2 QUALITATIVE AMNIOTIC FLUID VOLUME: 2 PRESENTATION: CEPHALIC HEART RATE: 139.2 bpm H.B./min AMNIOTIC FLUID VOLUME: 12.6 cm cm GESTATIONAL AGE: 34 weeks 1 days CONCLUSION: Total biophysical profile score: 8 Electronically authenticated by: PJ SAM Date: 06/08/2023 07:36 Dictated By: Pj Sam M.D. Signed By: 06/08/23 0738 DD/ TD/TT: Coal Or Ore Controller: Procedure Note Radiology, Radiologist, MD - 06/08/2023 [place] [address] Ultrasound Report Signed Patient: OLIVIA RODRIGUEZMR#: [id number] : 1995Acct:[id number] Age/Sex: 28 / FADM Date: 06/07/23 Loc: US Attending Dr: Maura Joseph Ordering Physician: Maura Joseph Date of Service: 06/07/23 Procedure(s): US OB BPP w non-stress Accession Number(s): [id number] cc: Maura Joseph; KAREN MARTINEZ [place] [address] Patient Name: OLIVIA RODRIGUEZ MRN: [id number] date: 1995 Sex: F Assigned Patient Location: [facility] Current Patient Location: Accession/Order Number: [id number] Exam Date: 06/07/2023 13:10 Report Date: 06/08/2023 07:36 At the request of: MAURA JOSEPH Procedure: US OB BPP w non-stress EXAMINATION: US OB BPP w non-stress HISTORY: HISTORY OF SMALL GESTATIONAL AGE COMPARISON: No relevant comparison available. TECHNIQUE: Ultrasound biophysical profile was performed in the radiology department. FINDINGS: BREATHING MOVEMENTS: 2 GROSS BODY MOVEMENTS: 2 TONE: 2 QUALITATIVE AMNIOTIC FLUID VOLUME: 2 PRESENTATION: CEPHALIC HEART RATE: 139.2 bpm H.B./min AMNIOTIC FLUID VOLUME: 12.6 cm cm GESTATIONAL AGE: 34 weeks 1 days CONCLUSION: Total biophysical profile score: 8 Electronically authenticated by: PJ SAM Date: 06/08/2023 07:36 Dictated By: Pj Sam M.D. Signed By:06/08/2338 DD/ TD/TT: Coal Or Ore Controller: us Maura DORSEY [facility] Final Result documented in this encounter Visit Diagnoses Not on filedocumented in this encounter Care Teams Mold Injector Relationship Specialty Start Date End Date Fern Martinez MD [address] [place] [address] PCP - General Family Medicine 12/11/22 documented as of this encounter
--- OUTSIDE RECORDS SUMMARY | 2024-10-27 09:30 | XMS_ITS | Encounter Summary ---
Author Organization [facility] Address [address] [place] [address] Care Team Providers Care Auto Apprentice Mechanic Name Role Phone Fern Martinez MD Primary Care Provider [phone] Encounter Details Date Type Department Care Team (Late st Contact Info) Description 06/15/2023 Clinisync Result Encounter [facility] External Department Unsolicited Maura Joseph PA [address] [place] [address] [place] [address] Social History Tobacco Use Types Packs/Day [...] 03/05/2025 3:00 PM EDT Office Visit [facility] OB [address] [place] [address] [place] [phone] Carson Olsen, DO [address] [place] [address] [place] [address] documented as of this encounter Procedures Procedure Name Priority Date/Time Associated Diagnosis Comments US OB BPP W NON-STRESS 06/15/2023 6:42 AM EST documented in this encounter Results * US OB BPP W NON-STRESS (06/15/2023 6:42 AM EST) Anatomical Region Laterality Modality Other 06/15/2023 6:42 AM EST Narrative 06/15/2023 6:44 AM EST [address] [address] Ultrasound Report Signed Patient: OLIVIA RODRIGUEZ MR#: [id number] : 1995 Acct:[id number] Age/Sex: 28 / F ADM Date: 06/14/23 Loc: US Attending Dr: Maura Joseph Ordering Physician: Maura Joseph Date of Service: 06/14/23 Procedure(s): US OB BPP w non-stress Accession Number(s): [id number] cc: Maura Joseph; KAREN MARTINEZ [address] [address] Patient Name: OLIVIA RODRIGUEZ MRN: [id number] date: 1995 Sex: F Assigned Patient Location: US Current Patient Location: Accession/Order Number: [id number] Exam Date: 06/14/2023 15:04 Report Date: 06/15/2023 06:42 At the request of: MAURA JOSEPH Procedure: US OB BPP w non-stress EXAMINATION: US OB BPP w non-stress HISTORY: HISTORY OF PRIOR WITH SGA Z87.59 COMPARISON: No relevant comparison available. TECHNIQUE: Ultrasound biophysical profile was performed in the radiology department. BREATHING MOVEMENTS: 2.0 GROSS BODY MOVEMENTS: 2.0 TONE: 2.0 QUALITATIVE AMNIOTIC FLUID VOLUME: 2.0 PRESENTATION: CEPHALIC HEART RATE: 132.4 bpm bpm. AMNIOTIC FLUID VOLUME: 15.7 cm GESTATIONAL AGE: 35 weeks 1 days CONCLUSION: Total biophysical profile score 8.0. Electronically authenticated by: FLO OCASIO Date: 06/15/2023 06:42 Dictated By: Flo Ocasio M.D. Signed By: 06/15/2344 DD/ TD/TT: Rn Midwife: Procedure Note Radiology, Radiologist, MD - 07/28/2023 [place] [address] Ultrasound Report Signed Patient: OLIVIA RODRIGUEZMR#: [id number] : 1995Acct:[id number] Age/Sex: 28 / FADM Date: 06/14/23 Loc: US Attending Dr: Maura Joseph Ordering Physician: Maura Joseph Date of Service: 06/14/23 Procedure(s): US OB BPP w non-stress Accession Number(s): [id number] cc: Maura Joseph; KAREN MARTINEZ [place] [id number] Patient Name: OLIVIA RODRIGUEZ MRN: [id number] date: 1995 Sex: F Assigned Patient Location: US Current Patient Location: Accession/Order Number: [id number] Exam Date: 06/14/2023 15:04 Report Date: 06/15/2023 06:42 At the request of: MAURA JOSEPH Procedure: US OB BPP w non-stress EXAMINATION: US OB BPP w non-stress HISTORY: HISTORY OF PRIOR WITH SGA Z87.59 COMPARISON: No relevant comparison available. TECHNIQUE: Ultrasound biophysical profile was performed in the radiology department. BREATHING MOVEMENTS: 2.0 GROSS BODY MOVEMENTS: 2.0 TONE: 2.0 QUALITATIVE AMNIOTIC FLUID VOLUME: 2.0 PRESENTATION: CEPHALIC HEART RATE: 132.4 bpm bpm. AMNIOTIC FLUID VOLUME: 15.7 cm GESTATIONAL AGE: 35 weeks 1 days CONCLUSION: Total biophysical profile score 8.0. Electronically authenticated by: FLO OCASIO Date: 06/15/2023 06:42 Dictated By: Flo Ocasio M.D. Signed By:06/15/2344 DD/ TD/TT: Rn Midwife: us Maura DORSEY [facility] Final Result documented in this encounter Visit Diagnoses Not on filedocumented in this encounter Care Teams Auto Apprentice Mechanic Relationship Specialty Start Date End Date Fern Martinez MD [address] [place] [address] PCP - General Family Medicine 12/11/22 documented as of this encounter
--- OUTSIDE RECORDS SUMMARY | 2024-10-27 09:30 | XMS_ITS | Clinical Summary ---
Author Organization [employer] [facility] tem Address [id number] [address] [place] [address] Care Team Providers Care Plant Pathologist Name Role Phone Fern Martinez MD Primary Care Provider [phone] Allergies Active Allergy Reactions Criticality Noted Date Comments Sulfamethoxazole-Trimethoprim Swelling 2018 Medications etonogestrel (NEXPLANON SDRM) by subdermal route. Active metoclopramide (REGLAN) 10 mg tablet 1 Active ondansetron ODT (ZOFRAN-ODT) 4 mg disintegrating tablet 1 Active pantoprazole (PROTONIX) 40 mg EC tablet 1 Active PNV no.95/ferrous fum/folic ac ( ORAL) Take by mouth. Active Active Problems Problem Noted Date Diagnosed Date Family history of breast cancer 08/16/2020 Physical exam 08/07/2019 Family History Medical History Relation Name Comments Heart disease Father Breast cancer Maternal Aunt invasive Breast cancer Maternal Grandmother Breast cancer Mother lobular. MyRis k 2015 SHENA VUS Breast cancer Other 1 MGF's sister Breast cancer Other 2 MGF's sister Breast cancer Other 3 MGM's sister Thyroid disease Paternal Grandfather Diabetes Paternal Grandmother Mental illness Sister Relation Name Status Comments Father Maternal Aunt Maternal Grandmother Mother Other 1 Other 2 Other 3 Paternal Grandfather Paternal Grandmother Sister Social History Tobacco Use Types Packs/Day Years Used Date Smoking Tobacco: Never Smokeless Tobacco: Never Tobacco Cessation:Counseling Given: No Alcohol Use Standard Drinks/Week Comments Not Currently 0 (1 standard drink = 0.6 oz pur e alcohol) PHQ-2 Answer Date Recorded Total Score 0 08/07/2019 Childcare Answer Date Recorded Childcare Unknown 05/02/2019 Employment Answer Date Recorded Employment Unknown 05/02/2019 Purpose - Life Answer Date Recorded Purpose and direction in life Unknown Comments No Sex and Gender Information Value Date Recorded Sex Assigned at Not on file Legal Sex Female 2:51 PM EST Gender Identity Not on file Sexual Orientation Not on file Last Filed Vital Signs Vital Sign Reading Time Taken Comments Blood Pressure 120/75 03/24/2021 9:08 AM EDT Pulse 93 03/24/2021 9:08 AM EDT Temperature 36.8 C (98.2 F) 08/16/2020 11:00 AM EDT Respiratory Rate 18 08/16/2020 11:0 0 AM EDT Oxygen Saturation 100% 08/16/2020 11: 00 AM EDT Inhaled Oxygen Concentration - - Weight 77.4 kg (170 lb 10.2 oz) 03/24/2021 9:08 AM EDT Height 172 cm (5' 7.72 ) 08/16/2020 11: 00 AM EDT Body Mass Index 26.16 08/16/2020 11:00 AM EDT Plan of Treatment Health Maintenance Due Date Last Done Comments Depression Screening 2005 Tobacco Screening 2005 Adult BMI Screening 2011 Pap Smear 2014 DTaP,Tdap and Td Vaccines (2 - Td or Tdap) 12/27/2016 12/27/2006 Influenza Vaccine 01/22/2025 04/05/2003 Medical Devices Not on file Insurance [employer] Care Teams Plant Pathologist Relationship Specialty Start Date End Date Fern Martinez MD PCP - General Family Medicine 03/24/21
--- OUTSIDE RECORDS SUMMARY | 2024-10-27 09:30 | XMS_ITS | Encounter Summary ---
Author Organization [facility] Address [address] [place] [address] Care Team Providers Care Corporate Counsel Name Role Phone Fern Martinez MD Primary Care Provider [phone] Encounter Details Date Type Department Care Team (Late st Contact Info) Description 04/26/2023 Clinisync Result Encounter [facility] External Department Unsolicited Carson Olsen, DO [address] [facility] [address]oz[address] [place], [place] [id number] Social History Tobacco Use Types Packs/Day Years Used Date Smoking Tobacco: Never Smokeless Tobacco: Never Alcohol Use Standard Drinks/Week Comments Yes 0 (1 standard drink = 0.6 oz pure alcohol) 1 or 2 drinks on a typical day/monthly or less AUDIT-C Answer Date Recorded Q1: How often [...] [address] [facility] [place] [address] Carson Olsen DO [address] [facility] [place] [address] documented as of this encounter Procedures Procedure Name Priority Date/Time Associated Diagnosis Comments US OB GROWTH 04/26/2023 3:18 PM EST documented in this encounter Results * US OB GROWTH (04/26/2023 3:18 PM EST) Anatomical Region Laterality Modality Other 04/26/2023 3:18 PM EST Narrative 04/26/2023 3:18 PM EST The [address] [address] Ultrasound Report Signed Patient: OLIVIA RODRIGUEZ MR#: [id number] : 1995 Acct:[id number] Age/Sex: 28 / F ADM Date: 04/26/23 Loc: US Attending Dr: Carson Olsen D.O. Ordering Physician: Carson Olsen D.O. Date of Service: 04/26/23 Procedure(s): US OB growth Accession Number(s): [id number] cc: Carson Olsen D.O.; Physician,Non-Staff Shashi The [address] [address] Patient Name: OLIVIA RODRIGUEZ MRN: [id number] date: 1995 Sex: F Assigned Patient Location: US Current Patient Location: US Accession/Order Number: [id number] Exam Date: 04/26/2023 09:38 Report Date: 04/26/2023 15:18 At the request of: CARSON OLSEN Procedure: US OB growth EXAMINATION: US OB growth HISTORY: SIZE INCONSISTENT WITH DATES O26.849 COMPARISON: Ultrasound OB anatomy 03/02/2023 FINDINGS: Heart Rate: 148.0 bpm Number: 1.0 Position: CEPHALIC Amniotic Fluid Volume: 9.6 cm Maximum Vertical Pocket: 3.7 cm BIOMETRY: BPD: 7.2 cm cm; 29 weeks 0 days; 65% HC: 27.1 cmcm; 29 weeks 4 days ; 64% AC: 21.8 cm cm; 26 weeks 2 days; 4% FL: 5.3 cm cm; 28 weeks 0 days; 29% EFW: 1055.9 grams; 13% FL/AC: 24.1 FL/BPD: 72.8 HC/AC: 1.3 GESTATIONAL AGE: Age by EDC: 28 weeks 1 days SANDRA by EDC: 07/18/2023 Age by US: 27 weeks 6 days SANDRA by US: 07/20/2023 US/US OB growth IMPRESSION: 1. Single live intrauterine with growth detailed above. 2. Abdominal circumference is at 4th percentile. Electronically authenticated by: FLO OCASIO Date: 04/26/2023 15:18 Dictated By: Flo Ocasio M.D. Signed By: 04/26/23 1521 DD/ 1518 TD/TT: Instructional Consultant: Procedure Note Radiology, Radiologist, MD - 04/26/2023 [place] [address] Ultrasound Report Signed Patient: OLIVIA RODRIGUEZMR#: [id number] : 1995Acct:[id number] Age/Sex: 28 / FADM Date: 04/26/23 Loc: US Attending Dr: Carson Olsen D.O. Ordering Physician: Carson Olsen D.O. Date of Service: 04/26/23 Procedure(s): US OB growth Accession Number(s): [id number] cc: Carson Olsen D.O.; Physician,Non-Staff Shashi The [address] [address] Patient Name: OLIVIA RODRIGUEZ MRN: [id number] date: 1995 Sex: F Assigned Patient Location: US Current Patient Location: US Accession/Order Number: [id number] Exam Date: 04/26/2023 09:38 Report Date: 04/26/2023 15:18 At the request of: CARSON OLSEN Procedure: US OB growth EXAMINATION: US OB growth HISTORY: SIZE INCONSISTENT WITH DATES O26.849 COMPARISON: Ultrasound OB anatomy 03/02/2023 FINDINGS: Heart Rate: 148.0 bpm Number: 1.0 Position: CEPHALIC Amniotic Fluid Volume: 9.6 cm Maximum Vertical Pocket: 3.7 cm BIOMETRY: BPD: 7.2 cm cm; 29 weeks 0 days; 65% HC: 27.1 cmcm; 29 weeks 4 days ; 64% AC: 21.8 cm cm; 26 weeks 2 days; 4% FL: 5.3 cm cm; 28 weeks 0 days; 29% EFW: 1055.9 grams; 13% FL/AC: 24.1 FL/BPD: 72.8 HC/AC: 1.3 GESTATIONAL AGE: Age by EDC: 28 weeks 1 days SANDRA by EDC: 07/18/2023 Age by US: 27 weeks 6 days SANDRA by US: 07/20/2023 US/US OB growth IMPRESSION: 1. Single live intrauterine with growth detailed above. 2. Abdominal circumference is at 4th percentile. Electronically authenticated by: FLO OCASIO Date: 04/26/2023 15:18 Dictated By: Flo Ocasio M.D. Signed By:04/26/23 1521 DD/ 1518 TD/TT: Instructional Consultant: us Carson Olsen DO [facility] Final Result documented in this encounter Visit Diagnoses Not on filedocumented in this encounter Care Teams Corporate Counsel Relationship Specialty Start Date End Date Fern Martinez MD [address] [place] [address] PCP - General Family Medicine 12/11/22 documented as of this encounter
--- OUTSIDE RECORDS SUMMARY | 2024-10-27 09:30 | XMS_ITS | Encounter Summary ---
Author Organization [facility] Address [address] [place] [address] Care Team Providers Care Services Engineer Name Role Phone Fern Martinez MD Primary Care Provider [phone] Encounter Details Date Type Department Care Team (Late st Contact Info) Description 06/21/2023 Clinisync Result Encounter [facility] External Department Unsolicited Carson Olsen, DO [address] [facility] [address]oz[address] [place], [place] [id number] Social History Tobacco Use Types Packs/Day Years [...] EDT Office Visit [facility] OB [address] [facility] [place] [phone] Carson Olsen DO [address] [facility] [place] [address] documented as of this encounter Procedures Procedure Name Priority Date/Time Associated Diagnosis Comments US OB BPP W NON-STRESS 06/21/2023 4:12 PM EST documented in this encounter Results * US OB BPP W NON-STRESS (06/21/2023 4:12 PM EST) Anatomical Region Laterality Modality Other 06/21/2023 4:12 PM EST Narrative 06/21/2023 4:14 PM EST [address] [address] Ultrasound Report Signed Patient: OLIVIA RODRIGUEZ MR#: [id number] : 1995 Acct:[id number] Age/Sex: 28 / F ADM Date: 06/21/23 Loc: [facility] 250-[address]: Carson Olsen D.O. Ordering Physician: Carson Olsen D.O. Date of Service: 06/21/23 Procedure(s): US OB BPP w non-stress Accession Number(s): [id number] cc: Carson Olsen D.O.; KAREN MARTINEZ [address] [address] Patient Name: OLIVIA RODRIGUEZ MRN: [id number] date: 1995 Sex: F Assigned Patient Location: [facility] Current Patient Location: [facility] Accession/Order Number: [id number] Exam Date: 06/21/2023 15:09 Report Date: 06/21/2023 16:12 At the request of: CARSON OLSEN Procedure: US OB BPP w non-stress EXAMINATION: US OB BPP w non-stress HISTORY: History of prior with SGA COMPARISON: No relevant comparison available. TECHNIQUE: Ultrasound biophysical profile was performed in the radiology department. FINDINGS: BREATHING MOVEMENTS: 2.0 GROSS BODY MOVEMENTS: 2.0 TONE: 2.0 QUALITATIVE AMNIOTIC FLUID VOLUME: 2.0 PRESENTATION: CEPHALIC HEART RATE: 152.5 bpm H.B./min AMNIOTIC FLUID VOLUME: 17.1 cm cm GESTATIONAL AGE: 36 weeks 1 days CONCLUSION: Total biophysical profile score: 8.0 Electronically authenticated by: PJ SAM Date: 06/21/2023 16:12 Dictated By: Pj Sam M.D. Signed By: 06/21/231613 DD/ 11 TD/TT: Cloth Pattern Maker: Procedure Note Radiology, Radiologist, MD - 07/28/2023 [place] [address] Ultrasound Report Signed Patient: OLIVIA RODRIGUEZMR#: [id number] : 1995Acct:[id number] Age/Sex: 28 / FADM Date: 06/21/23 Loc: [facility] 250-[address]: Carson Olsen D.O. Ordering Physician: Carson Olsen D.O. Date of Service: 06/21/23 Procedure(s): US OB BPP w non-stress Accession Number(s): [id number] cc: Carson Olsen D.O.; KAREN MARTINEZ [place] [address] Patient Name: OLIVIA RODRIGUEZ MRN: [facility]:[id number] date: 1995 Sex: F Assigned Patient Location: [facility] Current Patient Location: [facility] Accession/Order Number: [id number] Exam Date: 06/21/2023 15:09 Report Date: 06/21/2023 16:12 At the request of: CARSON OLSEN Procedure: US OB BPP w non-stress EXAMINATION: US OB BPP w non-stress HISTORY: History of prior with SGA COMPARISON: No relevant comparison available. TECHNIQUE: Ultrasound biophysical profile was performed in the radiology department. FINDINGS: BREATHING MOVEMENTS: 2.0 GROSS BODY MOVEMENTS: 2.0 TONE: 2.0 QUALITATIVE AMNIOTIC FLUID VOLUME: 2.0 PRESENTATION: CEPHALIC HEART RATE: 152.5 bpm H.B./min AMNIOTIC FLUID VOLUME: 17.1 cm cm GESTATIONAL AGE: 36 weeks 1 days CONCLUSION: Total biophysical profile score: 8.0 Electronically authenticated by: PJ SAM Date: 06/21/2023 16:12 Dictated By: Pj Sam M.D. Signed By:06/21/231613 DD/ 11 TD/TT: Cloth Pattern Maker: us Carson Pretty DO [facility] Final Result documented in this encounter Visit Diagnoses Not on filedocumented in this encounter Care Teams Services Engineer Relationship Specialty Start Date End Date Fern Martinez MD [address] [place] [address] PCP - General Family Medicine 12/11/22 documented as of this encounter
--- OUTSIDE RECORDS SUMMARY | 2024-10-27 09:30 | XMS_ITS | Encounter Summary ---
Author Organization [employer] Address [facility] [id number] [address] [place] [address] Care Team Providers Care Stock Raiser Name Role Phone Fern Martinez MD Primary Care Provider [phone] Encounter Details Date Type Department Care Team (Late st Contact Info) Description 07/31/2020 Abstract [facility]ine Kirk[facility] - Medical Oncology [address] [place] [address] Nadeem Luis MD [address] [place] [address] [address] [place] [address] Social History Tobacco Use Types Packs/Day Years [...] on file documented as of this encounter Visit Diagnoses Not on filedocumented in this encounter Additional Health Concerns Assessment Noted Time PHQ-9 Depression Total Score: 0 08/07/19 20 10:10 AM EDT documented as of this encounter Care Teams Stock Raiser Relationship Specialty Start Date End Date Fern Martinez MD PCP - General Family Medicine 03/24/21 documented as of this encounter
--- OUTSIDE RECORDS SUMMARY | 2024-10-27 09:30 | XMS_ITS | Encounter Summary ---
Author Organization [facility] Address [address] [place] [address] Care Team Providers Care Prep Person Name Role Phone Fern Martinez MD Primary Care Provider [phone] Encounter Details Date Type Department Care Team (Late st Contact Info) Description 05/07/2023 Clinisync Result Encounter [facility] External Department Unsolicited Carson Olsen, DO [address] [facility] [address] [place], [place] [phone] Social History Tobacco Use Types Packs/Day Years [...] Office Visit [facility] BCP OB [address] [facility] [place] [address] [place] [address] Carson Olsen DO [address] [facility] [address] [place] [address] documented as of this encounter Procedures Procedure Name Priority Date/Time Associated Diagnosis Comments US AMNIOTIC FLUID VOLUME 05/07/2023 7:25 AM EST documented in this encounter Results * US AMNIOTIC FLUID VOLUME (05/07/2023 7:25 AM EST) Anatomical Region Laterality Modality Radiographic Emily ging 05/07/2023 7:25 AM EST Narrative 05/07/2023 7:27 AM EST [address] [address] Ultrasound Report Signed Patient: OLIVIA RODRIGUEZ MR#: [id number] : 1995 Acct:[id number] Age/Sex: 28 / F ADM Date: 05/06/23 Loc: US Attending Dr: Carson Olsen D.O. Ordering Physician: Carson Olsen D.O. Date of Service: 05/06/23 Procedure(s): US OB amniotic fluid vol Accession Number(s): [id number] cc: Carson Olsen D.O.; Physician,Non-Staff M.Mega The [address] [address] Patient Name: OLIVIA RODRIGUEZ MRN: [id number] date: 1995 Sex: F Assigned Patient Location: US Current Patient Location: Accession/Order Number: [id number] Exam Date: 05/06/2023 14:59 Report Date: 05/07/2023 07:25 At the request of: CARSON OLSEN Procedure: US OB amniotic fluid vol EXAMINATION: US OB amniotic fluid vol HISTORY: Low Amniotic Fluid Volume O41.00X0 COMPARISON: 04/26/2023 FINDINGS: position: Cephalic presentation, longitudinal lie Amniotic fluid volume: 13.6 cm, normal. Largest fluid pocket: 5 cm Heart rate: 145 bpm US/US OB amniotic fluid vol IMPRESSION: Normal amniotic fluid volume Electronically authenticated by: PJ SAM Date: 05/07/2023 07:25 Dictated By: Pj Sam M.D. Signed By: 05/07/2327 DD/ 4 TD/TT: Sccm Administrator: Procedure Note Radiology, Radiologist, MD - 05/07/2023 [place] [address] Ultrasound Report Signed Patient: OLIVIA RODRIGUEZMR#: [id number] : 1995Acct:[id number] Age/Sex: 28 / FADM Date: 05/06/23 Loc: US Attending Dr: Carson Olsen D.O. Ordering Physician: Carson Olsen D.O. Date of Service: 05/06/23 Procedure(s): US OB amniotic fluid vol Accession Number(s): [id number] cc: Carson Olsen D.O.; Physician,Non-Staff Shashi The [place] [address] Patient Name: OLIVIA RODRIGUEZ MRN: [id number] date: 1995 Sex: F Assigned Patient Location: Current Patient Location: Accession/Order Number: [id number] Exam Date: 05/06/2023 14:59 Report Date: 05/07/2023 07:25 At the request of: CARSON OLSEN Procedure: US OB amniotic fluid vol EXAMINATION: US OB amniotic fluid vol HISTORY: Low Amniotic Fluid Volume O41.00X0 COMPARISON: 04/26/2023 FINDINGS: position: Cephalic presentation, longitudinal lie Amniotic fluid volume: 13.6 cm, normal. Largest fluid pocket: 5 cm Heart rate: 145 bpm US/US OB amniotic fluid vol IMPRESSION: Normal amniotic fluid volume Electronically authenticated by: PJ SAM Date: 05/07/2023 07:25 Dictated By: Pj Sam M.D. Signed By:05/07/2327 DD/ TD/TT: Sccm Administrator: us Carson Pretty DO IMG XR PROCEDURES Final Result documented in this encounter Visit Diagnoses Not on filedocumented in this encounter Care Teams Prep Person Relationship Specialty Start Date End Date Fern Martinez MD [address] [place] [address] PCP - General Family Medicine 12/11/22 documented as of this encounter
--- OUTSIDE RECORDS SUMMARY | 2024-10-27 09:30 | XMS_ITS | Encounter Summary ---
Author Organization [facility] Address [address] [place] [address] Care Team Providers Care Accountant Tax Name Role Phone Fern Martinez MD Primary Care Provider [phone] Encounter Details Date Type Department Care Team (Late st Contact Info) Description 03/17/2023 Clinisync Result Encounter [facility] External Department Unsolicited Carson Olsen, DO [address] [place] [address] Social History Tobacco Use Types Packs/Day Years [...] 03/05/2025 3:00 PM EDT Office Visit [facility] OB [address] [place] [phone] Carson Olsen DO [address] [place] [address] documented as of this encounter Procedures Procedure Name Priority Date/Time Associated Diagnosis Comments US OB INCOMPLETE ANATOMY 03/17/2023 9:21 PM EDT documented in this encounter Results * US OB INCOMPLETE ANATOMY (03/17/2023 9:21 PM EDT) Anatomical Region Laterality Modality Other 03/17/2023 9:21 PM EDT Narrative 03/17/2023 9:21 [place] [address] Ultrasound Report Signed Patient: OLIVIA RODRIGUEZ MR#: [id number] : 1995 Acct:[id number] Age/Sex: 27 / F ADM Date: 03/17/23 Loc: US Attending Dr: Carson Olsen D.O. Ordering Physician: Carson Olsen D.O. Date of Service: 03/17/23 Procedure(s): US OB incomplete anatomy Accession Number(s): [id number] cc: Carson Olsen D.O.; Physician,Non-Staff M.Mega [place] [address] Patient Name: OLIVIA RODRIGUEZ MRN: [id number] date: 1995 Sex: F Assigned Patient Location: Current Patient Location: Accession/Order Number: [id number] Exam Date: 03/17/2023 15:09 Report Date: 03/17/2023 21:21 At the request of: CARSON OLSEN Procedure: US OB incomplete anatomy EXAM: US OB incomplete anatomy HISTORY: INCOMPLETE ANATOMY COMPARISON: Ultrasound OB anatomy 03/02/2023 TECHNIQUE: Transabdominal ultrasound. FINDINGS: Presentation: Cephalic Heart rate: 145 bpm Anatomy: RVOT, LVOT, diaphragm, and spine visualized without appreciable abnormality. GA: 22 weeks 3 days SANDRA: 07/18/2023 US/US OB incomplete anatomy IMPRESSION: 1. Single live intrauterine . 2. No appreciable abnormality of the above listed anatomy. Electronically authenticated by: EULALIO OCASIO Date: 03/17/2023 21:21 Dictated By: Eulalio Ocasio M.D. Signed By: 03/17/232122 DD/ 20 TD/TT: Doctor Of Nurse Anesthesia Practice: Procedure Note Radiology, Radiologist, MD - 03/17/[address] [address] Ultrasound Report Signed Patient: OLIVIA RODRIGUEZMR#: [id number] : 1995Acct:[id number] Age/Sex: 27 / FADM Date: 03/17/23 Loc: US Attending Dr: Carson Olsen D.O. Ordering Physician: Carson Olsen D.O. Date of Service: 03/17/23 Procedure(s): US OB incomplete anatomy Accession Number(s): [id number] cc: Carson Olsen D.O.; Physician,Non-Staff Shashi The [place] [id number] Patient Name: OLIVIA RODRIGUEZ MRN: [id number] date: 1995 Sex: F Assigned Patient Location: US Current Patient Location: US Accession/Order Number: [id number] Exam Date: 03/17/2023 15:09 Report Date: 03/17/2023 21:21 At the request of: CARSON OLSEN Procedure: US OB incomplete anatomy EXAM: US OB incomplete anatomy HISTORY: INCOMPLETE ANATOMY COMPARISON: Ultrasound OB anatomy 03/02/2023 TECHNIQUE: Transabdominal ultrasound. FINDINGS: Presentation: Cephalic Heart rate: 145 bpm Anatomy: RVOT, LVOT, diaphragm, and spine visualized without appreciable abnormality. GA: 22 weeks 3 days SANDRA: 07/18/2023 US/US OB incomplete anatomy IMPRESSION: 1. Single live intrauterine . 2. No appreciable abnormality of the above listed anatomy. Electronically authenticated by: EULALIO OCASIO Date: 03/17/2023 21:21 Dictated By: Eulalio Ocasio M.D. Signed By:03/17/232122 DD/ 20 TD/TT: Doctor Of Nurse Anesthesia Practice: us Carson Olsen DO [facility] Final Result documented in this encounter Visit Diagnoses Not on filedocumented in this encounter Care Teams Accountant Tax Relationship Specialty Start Date End Date Fern Martinez MD [address] [place] [address] PCP - General Family Medicine 12/11/22 documented as of this encounter
--- OUTSIDE RECORDS SUMMARY | 2024-10-27 09:30 | XMS_ITS | Encounter Summary ---
Author Organization [facility] Address [address] [place] [address] [place] [address] Care Team Providers Care Relations Coordinator Name Role Phone Fern Martinez MD Primary Care Provider [phone] Encounter Details Date Type Department Care Team (Late st Contact Info) Description 06/21/2023 Clinisync Result Encounter [facility] External Department Unsolicited Carson Olsen, DO [address] [facility] [address] [place], [place] [id number] Social History Tobacco Use Types Packs/Day Years [...] EDT Office Visit [facility] BCP OB [address] [facility] [phone] Carson Olsen, [address] [facility] [place] [address] documented as of this encounter Procedures Procedure Name Priority Date/Time Associated Diagnosis Comments US OB UMBILICAL ARTERY DOPPLER 06/21/2023 4:15 PM EST documented in this encounter Results * US OB UMBILICAL ARTERY DOPPLER (06/21/2023 4:15 PM EST) Anatomical Region Laterality Modality Radiographic Emily ging 06/21/2023 4:15 PM EST Narrative 06/21/2023 4:17 PM EST [address] [address] Ultrasound Report Signed Patient: OLIVIA RODRIGUEZ MR#: [id number] : 1995 Acct:[id number] Age/Sex: 28 / F ADM Date: 06/21/23 Loc: [facility] 250-[address]: Carson Olsen D.O. Ordering Physician: Carson Olsen D.O. Date of Service: 06/21/23 Procedure(s): US OB umbilical artery Accession Number(s): [id number] cc: Carson Olsen D.O.; KAREN MARTINEZ [address] [address] Patient Name: OLIVIA RODRIGUEZ MRN: [id number] date: 1995 Sex: F Assigned Patient Location: [facility] Current Patient Location: [facility] Accession/Order Number: [id number] Exam Date: 06/21/2023 15:09 Report Date: 06/21/2023 16:15 At the request of: CARSON OLSEN Procedure: US OB umbilical artery EXAMINATION: US OB umbilical artery HISTORY: History of prior with [facility]GA COMPARISON: 06/14/2023 TECHNIQUE: Duplex Doppler evaluation of the umbilical arteries. FINDINGS: position: Cephalic presentation, longitudinal lie Umbilical arteries: 2 Heart rate: 154 bpm Proximal umbilical artery: PSV/EDV: 95/46 cm/s. Resistive index 0.51. Ratio 2.0 Mid umbilical artery PSV/EDV: 84/47 cm/s. Resistive index 0.45. Ratio 1.8 Distal umbilical artery PSV/EDV: 59/33 cm/s. Resistive index 0.43. Ratio 1.8 Forward flow identified throughout diastole Clinical age: 37 weeks 1 day Clinical SANDRA: 07/18/2023 US/US [...] weeks. Electronically authenticated by: PJ SAM Date: 06/21/2023 16:15 Dictated By: Pj Sam M.D. Signed By: 06/21/231616 DD/ 14 TD/TT: Coat Repair Inspector: Procedure Note Radiology, Radiologist, - 07/28/2023 [place] [address] Ultrasound Report Signed Patient: OLIVIA RODRIGUEZMR#: [id number] : 1995Acct:[id number] Age/Sex: 28 / FADM Date: 06/21/23 Loc: [place] [address]: Carson Olsen D.O. Ordering Physician: Carson Olsen D.O. Date of Service: 06/21/23 Procedure(s): US OB umbilical artery Accession Number(s): [id number] cc: Carson Olsen D.O.; KAREN MARTINEZ The [place] [address] Patient Name: OLIVIA RODRIGUEZ MRN: [id number] date: 1995 Sex: F Assigned Patient Location: [facility] Current Patient Location: [facility] Accession/Order Number: [id number] Exam Date: 06/21/2023 15:09 Report Date: 06/21/2023 16:15 At the request of: CARSON OLSEN Procedure: US OB umbilical artery EXAMINATION: US OB umbilical artery HISTORY: History of prior with SGA COMPARISON: 06/14/2023 TECHNIQUE: Duplex Doppler evaluation of the umbilical arteries. FINDINGS: position: Cephalic presentation, longitudinal lie Umbilical arteries: 2 Heart rate: 154 bpm Proximal umbilical artery: PSV/EDV: 95/46 cm/s. Resistive index 0.51.Ratio 2.0 Mid umbilical artery PSV/EDV: 84/47 cm/s. Resistive index 0.45. Ratio 1.8 Distal umbilical artery PSV/EDV: 59/33 cm/s. Resistive index 0.43. Ratio1.8 Forward flow identified throughout diastole Clinical age: 37 weeks 1 day Clinical SANDRA: 07/18/2023 US/US [...] weeks. Electronically authenticated by: PJ SAM Date: 06/21/2023 16:15 Dictated By: Pj Sam M.D. Signed By:06/21/231616 DD/ 14 TD/TT: Coat Repair Inspector: us Carson Olsen DO IMG XR PROCEDURES Final Result documented in this encounter Visit Diagnoses Not on filedocumented in this encounter Care Teams Relations Coordinator Relationship Specialty Start Date End Date Fern Martinez MD [address] [place] [address] PCP - General Family Medicine 12/11/22 documented as of this encounter
--- OUTSIDE RECORDS SUMMARY | 2024-10-27 09:30 | XMS_ITS | Encounter Summary ---
Author Organization [facility] Address [address] [place] [address] Care Team Providers Care Director Of Materials Management Name Role Phone Fern Martinez MD Primary Care Provider [phone] Encounter Details Date Type Department Care Team (Late st Contact Info) Description 06/15/2023 Clinisync Result Encounter [facility] External Department Unsolicited Maura Joseph PA [address] [place] [address] [address] [place] [address] Social History Tobacco Use Types Packs/Day [...] PM EDT Office Visit [facility] [address] [place] [address] [address] [place], [place] [phone] Carson Olsen, DO [address] [place] [address] [place] [address] documented as of this encounter Procedures Procedure Name Priority Date/Time Associated Diagnosis Comments US OB UMBILICAL ARTERY DOPPLER 06/15/2023 6:44 AM EST documented in this encounter Results * US OB UMBILICAL ARTERY DOPPLER (06/15/2023 6:44 AM EST) Anatomical Region Laterality Modality Radiographic Emily ging 06/15/2023 6:44 AM EST Narrative 06/15/2023 6:46 AM EST [address] [address] Ultrasound Report Signed Patient: OLIVIA RODRIGUEZ MR#: [id number] : 1995 Acct:[id number] Age/Sex: 28 / F ADM Date: 06/14/23 Loc: US Attending Dr: Maura Joseph Ordering Physician: Maura Joseph Date of Service: 06/14/23 Procedure(s): US OB umbilical artery Accession Number(s): [id number] cc: Maura Joseph; KAREN MARTINEZ [address] [address] Patient Name: OLIVIA RODRIGUEZ MRN: [id number] date: 1995 Sex: F Assigned Patient Location: [facility] Current Patient Location: US Accession/Order Number: [id number] Exam Date: 06/14/2023 15:04 Report Date: 06/15/2023 06:44 At the request of: MAURA JOSEPH Procedure: US OB umbilical artery EXAMINATION: US OB umbilical artery HISTORY: HISTORY OF PRIOR WITH SGA Z87.59 COMPARISON: Ultrasound OB umbilical artery 06/07/2023 TECHNIQUE: Duplex Doppler evaluation of the umbilical arteries. FINDINGS: HEART RATE: 132 bpm UMBILICAL ARTERIES: 2 GESTATIONAL AGE: 35 weeks 1 day WAVEFORM: Normal upstroke. No notching. Forward flow in diastole. PEAK SYSTOLIC VELOCITY: 66 cm/s END DIASTOLIC VELOCITY: 25 cm/s SYST/DIAST RATIO (S:D): 2.6 RESISTIVE INDEX: 0.6 US/US OB umbilical artery IMPRESSION: Class 0 = Normal umbilical artery blood velocity Electronically authenticated by: FLO OCASIO Date: 06/15/2023 06:44 Dictated By: Flo Ocasio M.D. Signed By: 06/15/2346 DD/ 3 TD/TT: Piano Case And Bench Assembler: Procedure Note Radiology, Radiologist, MD - 07/28/2023 [place] [address] Ultrasound Report Signed Patient: OLIVIA RODRIGUEZMR#: [id number] : 1995Acct:[id number] Age/Sex: 28 / FADM Date: 06/14/23 Loc: US Attending Dr: Maura Joseph Ordering Physician: Maura Joseph Date of Service: 06/14/23 Procedure(s): US OB umbilical artery Accession Number(s): [id number] cc: Maura Joseph; KAREN MARTINEZ [place] [id number] Patient Name: OLIVIA RODRIGUEZ MRN: [id number] date: 1995 Sex: F Assigned Patient Location: [facility] Current Patient Location: Accession/Order Number: [id number] Exam Date: 06/14/2023 15:04 Report Date: 06/15/2023 06:44 At the request of: MAURA JOSEPH Procedure: US OB umbilical artery EXAMINATION: US OB umbilical artery HISTORY: HISTORY OF PRIOR WITH SGA Z87.59 COMPARISON: Ultrasound OB umbilical artery 06/07/2023 TECHNIQUE: Duplex Doppler evaluation of the umbilical arteries. FINDINGS: HEART RATE: 132 bpm UMBILICAL ARTERIES: 2 GESTATIONAL AGE: 35 weeks 1 day WAVEFORM: Normal upstroke. No notching. Forward flow in diastole. PEAK SYSTOLIC VELOCITY: 66 cm/s END DIASTOLIC VELOCITY: 25 cm/s SYST/DIAST RATIO (S:D): 2.6 RESISTIVE INDEX: 0.6 US/US OB umbilical artery IMPRESSION: Class 0 = Normal umbilical artery blood velocity Electronically authenticated by: FLO OCASIO Date: 06/15/2023 06:44 Dictated By: Flo Ocasio M.D. Signed By:06/15/2346 DD/ TD/TT: Piano Case And Bench Assembler: Maura DORSEY IMG XR PROCEDURES Final Result documented in this encounter Visit Diagnoses Not on filedocumented in this encounter Care Teams Director Of Materials Management Relationship Specialty Start Date End Date Fern Martinez MD [address] [place] [address] PCP - General Family Medicine 12/11/22 documented as of this encounter
--- OUTSIDE RECORDS SUMMARY | 2024-10-27 09:47 | XMS_ITS | CCD ---
Author Organization [facility] Prov[facility] Care Front End Technician Name Role Phone LORETTA DUONGASHWIN Unavailable Unavailable MICHELLE, [place] Primary Care Unavailable PRETTY ., DR ECKERT Consulting Unavailable PRETTY ., DR ECKERT Attending Unavailable PRETTY ., DR ECKERT Procedure Practitioner Unavail able PRETTY ., DR ECKERT Admitting Unavailable AGUBOSIM, EDA Consulting Unavailable ARLETTE MARROQUIN Consulting Unavailable KARASIK ., DR SCOTT Admitting Unavailabl e KARASIK ., DR SCOTT Consulting Unavailabl e MICHELLE, [place] Primary Care Unavailable KARASIK ., DR SCOTT Attending Unavailabl e PRETTY ., DR ECKERT Admitting Unavailable MICHELLE, [place] Primary Care Unavailable PRETTY ., DR ECKERT Consulting Unavailable PRETTY ., DR ECKERT Attending Unavailable KARASIK ., DR SCOTT Attending Unavailabl e KARASIK ., DR SCOTT Admitting Unavailabl e KARASIK ., DR SCOTT Consulting Unavailabl e MICHELLE, [place] Primary Care Unavailable WEST, DR PJ Araujo Consulting Unavailable PRETTY ., DR ECKERT Consulting Unavailable KARASIK ., DR SCOTT Attending Unavailabl e KARASIK ., DR SCOTT Admitting Unavailabl e KARASIK ., DR SCOTT Consulting Unavailabl e MICHELLE, [place] Primary Care Unavailable PRETTY ., DR ECKERT Consulting Unavailable Policaro, Samira Consulting Unavailable MICHELLE, [place] Primary Care Unavailable CARBALLO, TONNY Attending Unavailable CARBALLO, TONNY Admitting Unavailable MICHELLE, [place] Primary Care Unavailable PRETTY ., DR ECKERT Attending Unavailable PRETTY ., DR ECKERT Consulting Unavailable PRETTY ., DR ECKERT Admitting Unavailable MICHELLE, [place] Primary Care Unavailable PRETTY ., DR ECKERT Attending Unavailable PRETTY ., DR ECKERT Admitting Unavailable [facility] Primary Care Unavailable PRETTY ., DR ECKERT Attending Unavailable PRETTY ., DR ECKERT Admitting Unavailable PRETTY ., DR ECKERT Consulting Unavailable [facility] Primary Care Unavailable PRETTY ., DR ECKERT Attending Unavailable PRETTY ., DR ECKERT Admitting Unavailable Arlette Fofana Unavailable Michelle FROST, Fern Primary Care Provider JOSY Huffman Primary Care Provider Pretty, Carson Attending Provider Daisha Huffman Primary Care Unavailable Pretty, Carson Attending Unavailable Pretty, Carson Admitting Unavailable SUNSHINE, MAURA Attending Unavailable SUNSHINE, MAURA Attending Unavailable PRETTY, CARSON Attending Unavailable SUNSHINE, MAURA Attending Unavailable SUNSHINE, MAURA Attending Unavailable PRETTY, CARSON Attending Unavailable SUNSHINE, MAURA Attending Unavailable PRETTY, CARSON Attending Unavailable SUNSHINE, MAURA Attending Unavailable SUNSHINE, MAURA Attending Unavailable SUNSHINE, MAURA Attending Unavailable PRETTY, CARSON Attending Unavailable [facility] Unavailable Allergies Allergy Classification Reported Allergen(s) Allergy Type Date of Onset Reaction(s) Facility (1 source) Chlorhexidine Drug Allergy [facility] Repository (1 source) Sulfamethoxazole / Trimethoprim Drug Allergy [facility] Repository (12 sources) Chlorhexidine Drug Allergy 12-29-19 19 hives, Itching [facility] Healthcare Work Phone: (11 sources) Sulfamethoxazole / Trimethoprim Drug Allergy 05-18-20 19 hives, Rash, Swelling, Unknown [facility] [place] Other (1 source) Darvocet-N 50 Drug allergy vomiting [facility] [place] Other (11 sources) Sulfamethoxazole Propensity to adverse reactions 10-11-19 10 Rash [facility] Healthcare (11 sources) Trimethoprim Drug Allergy 10-06-19 23 Rash [facility] Healthcare (10 sources) Other Allergy to substance 04-26-20 23 GI intolerance [facility] Healthcare (6 sources) Acetaminophen; Translations: [acetaminophen] Drug Allergy 05-15-20 23 GI intolerance [facility] (6 sources) Propoxyphene; Translations: [propoxyphene] Drug Allergy 10-06-19 GI intolerance [facility] (1 source) Chlorhexidine Drug Allergy 10-06-19 [facility] Repository (1 source) Sulfamethoxazole Drug Allergy 10-06-19 [facility] Repository (1 source) Trimethoprim Drug Allergy 10-06-19 [facility] Repository (1 source) Sulfamethoxazole / Trimethoprim; Translations: [BACTRIM] [facility] Current Medications Medication Drug Class(es) Dates Sig (Normalized) Sig (Original) acetaminophen 325 mg / oxyCODONE hydrochloride 5 mg oral tablet (4 sources) Opioid Agonist Start: 07-14-2023 take 1 tablet by mouth every six hours oxyCODONE-acetami nophen (Percocet) 5-325 MG tablet Take 1 tablet by mouth every 6 (six) hours 07/14/2023 Active [id number] 200 actuat albuterol 0.09 mg/actuat metered dose inhaler (7 sources) beta2-Adrenergic Agonist Start: 09-24-2023 End: 08-23-2024 take 1 puff(s) by inhalation every four hours as needed albuterol sulfate HFA 90 mcg/actuation aerosol inhaler 1 puff as needed every 4 hrs , Inhalation 09/24/2023 08/23/2024 completed Encounter Date: 09/27/2023 Status: 'Taking'; Not Available Not Available Not Available Start: 05-24-2023 take 2-3 puff(s) by mouth every four to six hours albuterol HFA 90 mcg/act inhaler INHALE 2 TO 3 PUFFS BY MOUTH EVERY 4 TO 6 HOURS 05/24/2023 Active amoxicillin 500 mg oral capsule (2 sources) Penicillin-class Antibacterial Start: 10-05-2022 take 1 capsule by mouth every eight hours Amoxicillin 500 MG 1 capsule Orally three times a day for 10 day(s) September, Active End: 07-24-2024 take 1 tablet by mouth twice daily amoxicillin 500 mg tablet TAKE 1 TABLET BY MOUTH TWICE DAILY FOR 10 DAYS 07/24/2024 completed Not Available Not Available Not Available Doxylamine Succinate, Sleep, (UNISOM PO) (10 sources) take 1 tablet by iman th at bedtime Doxylamine Succinate, Sleep, (UNISOM PO) Take 1 tablet by mouth at bedtime. Active take 1 tablet by mouth at bedtim e Doxylamine Succinate, Sleep, (UNISOM PO) Take 1 tablet by mouth at bedtime. 0 Active 12 hr guaiFENesin 600 mg / pseudoephedrine hydrochloride 60 mg extended release oral tablet (1 source) alpha-Adrenergic Agonist End: 08-23-2024 take 2 tablets by mouth every twelve hours as needed Mucinex D 60 mg-600 mg tablet,extended release TAKE 2 TABLETS BY MOUTH EVERY 12 HOURS NEEDED 08/23/2024 completed Not Available Not Available Not Available ibuprofen 800 mg oral tablet (4 sources) Nonsteroidal Anti-inflammatory Drug Start: 07-14-2023 take 1 tablet by mouth every eight hours ibuprofen 800 MG tablet Take 800 mg by mouth every 8 (eight) hours 07/14/2023 Active ondansetron 8 mg disintegrating oral tablet (11 sources) Serotonin-3 Receptor Antagonist Start: 08-23-2024 ondansetron [address] 1 tablet twice a day by translingual route as needed for 5 days. 08/23/2024 active Not Available Not Available Not Available Start: 02-25-2023 take 1 tablet by iman th twice daily as needed for nausea ondansetron (Zofran) 4 MG tablet Indications: Nausea TAKE 1 TABLET BY MOUTH TWICE DAILY NEEDED FOR NAUSEA 30 tablet 02/25/2023 Active pantoprazole 40 mg delayed release oral tablet (9 sources) Proton Pump Inhibitor Start: 11-25-2022 End: 11-25-2023 take 1 tablet by mouth before mealtime pantoprazole (Protonix) 40 MG EC tablet Indications: Heartburn during in first trimester Take 1 tablet (40 mg) by mouth in the morning. Take before meals. Do not crush, chew, or split. . 30 tablet 11 11/25/2022 Active Vit w/Uu-Ngnfyzsdl-EX (PNV PO) (10 sources) Vit w/Zg-Awkzyvjdc-AV (PNV PO) Take by mouth. Active Vit w/F q-Mnoxhslhu-SV (PNV PO) Take by mouth. 0 Active pyridoxine hydrochloride 25 mg oral tablet (10 sources) take 1 tablet by iman th in the morning pyridoxine (Vitamin B-6) 25 MG tablet Take 25 mg by mouth in the morning. Active Problems Active Problems Problem Classification Problem Date Documented Da te Episodic/Chronic Asthma (2 sources) Unspecified asthma, uncomplicated; Translations: [Exercise induced bronchospasm] Onset: 10-13-2021 Chronic Bacterial infection; unspecified site [...] [Encounter for routine follow-up] Onset: 10-13-2021 Episodic Residual codes; unclassified (2 sources) Family history of breast cancer; Translations: [Family history of malignant neoplasm of breast] 02-23-2024 Episodic Unclassified (1 source) CONTACT W/AND (SUSP) EXPOS COVID-19; Translations: [CONTACT W/AND (SUSP) EXPOS COVID-19] Onset: 10-08-2021 Past or Other Problems Problem Classification Problem Date Documented Da te Episodic/Chronic Immunizations and screening for infectious disease (1 source) Encounter for screening for human papillomavirus (HPV); Translations: [ENC SCREENING HUMAN PAPILLOMAVIRUS] Onset: 04-20-2022 Episodic Intestinal infection (1 source) Viral gastroenteritis; Translations: [Viral intestinal infection, unspecified] Onset: 08-23-2024 Resolved: 08-23-2024 Episodic Nonspecific chest pain (1 source) Other chest pain; Translations: [Other chest pain] Onset: 08-14-2017 Episodic Other aftercare (1 source) Other intermediate (current) drug therapy; Translations: [OTH GROUP HOME CURRENT 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] Onset: 10-13-2021 Episodic [...] applicable or unspecified; Translations: [MAT CARE OTH FL FTL GRTH 3RD TM UNS] Onset: 10-04-2021 Episodic Other screening for suspected conditions (not mental disorders or infectious disease) (4 sources) Encounter for screening for malignant neoplasm of cervix; Translations: [ENC SCREENING MALIG NEOPLASM CERV] Onset: 04-15-2022 Episodic Other upper respiratory infections (3 sources) Acute pharyngitis, unspecified; Translations: [Acute pharyngitis due to other specified organisms] Onset: 07-24-2024 Resolved: 07-24-2024 Episodic Polyhydramnios and other problems of amniotic [...] WEEKS GESTATION OF ] Onset: 09-25-2021 Episodic Residual codes; unclassified (10 sources) Past history of small for gestational age baby; Translations: [Personal history of other complications of , childbirth and the puerperium] Onset: 06-02-2023 06-02-2023 Episodic Results Test Name Value Interpretation Reference Range Facility IGP,APTIMA HPV,AGE GDLNon AGE GDLN ACOG TESTING Note . [facility] Comment on above: TESTS RESULT FLAG UN ITS REF RANGE LAB Clinician Provided Cytology Information Source.............Cervix;Endocervix No. of containers..01 ThinPrep Vial Age Enrico MEANS Ligia... 28 FLAG LEGEND: L-Low Normal,H-High Normal,LL-Alert Low,HH-Alert High <-Panic Low,>-Panic High,A-Abnormal,AA-Critical Abnormal Performed at: 01 =G [facility] [place] [address] Akosua Obregon MD, HPV APTIMA Negative Negative [facility] Comment on above: This nucleic acid am plification test detects fourteen high- risk HPV types (16,18,31,33,35,39,45,51,52,56,58,59,66,68) without differentiation. Performed at: =G - [facility] [id number] Category Development Manager: Akosua Obregon MD, Phone: [phone] Performed at: - [facility] [id number] Category Development Manager: Akosua Obregon MD, Phone: [phone] IGP, APTIMA HPV, RFX 16/18,[address] [facility] Comment on above: TESTS RESULT FLAG UN ITS REF RANGE LAB DIAGNOSIS: 02 NEGATIVE FOR INTRAEPITHELIAL LESION OR MALIGNANCY. Specimen adequacy: 02 Satisfactory for evaluation. Endocervical and/or squamous metaplastic cells (endocervical component) are present. Performed by: 02 Oni Gill Compounder Helper (ASCP) . 02 Note: Note 02 The Pap smear is a screening test designed to aid in the detection of premalignant and malignant conditions of the uterine cervix. It is not a diagnostic procedure and should not be used as the sole means of detecting cervical cancer. Both false-positive and false-negative reports do occur. Test Methodology: Note 02 This liquid based ThinPrep(R) pap test was screened with the use of an image guided system. HPV Genotype Reflex Note 02 Criteria not met, HPV Genotype not performed. FLAG LEGEND: L-Low Normal,H-High Normal,LL-Alert Low,HH-Alert High <-Panic Low,>-Panic High,A-Abnormal,AA-Critical Abnormal Performed at: [address] [address] Akosua Obregon MD, BRUSH-SPATULA CERVIX ENDOCERVIX [facility] 07-12-2023 L Specimen: [id number] Received: 07/12/23 Status: JUSTUS Lopez Num: [id number] Spec Type: Surgical Subm Dr: Carson Olsen Tissues: A Fallopian Tube - Sterilization (BILATERAL FALLOPIAN TUBES) Procedures: HE/4, Gross/Micro L2 Age/ Patient Sex Location Account Attending Physician Yeimy Rodriguez A 28/F [facility] [id number] Carson Olsen SPEC NUM: [id number] RECD: 07/12/23 STATUS: JUSTUS REQ NUM: [id number] MERI: 07/12/[address]: Carson Olsen ENTERED: 07/12/23 [facility] DR: Vivienne,Lab SPEC TYPE: Surgical DEPT: ABBY SHARMA ORDERED: HE/4, Gross/Micro L2 ORDERED: HE/4, Gross/Micro L2 Pathological Diagnosis Bilateral Fallopian Tubes, Resection: No Significant Pathologic Abnormality. Clinical Information Previous section, desires sterilization Gross Description Received in formalin labeled with the patient's name, date of and bilateral fallopian tubes are 2 segments of fimbriated fallopian tube with no laterality provided. One segment is a 5.2 x 0.6 cm. The second segment is 7.7 x 0.6 cm. Bilaterally, the serosa is pink- purple and glistening. Sectioning demonstrates central lumens. The fimbria are soft and unremarkable. Programming Manager sections are submitted in 4 cassettes as follows: A1-A2 - Friant segment with fimbria entirely submitted A3-A4 - Longer segment with fimbria entirely submitted CPT Codes 81258 Specimen: [id number] Received: 07/12/23 Status: JUSTUS Req Num: [id number] Spec Type: Surgical Subm Dr: Carson Olsen Tissues: A Fallopian Tube - Sterilization (BILATERAL FALLOPIAN TUBES) Procedures: HE/4, Gross/Jatinder L2 Patient: Yeimy Rodriguez [id number] (Continued) Signed (signature on file) Rajeev Talley MD 07/15/23 0554 [facility] Urinalysis macro (dipstick) panel (U)Ordered By: Marley Walker on 06-29-2023 Bilirubin, UA Negative Negative - 4(70) +++ mg/dL [facility] Blood, UA Negative Negative - 50 Tyrese/mcL [facility] Clarity, UA Clear [facility] Color, UA Yellow [facility] Glucose, UA Negative Negative - 1999(110) ++++ mg/dL [facility] Interpretation and review of laboratory results Normal [facility] Ketones, UA Negative Negative - 160(16) ++++ mg/dL [facility] Leukocytes, UA Negative Negative - 500+++ Antonio/mcL [facility] Nitrite, UA Negative Negative - Positive [facility] pH, UA 7.0 5 - 9 [facility] Protein, UA Negative Negative - 1999(20) ++++ mg/dL [facility] Spec Grav, UA 1.015 1 - 1.03 [facility] care Urobilinogen, UA 0.2 0.2 - 12 mg/dL [facility] Urinalysis macro (dipstick) panel (U)on 06-24-2023 Bilirubin, UA Negative Negative - 4(70) +++ mg/dL [facility] Blood, UA Negative Negative - 50 Tyrese/mcL [facility] Clarity, UA Clear [facility] Color, UA Yellow [facility] Glucose, UA Negative Negative - 1999(110) ++++ mg/dL [facility] Interpretation and review of laboratory results Normal [facility] Ketones, UA Negative Negative - 160(16) ++++ mg/dL [facility] Leukocytes, UA Negative Negative - 500+++ Antonio/mcL [facility] Nitrite, UA Negative Negative - Positive [facility] pH, UA 5.5 5 - 9 [facility] e Protein, UA Negative Negative - 1999(20) ++++ mg/dL [facility] Spec Grav, UA 1.020 1 - 1.03 [facility] Urobilinogen, UA 1.0 0.2 - 12 mg/dL [facility] Strep[facility] 10-05-2022 S. pyogenes Org specific cx Ql (Throat) Negative [employer] Other Quick Strep [facility] [place] Other PAP ACOG PANEL 2: 21 to 29on 04-24-2022 . . [facility] Comment on above: Performed By: #### 4 [id number] #### [facility] [address] [place] [address] Dr. Winifred Silver Age Gdln ACOG Testing 21-29 [facility] Comment on above: Performed By: #### 4 [id number] #### [facility] [address] [address] [address] Winifred Silver DIAGNOSIS: Comment [facility] Comment on above: Result Comment: NEGA TIVE FOR INTRAEPITHELIAL LESION OR MALIGNANCY. Performed By: #### 4 [id number] #### [facility] [address] [address] [address] Winifred Silver Methodology: Comment [facility] Comment on above: Result Comment: This liquid based ThinPrep(R) pap test was screened with the use of an image guided system. Performed By: #### 4 [id number] #### [facility] [address] [address] [address] Winifred Silver Note: Comment Normal [facility] Comment on above: Result Comment: The Pap smear is a screening test designed to aid in the detection of premalignant and malignant conditions of the uterine cervix. It is not a diagnostic procedure and should not be used as the sole means of detecting cervical cancer. Both false-positive and false-negative reports do occur. . Performed By: #### 4 [id number] #### [facility] [address] [address] [address] Winifred Silver Performed by: Comment Normal [facility] Comment on above: Result Comment: Clary Cobb Compounder Helper (ASCP) Performed By: #### 4 [id number] #### [facility] [address] [place] [address] Dr. Winifred Silver Reflex Criteria: Comment Normal [facility] Comment on above: Result Comment: The HPV DNA reflex criteria were not met with this specimen result therefore, no HPV testing was performed. . Performed By: #### 4 [id number] #### [facility] [address] [place] [address] Dr. Winifred Silver Specimen adequacy: Comment Normal [facility] Comment on above: Result Comment: Sati sfactory for evaluation. Endocervical and/or squamous metaplastic cells (endocervical component) are present. Performed By: #### 4 [id number] #### [facility] [address] [place] [address] Dr. Winifred Silver CBC AUTO DIFFon 10-07-2021 BASO # 0.1 103/ul Normal 0.0-0.1 [facility] Comment on above: Performed By: #### C BC ####[facility] [address] [address]Dr. Winifred Silver Basophils/100 WBC (Bld) 0.6 % Normal 0.2-2.0 [facility] Comment on above: Performed By: #### C BC ####[facility] [address] [address]Dr. Winifred Silver EO # 0.3 103/ul Normal 0.0-0.7 [facility] Comment on above: Performed By: #### C BC ####[facility] [address] [address]Dr. Winifred Silver Eosinophils/100 WBC (Bld) 2.6 % Normal 0.9-7.0 [facility] Comment on above: Performed By: #### C BC ####[facility] [address] [address]Dr. Winifred Silver Erythrocyte distribution width (RBC) [Ratio] 13.1 % Normal 11.0-15.0 [facility] Comment on above: Performed By: #### C BC ####[facility] [address] [place], [place] [address]Dr. Winifred Silver Hematocrit (Bld) [Volume fraction] 26.6 % Critically low 36.0-48.0 [facility] Comment on above: Performed By: #### C BC ####[facility] [address] [place], [place] [address]Dr. Winifred Silver Hemoglobin (Bld) [Mass/Vol] 8.7 g/dL Critically low 12.0-16.0 [facility] Comment on above: Performed By: #### C BC ####[facility] [address] [place], [place] [address]Dr. Winifred Silver IG # 0.04 10e3/ul Critically high 0.00-0.03 [facility] Comment on above: Performed By: #### C BC ####[facility] [address] [place], [place] [address]Dr. Winifred Silver IG % 0.4 % Normal 0.0-0.5 [facility] Comment on above: Performed By: #### C BC ####[facility] [address] [place], [place] [address]Dr. Winifred Silver LYMPH # 1.4 103/ul Normal 1.2-3.8 [facility] Comment on above: Performed By: #### C BC ####[facility] [address] [place], [place] [address]Dr. Winifred Silver Lymphocytes/100 WBC (Bld) 13.8 % Critically low 20.5-60.0 [facility] Comment on above: Performed By: #### C BC ####[facility] [address] [address]DrDarius Silver MANUAL DIFF REQ NO Normal [facility] Comment on above: Performed By: #### C BC ####[facility] [address] [address]DrDarius Silver MCH (RBC) [Entitic mass] 29.6 pg Normal 26.7-34.0 [facility] Comment on above: Performed By: #### C BC ####[facility] [address] [place], [place] [address]DrDarius Silver MCHC (RBC) [Mass/Vol] 32.7 g/dL Normal 29.9-35.2 [facility] Comment on above: Performed By: #### C BC ####[facility] [address] [place], [place] [address]DrDarius Silver MCV (RBC) [Entitic vol] 90.5 fL Normal 81.0-99.0 [facility] Comment on above: Performed By: #### C BC ####[facility] [address] [place], [place] [address]DrDarius Silver MONO # 0.6 103/ul Normal 0.3-0.8 [facility] Comment on above: Performed By: #### C BC ####[facility] [address] [place], [place] [address]DrDarius Silver Monocytes/100 WBC (Bld) 6.1 % Normal 1.7-12.0 [facility] Comment on above: Performed By: #### C BC ####[facility] [address] [place], [place] [address]DrDarius Silver NEUT # 7.8 103/ul Critically high 1.4-6.5 [facility] Comment on above: Performed By: #### C BC ####[facility] [address] [place], [place] [address]DrDarius Silver Neutrophils/100 WBC (Bld) 76.5 % Critically high 43.0-75.0 [facility] Comment on above: Performed By: #### C BC ####[facility] [address] [address]Dr. Winifred Silver Platelet mean volume (Bld) [Entitic vol] 10.5 fL Normal 9.5-13.5 [facility] Comment on above: Performed By: #### C BC ####[facility] [address] [address]Dr. Winifred Silver PLT 147 103/ul Critically low 150-450 [facility] Comment on above: Performed By: #### C BC ####[facility] [address] [address]Dr. Winifred Silver RBC 2.94 106/ul Critically low 4.20-5.40 [facility] Comment on above: Performed By: #### C BC ####[facility] [address] [address]Dr. Winifred Silver WBC 10.2 103/ul Normal 4.0-11.0 [facility] Comment on above: Performed By: #### C BC ####[facility] [facility] [id number] [id number]. Winifred Silver CBC AUTO DIFFon 10-06-2021 BASO # 0.0 103/ul Normal 0.0-0.1 [facility] Comment on above: Performed By: #### C BC #### [facility] [address] [address] [address] Winifred Silver Basophils/100 WBC (Bld) 0.3 % Normal 0.2-2.0 [facility] Comment on above: Performed By: #### C BC #### [facility] [address] [place] [address] Dr. Winifred Silver EO # 0.1 103/ul Normal 0.0-0.7 [facility] Comment on above: Performed By: #### C BC #### [facility] [address] [address] [address] Winifred Silver Eosinophils/100 WBC (Bld) 1.4 % Normal 0.9-7.0 [facility] Comment on above: Performed By: #### C BC #### [facility] [address] [place] [address] Dr. Winifred Silver Erythrocyte distribution width (RBC) [Ratio] 13.0 % Normal 11.0-15.0 [facility] Comment on above: Performed By: #### C BC #### [facility] [address] [place] [address] Dr. Winifred Silver Hematocrit (Bld) [Volume fraction] 32.3 % Critically low 36.0-48.0 [facility] Comment on above: Performed By: #### C BC #### [facility] [address] [place] [address] Dr. Winifred Silver Hemoglobin (Bld) [Mass/Vol] 10.6 g/dL Critically low 12.0-16.0 [facility] Comment on above: Performed By: #### C BC #### [facility] [address] [place] [address] Dr. Winifred Silver IG # 0.05 10e3/ul Critically high 0.00-0.03 [facility] Comment on above: Performed By: #### C BC #### [facility] [address] [place] [address] Dr. Winifred Silver IG % 0.5 % Normal 0.0-0.5 [facility] Comment on above: Performed By: #### C BC #### [facility] [address] [place] [address] Dr. Winifred Silver LYMPH # 1.5 103/ul Normal 1.2-3.8 [facility] Comment on above: Performed By: #### C BC #### [facility] [address] [place] [address] Dr. Winifred Silver Lymphocytes/100 WBC (Bld) 14.6 % Critically low 20.5-60.0 [facility] Comment on above: Performed By: #### C BC #### [facility] [address] [place] [address] Dr. Winifred Silver MANUAL DIFF REQ NO Normal [facility] Comment on above: Performed By: #### C BC #### [facility] [address] [place] [address] Dr. Winifred Silver MCH (RBC) [Entitic mass] 29.4 pg Normal 26.7-34.0 [facility] Comment on above: Performed By: #### C BC #### [facility] [address] [place] [address] Dr. Winifred Silver MCHC (RBC) [Mass/Vol] 32.8 g/dL Normal 29.9-35.2 [facility] Comment on above: Performed By: #### C BC #### [facility] [address] [place] [address] Dr. Winifred Silver MCV (RBC) [Entitic vol] 89.7 fL Normal 81.0-99.0 [facility] Comment on above: Performed By: #### C BC #### [facility] [address] [place] [address] Dr. Winifred Silver MONO # 0.7 103/ul Normal 0.3-0.8 [facility] Comment on above: Performed By: #### C BC #### [facility] [address] [place] [address] Dr. Winifred Silver Monocytes/100 WBC (Bld) 6.5 % Normal 1.7-12.0 [facility] Comment on above: Performed By: #### C BC #### [facility] [address] [place] [address] Dr. Winifred Silver NEUT # 7.7 103/ul Critically high 1.4-6.5 [facility] Comment on above: Performed By: #### C BC #### [facility] [address] [place] [address] Dr. Winifred Silver Neutrophils/100 WBC (Bld) 76.7 % Critically high 43.0-75.0 [facility] Comment on above: Performed By: #### C BC #### [facility] [address] [place] [address] Dr. Winifred Silver Platelet mean volume (Bld) [Entitic vol] 11.1 fL Normal 9.5-13.5 [facility] Comment on above: Performed By: #### C BC #### [facility] [address] [address] [address] Winifred Silver PLT 204 103/ul Normal 150-450 [facility] Comment on above: Performed By: #### C BC #### [facility] [address] [address] [address] Winifred Silver RBC 3.60 106/ul Critically low 4.20-5.40 [facility] Comment on above: Performed By: #### C BC #### [facility] [address] [address] [address] Winifred Silver WBC 10.0 103/ul Normal 4.0-11.0 [facility] Comment on above: Performed By: #### C BC #### [facility] [address] [place] [address] Dr. Winifred Silver DRUG SCREEN RAPID (URINE)on 10-06-2021 AMP Negative Normal NEGATIVE [facility] Comment on above: Performed By: #### D RUGRPD #### [facility] [address] [place] [address] Dr. Winifred Silver BAR Negative Normal NEGATIVE [facility] Comment on above: Performed By: #### D RUGRPD #### [facility] [address] [place] [address] Dr. Winifred Silver BUP Negative Normal NEGATIVE [facility] Comment on above: Performed By: #### D RUGRPD #### [facility] [address] [place] [address] Dr. Winifred Silver BZO Negative Normal NEGATIVE [facility] Comment on above: Performed By: #### D RUGRPD #### [facility] [address] [place] [address] Dr. Winifred Silver TIN Negative Normal NEGATIVE [facility] Comment on above: Performed By: #### D RUGRPD #### [facility] [address] [place] [address] Dr. Winifred Silver CUT-OFFS SEE BELOW Normal [facility] Comment on above: Result Comment: [...] ng/mL Performed By: #### D RUGRPD #### [facility] [address] [place] [address] Dr. Winifred Silver DRUG CUT HEADER DRUG CLASS TEST SYST EM CUT-OFF CONCENTRATIONS ARE FOLLOWS: Normal [facility] Comment on above: Performed By: #### D RUGRPD #### [facility] [address] [place] [address] Dr. Winifred Silver mAMP Negative Normal NEGATIVE [facility] Comment on above: Performed By: #### D RUGRPD #### [facility] [address] [place] [address] Dr. Winifred Silver MTD Negative Normal NEGATIVE [facility] Comment on above: Performed By: #### D RUGRPD #### [facility] [address] [place] [address] Dr. Winifred Silver OPI Negative Normal NEGATIVE [facility] Comment on above: Performed By: #### D RUGRPD #### [facility] [address] [place] [address] Dr. Winifred Silver OXY Negative Normal NEGATIVE [facility] Comment on above: Performed By: #### D RUGRPD #### [facility] [address] [place] [address] Dr. Winifred Silver PCP Negative Normal NEGATIVE [facility] Comment on above: Performed By: #### D RUGRPD #### [facility] [address] [place] [address] Dr. Winifred Silver PPX Negative Normal NEGATIVE [facility] Comment on above: Performed By: #### D RUGRPD #### [facility] [address] [address] [address] Winifred Silver TCA Negative Normal NEGATIVE [facility] Comment on above: Performed By: #### D RUGRPD #### [facility] [address] [place] [address] Dr. Winifred Silver THC Negative Normal NEGATIVE [facility] Comment on above: Performed By: #### D RUGRPD #### [facility] [address] [place] [address] Dr. Winifred Silver TYPE AND SCREENon 10-06-2021 TYPE AND SCREEN Negative Normal [facility] Comment on above: Performed By: #### T NS #### [facility] [address] [place] [address] Dr. 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 Winifred Silver Clarity (U) CLEAR Normal CLEAR [facility] Comment on above: Performed By: #### U ACSIND #### [facility] [address] [place] [address] Dr. Winifred Silver Color (U) LT. YELLOW Normal YELLOW [facility] Comment on above: Performed By: #### U ACSIND #### [facility] [address] [place] [address] Dr. Winifred Silver Glucose Ql (U) Negative Normal NEGATIVE [facility] Comment on above: Performed By: #### U ACSIND #### [facility] [address] [place] [address] Dr. Winifred Silver Hemoglobin Ql (U) Negative Normal NEGATIVE [facility] Comment on above: Performed By: #### U ACSIND #### [facility] [address] [place] [address] Dr. Winifred Silver Ketones Ql (U) Negative Normal NEGATIVE [facility] Comment on above: Performed By: #### U ACSIND #### [facility] [address] [place] [address] Dr. Winifred Silver LEUKOCYTES Negative Normal NEGATIVE [facility] Comment on above: Performed By: #### U ACSIND #### [facility] [address] [place] [address] Dr. Winifred Silver Nitrite Ql (U) Negative Normal NEGATIVE [facility] Comment on above: Performed By: #### U ACSIND #### [facility] [address] [place] [address] Dr. Winifred Silver pH (U) 6.0 [pH] Normal 5-9 [facility] Comment on above: Performed By: #### U ACSIND #### [facility] [address] [place] [address] Dr. Winifred Silver SPEC GRAVITY 1.025 Normal 1.005-<=1.02 5 [facility] Comment on above: Performed By: #### U ACSIND #### [facility] [address] [place] [address] Dr. Winifred Silver UA PROTEIN Negative Normal NEGATIVE/ TRACE [facility] Comment on above: Performed By: #### U ACSIND #### [facility] [address] [place] [address] Dr. Winifred Silver UR MICRO IND NOT INDICATED Normal [facility] Comment on above: Performed By: #### U ACSIND #### [facility] [address] [place] [address] Dr. Winifred Silver Urobilinogen Qn (U) 0.2 {Fredrick'U}/dL Normal 0.2 - 1.0 [facility] Comment on above: Performed By: #### U ACSIND #### [facility] [address] [place] [address] Dr. Winifred Silver [facility]21 SARS-CoV-2 (COVID-19) RNA JENARO+probe Ql (Unsp spec) Not detected Normal NOT DETECTED [facility] Comment on above: Result Comment: This test is not yet approved or cleared by the [place] FDA. When there are no FDA-approved or cleared tests available, and other criteria are met, FDA can make tests available under an emergency access mechanism called an Emergency Use Authorization (EUA). The EUA for this test is supported by the [place] of Health and Human Service's (HHS's) declaration [...] consistent with SARS-CoV-2. Performed By: #### C [facility] #### [facility] [address] [place] [address] Dr. Winifred Silver US PREG GROWTHon 10-01-2021 [...] SAMIRA VELA Date: 2021-10-01 19:22 Normal [facility] US PREG BIOPHY W NON [...] Date: 2021-09-25 07:47 [facility] ([facility] ) ----- YEIMY HONEYCUTT ([id number]) 1995 F Date Time Provider Department 01/16/21 10:20 AM CANDI GILLILAND ORTHVERONIQUE During your visit today, we recorded the following information about you: Weight Height 77.1 kg 1.727 m Candi Gilliland PA-C 02/11/2021 9:16 PM Signed Consultation requested by Kali Alcantara [address] [facility] [address] Yeimy Honeycutt is a 25 year old [...] needed. I offered virtual visit option also. Candi Gilliland, MS, PA-C [facility] [place] Referring Provider: KALI ALACNTARA [[id number]] Allergies As of Date: 01/16/2021 Noted Allergy Reaction BACTRIM (SULFAMETHOXAZOLE) 10/10/2009 2 - Rash CHLORHEXIDINE GLUCONATE 12/28/2018 9 - Itching Date Reviewed: 01/16/2021 Reviewed by: Nakia Luna Ma - Fully Assessed Reason for Visit: Pain, Back [855] Primary Visit Diagnosis:Strain (more content not included)... Normal [facility] XR LUMBAR 3V AP/LAT/L5-S1on 01-16-2021 XR [...] bony abnormality or significant disc height loss. Washroom Operator: TERESITA Transcribe Date/Time: Jan 16 2021 12:34P Dictated by : CARLTON MATTHEWS MD This examination was interpreted and the report reviewed and electronically signed by: CARLTON MATTHEWS MD on Jan 16 2021 12:35PM EST [id number] [facility] JESSYYisel 01-07-2021 [facility] ----- YEIMY HONEYCUTT ([id number]) 1995 F Date Time Provider Department 01/07/21 [facility] During your visit today, we recorded the following information about you: Candi Gilliland PA-C 01/07/2021 5:34 PM Signed Spoke with patient to coordinate appt. States her insurance has changed since last visit. She would like to verify in-network coverage and cost before proceeding. I will have our registration/financial team contact her tomorrow. Candi Gilliland, MS, JOSY Allergies As of Date: [...] Behavior of Connective an*11/14/2009 Encounter Status:Closed by CANDI GILLILAND on 01/07/[address] [facility] Coding Summary.on 05-18-2018 Coding Summary. CODING DATE: 018 FINAL [facility] STATUS: Home (Routine DC) PAYOR: Desmond [...] CphT Date Saved: 05/18/2018 08:52 am Normal [facility] US Breast Unilateral Rt Comp leteon [...] MD Transcribed by: KALIN Technologist: EULALIO Normal [facility] XR CHEST (2 VW)on 08-14-2017 XR CHEST (2 VW) EXAMINATION: XR CHES T (2 VW)CLINICAL HISTORY: chest pain COMPARISONS: None available.FINDINGS: Cardiac size and pulmonary vascularity are normal. The lungs are clear. There is no evidence of adenopathy. The bones are unremarkable.IMPRESSION: NORMAL CHEST RADIOGRAPHSInterpreted by:ARAIN Harrisigned by:Troy Rueda MD08/14/17inal result Normal [facility] Vital Signs Date Time Vital Sign Value Performing Clinician Facility 08-23-2024 01:00-0400 Body height 172.72 cm Domonique Guerin [place] [facility] 08-23-2024 01:00-0400 Body mass index (BMI) [Ratio] 27.7 kg/m2 Domonique Guerin [place] [facility] 08-23-2024 01:00-0400 Body surface area Derived from formula 1.99 m2 Domonique Guerin [place] [facility] 08-23-2024 01:00-0400 Body temperature 98.1 [degF] Domonique Guerin [place] [facility] 08-23-2024 01:00-0400 Body weight 82.74 kg Domonique Guerin [place] [facility] 08-23-2024 01:00-0400 Diastolic blood pressure 64 mm[Hg] Domonique Guerin [place] [facility] 08-23-2024 01:00-0400 Heart rate 63 /min Domonique Guerin [place] [facility] 08-23-2024 01:00-0400 Respiratory rate 16 /min Domonique Guerin [place] [facility] 08-23-2024 01:00-0400 SaO2% (BldA) [Mass fraction] 99 % Domonique Guerin [place] [facility] 08-23-2024 01:00-0400 Systolic blood pressure 108 mm[Hg] [facility] 02-23-2024 15:34-0400 Body mass index (BMI) [Ratio] 28.15 kg/m2 [employer] Work Phone: [facility] 02-23-2024 15:34-0400 Body weight 83.97 kg [employer] Work Phone: [facility] 02-23-2024 15:34-0400 Diastolic blood pressure 68 mm[Hg] Carson Pretty DO Work Phone: [facility] 02-23-2024 15:34-0400 Systolic blood pressure 110 mm[Hg] Carson Pretty DO Work Phone: [facility] 07-06-2023 14:39-0500 Body mass index (BMI) [Ratio] 32.86 kg/m2 Carson Pretty DO Work Phone: [facility] 07-06-2023 14:39-0500 Body weight 98.03 kg Carson Pretty DO Work Phone: [facility] 07-06-2023 14:39-0500 Diastolic blood pressure 74 mm[Hg] Carson Pretty DO Work Phone: [facility] 07-06-2023 14:39-0500 Systolic blood pressure 120 mm[Hg] Carson Pretty DO Work Phone: [facility] 06-29-2023 15:19-0500 Body mass index (BMI) [Ratio] 32.86 kg/m2 Maura Sunshine PA Work Phone: [facility] 06-29-2023 15:19-0500 Body weight 98.03 kg Maura Sunshine PA Work Phone: [facility] 06-29-2023 15:19-0500 Diastolic blood pressure 70 mm[Hg] Maura [place] PA Work Phone: [facility] 06-29-2023 15:19-0500 Systolic blood pressure 116 mm[Hg] Maura [place] PA Work Phone: [facility] 06-22-2023 15:16-0500 Body mass index (BMI) [Ratio] 32.84 kg/m2 Maura Sunshine PA Work Phone: [facility] 06-22-2023 15:16-0500 Body weight 97.98 kg Maura [place] PA Work Phone: [facility] 06-22-2023 15:16-0500 Diastolic blood pressure 72 mm[Hg] Maura DORSEY Work Phone: [facility] 06-22-2023 15:16-0500 Systolic blood pressure 112 mm[Hg] Maura DORSEY Work Phone: [facility] 10-05-2022 13:25-0400 Body height 172.72 cm Arlette Hermanmond Other [email or web address] Other 10-05-2022 13:25-0400 Body mass index (BMI) [Ratio] 28.86 kg/m2 Arlette Fofana Other [email or web address] Other 10-05-2022 13:25-0400 Body temperature 98.2 [degF] Arlette Fofana Other [email or web address] Other 10-05-2022 13:25-0400 Body weight 86.09 kg Arlette Fofana Other [email or web address] Other 10-05-2022 13:25-0400 Respiratory rate 18 /min Arlette Fofana Other [email or web address] Other 10-05-2022 13:25-0400 SaO2% (BldA) [Mass fraction] 99 % Arlette Fofana Other [email or web address] Other Encounters Encounter Date Encounter Type Care Provider Facility Start: 08-23-2024 Office outpatient vi sit 15 minutes Domonique iPinYou [place] [facility] Start: 07-24-2024 Office outpatient vi sit 15 minutes Domonique Guerin [facility] Start: 02-23-2024 End: 02-23-2024 Patient encounter procedure Carson Pretty DO Work Phone: [facility] Work Phone: Start: 02-23-2024 End: 02-23-2024 Periodic preventive med est patient 18-39 yrs Carson Pretty DO Work Phone: [facility] Comment on above: Well woman exam with routine gynecological exam; Family history of breast cancer Start: 02-23-2024 End: 02-23-2024 ambulatory CARSON PRETTY Not Available Start: 02-23-2024 End: 02-23-2024 Bamboo flowsheet Carson Pretty DO Work Phone: [facility] Start: 02-23-2024 End: 03-01-2024 Bamboo flowsheet Carson Pretty DO Work Phone: [facility] Start: 02-23-2024 End: 03-01-2024 Clinisync Result Encounter Carson Pretty DO Work Phone: [facility] Unsolicited Start: 08-23-2023 End: 08-23-2023 ambulatory MAURA SUNSHINE Not Available Start: 07-19-2023 End: 07-19-2023 ambulatory MAURA SUNSHINE Not Available Start: 07-12-2023 End: 07-12-2023 ambulatory Daisha Huffman Facility:[facility] Start: 07-12-2023 End: 07-12-2023 ambulatory PA-C Daisha Huffman Work Phone: [facility] Work Phone: Start: 07-12-2023 End: 07-12-2023 Departed Referred PA-C Daisha Huffman Work Phone: [facility] Start: 07-06-2023 End: 07-06-2023 flow sheet Carson Pretty DO Work Phone: [facility] Comment on above: Third trimester preg annette Start: 07-06-2023 End: 07-06-2023 ambulatory CARSON PRETTY Not Available Start: 06-29-2023 End: 06-29-2023 ambulatory MAURA SUNSHINE Not Available Start: 06-29-2023 End: 06-29-2023 flow sheet Maura DORSEY Work Phone: [facility] Comment on above: Third trimester preg annette Start: 06-22-2023 End: 06-22-2023 ambulatory MAURA SUNSHINE Not Available Start: 06-22-2023 End: 06-22-2023 flow sheet Maura Gonsalez PA Work Phone: [facility] Comment on above: Third trimester preg annette Start: 06-09-2023 End: 06-09-2023 ambulatory CARSON PRETTY Not Available Start: 06-02-2023 End: 06-02-2023 ambulatory MAURA SUNSHINE Not Available Start: 05-25-2023 End: 05-25-2023 ambulatory MAURA SUNSHINE Not Available Start: 05-10-2023 End: 05-10-2023 ambulatory MAURA SUNSHINE Not Available Start: 04-26-2023 End: 04-26-2023 ambulatory CARSON PRETTY Not Available Start: 04-12-2023 End: 04-12-2023 ambulatory MAURA SUNSHINE Not Available Start: 10-05-2022 End: 10-05-2022 ambulatory Arlette Fofana Other [email or web address] Other Start: 10-05-2022 Office outpatient vi sit 15 minutes Arlette Fofana [facility] Start: 07-20-2022 End: 08-28-2022 ambulatory KAREN MICHELLE Facility:[facility] Start: 04-15-2022 End: 04-15-[address] CARSON OLSEN . Facility:[facility] Start: 10-23-2021 End: 11-12-2021 ambulatory KAREN MICHELLE Facility:[facility] Start: 10-16-2021 End: 10-16-2021 ambulatory KAREN MICHELLE Facility:[facility] Start: 10-08-2021 Encounter for preprocedural laboratory examination DR CARSON OLSEN . [facility] Start: 10-06-2021 End: 10-09-2021 Evaluation and management of inpatient KAREN MARTINEZ Facility:[facility] Start: 10-04-2021 End: 10-04-[address] SONIA BOWLING . Facility:[facility] Start: 10-03-2021 End: 10-04-2021 ambulatory KAREN MARTINEZ Facility:[facility] Start: 10-03-2021 End: 10-04-2021 Encounter for preprocedural laboratory examination KAREN MARTINEZ Facility:[facility] Start: 10-01-2021 End: 10-01-[address] SONIA BOWLING . Facility:[facility] Start: 09-27-2021 End: 09-27-[address] CARSON OLSEN . Facility:[facility] Start: 09-24-2021 End: 09-24-[address] SONIA BOWLING . Facility:[facility] Start: 08-14-2017 End: 08-14-2017 Emergency department patient visit [facility] Procedures Date Procedure Procedure Detail Performing Clinician Start: 02-23-2024 IGP,APTIMA HPV,AGE GDLN Carson Olsen DO Work Phone: Start: 06-29-2023 Urnls dip stick/tabl et rgnt non-auto w/o micrscp Maura DORSEY Work Phone: Start: 06-24-2023 Urnls dip stick/tabl et rgnt non-auto w/o micrscp Maura DORSEY Work Phone: Start: 02-15-2023 Microscopic observat ion [Identifier] in Cervix by Cyto stain Carson Olsen DO Work Phone: Start: 04-15-2022 Microscopic observat ion [Identifier] in Cervix by Cyto stain Maura DORSEY Work Phone: Start: 10-06-2021 Extraction of Produc ts of Conception, Low Cervical, Open Approach KAREN MARTINEZ Start: 08-14-2017 Radiologic exam ches t 2 views SIMRAN DUONG Start: 08-14-2017 EKG 12-LEAD SIMRAN SALEH Plan of Treatment Date Care Activity Detail Author Start: 02-16-2028 Screening for malign ant neoplasm of cervix [facility] Start: 04-15-2025 Screening for malign ant neoplasm of cervix [facility] Start: 03-05-2025 End: 03-05-2025 Patient encounter procedure 03/05/2025 3:00 PM EDT Office Visit [facility] [address] [place] [id number] Carson Olsen, DO [address] [place], [place] [id number] [facility] Start: 08-23-2024 ondansetron 8 mg disintegrating tablet [place] - [facility] Start: 08-23-2024 InPerson; Acute Complex InPerson; [place] [facility] [place] [facility] Start: 02-23-2024 End: 02-23-2024 Patient encounter procedure 02/23/2024 3:00 PM EDT Office Visit [facility] [address] [place] [address] Carson Olsen, DO [address] [place], [place] [id number] Arrived [facility] Comment on above: Arrived Start: 02-23-2024 End: 04-24-2025 MG Breast - bilateral Screening Bilateral screening mammogram Imaging Routine Family history of breast cancer Expected: 02/23/2024 (Approximate), Expires: 04/24/[address] [facility] Comment on above: Expected: 02/23/2024 (Approximate), Expires: 04/24/2025 Start: 01-23-2024 Influenza vaccination Influenza Vacc ine (#1) [facility] Start: 07-19-2023 End: 07-19-2023 Patient encounter procedure 07/19/2023 2:00 PM EST Office Visit [facility] [address] [place] [phone] Maura Gonsalez PA [address] [place], [place] [id number] [facility] Start: 07-06-2023 End: 07-06-2023 Patient encounter procedure 07/06/2023 2:30 PM EST Routine [facility] [address] [place] [address] Carson Olsen DO [address] [place], [place] [id number] [facility] Start: 06-29-2023 End: 06-29-2023 Patient encounter procedure 06/29/2023 3:00 PM EST Routine [facility] [address] [place] [address] Maura Gonsalez PA [address] [place] [id number] Third trimester [facility] Comment on above: Third trimester preg annette Start: 2023 Screening for malign ant neoplasm of cervix HPV/Cotest [facility] Start: 01-22-2023 Influenza vaccination Influenza Vacc ine (#1) [facility] section section IN [facility] Cytology Cervical or vaginal smear or scraping study Pap Smear Pathology and Cytology Routine Well woman exam with routine gynecological exam Ordered: 02/23/[address] [facility] Work Phone: Comment on above: Ordered: 02/23/2024 Extraction of wisdom tooth extraction of wisdom tooth [place] - [facility] GBS swab, PCR [facility] Work Phone: Comment on above: Ordered: 06/22/2023 Human papilloma viru s DNA [Presence] in Unspecified specimen by Probe with amplification HPV DNA probe, amplified Microbiology Routine Well woman exam with routine gynecological exam Ordered: 02/23/[address] [facility] Comment on above: Ordered: 02/23/2024 Ligation of fallopia n tube ligation of fallopian tube [place] - [facility] Patient Education IN [facility] alth IN [facility] Immunizations Immunization Date Immunization Notes Care Provider Kaylie forbes 04-05-2003 influenza virus vacc ine, unspecified formulation Maura DORSEY Work Phone: [facility] Payers Date Payer Category Payer Self-pay [id number] 2022 Unknown [id number] 2017 Unknown [id number] 1993 Unknown [id number] 2.16.84 0.1.463777.3.579.2.593 1993 Unknown [id number] 2.16.84 0.1.797009.3.579.2.593 1993 Unknown [id number] 2.16.84 0.1.879866.3.579.2.593 1993 Unknown [id number] 2.16.84 0.1.444709.3.579.2.593 1993 Unknown [id number] 2.16.84 0.1.336432.3.579.2.593 1993 Unknown [id number] 2.16.84 0.1.311340.3.579.2.593 1993 Unknown [id number] 2.16.84 0.1.383091.3.579.2.593 1993 Unknown [id number] 2.16.84 0.1.596577.3.579.2.593 1993 Unknown [id number] 2.16.84 0.1.454493.3.579.2.593 1993 Unknown [id number] 2.16.84 0.1.617621.3.579.2.593 1993 Unknown [id number] 2.16.84 0.1.145591.3.579.2.1259 1993 Unknown [id number] 2.16.84 0.1.976815.3.579.2.1259 1993 Unknown [id number] 2.16.84 0.1.516648.3.579.2.9 1993 Unknown [id number] 2.16.84 0.1.132177.3.579.2.1259 1993 Unknown [id number] 2.16.84 0.1.337731.3.579.2.9 1993 Unknown [id number] 2.16.84 0.1.859071.3.579.2.1259 1993 Unknown [id number] 2.16.84 0.1.646626.3.579.2.9 1993 Unknown [id number] 2.16.84 0.1.528526.3.579.2.9 1993 Unknown [id number] 2.16.840 .1.489033.3.579.2.9 1993 Unknown [id number] 2.16.840 .1.638223.3.579.2.9 1993 Unknown [id number] 2.16.840 .1.871239.3.579.2.9 1993 Unknown [id number] 2.16.840 .1.377262.3.579.2.1259 1959 Unknown [id number] Unknown [id number] 2.16.8 40.1.785979.3.579.2.531 Social History Date Type Detail Facility Unknown if ever smoked [email or web address] Other Start: 04-09-2023 End: 07-19-2023 Sex Assigned At [facility] Start: 01-06-2023 End: 07-12-2023 Tobacco smoking status LAIS Never smoked tobacco [facility] Start: 01-06-2023 Tobacco use and exposure Smokeless tobacco non-user [facility] Start: 06-21-2023 End: 02-23-2024 Alcohol intake Current drinker of alcohol (finding) [facility] Start: 04-09-2023 End: 07-19-2023 History of Social function [facility] How [...] 01-04-2023 Sexual orientation Heterosexual (finding) [facility] Sex Assigned At Unknown [place] - [facility] Medical Equipment Procedure Code Equipment Code Equipment Original Text Equi pment Identifier Dates Procedure Implant ([id number]) Clinical Notes 01-16-2021 to 03-24-2024 Note Date & Type Note Facility 03-24-2024 History general Narrative - Reported No medical history recorded. Gynecological History Date of Last Pap Smear 03/24/2024 Current Control Method Tubal Ligation Date of LMP 08/02/2024 Obstetrics History GPAL:G 3 P 0 0 0 3 Type Value Multiple Births 0 Full Term 0 Induced 0 Spontaneous 0 Premature 0 Living 3 Ectopics 0 Total 3 [place] - [facility] [id number] History of Present illness Narrative* Sherly Villa, FREDA - 02/23/2024 3:00 PM EDT Reason for Appointment: Patient ID: Yeimy Rodriguez is a 28 y.o. female who presents for Well Women Visit Patient presents today for Annual Exam. MEDICATIONS Current Outpatient Medications Medication Instructions albuterol HFA 90 mcg/act inhaler INHALE 2 TO 3 PUFFS BY MOUTH EVERY 4 TO 6 HOURS Doxylamine Succinate, Sleep, (UNISOM PO) 1 tablet, Oral, Nightly ibuprofen 800 mg, Oral, Every 8 hours ondansetron (Zofran) 4 MG tablet TAKE 1 TABLET BY MOUTH TWICE DAILY NEEDED FOR NAUSEA oxyCODONE-acetaminophen (Percocet) 5-325 MG tablet 1 tablet, Oral, Every 6 hours pantoprazole (PROTONIX) 40 mg, Oral, Daily before breakfast, Do not crush, chew, or split. 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 Aneurysmal bone cyst Pelvis Asthma (CMS/HCC) Asthma, 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 Breast mass, right Intraductal Papilloma Dysphagia Finger fracture, right age 8 Foot fracture, right Fractured growth plate right foot age 7 H/O section x2 LPRD (laryngopharyngeal reflux disease) Motion sickness Rosacea Throat discomfort Tonsillar hypertrophy Wrist fracture, bilateral age 12, surgery Right wrist Social History Tobacco Use Smoking status: Never Smokeless tobacco: Never Substance Use Topics Alcohol use: Yes Comment: 1 or 2 drinks on a typical day/monthly or less, Caffeine intake: none Drug use: Never FAMILY HISTORY Family History Problem Relation Name Age of Onset Breast cancer Mother Diabetes Mother Heart defect Father Congenital Aortic stenosis Father Other (Mental Retardation) Sister SURGICAL HISTORY Past Surgical History: Procedure Laterality Date BONE CYST EXCISION 2009 BONE CYST EXCISION aneurysmal bone cyst of pelvis x 2 BREAST MASS EXCISION Right Intraductal Papilloma SECTION, CLASSIC 07/12/2023 SECTION, LOW TRANSVERSE 10/11/2019 SECTION, LOW TRANSVERSE 10/06/2021 PAP SMEAR 04/08/2021 Normal TUBAL LIGATION Bilateral 07/12/2023 WISDOM TOOTH EXTRACTION wisdom teeth WRIST FRACTURE SURGERY Right 2007 REVIEW OF SYSTEMS Review of Systems: Review of Systems Constitutional: Negative. HENT: Negative. Eyes: Negative. Respiratory: Negative. Cardiovascular: Negative. Gastrointestinal: Negative. Genitourinary: Negative. Musculoskeletal: Negative. Skin: Negative. Neurological: Negative. All other systems reviewed and are negative. Hematological: Negative. Endocrine: Negative. Allergic/Immunologic: Negative. OBJECTIVE Objective: Physical Exam Constitutional: Appearance: Normal appearance. She is well-developed. Genitourinary: Vulva normal. Breasts: Breasts are soft. Right: Normal. Left: Normal. Cardiovascular: Rate and Rhythm: Normal rate and [...] nursing note reviewed. Exam conducted with a kitchenwhere maker present. Vitals: Estimated body mass index is 28.15 kg/m as calculated from the following: Height as of 12/11/22: 5' 8 . Weight as of this encounter: 185 lb 1.9 oz. BP: 110/68 No LMP recorded. ASSESSMENT & PLAN ICD-10-CM 1. Well woman exam with routine gynecological exam Z01.419 Pap Smear HPV DNA probe, amplified Annual Exam: Patient presents today for an annual exam. Patient states she is doing well and has complaints of mother having breast cancer at age 36, Pt being referred to Dr Pinto for eval of familial history ofbreast cancer- mother, aunt, and maternal grandmother. Pap was obtained without difficulty. Orders Placed This Encounter Procedures HPV DNA probe, amplified Follow Up: Patient is to return in one year for annual unless needed otherwise. Documented by Sherly Villa LPN on behalf of: Carson Olsen DO documented in this encounter[facility] [id number] History of Present illness Narrative* Sherly Villa LPN - 07/06/2023 2:30 PM EST Reason for Appointment: Patient ID: Yeimy Rodriguez is a 28 y.o. female who presents for Routine Visit Patient presents today for Return OB appointment. Current Medications: has a current medication list which includes the following prescription(s): albuterol hfa, doxylamine succinate (sleep), ondansetron, pantoprazole, vit w/wj-mfyoqensw-yt, and pyridoxine. Medical History: Active Ambulatory Problems [...] nursing note reviewed. Exam conducted with a kitchenwhere maker present. Vitals: Estimated body mass index is [...] by Sherly Villa LPN on behalf of: Carson Olsen DO documented in this encounterMer[facility] Hospital St. [id number] History of Present illness Narrative* WILLIAN Lane - 06/29/2023 3:00 PM EST Reason for Appointment: Patient ID: Yeimy Rodriguez is a 28 y.o. female who presents for Routine Visit Patient presents today for Return OB appointment. Current Medications: has a current medication list which includes the following prescription(s): doxylamine succinate (sleep), ondansetron, pantoprazole, vit w/jc-kxojmeqmo-yv, and pyridoxine. Medical History: Active Ambulatory Problems [...] behalf of: WILLIAN Lane documented in this encounterMercy Hospital St. [id number] History of Present illness Narrative* WILLIAN Lane - 06/22/2023 3:00 PM EST Reason for Appointment: Patient ID: Yeimy Rodriguez is a 28 y.o. female who presents for Routine Visit Patient presents today for Return OB appointment. Patient presents today for a routine obstetrics appointment. Patient is currently 36w2d with a Estimated Date of Delivery: 07/18/23. Current Medications: has a current medication list which includes the following prescription(s): doxylamine succinate (sleep), ondansetron, pantoprazole, vit w/bk-vwysfcqxr-dh, and pyridoxine. Medical History: Active Ambulatory Problems [...] were given, fkc tid. As previously documented patientdesires sterilization during the time of her repeat [...] and patient is to proceed to [facility] OR on her scheduled day. Patient is to return in 1 week for scheduled routine OB appointment. Follow Up: Patient is to return to office in 1 week for routine OB apptment Documented by WILLIAN Lane on behalf of: WILLIAN Lane documented in this encounterMercy Hospital St. [id number] Evaluation note* Encounter Date Diagnosis Assessment Notes Treatment Notes Treatment Clinical Notes September, Sore throat (ICD-10 - J02.9) September, Acute pharyngitis due to other specified organisms (ICD-10 - J02.8) Pharyngitis/tonsil lopharyngitis: adult home care material was printed Drink [...] of diseases classified elsewhere (ICD-10 - B96.89) [email or web address] Other 05-16-2022 [place]The [place], [place] NAME: YEIMY RODRIGUEZ A DATE OF : MEDICAL REC#: [id number] SUPERVISOR MIXING: [address] [facility], TRANSADMIT DATE: 10/06/2021 05:30:00 PUMP OILER DATE: 10/06/2021 21:00 DICTATING PHYSICIAN: CARSON OLSEN DICTATION DATE: 10/06/2021 08:00 OPERATIVE NOTE OPERATION DATE: 10/06/2021 PROCEDURE: Repeat low transverse section. PREOPERATIVE DIAGNOSIS: 1. at 39 2/7 weeks. 2. Previous . POSTOPERATIVE DIAGNOSIS: 1. at 39 2/7 weeks. 2. Previous . ANESTHESIA: Spinal with Duramorph. SURGEON: Carson Olsen D.O. ROOM COOLER INSTALLER: LAUREN Ellison URINE OUTPUT: Yellow and clear. [...] stable condition. Electronically Authenticated and Edited by: Carson Olsen DO on 10/07/2021 09:42 AM EDT [place] Signed and Approved by: DR CARSON OLSEN . 10/07/2021 09:42:00[facility]05-16-2022 NoteDISCHARGE SUMMARY DISCHARGE DATE: 10/09/2021 PRIMARY [...] pain free and no longer on narcotics. [place] Signed and Approved by: DR CARSON OLSEN . 10/13/2021 07:35:00[facility]08-26-2021 NoteHNO ID: [id number] Author: Candi Gilliland PA-C Service: ? Author Type: Physician Distance Learning Technician Type: Progress Notes Filed: 02/11/2021 9:16 PM Note Text: Consultation requested by Kali Alcantara [address] [facility] [address] Yeimy Honeycutt is a 25 year old [...] needed. I offered virtual visit option also. Candi Gilliland, MS, PA-C [facility] Note HNO ID: [id number] Author: Vicki Theodore RT(R) Service: Radiology Author Type: Sizer Hand Type: Progress Notes Filed: 01/16/2021 10:07 AM [...] BY: RT Jalen(R) January 16, 2021 10:06 [facility] Diagnosis Third trimester state, incidental Third trimester state, incidental documented in [facility] encounter [facility]* Diagnosis Third trimester state, incidental documented in this encounter [facility]* Diagnosis Third trimester state, incidental documented in this encounter [facility] HealthcareEvaluation noteNo assessment information availableSelect Medical [facility] [place] Work Phone: Evaluation note* Diagnosis Well woman exam with routine gynecological exam Routine gynecological examination Family history of breast cancer Family history of malignant neoplasm of breast documented in this encounter [facility] No assessment recorded. [place] - [facility] Narrative - Reported* Type Description Date Medical History costal chondritis Medical History asthma - exercise induced Medical History 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 Surgical History pelvic cyst removed x2 Surgical History wrist surgery- right Surgical History lumpectomy 12/2017 Surgical History C section x2 Hospitalization History see above [email or web address] Other Summary Purpose Family History Relationship Condition Age at Onset Recorded Date/T bill father Heart disease Unknown Not Specified Malignant neoplasm Unknown Relationship Description Onset Age of this Age Resolved Age Notes LastModified by Organization Details LastModified Time Mother Malignant tumor of breast [email or web address] Not available 07/24 09:53:50 Mother Migraine [email or web address] Not availab le 07/24/2024 09:53:50 Mother Obesity [email or web address] Not availabl e 07/24/2024 09:53:50 Mother Osteoporosis [email or web address] Not king ilable 07/24/2024 09:53:50 Maternal Aunt Malignant tumor of breast [email or web address] Not available 07/24 09:53:50 Maternal Aunt Obesity [id number] Not a vailable 07/24/2024 09:53:50 Maternal Grandmother Malignant tumor of breast [email or web address] Not available 07/24 09:53:50 Maternal Grandmother Obesity [email or web address] Not available 07/2024 09:53:50 Maternal Grandmother Dementia [email or web address] Not available 09:53:50 Paternal Uncle Diabetes mellitus [email or web address] Not available 07/24 09:53:50 Maternal Uncle Obesity [email or web address] Not available 025 09:53:50 Sister Obesity [email or web address] Not availabl e 07/24/2024 09:53:50 Sister Mental disorder Not available 07/24 09:53:50 Father Diabetes mellitus Not available 07/24 09:53:50 Notes:*Relative: Sister*Prob cody: aliveRelative: 'Sister 1'; *Relative: Father*Problem: alive 59 yrs *Relative: Mother*Problem: alive 57 yrs *Relative: Unspecified Relation*Problem: Mother(36),aunt, MGM Breast cancer Father heart valve replacement and pre diabetic 1/2 sister c developmental delay Advance Directives Advance Directive Response Recorded Date/ Time Advance Directives No January 18, 2018 10:23am Additional Source Comments INFORMATION SOURCE (unrecogn ized section and content) DATE CREATED AUTHOR 11/25/2017 Erica Rowe [facility] DATE CREATED AUTHOR AUTHOR'S ORGANIZ ATION 05/12/2019 [facility] DATE CREATED AUTHOR AUTHOR'S ORGANIZ ATION 07/12/2021 [facility] DATE CREATED AUTHOR AUTHOR'S ORGANIZ ATION 09/23/2022 [facility] DATE CREATED AUTHOR AUTHOR'S ORGANIZ ATION 07/23/2023 [facility] DATE CREATED AUTHOR AUTHOR'S ORGANIZ ATION 02/25/2024 [facility] EPIC REASON FOR VISIT (unrecogniz ed section and content) Reason Comments Routine Visit Reason Comments Well Women Visit Care Teams (unrecognized sec tion and content) Front End Technician Relationship Specialty Start Date End Date Fern Martinez MD [address] [place] [address] PCP - General Family Medicine 12/11/22 Front End Technician Relationship Specialty Start Date End Date Fern Martinez MD [address] [place] [address] PCP - General Family Medicine 12/11/22 Front End Technician Relationship Specialty Start Date End Date Fern Martinez MD [address] [place] [address] PCP - General Family Medicine 12/11/22 Team Status: Active Member Role Status Dates Daisha Huffman PA-C Primary Care Provider Active Team Status: Inactive Member Role Status Dates Daisha Huffman PA-C Primary Care Provider Active Start: July 12, 2023 End: July 12, 2023 Carson Olsen Attending Provider Active Start: Bibiana song 2023 End: July 12, 2023 Front End Technician Relationship Specialty Start Date End Date Fern Martinez MD [address] [place] [address] PCP - General Family Medicine 12/11/22 Front End Technician Relationship Specialty Start Date End Date Fern Martinez MD [address] [place] [address] PCP - General Family Medicine 12/11/22 Goals (unrecognized section and content) Goals may be documented in a n alternate section FOR RECORDS PERTAINING TO PATIENTS WHO ARE [...] BE BASED ON THE PRIMARY CLINICAL RECORDS. [facility] [employer] [facility]. provides no warranty or guarantee of the accuracy or completeness of information in this document.
[2024-10-27 10:06] LABS: Basophils Percent Auto 0.8 % (0.2-2.0); Eosinophils Absolute Auto 0.1 10^3/uL (0.0-0.7); Eosinophils Percent Auto 1.2 % (0.9-7.0); Hematocrit 39.8 % (36.0-48.0); Hemoglobin 13.7 g/dL (12.0-16.0); Immature Granulocytes Abs Auto 0.01 10^3/uL (0.00-0.03); Immature Granulocytes Pct Auto 0.2 % (0.0-0.5); Lymphocytes Absolute Auto 1.2 10^3/uL (1.2-3.8); Lymphocytes Percent Auto 23.4 % (20.5-60.0); Mean Corpuscular HGB Conc 34.4 g/dL (29.9-35.2); Mean Corpuscular Hemoglobin 31.3 pg (26.7-34.0); Mean Corpuscular Volume 90.9 fL (81.0-99.0); Mean Platelet Volume 10.8 fL (9.5-13.5); Monocytes Absolute Auto 0.4 10^3/uL (0.3-0.8); Monocytes Percent Auto 7.3 % (1.7-12.0); Neutrophils Absolute Auto 3.3 10^3/uL (1.4-6.5); Neutrophils Percent Auto 67.1 % (43.0-75.0); Platelet Count 209 10^3/uL (150-450); Red Blood Count 4.38 10^6/uL (4.20-5.40); Red Cell Distribution Width 12.3 % (11.0-15.0); White Blood Count 4.9 10^3/uL (4.0-11.0)
[2024-10-27 10:39] LABS: Anion Gap 12.2; Calcium 9.1 mg/dL (8.5-10.1); Carbon Dioxide 27.8 mmol/L (21.0-32.0); Chloride 104 mmol/L (98-107); Estimated GFR (African America >60 (>=60 mL/min/1.73m^2); Estimated GFR (Non-African Ame >60 (>=60 mL/min/1.73m^2); Glucose 89 mg/dL (74-106); Sodium 140 mmol/L (136-145)
[2024-10-27 11:43] LABS: Percent Iron Saturation 39.3 %
[2024-10-28 04:07] LABS: Vitamin B12 1120 pg/mL (232-1245)
== END 2024-10-27 09:26 | disposition home or self-care (01) ==
LOC: LAB 09:27
PROVIDERS: PCP Family Medicine; Visit Provider Internal Medicine Hematology & Oncology
DX: D50.9 Iron deficiency anemia, unspecified (principal); Z15.09 Genetic susceptibility to other malignant neoplasm; D72.829 Elevated white blood cell count, unspecified; D64.9 Anemia, unspecified; K90.9 Intestinal malabsorption, unspecified
CPT/HCPCS: 36415; 80048; 82306; 82607; 82728; 83540; 83550; 85025

== ENCOUNTER 2024-10-31 09:26 | Outpatient (RCR) | payer OTHER, SELFPAY | END 2024-11-01 08:07 | disposition home or self-care (01) | LOC: HEMC 09:26 | PROVIDERS: PCP Family Medicine; Visit Provider Internal Medicine Hematology & Oncology | DX: D50.9 Iron deficiency anemia, unspecified (principal); D72.829 Elevated white blood cell count, unspecified; D64.9 Anemia, unspecified; K90.9 Intestinal malabsorption, unspecified; Z15.09 Genetic susceptibility to other malignant neoplasm; Z98.51 Tubal ligation status; Z80.3 Family history of malignant neoplasm of breast; Z80.42 Family history of malignant neoplasm of prostate; Z80.8 Family history of malignant neoplasm of other organs or systems | CPT/HCPCS: G0463 ==